=== PATIENT | female | born 1980 | race Two or more races ===

== ENCOUNTER 2020-09-24 15:03 | Outpatient (REF) | payer OTHER, SELFPAY | END 2020-09-24 15:04 | disposition home or self-care (01) | LOC: HO.LAB 15:03 | PROVIDERS: Visit Provider Internal Medicine | DX: Z20.828 Contact with and (suspected) exposure to other viral communicable diseases (principal) | CPT/HCPCS: 36415; C9803; U0003 ==

== ENCOUNTER 2020-11-03 12:35 | Outpatient (REF) | payer OTHER, SELFPAY | END 2020-11-03 12:36 | disposition home or self-care (01) | LOC: HO.LAB 12:35 | PROVIDERS: Visit Provider Internal Medicine | DX: Z20.822 Contact with and (suspected) exposure to COVID-19 (principal) | CPT/HCPCS: 36415; C9803; U0003; U0005 ==

== ENCOUNTER 2020-11-13 08:31 | Outpatient (REF) | payer OTHER, SELFPAY | END 2020-11-13 08:32 | disposition home or self-care (01) | LOC: HO.LAB 08:31 | PROVIDERS: Visit Provider Internal Medicine | DX: Z20.822 Contact with and (suspected) exposure to COVID-19 (principal) | CPT/HCPCS: 36415; C9803; U0003; U0005 ==

== ENCOUNTER 2020-11-25 13:34 | Outpatient (REF) | payer OTHER, SELFPAY ==
--- NOTE | ~2020-11-25 | XR_ITS ---
EXAMINATION: XR LUMBAR SPINE AND SACRUM/COCCYX CLINICAL INFORMATION: Low back pain. COMPARISON: None. TECHNIQUE: 3 views lumbar spine. 3 views coccyx/sacrum. FINDINGS: Lumbar Spine: There is normal lumbar lordosis. The vertebral heights, alignment and disc heights are normal. No visible acute fracture, dislocation or lytic process seen. Sacrum/Coccyx: There are bilateral Essure devices in the pelvis. The SI joints are symmetrical. Visualized sacrum and coccyx are intact without any fracture or lytic process. The soft tissues are normal. XR/XR lumbar spine 2-3V IMPRESSION: Unremarkable lumbar spine exam. Unremarkable sacrum/coccyx.
--- NOTE | ~2020-11-25 | XR_ITS ---
EXAMINATION: XR LUMBAR SPINE AND SACRUM/COCCYX CLINICAL INFORMATION: Low back pain. COMPARISON: None. TECHNIQUE: 3 views lumbar spine. 3 views coccyx/sacrum. FINDINGS: Lumbar Spine: There is normal lumbar lordosis. The vertebral heights, alignment and disc heights are normal. No visible acute fracture, dislocation or lytic process seen. Sacrum/Coccyx: There are bilateral Essure devices in the pelvis. The SI joints are symmetrical. Visualized sacrum and coccyx are intact without any fracture or lytic process. The soft tissues are normal. XR/XR sacrum coccyx min 2V IMPRESSION: Unremarkable lumbar spine exam. Unremarkable sacrum/coccyx.
[2020-11-25 16:19] LABS: MANUAL DIFF FLAG NO
[2020-11-25 16:21] LABS: Basophils Absolute Auto 0.1 X10*3/uL (0.0-0.2); Basophils Percent Auto 0.3 % (0-2); Eosinophils Absolute Auto 0.1 X10*3/uL (0.0-0.4); Eosinophils Percent Auto 0.3 % (0-4); Hemoglobin 14.7 g/dl (12.0-16.0); Imm Gran Abs Auto 0.13 X10*3/uL (0.00-0.03); Imm Gran Pct Auto 0.7 % (0.0-0.4); Lymphocytes Absolute Auto 4.7 X10*3/uL (1.2-4.9); Lymphocytes Percent Auto 26.3 % (20-40); Mean Corpuscular HGB Conc 32.7 g/dl (31.0-35.0); Mean Corpuscular Hemoglobin 30.5 pg (27.0-33.0); Mean Corpuscular Volume 93.4 fL (80-98); Mean Platelet Volume 12.1 fL (9.4-12.3); Monocytes Absolute Auto 1.2 X10*3/uL (0.1-1.2); Monocytes Percent Auto 6.9 % (2-11); Neutrophils Absolute Auto 11.7 X10*3/uL (2.0-8.3); Neutrophils Percent Auto 65.5 % (45-73); Platelet Count 294 X10*3/uL (160-400); Red Blood Count 4.82 X10*6/uL (4.20-5.50); Red Cell Distribution Width 13.3 % (11.0-16.0); White Blood Count 17.8 X10*3/uL (4.8-10.8)
[2020-11-25 16:50] LABS: Alanine Aminotransferase 57 U/L (0-31); Albumin Level 3.9 g/dL (3.5-5.0); Alkaline Phosphatase 89 U/L (39-117); Anion Gap 10 (12-20); Aspartate Amino Transferase 30 U/L (5-31); Bilirubin Total 0.3 mg/dL (0.0-1.0); Blood Urea Nitrogen 9 mg/dL (9-16); Calcium 8.4 mg/dL (8.4-10.2); Carbon Dioxide 28 mmol/L (22-29); Chloride 104 mmol/L (96-108); Estimated Glomerular Filt Rate > 60; Glucose Random 64 mg/dL (60-115); Potassium 4.4 mmol/L (3.3-5.1); Sodium 138 mmol/L (135-145); Total Protein 6.5 g/dL (6.5-8.0)
[2020-11-25 17:12] LABS: TSH reflex Free T4 0.43 uIU/mL (0.32-4.0)
== END 2020-11-25 13:35 | disposition home or self-care (01) ==
LOC: HO.HMGCX 13:34
PROVIDERS: PCP Internal Medicine; Visit Provider Internal Medicine
DX: M54.5 Low back pain (principal); M53.3 Sacrococcygeal disorders, not elsewhere classified; E66.9 Obesity, unspecified; E03.8 Other specified hypothyroidism; F33.2 Major depressive disorder, recurrent severe without psychotic features
CPT/HCPCS: 36415; 72100; 72220; 80053; 84443; 85025

== ENCOUNTER 2020-12-07 09:03 | Outpatient (REF) | payer OTHER, SELFPAY ==
[2020-12-07 11:38] LABS: HIV AB/AG Nonreactive (Nonreactive); HIV Num 1 0.04 S/CO (0.00-0.99)
[2020-12-07 11:43] LABS: HBc Num1 0.04 S/CO (0.00-0.79); Hepatitis B Core Antibody Nonreactive (Nonreactive); ~HepC Num1 0.08 S/CO (0.00-0.79); ~Hepatitis C Antibody Nonreactive (Nonreactive)
[2020-12-07 11:45] LABS: Syphilis Screen Reactive (Nonreactive)
[2020-12-07 14:08] LABS: CT PCR NOT DETECTED (Not Detect.); NG PCR NOT DETECTED (Not Detect.)
[2020-12-08 09:07] LABS: BV Int Neg Control Negative (Negative); BV Int Pos Control Positive (Positive)
[2020-12-11 12:06] LABS: RPR Quantitative Non-Reactive (Nonreactive); T.Pallidum Particle Agg Test Reactive (Nonreactive)
[2020-12-12 00:56] LABS: HPV 16 RNA NOT DETECTED (NOT DETECTED); HPV mRNA E6/E7 rflx Detected (Not Detected)
== END 2020-12-07 09:04 | disposition home or self-care (01) ==
LOC: HO.LAB 09:03
PROVIDERS: PCP Internal Medicine; Visit Provider Advanced Practice Midwife
DX: Z01.419 Encounter for gynecological examination (general) (routine) without abnormal findings (principal); E66.9 Obesity, unspecified; F17.210 Nicotine dependence, cigarettes, uncomplicated; L68.0 Hirsutism; N89.8 Other specified noninflammatory disorders of vagina; Z20.2 Contact with and (suspected) exposure to infections with a predominantly sexual mode of transmission; Z68.42 Body mass index [BMI] 45.0-49.9, adult
CPT/HCPCS: 36415; 86592; 86704; 86780; 86803; 87389; 87480; 87491; 87510; 87591; 87624; 87625; 87660; 88141; 88142

== ENCOUNTER 2021-02-10 09:40 | Emergency (ER) | payer OTHER, SELFPAY ==
--- NOTE | ~2021-02-10 | US_ITS ---
EXAMINATION: US PELVIS CLINICAL INFORMATION: History of polycystic ovarian syndrome. Left pelvic pain. COMPARISON: Previous pelvic ultrasounds as recent September 2019 TECHNIQUE: Ultrasound of the pelvis is performed using both transabdominal and transvaginal transducers along with Doppler. Transvaginal imaging is performed due to inadequate visualization transabdominally. FINDINGS: Uterus: The uterus is anteverted and measures 11 x 5.5 x 5.7 cm. The double wall endometrial thickness is 0.8 mm. The uterus is smooth in contour and has normal myometrial echogenicity. There is a 7 x 7 x 9 mm hypoechoic lesion in the left upper uterine body suggestive of a small fibroid. There are nabothian cysts in the cervix. Adnexa: Both ovaries are visualized and are normal-appearing. There is no pelvic ascites or fluid collection. Right ovary measures 2.5 x 2.3 x 2.1 cm. Left ovary measures 3.8 x 1.8 x 2.7 cm. US/US pelvic complete IMPRESSION: Normal-appearing ovaries. No ovarian cyst seen. Small uterine fibroid.
[2021-02-10 10:02] VITALS: BP 160/113; PULSE 118; RESP 17; TEMP 36.6; O2SAT 98; BMI 46.0
[2021-02-10 10:12] VITALS: BP 134/95; PULSE 116; RESP 17; TEMP 36.7; O2SAT 98
--- NOTE | 2021-02-10 10:14 | ED.ABDPAIN ---
HPI - Abdominal Pain General Chief Complaint: Abdominal Pain Stated Complaint: ovary pain Time Seen by Provider: 02/10/21 10:14 Source: patient Mode of arrival: ambulatory Limitations: no limitations History of Present Illness HPI narrative: Patient with PCOS and now with left pelvic pain. No dysuria, no vaginal discharge, patient states her period is late MD elicited complaint: abdominal pain Onset (ago): day(s) Pain Consistency: intermittent Location: LLQ and pelvis Quality: cramping Exacerbating factors: nothing Relieving factors: nothing Associated symptoms: denies other symptoms Related Data Home Medications Medication Instructions Recorded Confirmed lurasidone 40 mg tablet 40 mg PO DAILY 11/06/20 11/25/20 trazodone 50 mg tablet 50 mg PO BEDTIME PRN 11/06/20 11/25/20 Previous Rx's Medication Instructions Recorded albuterol sulfate 90 mcg/actuation 2 puff INHALATION Q4H PRN 30 Days 10/26/20 aerosol inhaler #8.5 g cholecalciferol (vitamin D3) 25 25 mcg PO DAILY 90 Days #90 cap 01/13/21 mcg (1,000 unit) capsule levothyroxine 50 mcg tablet 50 mcg PO DAILY 90 Days #90 tab 01/13/21 loratadine 10 mg tablet 10 mg PO DAILY #90 tab 01/13/21 naproxen [Naprosyn] 500 mg PO BID #20 tab 02/10/21 Allergies Allergy/AdvReac Type Severity Reaction Status Date / Time aripiprazole [Abilify] Allergy Unknown hives Verified 02/10/21 10:02 latex [LATEX] Allergy Unknown RASH Verified 02/10/21 10:02 sertraline [From Zoloft] Allergy Unknown raised Verified 02/10/21 10:02 LFTs/angioedema zolpidem [Ambien] Allergy Unknown hives Verified 02/10/21 10:02 From AMBIEN Allergy Unknown Rash/angioe Uncoded 06/04/20 16:44 dante Latex Allergy Unknown itching/sor Uncoded 02/05/20 00:00 eness latex Allergy Unknown itchiness/s Uncoded 03/22/19 00:00 oreness Review of Systems Constitutional: Reports no additional constitutional complaints Eyes: Reports no additional eye complaints Denies dizziness Cardiovascular: Reports no additional cardiovascular complaints Respiratory: Reports as per HPI Gastrointestinal: Reports no additional gastrointestinal complaints Genitourinary: Reports no additional female genitourinary complaints Musculoskeletal: Reports no additional musculoskeletal complaints Skin/Breast: Denies rash Reports system reviewed and no additional complaints, except as documented, Denies dizziness and Denies Sensory deficit (Neuro) Psychiatric: Denies anxiety Physical Exam Vital Signs: Vital Signs: Last Vital Signs Temp 98.0 F 02/10/21 10:12 Pulse 90 02/10/21 12:37 Resp 18 02/10/21 12:37 BP 146/62 H 02/10/21 12:37 Pulse Ox 99 02/10/21 12:37 Body Mass Index 46.0 Const: Other: female in pain Nutritional Appearance: obese Orientation/consciousness: oriented to person and patient oriented x3 Limitations: no limitations HENMT: Head: Yes normal to inspection Ears: external ears normal General nose exam: Normal external nose present Mouth: Normal oral and palatal mucosa present and oropharynx normal Throat: Yes posterior oropharynx normal Eyes: General: appearance normal, both eyes and all related structures Neck: Other: supple Neck: Yes normal visual inspection Chest: Chest palpation & inspection: normal inspection of the chest Resp: Auscultation: clear to auscultation bilaterally Cardio: Jugular venous distension: no JVD Rate: regular rate Rhythm: regular rhythm Heart sounds: S1 normal heart sound present and S2 normal heart sound present GI: Inspection: Yes normal to inspection Palpation (GI): Soft to palpation, nontender and No hepatosplenomegaly present Auscultation: normal bowel sounds : General: Yes no CVA tenderness Back/Spine/Pelvis: Back: no CVA tenderness Skin: General skin exam: no rashes or lesions noted Neuro: General: oriented to person and patient oriented x3 Cranial nerves: Yes CN's II-XII intact bilaterally Motor exam (neuro): 5/5 motor strength present throughout Sensory Exam: No Sensory deficit (Neuro) Extrem: General: Yes normal to inspection Psych: Appearance: grossly normal Course Course Course Narrative: ultrasound was negative, WBC mildly elevated, UA with slight blood, nontender abdomen will dc on nsaids MDM - Abdominal Pain Lab Data Result diagrams: 02/10/21 11:03 02/10/21 11:03 Labs: Lab Results 02/10/21 02/10/21 02/10/21 Range/Units 10:47 10:47 11:03 WBC 13.9 H (4.8-10.8) X10*3/uL RBC 4.90 (4.20-5.50) X10*6/uL Hgb 15.0 (12.0-16.0) g/dl Hct 45.3 (37-47) % MCV 92.4 (80-98) fL MCH 30.6 (27.0-33.0) pg MCHC 33.1 (31.0-35.0) g/dl RDW 13.4 (11.0-16.0) % Plt Count 263 (160-400) X10*3/uL MPV 11.2 (9.4-12.3) fL Immature Gran % (Auto) 1.0 H (0.0-0.4) % Neut % (Auto) 69.1 (45-73) % Lymph % (Auto) 21.0 (20-40) % [place] % (Auto) 7.9 (2-11) % Eos % (Auto) 0.6 (0-4) % Baso % (Auto) 0.4 (0-2) % Lymph # (Auto) 2.9 (1.2-4.9) X10*3/uL [place] # (Auto) 1.1 (0.1-1.2) X10*3/uL Eos # (Auto) 0.1 (0.0-0.4) X10*3/uL Baso # (Auto) 0.1 (0.0-0.2) X10*3/uL Abs Immat Gran (auto) 0.14 H (0.00-0.03) X10*3/uL Absolute Neuts (auto) 9.6 H (2.0-8.3) X10*3/uL Absolute Nucleated RBC 0.000 (0.0-0.012) X10*3/uL Nucleated RBC % (auto) 0.0 (0.0-0.2) /100WBC Sodium (135-145) mmol/L Potassium (3.3-5.1) mmol/L Chloride (96-108) mmol/L Carbon Dioxide (22-29) mmol/L Anion Gap (12-20) BUN (9-16) mg/dL Creatinine (0.5-1.4) mg/dL Estim Creat Clear Calc Estimated GFR Random Glucose (60-115) mg/dL Calcium (8.4-10.2) mg/dL Urine Color YELLOW Urine Appearance CLEAR Urine pH 6.0 (5.0-8.0) Ur Specific [place] <= 1.005 (1.005-1.025) Urine Protein NEG (NEG-TRACE) MG/DL Urine Glucose (UA) NEG (NEG) MG/DL Urine Ketones NEG (NEG) MG/DL Urine Blood 2+ H (NEG) Urine Nitrite NEG (NEG) Ur Leukocyte Esterase NEG (NEG) Urine RBC 10-14 H (0) /HPF Urine WBC 0 (0-4) /HPF Ur Squamous Epith Cells TRACE /LPF Urine Bacteria NONE /LPF Urine Test NEGATIVE (NEGATIVE) 02/10/21 Range/Units 11:03 WBC (4.8-10.8) X10*3/uL RBC (4.20-5.50) X10*6/uL Hgb (12.0-16.0) g/dl Hct (37-47) % MCV (80-98) fL MCH (27.0-33.0) pg MCHC (31.0-35.0) g/dl RDW (11.0-16.0) % Plt Count (160-400) X10*3/uL MPV (9.4-12.3) fL Immature Gran % (Auto) (0.0-0.4) % Neut % (Auto) (45-73) % Lymph % (Auto) (20-40) % [place] % (Auto) (2-11) % Eos % (Auto) (0-4) % Baso % (Auto) (0-2) % Lymph # (Auto) (1.2-4.9) X10*3/uL [place] # (Auto) (0.1-1.2) X10*3/uL Eos # (Auto) (0.0-0.4) X10*3/uL Baso # (Auto) (0.0-0.2) X10*3/uL Abs Immat Gran (auto) (0.00-0.03) X10*3/uL Absolute Neuts (auto) (2.0-8.3) X10*3/uL Absolute Nucleated RBC (0.0-0.012) X10*3/uL Nucleated RBC % (auto) (0.0-0.2) /100WBC Sodium 138 (135-145) mmol/L Potassium 4.4 (3.3-5.1) mmol/L Chloride 108 (96-108) mmol/L Carbon Dioxide 24 (22-29) mmol/L Anion Gap 10 L (12-20) BUN 9 (9-16) mg/dL Creatinine 0.70 (0.5-1.4) mg/dL Estim Creat Clear Calc 135.2 Estimated GFR > 60 Random Glucose 89 D (60-115) mg/dL Calcium 8.4 (8.4-10.2) mg/dL Urine Color Urine Appearance Urine pH (5.0-8.0) Ur Specific [place] (1.005-1.025) Urine Protein (NEG-TRACE) MG/DL Urine Glucose (UA) (NEG) MG/DL Urine Ketones (NEG) MG/DL Urine Blood (NEG) Urine Nitrite (NEG) Ur Leukocyte Esterase (NEG) Urine RBC (0) /HPF Urine WBC (0-4) /HPF Ur Squamous Epith Cells /LPF Urine Bacteria /LPF Urine Test (NEGATIVE) Imaging Data pelvic US: Radiologist's impression: IMPRESSION: Normal-appearing ovaries. No ovarian cyst seen. Small uterine fibroid. Discharge Plan Discharge Clinical Impression: Abdominal pain Qualifiers: Abdominal location: left lower quadrant Qualified Code(s): R10.32 - Left lower quadrant pain Patient Disposition: Home, Self-Care Instructions: Abdominal Pain (ED) Prescriptions: New naproxen [Naprosyn] 500 mg tablet 500 mg PO BID Qty: 20 RF: 0 No Action albuterol sulfate [Ventolin HFA] 90 mcg/actuation HFA aerosol inhaler 2 puff inhalation Q4H PRN (Reason: bronchospasm) 30 Days Qty: 8.5 RF: 0 Latuda 40 mg tablet 40 mg PO DAILY RF: 0 trazodone 50 mg tablet 50 mg PO BEDTIME PRNRF: 0 loratadine 10 mg tablet 10 mg PO DAILY Qty: 90 RF: 0 levothyroxine [Synthroid] 50 mcg tablet 50 mcg PO DAILY 90 Days Qty: 90 RF: 0 cholecalciferol (vitamin D3) 25 mcg (1,000 unit) capsule 25 mcg PO DAILY 90 Days Qty: 90 RF: 0 Referrals: Sally Ramirez MD [Primary Care Provider] - 1 week [facility] Past Medical History Medical History Anemia Asthma Bipolar 1 disorder Diabetes mellitus Elevated WBCs Encounter for Essure implantation History of hypothyroidism History of syphilis Hypothyroid HENRIQUEZ (nonalcoholic steatohepatitis) Neutrophilia PCOS (polycystic ovarian syndrome) Family History Family History Paternal Grandfather Colon cancer Paternal Grandmother Breast cancer Maternal Grandmother Uterine cancer Father Arthritis Asthma Social History Social History Alcohol intake: never Patient Tobacco Use Status: Never used Tobacco Cigarettes Per Day: 5 Use of substances other than those prescribed or required for medical reasons: No Advance Directives: Yes Advance Directives Information Provided: Yes Advance Directives on File: No Sexual orientation: Straight/Heterosexual Gender identity: female
--- NOTE | 2021-02-10 10:55 | PC.NURSE ---
Pt ambulatory to the bathroom and back without difficulty. Urine specimen obtained. Heplock inserted in right upper arm with a 20 gauge insyte. Site secured and flushed with ns.
[2021-02-10 11:02] LABS: Glucose Urine UA NEG (NEG); Leukocyte Esterase Urine NEG (NEG); Nitrite Urine NEG (NEG); Specific Gravity - Urine <= 1.005 (1.005-1.025); Urine Blood 2+ (NEG); Urine Ketones NEG (NEG); Urine Protein NEG (NEG-TRACE)
[2021-02-10 11:04] LABS: Appearance Urine CLEAR; Color Urine YELLOW; UPreg QC Valid YES; Urine Pregnancy NEGATIVE (NEGATIVE)
[2021-02-10 11:08] LABS: MANUAL DIFF FLAG NO
[2021-02-10 11:11] LABS: Squamous Epithelial Cell Urine TRACE /LPF; WBC Urine 0 /HPF (0-4)
[2021-02-10] MEDS: 0.9 % Sodium Chloride 1,000 ML 999 ML IVCONT (11:15)
[2021-02-10 11:16] LABS: Basophils Absolute Auto 0.1 X10*3/uL (0.0-0.2); Basophils Percent Auto 0.4 % (0-2); Eosinophils Absolute Auto 0.1 X10*3/uL (0.0-0.4); Eosinophils Percent Auto 0.6 % (0-4); Hematocrit 45.3 % (37-47); Imm Gran Abs Auto 0.14 X10*3/uL (0.00-0.03); Lymphocytes Absolute Auto 2.9 X10*3/uL (1.2-4.9); Mean Corpuscular HGB Conc 33.1 g/dl (31.0-35.0); Mean Corpuscular Hemoglobin 30.6 pg (27.0-33.0); Mean Corpuscular Volume 92.4 fL (80-98); Mean Platelet Volume 11.2 fL (9.4-12.3); Monocytes Absolute Auto 1.1 X10*3/uL (0.1-1.2); Monocytes Percent Auto 7.9 % (2-11); Neutrophils Absolute Auto 9.6 X10*3/uL (2.0-8.3); Neutrophils Percent Auto 69.1 % (45-73); Platelet Count 263 X10*3/uL (160-400); Red Cell Distribution Width 13.4 % (11.0-16.0); White Blood Count 13.9 X10*3/uL (4.8-10.8)
--- NOTE | 2021-02-10 11:16 | PC.NURSE ---
NS infusion started iv in right upper arm
[2021-02-10 11:30] LABS: Anion Gap 10 (12-20); Blood Urea Nitrogen 9 mg/dL (9-16); Calcium 8.4 mg/dL (8.4-10.2); Carbon Dioxide 24 mmol/L (22-29); Chloride 108 mmol/L (96-108); Creatinine Clr Calc Pharmacy 135.2; Estimated Glomerular Filt Rate > 60; Glucose Random 89 mg/dL (60-115); Potassium 4.4 mmol/L (3.3-5.1); Sodium 138 mmol/L (135-145)
[2021-02-10] MEDS: Ketorolac Tromethamine 30 MG/ML VIAL IVPUSH (11:30)
--- NOTE | 2021-02-10 12:01 | PC.NURSE ---
Patient states pain is better after getting toradol IV. Pt rates pain a 5/10. Pt to ultrasound via stretcher alert, oriented and in no acute distress
[2021-02-10 12:37] VITALS: BP 146/62; PULSE 90; RESP 18; O2SAT 99
--- NOTE | 2021-02-10 12:40 | PC.NURSE ---
Patient is back from ultrasound in no distress. Second liter of ns started per doctors orders.
--- NOTE | 2021-02-10 13:52 | PC.NURSE ---
heplock removed. pressure bandage applied. discharge instructions given with no questions voiced.
== END 2021-02-10 13:46 | disposition home or self-care (01) ==
PROVIDERS: Emergency Provider Emergency Medicine; PCP Internal Medicine
DX: N94.89 Other specified conditions associated with female genital organs and menstrual cycle (principal); R10.32 Left lower quadrant pain; Z79.899 Other long term (current) drug therapy; F17.210 Nicotine dependence, cigarettes, uncomplicated; Z71.6 Tobacco abuse counseling
CPT/HCPCS: 36415; 76856; 80048; 81001; 81003; 81025; 85025; 96365; 96375; 99285; J1885

== ENCOUNTER 2021-03-03 11:31 | Outpatient (REF) | payer OTHER, SELFPAY ==
--- NOTE | ~2021-03-03 | XR_ITS ---
EXAMINATION: XR RIBS, LEFT CLINICAL INFORMATION: Pleurodynia. COMPARISON: None TECHNIQUE: Frontal view of chest. 3 views of the left ribs were obtained. FINDINGS: Lungs are clear. No consolidation, pneumothorax, or pleural effusion. The cardiomediastinal silhouette and pulmonary vasculature are normal. Osseous structures are unremarkable. Ribs are intact. No fractures are identified. XR/XR ribs LT min 3V w CXR1V IMPRESSION: Unremarkable examination.
== END 2021-03-03 11:32 | disposition home or self-care (01) ==
LOC: HO.HMGCX 11:31
PROVIDERS: PCP Internal Medicine; Visit Provider Internal Medicine
DX: R07.81 Pleurodynia (principal)
CPT/HCPCS: 71101

== ENCOUNTER → 2021-04-28 10:17 | Outpatient (REF) | payer OTHER, SELFPAY | LOC: HO.SL 10:17 | PROVIDERS: PCP Internal Medicine; Visit Provider Internal Medicine | DX: R40.0 Somnolence (principal); R06.83 Snoring | CPT/HCPCS: 95806 ==

== ENCOUNTER → 2021-08-02 12:59 | Outpatient (BNVA) | payer OTHER, SELFPAY | PROVIDERS: PCP Internal Medicine; Visit Provider Internal Medicine | DX: E66.01 Morbid (severe) obesity due to excess calories (principal); G47.33 Obstructive sleep apnea (adult) (pediatric); R06.83 Snoring | CPT/HCPCS: 99202 ==

== ENCOUNTER 2021-09-20 11:20 | Outpatient (REF) | payer OTHER, SELFPAY ==
[2021-09-20 12:58] LABS: COVID-19 Test Negative (Negative); IDNOW Serial# 16C4AD1C
== END 2021-09-20 11:21 | disposition home or self-care (01) ==
LOC: HO.LAB 11:20
PROVIDERS: Visit Provider Internal Medicine
DX: Z20.822 Contact with and (suspected) exposure to COVID-19 (principal)
CPT/HCPCS: 36415; 87635; C9803

== ENCOUNTER 2021-09-23 09:20 | Outpatient (REF) | payer OTHER, SELFPAY ==
[2021-09-23 10:25] LABS: COVID-19 Test Negative (Negative)
== END 2021-09-23 09:21 | disposition home or self-care (01) ==
LOC: HO.LAB 09:20
PROVIDERS: Visit Provider Internal Medicine
DX: Z20.822 Contact with and (suspected) exposure to COVID-19 (principal)
CPT/HCPCS: 87635; C9803

== ENCOUNTER 2021-09-28 16:39 | Outpatient (REF) | payer OTHER, SELFPAY ==
[2021-09-28 17:27] LABS: HCG Quantitative < 2 mIU/mL
== END 2021-09-28 16:40 | disposition home or self-care (01) ==
LOC: HO.LAB 16:39
PROVIDERS: Visit Provider Advanced Practice Midwife
DX: N92.6 Irregular menstruation, unspecified (principal)
CPT/HCPCS: 36415; 84702

== ENCOUNTER 2021-10-05 13:53 | Outpatient (REF) | payer OTHER, SELFPAY ==
--- NOTE | ~2021-10-05 | XR_ITS ---
EXAMINATION: XR KNEE, RIGHT CLINICAL INFORMATION: Pain COMPARISON: None TECHNIQUE: Four views of the right knee. FINDINGS: Bones and soft tissues are normal. No fracture or joint effusion. Alignment is anatomic. Joint spaces are well maintained. No abnormal soft tissue calcification. XR/XR knee RT 4V IMPRESSION: Normal right knee.
[2021-10-05 16:54] LABS: Alanine Aminotransferase 37 U/L (0-31); Albumin Level 3.8 g/dL (3.5-5.0); Alkaline Phosphatase 100 U/L (39-117); Anion Gap 13 (12-20); Aspartate Amino Transferase 18 U/L (5-31); Bilirubin Total 0.3 mg/dL (0.0-1.0); Blood Urea Nitrogen 11 mg/dL (9-16); Calcium 8.9 mg/dL (8.4-10.2); Carbon Dioxide 26 mmol/L (22-29); Chloride 105 mmol/L (96-108); Estimated Glomerular Filt Rate > 60; Glucose Random 110 mg/dL (60-115); Sodium 139 mmol/L (135-145); Total Protein 6.8 g/dL (6.5-8.0)
[2021-10-05 17:14] LABS: TSH reflex Free T4 0.94 uIU/mL (0.32-4.0)
== END 2021-10-05 13:54 | disposition home or self-care (01) ==
LOC: HO.HMGCLNP 13:53
PROVIDERS: Visit Provider Internal Medicine
DX: E03.8 Other specified hypothyroidism (principal); E66.01 Morbid (severe) obesity due to excess calories; G47.33 Obstructive sleep apnea (adult) (pediatric); F33.2 Major depressive disorder, recurrent severe without psychotic features; I10 Essential (primary) hypertension; Z72.0 Tobacco use; Z99.89 Dependence on other enabling machines and devices
CPT/HCPCS: 73564; 80053; 84443

== ENCOUNTER 2021-11-09 10:56 | Outpatient (REF) | payer OTHER, SELFPAY ==
[2021-11-09 12:08] LABS: Baso%MD 0.5 %; Eos%MD 0.8 %; Hematocrit 48.3 % (37.0-47.0); Hemoglobin 15.6 g/dl (12.0-16.0); IG%MD 1.4 %; Lymph%MD 21.3 %; Mean Corpuscular HGB Conc 32.3 g/dl (31.0-35.0); Mean Corpuscular Hemoglobin 30.1 pg (27.0-33.0); Mean Corpuscular Volume 93.1 fL (80.0-98.0); Mean Platelet Volume 11.5 fL (9.4-12.3); Mono%MD 6.9 %; Neut%MD 69.1 %; Platelet Count 258 X10*3/uL (160-400); Red Blood Count 5.19 X10*6/uL (4.20-5.50); Red Cell Distribution Width 13.8 % (11.0-16.0); White Blood Count 14.3 X10*3/uL (4.8-10.8)
[2021-11-09 12:18] LABS: Estimated Average Glucose 148 mg/dL; Hemoglobin A1c % 6.8 %
[2021-11-09 13:00] LABS: Free T4 (Free Thyroxine) 0.94 ng/dL (0.71-1.85); Thyroid Stimulating Hormone 0.51 uIU/mL (0.32-4.0)
[2021-11-09 13:05] LABS: Anion Gap 13 (12-20); Blood Urea Nitrogen 10 mg/dL (9-16); Calcium 8.8 mg/dL (8.4-10.2); Carbon Dioxide 24 mmol/L (22-29); Chloride 105 mmol/L (96-108); Cholesterol 154 mg/dL; Estimated Glomerular Filt Rate > 60; Glucose Fasting 96 mg/dL (60-99); HDL Cholesterol 33 mg/dL; LDL Cholesterol Calculated 92 mg/dl; Potassium 5.1 mmol/L (3.3-5.1); Sodium 137 mmol/L (135-145); Triglycerides 149 mg/dL
[2021-11-09 13:12] LABS: Atypical Lymph Absolute Manual 0.6 x10*3/uL; Atypical Lymphs Percent Manual 4 % (0-6); Band Neutrophils Percent 2 % (3-5); Monocytes Absolute Manual 0.9 X10*3/uL (0.1-1.2); Monocytes Percent Manual 6 % (2-11)
[2021-11-09 13:13] LABS: Lymphocytes Absolute Manual 2.1 X10*3/uL (1.2-4.9); Lymphocytes Percent Manual 15 % (20-40); Neutrophils Absolute Manual 10.7 X10*3/uL (2.0-8.3); Neutrophils Percent Manual 73 % (45-73)
[2021-11-09 13:14] LABS: Platelet Estimate NORMAL (NORMAL)
[2021-11-09 13:15] LABS: Platelet Morphology Comment NORMAL; RBC Morphology NORMAL
[2021-11-10 07:57] LABS: Prolactin 2.6 ng/mL
== END 2021-11-09 10:57 | disposition home or self-care (01) ==
LOC: HO.LAB 10:56
PROVIDERS: PCP Internal Medicine; Visit Provider Clinical Nurse Specialist Psychiatric/Mental Health, Child & Adolescent
DX: Z51.81 Encounter for therapeutic drug level monitoring (principal); Z79.899 Other long term (current) drug therapy
CPT/HCPCS: 36415; 80048; 80061; 83036; 84146; 84439; 84443; 85007; 85027

== ENCOUNTER 2021-12-09 08:57 | Outpatient (REF) | payer OTHER, SELFPAY ==
[2021-12-10 01:36] LABS: CT PCR NOT DETECTED (Not Detect.); NG PCR NOT DETECTED (Not Detect.)
[2021-12-11 23:46] LABS: HPV 16 RNA NOT DETECTED (NOT DETECTED); HPV mRNA E6/E7 rflx Detected (Not Detected)
== END 2021-12-09 08:58 | disposition home or self-care (01) ==
LOC: HO.LAB 08:57
PROVIDERS: PCP Internal Medicine; Visit Provider Advanced Practice Midwife
DX: Z01.419 Encounter for gynecological examination (general) (routine) without abnormal findings (principal); Z11.51 Encounter for screening for human papillomavirus (HPV); Z20.2 Contact with and (suspected) exposure to infections with a predominantly sexual mode of transmission
CPT/HCPCS: 87491; 87591; 87624; 87625; 88142

== ENCOUNTER → 2021-12-15 13:10 | Outpatient (BNVA) | payer OTHER, SELFPAY | PROVIDERS: PCP Internal Medicine; Visit Provider Internal Medicine | DX: G47.33 Obstructive sleep apnea (adult) (pediatric) (principal); E66.01 Morbid (severe) obesity due to excess calories; Z71.3 Dietary counseling and surveillance | CPT/HCPCS: 99212 ==

== ENCOUNTER 2021-12-24 14:42 | Outpatient (REF) | payer OTHER, SELFPAY ==
[2021-12-24 16:53] LABS: HCG Quantitative < 2 mIU/mL
== END 2021-12-24 14:43 | disposition home or self-care (01) ==
LOC: HO.HMGCLDS 14:42
PROVIDERS: PCP Internal Medicine; Visit Provider Internal Medicine
DX: N92.6 Irregular menstruation, unspecified (principal)
CPT/HCPCS: 36415; 84702

== ENCOUNTER → 2022-01-21 11:43 | Outpatient (BNVA) | payer OTHER, SELFPAY | PROVIDERS: PCP Internal Medicine; Referring Provider Internal Medicine; Visit Provider Physician Assistant Surgical | DX: E66.01 Morbid (severe) obesity due to excess calories (principal); Z68.43 Body mass index [BMI] 50.0-59.9, adult | CPT/HCPCS: 99202 ==

== ENCOUNTER 2022-01-31 14:31 | Outpatient (REF) | payer OTHER, SELFPAY | END 2022-01-31 14:32 | disposition home or self-care (01) | LOC: HO.LAB 14:31 | PROVIDERS: PCP Internal Medicine; Visit Provider Obstetrics & Gynecology | DX: R87.612 Low grade squamous intraepithelial lesion on cytologic smear of cervix (LGSIL) (principal) | CPT/HCPCS: 57454; 81025; 88305; 88342; 88360 ==

== ENCOUNTER → 2022-02-08 14:00 | Outpatient (BNVA) | payer OTHER, SELFPAY | PROVIDERS: PCP Internal Medicine; Visit Provider Counselor Mental Health | DX: F31.70 Bipolar disorder, currently in remission, most recent episode unspecified (principal); E66.01 Morbid (severe) obesity due to excess calories | CPT/HCPCS: 90791 ==

== ENCOUNTER 2022-02-10 08:53 | Outpatient (REF) | payer OTHER, SELFPAY ==
--- NOTE | ~2022-02-10 | XR_ITS ---
EXAMINATION: XR CHEST CLINICAL INFORMATION: Bariatric service evaluation, E66.01. COMPARISON: Chest radiographs 03/03/2021, 08/06/2016. TECHNIQUE: 2 views of the chest were obtained. FINDINGS: The lungs are clear. The vascularity is normal. The heart is normal in size. The costophrenic sulci are well-defined. The hilar and mediastinal contours are normal. Bony structures are unremarkable. XR/XR chest 2V IMPRESSION: Unremarkable examination.
--- NOTE | 2022-02-10 08:59 | ECG_ITS ---
Test Reason : obesity Blood Pressure : / mmHG Vent. Rate : 097 BPM Atrial Rate : 097 BPM P-R Int : 152 ms QRS Dur : 080 ms QT Int : 350 ms P-R-T Axes : 058 094 035 degrees QTc Int : 444 ms Normal sinus rhythm Rightward axis Borderline ECG When compared with ECG of 09-MAR-2018 07:32, No significant change was found Referred By: Matt Barnard Electronically Signed By:Ventura Pang
[2022-02-10 09:24] LABS: MANUAL DIFF FLAG NO
[2022-02-10 09:42] LABS: Basophils Absolute Auto 0.1 X10*3/uL (0.0-0.2); Basophils Percent Auto 0.4 % (0-2); Eosinophils Absolute Auto 0.2 X10*3/uL (0.0-0.4); Eosinophils Percent Auto 1.1 % (0-4); Hematocrit 45.6 % (37.0-47.0); Imm Gran Abs Auto 0.12 X10*3/uL (0.00-0.03); Imm Gran Pct Auto 0.9 % (0.0-0.4); Lymphocytes Absolute Auto 2.8 X10*3/uL (1.2-4.9); Lymphocytes Percent Auto 21.2 % (20-40); Mean Corpuscular HGB Conc 32.9 g/dl (31.0-35.0); Mean Corpuscular Hemoglobin 30.4 pg (27.0-33.0); Mean Corpuscular Volume 92.5 fL (80.0-98.0); Mean Platelet Volume 11.4 fL (9.4-12.3); Monocytes Absolute Auto 1.1 X10*3/uL (0.1-1.2); Monocytes Percent Auto 8.1 % (2-11); Neutrophils Percent Auto 68.3 % (45-73); Platelet Count 240 X10*3/uL (160-400); Red Blood Count 4.93 X10*6/uL (4.20-5.50); Red Cell Distribution Width 13.9 % (11.0-16.0); White Blood Count 13.1 X10*3/uL (4.8-10.8)
[2022-02-10 10:01] LABS: Estimated Average Glucose 140 mg/dL; Hemoglobin A1c % 6.5 %
[2022-02-10 10:05] LABS: Alanine Aminotransferase 36 U/L (0-31); Albumin Level 3.8 g/dL (3.5-5.0); Alkaline Phosphatase 90 U/L (39-117); Anion Gap 10 (12-20); Aspartate Amino Transferase 16 U/L (5-31); Bilirubin Total 0.4 mg/dL (0.0-1.0); Blood Urea Nitrogen 13 mg/dL (9-16); C Reactive Protein 0.75 mg/dL (< or = 0.50); Calcium 8.8 mg/dL (8.4-10.2); Carbon Dioxide 25 mmol/L (22-29); Chloride 107 mmol/L (96-108); Cholesterol 140 mg/dL; Estimated Glomerular Filt Rate > 60; Glucose Random 108 mg/dL (60-115); HDL Cholesterol 28 mg/dL; Iron 51 mcg/dL (30-160); LDL Cholesterol Calculated 85 mg/dl; Percent Iron Saturation 15 % (15-50); Potassium 4.8 mmol/L (3.3-5.1); Sodium 137 mmol/L (135-145); Total Iron Binding Capacity 330 mcg/dL (228-428); Total Protein 6.5 g/dL (6.5-8.0); Triglycerides 136 mg/dL; Unsaturated Iron Binding 279 ug/dL
[2022-02-10 10:28] LABS: Ferritin 37 ng/mL (10-122); TSH reflex Free T4 0.71 uIU/mL (0.32-4.0); Vitamin D 25-OH Total 21.6 ng/mL (>30)
[2022-02-10 10:39] LABS: Folate 16.8 ng/mL (> or = 4.0); Vitamin B12 374 pg/mL (200-900)
[2022-02-10 11:26] LABS: Insulin 36 uU/mL (2-29)
[2022-02-12 12:07] LABS: Calcium (PTHI) 8.6 mg/dL (8.6-10.2); PTHI 54 pg/mL (16-77)
[2022-02-16 04:17] LABS: Zinc 72 mcg/dL (60-130)
[2022-02-16 14:32] LABS: Vitamin A 35 mcg/dL (38-98)
[2022-02-16 15:51] LABS: Vitamin B1 9 nmol/L (8-30)
== END 2022-02-10 08:54 | disposition home or self-care (01) ==
LOC: HO.LAB 08:53
PROVIDERS: PCP Internal Medicine; Visit Provider Physician Assistant Surgical
DX: Z01.818 Encounter for other preprocedural examination (principal); E66.01 Morbid (severe) obesity due to excess calories
CPT/HCPCS: 36415; 71046; 80053; 80061; 82306; 82607; 82728; 82746; 83036; 83525; 83540; 83970; 84425; 84443; 84590; 84630; 85025; 86140; 93005

== ENCOUNTER 2022-02-15 14:22 | Outpatient (REF) | payer OTHER, SELFPAY ==
[2022-02-16 14:11] LABS: H Pylori Breath Test Negative (Negative)
== END 2022-02-15 14:23 | disposition home or self-care (01) ==
LOC: HO.LNP 14:22
PROVIDERS: Physician Assistant Surgical; PCP Internal Medicine; Visit Provider Obstetrics & Gynecology
DX: E66.01 Morbid (severe) obesity due to excess calories (principal); N87.1 Moderate cervical dysplasia; Z71.3 Dietary counseling and surveillance; Z79.899 Other long term (current) drug therapy
CPT/HCPCS: 83013; 99211; 99212

== ENCOUNTER 2022-02-16 11:31 | Outpatient (REF) | payer OTHER, SELFPAY ==
[2022-02-16 12:06] LABS: COVID-19 Test Negative (Negative)
== END 2022-02-16 11:32 | disposition home or self-care (01) ==
LOC: HO.LAB 11:31
PROVIDERS: PCP Internal Medicine; Visit Provider Internal Medicine
DX: Z20.822 Contact with and (suspected) exposure to COVID-19 (principal)
CPT/HCPCS: 87635; C9803

== ENCOUNTER → 2022-02-17 12:00 | Outpatient (BNVA) | payer OTHER, SELFPAY | PROVIDERS: PCP Internal Medicine; Visit Provider Counselor Mental Health | DX: F31.70 Bipolar disorder, currently in remission, most recent episode unspecified (principal); E66.01 Morbid (severe) obesity due to excess calories | CPT/HCPCS: 90834 ==

== ENCOUNTER 2022-02-25 08:56 | Day surgery (SDC) | payer OTHER, SELFPAY ==
--- NOTE | 2022-02-24 09:08 | HO.ANESPROP2 ---
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 (Acute) Missed menses (Acute) Encounter for annual routine gynecological examination (Acute) Knee pain, right (Acute) DONNA (obstructive sleep apnea) (Acute) Morbid obesity (Acute) Environmental allergies (Acute) Sore throat (Acute) Obstructive sleep apnea on CPAP (Acute) Encounter for general adult medical examination with abnormal findings (Acute) Hypertension, essential (Acute) Rash (Acute) Snoring (Acute) Daytime somnolence (Acute) Heart burn (Acute) Hospital discharge follow-up (Acute) Tobacco abuse (Acute) Elevated blood pressure reading (Acute) Rib pain on left side (Acute) Depression, major, severe recurrence (Acute) Other specified hypothyroidism (Acute) Coccyx pain (Acute) Lower back pain (Acute) Past Medical History Medical History (Updated 02/25/22 @ 12:23 by Jaye Kaur MD) Anemia Asthma Bipolar 1 disorder Elevated WBCs Encounter for Essure implantation H/O abnormal cervical Papanicolaou smear History of electroconvulsive therapy History of hypothyroidism History of syphilis Hypothyroid Morbid obesity Morbid obesity due to excess calories HENRIQUEZ (nonalcoholic steatohepatitis) Neutrophilia DONNA (obstructive sleep apnea) PCOS (polycystic ovarian syndrome) Family History Family History Paternal Grandfather Colon cancer Paternal Grandmother Breast cancer Maternal Grandmother Uterine cancer Father Arthritis Asthma Diabetes Hypertension Stroke Mother Hypertension Mental health disorder Sister Hypertension Diabetes Sister No problems noted. Sister Depression Obesity Brother No problems noted. Sister Lupus Son No problems noted. Daughter No problems noted. Social History Social History Housing: Apartment Alcohol intake: current Alcohol intake frequency: holidays/special occasions only Patient Tobacco Use Status: Current everyday Tobacco user Tobacco use type: Cigarette Cigarettes Per Day: 3 Years Smoked: 15 e-Cigarette/Vaping Use: Never Used Use of substances other than those prescribed or required for medical reasons: Yes Substance Use Frequency: Occasionally Are you DNR?: No Advance Directives: No Advance Directives Information Provided: Yes service: No Current occupational status: unemployed Sexual orientation: Straight/Heterosexual Gender identity: Female Cognitive needs: No Hearing needs: No Vision needs: Yes Meds Allergies Allergy/AdvReac Type Severity Reaction Status Date / Time aripiprazole [Abilify] Allergy Unknown hives Verified 02/01/22 13:06 latex [LATEX] Allergy Unknown RASH Verified 02/01/22 13:06 sertraline [From Zoloft] Allergy Unknown raised Verified 02/01/22 13:06 LFTs/angioedema zolpidem [Ambien] Allergy Unknown hives Verified 02/01/22 13:06 Home Medications Medication Instructions Recorded Confirmed Last Taken Type lurasidone 60 mg tablet (Latuda) 60 mg PO QAM 01/21/22 02/15/22 Unknown History Exam Exam Date and Time: February 24, 2022 0908 Pertinent Lab Results Pertinent Lab Results: Laboratory Tests 02/10/22 02/10/22 09:18 09:18 WBC 13.1 H Hgb 15.0 Hct 45.6 Plt Count 240 Sodium 137 Potassium 4.8 Chloride 107 Carbon Dioxide 25 BUN 13 Creatinine 0.80 Narrative Narrative: EKG 01/2022 Vent. Rate : 097 BPM ? ? Atrial Rate : 097 BPM ?? P-R Int : 152 ms? QRS Dur : 080 ms ? ? QT Int : 350 ms ? ? ? P-R-T Axes : 058 094 035 degrees ?? QTc Int : 444 ms ? Normal sinus rhythm Rightward axis Borderline ECG When compared with ECG of 09-MAR-2018 07:32, No significant change was found Assessment and Plan Assessment Anesthesia Assessment: Chart Reviewed Documented by User: Jaye Kaur MD 02/25/22 12:49 PMFSH Active Problems Active Problems: All Active Problems (Updated 02/15/22 @ 14:37 by Jose Mendoza MD) WATSON II (cervical intraepithelial neoplasia II) (Acute) Bipolar disorder in partial remission (Acute) Diabetes 1.5, managed as type 2 (Acute) LGSIL on Pap smear of cervix (Acute) Missed menses (Acute) Encounter for annual routine gynecological examination (Acute) Knee pain, right (Acute) DONNA (obstructive sleep apnea) - not using CPAP machine Morbid obesity (Acute) Environmental allergies (Acute) Sore throat (Acute) Obstructive sleep apnea on CPAP (Acute) Encounter for general adult medical examination with abnormal findings (Acute) Hypertension, essential (Acute) Rash (Acute) Snoring (Acute) Daytime somnolence (Acute) Heart burn (Acute) Hospital discharge follow-up (Acute) Tobacco abuse (Acute) Elevated blood pressure reading (Acute) Rib pain on left side (Acute) Depression, major, severe recurrence (Acute) Other specified hypothyroidism (Acute) Coccyx pain (Acute) Lower back pain (Acute) Past Medical History Medical History (Updated 02/25/22 @ 12:23 by Jaye Kaur MD) Anemia Asthma Bipolar 1 disorder Elevated WBCs Encounter for Essure implantation H/O abnormal cervical Papanicolaou smear History of electroconvulsive therapy History of hypothyroidism History of syphilis Hypothyroid Morbid obesity Morbid obesity due to excess calories HENRIQUEZ (nonalcoholic steatohepatitis) Neutrophilia DONNA (obstructive sleep apnea) PCOS (polycystic ovarian syndrome) Family History Family History Paternal Grandfather Colon cancer Paternal Grandmother Breast cancer Maternal Grandmother Uterine cancer Father Arthritis Asthma Diabetes Hypertension Stroke Mother Hypertension Mental health disorder Sister Hypertension Diabetes Sister No problems noted. Sister Depression Obesity Brother No problems noted. Sister Lupus Son No problems noted. Daughter No problems noted. Family history of problems with anesthesia: No Surgical History History of Problems with Anesthesia: No Social History Social History Housing: Apartment Alcohol intake: current Alcohol intake frequency: holidays/special occasions only Patient Tobacco Use Status: Current everyday Tobacco user Tobacco use type: Cigarette Cigarettes Per Day: 3 Years Smoked: 15 e-Cigarette/Vaping Use: Never Used Use of substances other than those prescribed or required for medical reasons: Yes Substance Use Frequency: Occasionally Are you DNR?: No Advance Directives: No Advance Directives Information Provided: Yes service: No Current occupational status: unemployed Sexual orientation: Straight/Heterosexual Gender identity: Female Cognitive needs: No Hearing needs: No Vision needs: Yes Meds Allergies Allergy/AdvReac Type Severity Reaction Status Date / Time aripiprazole [Abilify] Allergy Unknown hives Verified 02/01/22 13:06 latex [LATEX] Allergy Unknown RASH Verified 02/01/22 13:06 sertraline [From Zoloft] Allergy Unknown raised Verified 02/01/22 13:06 LFTs/angioedema zolpidem [Ambien] Allergy Unknown hives Verified 02/01/22 13:06 Home Medications Medication Instructions Recorded Confirmed Last Taken Type lurasidone 60 mg tablet (Latuda) 60 mg PO QAM 01/21/22 02/15/22 Unknown History Exam Height,Weight and Vital Signs: Height 5 ft 3 in Weight 130.181 kg Vital Signs Temp Pulse Resp BP Pulse Ox O2 Del Method 02/25/22 11:12 97.6 F 72 18 147/92 H 96 Room Air Pertinent Lab Results Pertinent Lab Results: Laboratory Tests 02/10/22 02/10/22 09:18 09:18 WBC 13.1 H Hgb 15.0 Hct 45.6 Plt Count 240 Sodium 137 Potassium 4.8 Chloride 107 Carbon Dioxide 25 BUN 13 Creatinine 0.80 Lab Results 02/25/22 02/25/22 Range/Units 10:59 11:16 POC Glucose 101 (60-115) mg/dL Urine Test NEGATIVE (NEGATIVE) Airway Mallampati Class: II TM Dist: >3cm Neck ROM: Full Loose/Missing/Broken Teeth: Yes (Cracked top front, some extractions) Heart: RRR Lungs: CTAB Assessment and Plan Assessment Anesthesia Assessment: Anesthesia Plan Discussed Final Anesthetic Review Family History of Problems with Anesthesia: No History of Problems with Anesthesia: No NPO: Yes ASA Class: III Final Preanesthetic Review: No Changes in Pt Med Stat, Meds/Allgs Chart Reviewed, Consent Obtained/Reviewed and Anes Risks/Benef Reviewed Patient Risk: Intermediate Procedure Risk: Low Assessment/Block/Sedation in SS: Assess/Block/Sedation- Anesthetic Plan Anesthetic Plan: GA Disposition: Standard PACU
[2022-02-25 11:12] VITALS: BP 147/92; PULSE 72; RESP 18; TEMP 36.4; O2SAT 96; BMI 50.8
[2022-02-25] MEDS: Lactated Ringers 1,000 ML 100 ML IVCONT (11:25)
[2022-02-25 11:30] LABS: Glucose, Whole Blood 101 mg/dL (60-115)
[2022-02-25 11:35] LABS: UPreg QC Valid YES; Urine Pregnancy NEGATIVE (NEGATIVE)
--- NOTE | 2022-02-25 12:09 | MHC.SHP ---
Pre-Procedural Eval Section A Date of Service: 02/25/22 The patient is an INPATIENT: No Changes since office visit: No Cold of Flu in the past 2 weeks, No New Medical Problems, No Changes in Medication and No Patient answered all questions The History & Physical has been completed within 30 days and I have reviewed it.: Yes Section B Chief Complaint: sammy 2 Allergies: Allergies Allergy/AdvReac Type Severity Reaction Status Date / Time aripiprazole [Abilify] Allergy Unknown hives Verified 02/01/22 13:06 latex [LATEX] Allergy Unknown RASH Verified 02/01/22 13:06 sertraline [From Zoloft] Allergy Unknown raised Verified 02/01/22 13:06 LFTs/angioedema zolpidem [Ambien] Allergy Unknown hives Verified 02/01/22 13:06 Plan Diagnosis/Plan: Unchanged I have reviewed the history and physical and performed a pertinent physical examination on my patient. No changes have occurred unless specified.
--- NOTE | 2022-02-25 13:03 | P.BOP_ITS ---
Brief Operative Note Date of Service: 02/25/22 Pre-op diagnosis: WATSON 2 Post-op diagnosis: same Procedure: Colposcopy, LEEP CONE with, excision of deeper anterior cervical lip, top-hat endocervical excision, post CONE ECC Surgeon: Jose Mendoza MD Anesthesia: MAC, local and other (Paracervical block) Was an Patent Prosecution Attorney used for this Procedure?: No Estimated blood loss (mL): 0 Pathology: other (Cervical cone with 12:00 o'clock suture, 2nd specimen cervical cone 09:00 o'clock suture, deeper anterior cervical lip , top-hat endocervix, Post cone ECC) Condition: stable Disposition: other (Home)
--- NOTE | 2022-02-25 13:04 | W.PM.OPN ---
Operative Note Operative Note Date of Service: 02/25/22 Narrative: Pre op diagnosis: WATSON 2 Operation: Colposcopy, Loop electrical excision procedure cone, top hat endocervical excision, post cone ECC Postop diagnosis: the same Quantitative blood loss: 10 cc Surgeon: Jose Mendoza MD, FACOG [employer] Secretary: None Pathology: Cervical cone, top-hat endo cervical excision, endo cervical curettage Complications: none Anesthesia: MAC and Para cervical block Procedure: The patient was put in a dorsal lithotomy position, scrubbed and draped in the usual sterile fashion. A speculum was inserted inside the patient's vagina. The cervix is assessed using the colposcope with acetic acid , the lesions were seen, and at least 1 cm of the squamocolumnar junction was observed. 20 x 5 mm size loop was selected based upon the diameter of the lesion. Lugol solution was used to outline the lesions and area of the transformation zone order to be removed 10 cc of xylocaine with epinephrine were injected submucosally into the surface of the cervix (ectocervix) at the 3, 6, 9, and 12 o'clock positions. The electrosurgical generator is set at 30 to 40 betancourt on blend 1. The loop is carefully passed simultaneously around and under the transformation zone, in order to ensure excising it making sure the lesion is at least 5 mm far from the specimen margins . The loop was allowed to glide through the cervix from one side to the other, allowing the cutting current to divide the tissue, the cervical cone specimen was given to the circulating RN with a 12:00 o'clock suture and a 09:00 o'clock. This was followed by a deeper anterior cervical lip excision then an endo cervical top-hat excision was performed. An endo cervical curettage is performed following completion of excision, and hemostasis is obtained with a Ball electrode or regular tip cautery. At the end, Monsel's solution was applied to the cone bed. The patient tolerated the procedure well and, all instruments were taken out of the patient vaginal cavity, and the patient was transferred to the PACU in stable condition.
[2022-02-25 13:12] VITALS: BP 120/80; PULSE 80; RESP 22; TEMP 36.6; O2SAT 91
[2022-02-25 13:17] VITALS: BP 108/66; PULSE 84; RESP 24; O2SAT 91
[2022-02-25 13:22] VITALS: BP 108/64; PULSE 75; RESP 19; O2SAT 94
[2022-02-25 13:27] VITALS: BP 97/73; PULSE 68; RESP 17; O2SAT 95
[2022-02-25] MEDS: Acetaminophen 325 MG TABLET 975 MG PO (13:33)
[2022-02-25 13:42] VITALS: BP 137/80; PULSE 74; RESP 18; TEMP 36.6; O2SAT 97
== END 2022-02-25 14:20 | disposition home or self-care (01) ==
PROVIDERS: PCP Internal Medicine; Visit Provider Obstetrics & Gynecology
PROC: 0UBC7ZZ Excision of Cervix, Via Natural or Artificial Opening (ICD-10-PCS; CPT 57522; principal; 2022-02-25 11:30)
DX: D06.0 Carcinoma in situ of endocervix (principal); E28.2 Polycystic ovarian syndrome; F31.9 Bipolar disorder, unspecified; D64.9 Anemia, unspecified; J45.909 Unspecified asthma, uncomplicated; E03.9 Hypothyroidism, unspecified; K75.81 Nonalcoholic steatohepatitis (NASH); E66.01 Morbid (severe) obesity due to excess calories; Z68.43 Body mass index [BMI] 50.0-59.9, adult; D72.0 Genetic anomalies of leukocytes; Z88.8 Allergy status to other drugs, medicaments and biological substances; Z91.040 Latex allergy status; Z86.19 Personal history of other infectious and parasitic diseases
CPT/HCPCS: 57460; 81025; 82947; 88305; 88307; J2250; J2405; J2765; J3010

== ENCOUNTER → 2022-03-01 16:02 | Outpatient (BNVA) | payer OTHER, SELFPAY | PROVIDERS: PCP Internal Medicine; Visit Provider Dietitian, Registered | DX: E66.01 Morbid (severe) obesity due to excess calories (principal); Z68.43 Body mass index [BMI] 50.0-59.9, adult | CPT/HCPCS: 97802 ==

== ENCOUNTER → 2022-03-14 14:47 | Outpatient (BNVA) | payer OTHER, SELFPAY | PROVIDERS: PCP Internal Medicine; Visit Provider Physician Assistant Surgical | DX: E66.01 Morbid (severe) obesity due to excess calories (principal); Z68.43 Body mass index [BMI] 50.0-59.9, adult | CPT/HCPCS: Q3014 ==

== ENCOUNTER → 2022-03-22 12:10 | Outpatient (BNVA) | payer OTHER, SELFPAY | PROVIDERS: PCP Internal Medicine; Visit Provider Obstetrics & Gynecology | DX: D06.9 Carcinoma in situ of cervix, unspecified (principal); Z98.890 Other specified postprocedural states | CPT/HCPCS: 99212 ==

== ENCOUNTER → 2022-03-23 11:44 | Outpatient (BNVA) | payer OTHER, SELFPAY | PROVIDERS: PCP Internal Medicine; Referring Provider Physician Assistant Surgical; Visit Provider Dietitian, Registered | DX: E66.01 Morbid (severe) obesity due to excess calories (principal); Z71.3 Dietary counseling and surveillance | CPT/HCPCS: 97803 ==

== ENCOUNTER 2022-03-24 09:27 | Outpatient (REF) | payer OTHER, SELFPAY ==
--- NOTE | ~2022-03-24 | US_ITS ---
EXAMINATION: US COMPLETE ABDOMEN WITH LIVER ELASTOGRAPHY CLINICAL INFORMATION: Morbid obesity due to excess calories. COMPARISON: None TECHNIQUE: Real-time imaging of the abdominal viscera. Noninvasive ultrasound liver fibrosis assessment is performed using Maricarmen ElastPQ point quantification shear wave elastography (2D-SWE) with a C5-2 MHz transducer. Multiple elastography samples are obtained. FINDINGS: PANCREAS: The visualized pancreatic head and body are normal in appearance. The remainder of the pancreas is obscured from visualization by the overlying bowel gas. ABDOMINAL AORTA: The proximal, middle, and distal aortic segments are normal in caliber. INFERIOR VENA CAVA: Visualized portions are normal. LIVER: Normal. The liver demonstrates normal size, contour and echogenicity. No focal lesion or intrahepatic biliary duct dilatation. The right lobe measures 19.5 cm in length. The left lobe measures 12.0 cm in length. Portal flow is hepatopedal. Shear wave liver elastography median stiffness is 2.11 m/s (reference: normal median stiffness is 1.3 m/s or less). IQR/median stiffness to assess sampling precision is 0.05 (reference: good quality data set is IQR/median stiffness of 0.15 or less). GALLBLADDER: Gallbladder wall thickness is 0.3. The gallbladder is physiologically distended without evidence of stones, sludge, polyps, wall thickening or pericholecystic fluid. COMMON BILE DUCT: Normal in caliber measuring 0.4 cm in diameter. RIGHT KIDNEY: Normal. No hydronephrosis. No renal calculi or focal parenchymal lesions. The kidney measures 12.1 cm in maximum dimension. LEFT KIDNEY: Normal. No hydronephrosis. No renal calculi or focal parenchymal lesions. The kidney measures 11.4 cm in maximum dimension. SPLEEN: Normal. The spleen measures 12.6 cm in maximum dimension. FREE FLUID: None. US/US abdomen comp w elastography IMPRESSION: 1. Hepatic steatosis without focal lesion. Rest of the abdominal ultrasound is unremarkable. 2. Median liver stiffness measures 2.11 m/s which corresponds to cACLD ruled in.
--- NOTE | ~2022-03-24 | FL_ITS ---
EXAMINATION: FLUOROSCOPY UPPER GI WITH AIR CLINICAL INFORMATION: Obesity due to excess calories. COMPARISON: Ultrasound of the abdomen performed same day. Abdomen and pelvis CT September 2019. TECHNIQUE: A double contrast examination was performed. Fluoroscopic evaluation and multiple spot films were obtained. FINDINGS: There is normal esophageal mucosa and motility. No hiatal hernia or reflux is identified. Barium flows easily through a normal-appearing stomach, duodenal bulb, and sweep without evidence of ulcer or inflammation. TIME: 1.1 minutes DOSE: 31.176 mGy DAP: 9.394 Gy-cm2 IMAGES: 26 FL/FL upper GI w air IMPRESSION: Unremarkable examination.
== END 2022-03-24 09:28 | disposition home or self-care (01) ==
LOC: HO.XRAY 09:27
PROVIDERS: PCP Internal Medicine; Visit Provider Physician Assistant Surgical
DX: E66.01 Morbid (severe) obesity due to excess calories (principal)
CPT/HCPCS: 74246; 76705; 76981

== ENCOUNTER → 2022-03-29 14:38 | Outpatient (BNVA) | payer OTHER, SELFPAY | PROVIDERS: PCP Internal Medicine; Referring Provider Physician Assistant Surgical; Visit Provider Counselor Mental Health | DX: F31.70 Bipolar disorder, currently in remission, most recent episode unspecified (principal); E66.01 Morbid (severe) obesity due to excess calories | CPT/HCPCS: 90834 ==

== ENCOUNTER → 2022-04-08 10:00 | Outpatient (BNVA) | payer OTHER, SELFPAY | PROVIDERS: PCP Internal Medicine; Visit Provider Counselor Mental Health | DX: F31.70 Bipolar disorder, currently in remission, most recent episode unspecified (principal); E66.01 Morbid (severe) obesity due to excess calories | CPT/HCPCS: 90832 ==

== ENCOUNTER 2022-04-13 20:23 | Emergency (ER) | payer OTHER, SELFPAY ==
[2022-04-13 21:13] VITALS: BP 152/95; PULSE 88; RESP 18; TEMP 36.8; O2SAT 97; BMI 49.8
[2022-04-13 21:37] LABS: MANUAL DIFF FLAG NO
[2022-04-13 21:39] LABS: Basophils Absolute Auto 0.1 X10*3/uL (0.0-0.2); Basophils Percent Auto 0.3 % (0-2); Eosinophils Absolute Auto 0.1 X10*3/uL (0.0-0.4); Eosinophils Percent Auto 0.5 % (0-4); Hematocrit 43.9 % (37.0-47.0); Hemoglobin 14.6 g/dl (12.0-16.0); Imm Gran Abs Auto 0.12 X10*3/uL (0.00-0.03); Imm Gran Pct Auto 0.7 % (0.0-0.4); Lymphocytes Absolute Auto 3.6 X10*3/uL (1.2-4.9); Lymphocytes Percent Auto 20.5 % (20-40); Mean Corpuscular HGB Conc 33.3 g/dl (31.0-35.0); Mean Corpuscular Hemoglobin 30.4 pg (27.0-33.0); Mean Corpuscular Volume 91.3 fL (80.0-98.0); Monocytes Absolute Auto 1.2 X10*3/uL (0.1-1.2); Monocytes Percent Auto 6.9 % (2-11); Neutrophils Absolute Auto 12.7 x10*3/uL (2.0-8.3); Neutrophils Percent Auto 71.1 % (45-73); Platelet Count 283 X10*3/uL (160-400); Red Blood Count 4.81 X10*6/uL (4.20-5.50); Red Cell Distribution Width 13.9 % (11.0-16.0); White Blood Count 17.8 X10*3/uL (4.8-10.8)
[2022-04-13 21:41] LABS: Appearance Urine CLEAR; Color Urine YELLOW; Glucose Urine UA NEG (NEG); Leukocyte Esterase Urine NEG (NEG); Nitrite Urine NEG (NEG); PH 6.5 (5.0-8.0); Specific Gravity - Urine 1.015 (1.005-1.025); UACC Culture Trigger NO; Urine Blood 3+ (NEG); Urine Ketones NEG (NEG); Urine Protein TRACE MG/DL (NEG-TRACE)
[2022-04-13 22:01] LABS: Anion Gap 9 (12-20); Blood Urea Nitrogen 13 mg/dL (9-16); Calcium 8.5 mg/dL (8.4-10.2); Carbon Dioxide 29 mmol/L (22-29); Chloride 106 mmol/L (96-108); Estimated Glomerular Filt Rate > 60; Glucose Random 99 mg/dL (60-115); Potassium 4.6 mmol/L (3.3-5.1); Sodium 139 mmol/L (135-145)
[2022-04-13 22:04] LABS: RBC Urine 30-49 /HPF (0); WBC Urine 0-2 /HPF (0-4)
[2022-04-13 22:05] LABS: Bacteria Urine TRACE /LPF; Mucus Urine TRACE /LPF; Squamous Epithelial Cell Urine 1+ /LPF
[2022-04-14 01:51] VITALS: BP 120/71; PULSE 78; RESP 18; TEMP 36.7; O2SAT 98
[2022-04-14 02:00] VITALS: BP 126/73; PULSE 69; TEMP 36.5; O2SAT 95
[2022-04-14 02:19] LABS: HCG Quantitative < 2 mIU/mL
--- NOTE | 2022-04-14 02:58 | ED_ITS ---
HPI - General Adult General Chief complaint: General Medical Stated complaint: Pelvic pain Time Seen by Provider: 04/14/22 01:58 Source: patient Mode of arrival: ambulatory Limitations: no limitations History of Present Illness HPI narrative: 41-year-old female who presents emergency department for evaluation of left lower quadrant pain. Patient states that the pain started yesterday at around 14:00. She states the pain came on gradually. She states the pain then got progressively worse. She states that the pain has been constant but waxes and wanes in intensity. The pain was 7/10 at its worst and is currently 5/10 at the time my evaluation. Patient states that she has had similar pain in the past and gets this pain every 1-2 months. She states the pain is secondary to ovarian cysts. The patient has noticed increased urine output. She denied frequency, urgency or dysuria she denied change in her bowel movements, she has had no diarrhea bloody a bowel movements or dark tarry stools. She has had associated nausea and she states she vomited once yesterday. MD complaint: Left lower quadrant abdominal pain Onset (ago): day(s) (1) Radiation: non-radiation Severity: severe Severity scale (1-10): 7 Quality: other (Crampy) Pain Consistency: constant (Waxes and wanes in intensity) Relieving factors: none Exacerbating factors: none Associated symptoms: nausea/vomiting Treatments prior to arrival: none Related Data Home Medications Medication Instructions Recorded Confirmed lurasidone 60 mg tablet (Latuda) 60 mg PO QAM 01/21/22 03/14/22 Previous Rx's Medication Instructions Recorded albuterol sulfate 90 mcg/actuation 2 puff inhalation Q4H PRN 10/26/20 aerosol inhaler (Ventolin HFA) bronchospasm 30 days #8.5 grams Blood pressure monitor #1 ea 03/31/21 hydrocortisone 2.5 % topical cream 1 appl topical BID PRN skin 03/31/21 irritation 30 days #30 grams CPAP machine #1 ea 07/02/21 atenolol 25 mg tablet 25 mg PO DAILY 90 days #90 tabs 01/31/22 alcohol swabs (Alcohol Prep Pads) 1 pad topical .PRN #100 ea 02/04/22 blood sugar diagnostic (FreeStyle #100 ea 02/04/22 Lite Strips) blood-glucose meter (FreeStyle #1 ea 02/04/22 Lite Meter kit) lancets 28 gauge (FreeStyle #100 ea 02/04/22 Lancets) vitamin A palmitate 10,000 unit 10,000 unit PO DAILY #30 caps 02/16/22 capsule cholecalciferol (vitamin D3) 25 25 mcg PO DAILY 90 days #90 caps 02/18/22 mcg (1,000 unit) capsule levothyroxine 50 mcg tablet 50 mcg PO DAILY 90 days #90 tabs 02/28/22 (Synthroid) loratadine 10 mg tablet 10 mg PO DAILY #90 tabs 02/28/22 metformin 750 mg tablet,extended 750 mg PO DAILY 90 days #90 tabs 04/04/22 release 24 hr Allergies Allergy/AdvReac Type Severity Reaction Status Date / Time aripiprazole [Abilify] Allergy Unknown hives Verified 04/13/22 21:12 latex [LATEX] Allergy Unknown RASH Verified 04/13/22 21:12 sertraline [From Zoloft] Allergy Unknown raised Verified 04/13/22 21:12 LFTs/angioedema zolpidem [Ambien] Allergy Unknown hives Verified 04/13/22 21:12 Review of Systems Review of Systems: Yes all other systems are reviewed and are negative PMFSH Past Medical History Medical History Anemia Asthma Bipolar 1 disorder Elevated WBCs Encounter for Essure implantation H/O abnormal cervical Papanicolaou smear History of electroconvulsive therapy History of hypothyroidism History of syphilis Hypothyroid Morbid obesity Morbid obesity due to excess calories HENRIQUEZ (nonalcoholic steatohepatitis) Neutrophilia DONNA (obstructive sleep apnea) PCOS (polycystic ovarian syndrome) Family History Family History Paternal Grandfather Colon cancer Paternal Grandmother Breast cancer Maternal Grandmother Uterine cancer Father Arthritis Asthma Diabetes Hypertension Stroke Mother Hypertension Mental health disorder Sister Hypertension Diabetes Sister No problems noted. Sister Depression Obesity Brother No problems noted. Sister Lupus Son No problems noted. Daughter No problems noted. Social History Social History Housing: Apartment Alcohol intake: current Alcohol intake frequency: holidays/special occasions only Alcohol type: beer Patient Tobacco Use Status: Current everyday Tobacco user Tobacco use type: Cigarette Cigarettes Per Day: 3 Years Smoked: 15 Smoked in Last 30 Days: Yes e-Cigarette/Vaping Use: Never Used Use of substances other than those prescribed or required for medical reasons: No Advance Directives: No Advance Directives Information Provided: Yes service: No Current occupational status: unemployed Sexual orientation: Straight/Heterosexual Gender identity: Female Cognitive needs: No Hearing needs: No Vision needs: Yes Physical Exam ED Vital Signs: Vital Signs - 24 hr 04/13/22 21:13 04/14/22 01:51 04/14/22 02:00 Temperature 98.3 F 98.0 F 97.7 F Pulse Rate 88 78 69 Respiratory Rate 18 18 Blood Pressure 152/95 H 120/71 126/73 Pulse Oximetry 97 98 95 Oxygen Delivery Method Room Air Room Air Room Air BMI result Body Mass Index 49.8 Const Other: Awake, alert, female patient, very pleasant and cooperative, in no distress. Elevated BMI 49.9. HENAZ Head: Yes normal to inspection, Yes normocephalic and Yes atraumatic Ears: external ears normal General nose exam: Normal external nose present Face and sinus: Yes normal facial exam Mouth: Normal oral and palatal mucosa present Throat: Yes posterior oropharynx normal Eyes General: appearance normal, both eyes and all related structures Pupils: Equal, round and reactive pupils present Neck Neck: Yes normal visual inspection, Yes no lymphadenopathy, Yes trachea midline and Yes supple Chest Chest palpation & inspection: normal inspection of the chest and normal palpation of entire chest wall Resp Effort & Inspection: normal respiratory effort and able to speak in complete sentences Auscultation: clear to auscultation bilaterally Cardio Rate: regular rate Rhythm: regular rhythm Heart sounds: S1 normal heart sound present, S2 normal heart sound present and no murmurs GI Inspection: Yes normal to inspection Palpation (GI): Soft to palpation, Tenderness to palpation present (GI) in the LLQ (Moderate) and no guarding Auscultation: normal bowel sounds General: Yes no CVA tenderness Back/Spine/Pelvis Back: no CVA tenderness Skin General skin exam: no rashes or lesions noted Neuro Cranial nerves: Yes CN's II-XII intact bilaterally and Yes Equal, round and reactive pupils present Cognition (Neuro): normal cognition Motor exam (neuro): 5/5 motor strength present throughout Extrem General: Yes normal to inspection Psych Appearance: grossly normal Speech and movement: Normal speech and movement present Affect: normal affect Attitude: cooperative Thought process: Normal thought process present Thought content: Normal thought content present Course Course Course Narrative: 41-year-old female who presents emergency department for evaluation of 1 day of left lower quadrant pain. The pain came on gradually yesterday around 14:00 h ours and a progressively worse. The pain is a constant, cramping sensation which waxes and wanes in intensity and is 7/10 at its worst. Patient gets similar pain every 2 months and she attributes the pain to ovarian cyst. Vital signs revealed an elevated blood pressure of 150/95 otherwise were unremarkable. Examination did reveal left lower quadrant tenderness. [place] [address]. Urinalysis revealed 3+ blood. Microscopic revealed 49 RBCs, 2 WBCs, 1+ bacteria, 1+. At this time I suspect this patient's pain is consistent with an ovarian cyst, she has had this multiple times in the past. The patient was given Toradol 60 mg IM. She was prescribed ibuprofen 600 mg every 6 hours as needed for pain and Tylenol 1000 mg every 6 hours as needed for pain. She was given printed and verbal instructions and discharged home Medical Decision Making Lab Data Result diagrams: 04/13/22 21:31 04/13/22 21:31 Labs: Lab Results 04/13/22 04/13/22 04/13/22 Range/Units 21:31 21:31 21:31 WBC 17.8 H (4.8-10.8) X10*3/uL RBC 4.81 (4.20-5.50) X10*6/uL Hgb 14.6 (12.0-16.0) g/dl Hct 43.9 (37.0-47.0) % MCV 91.3 (80.0-98.0) fL MCH 30.4 (27.0-33.0) pg MCHC 33.3 (31.0-35.0) g/dl RDW 13.9 (11.0-16.0) % Plt Count 283 (160-400) X10*3/uL MPV 11.0 (9.4-12.3) fL Immature Gran % (Auto) 0.7 H (0.0-0.4) % Neut % (Auto) 71.1 (45-73) % Lymph % (Auto) 20.5 (20-40) % Armstrong % (Auto) 6.9 (2-11) % Eos % (Auto) 0.5 (0-4) % Baso % (Auto) 0.3 (0-2) % Lymph # (Auto) 3.6 (1.2-4.9) X10*3/uL Armstrong # (Auto) 1.2 (0.1-1.2) X10*3/uL Eos # (Auto) 0.1 (0.0-0.4) X10*3/uL Baso # (Auto) 0.1 (0.0-0.2) X10*3/uL Abs Immat Gran (auto) 0.12 H (0.00-0.03) X10*3/uL Absolute Neuts (auto) 12.7 H (2.0-8.3) x10*3/uL Absolute Nucleated RBC 0.000 (0.0-0.012) X10*3/uL Nucleated RBC % (auto) 0.0 (0.0-0.2) /100WBC Sodium 139 (135-145) mmol/L Potassium 4.6 (3.3-5.1) mmol/L Chloride 106 (96-108) mmol/L Carbon Dioxide 29 (22-29) mmol/L Anion Gap 9 L (12-20) BUN 13 (9-16) mg/dL Creatinine 0.82 (0.5-1.4) mg/dL Estim Creat Clear Calc 120.0 Estimated GFR > 60 Random Glucose 99 (60-115) mg/dL Calcium 8.5 (8.4-10.2) mg/dL Beta HCG, Quant < 2 mIU/mL Urine Color YELLOW Urine Appearance CLEAR Urine pH 6.5 (5.0-8.0) Ur Specific [place] 1.015 (1.005-1.025) Urine Protein TRACE (NEG-TRACE) MG/DL Urine Glucose (UA) NEG (NEG) MG/DL Urine Ketones NEG (NEG) MG/DL Urine Blood 3+ H (NEG) Urine Nitrite NEG (NEG) Ur Leukocyte Esterase NEG (NEG) Urine RBC 30-49 H (0) /HPF Urine WBC 0-2 (0-4) /HPF Ur Squamous Epith Cells 1+ /LPF Urine Bacteria TRACE /LPF Urine Mucus TRACE /LPF Discharge Plan Discharge Clinical Impression: Abdominal pain Patient Disposition: Home, Self-Care Instructions: Ovarian Cyst (ED) Prescriptions: No Action albuterol sulfate [Ventolin HFA] 90 mcg/actuation HFA aerosol inhaler 2 puff inhalation Q4H PRN (Reason: bronchospasm) 30 Days Qty: 8.5 0RF atenolol 25 mg tablet 25 mg PO DAILY 90 Days Qty: 90 0RF alcohol swabs [Alcohol Prep Pads] Pads, Medicated 1 pad topical .PRN Qty: 100 0RF (DME) blood-glucose meter [FreeStyle Lite Meter] Kit See Rx Instructions .Route Qty: 1 0RF Rx Instructions: Once a day (DME) FreeStyle Lite Strips Strip See Rx Instructions .Route Qty: 100 0RF Rx Instructions: Once a day (DME) lancets [FreeStyle Lancets] 28 gauge misc See Rx Instructions .Route Qty: 100 0RF Rx Instructions: Once a day vitamin A palmitate 10,000 unit capsule 10,000 unit PO DAILY Qty: 30 1RF cholecalciferol (vitamin D3) 25 mcg (1,000 unit) capsule 25 mcg PO DAILY 90 Days Qty: 90 0RF loratadine 10 mg tablet 10 mg PO DAILY Qty: 90 0RF levothyroxine [Synthroid] 50 mcg tablet 50 mcg PO DAILY 90 Days Qty: 90 0RF metformin 750 mg tablet extended release 24 hr 750 mg PO DAILY 90 Days Qty: 90 0RF (DME) CPAP machine See Rx Instructions .Route .MEDSUPPLY Qty: 1 0RF Rx Instructions: Pressure settings 6-16 cm on auto PAP mode hydrocortisone 2.5 % cream 1 appl topical BID PRN (Reason: skin irritation) 30 Days Qty: 30 0RF (DME) Blood pressure monitor See Rx Instructions .Route .MEDSUPPLY Qty: 1 0RF Rx Instructions: As directed Latuda 60 mg tablet 60 mg PO QAM
[2022-04-14] MEDS: Ketorolac Tromethamine 60 MG/2 ML VIAL IM (03:29)
== END 2022-04-14 03:53 | disposition home or self-care (01) ==
PROVIDERS: Physician Assistant; Emergency Provider Emergency Medicine Emergency Medical Services
DX: R10.2 Pelvic and perineal pain (principal); Z79.899 Other long term (current) drug therapy; Z20.822 Contact with and (suspected) exposure to COVID-19; F17.200 Nicotine dependence, unspecified, uncomplicated; Z71.6 Tobacco abuse counseling
CPT/HCPCS: 36415; 80048; 81001; 84702; 85025; 96372; 99284; J1885

== ENCOUNTER 2022-05-30 12:30 | Outpatient (REF) | payer OTHER, SELFPAY ==
[2022-05-30 13:23] LABS: COVID-19 Test Negative (Negative); IDNOW Serial# 55D5AD1C
== END 2022-05-30 12:31 | disposition home or self-care (01) ==
LOC: HO.LAB 12:30
PROVIDERS: Visit Provider Internal Medicine
DX: Z20.822 Contact with and (suspected) exposure to COVID-19 (principal)
CPT/HCPCS: 87635; C9803

== ENCOUNTER 2022-06-08 11:38 | Outpatient (REF) | payer OTHER, SELFPAY ==
[2022-06-08 12:14] LABS: COVID-19 Test Negative (Negative); IDNOW Serial# 9DB6401D
== END 2022-06-08 11:39 | disposition home or self-care (01) ==
LOC: HO.LAB 11:38
PROVIDERS: Visit Provider Internal Medicine
DX: Z20.822 Contact with and (suspected) exposure to COVID-19 (principal)
CPT/HCPCS: 87635; C9803

== ENCOUNTER 2022-07-14 09:36 | Outpatient (REF) | payer OTHER, SELFPAY ==
[2022-07-14 11:07] LABS: Estimated Average Glucose 120 mg/dL; Hemoglobin A1c % 5.8 %
[2022-07-14 11:27] LABS: Alanine Aminotransferase 23 U/L (0-31); Albumin Level 3.8 g/dL (3.5-5.0); Alkaline Phosphatase 99 U/L (39-117); Anion Gap 13 (12-20); Aspartate Amino Transferase 16 U/L (5-31); Bilirubin Total 0.2 mg/dL (0.0-1.0); Blood Urea Nitrogen 10 mg/dL (9-16); Calcium 8.6 mg/dL (8.4-10.2); Carbon Dioxide 26 mmol/L (22-29); Chloride 104 mmol/L (96-108); Estimated Glomerular Filt Rate > 60; Glucose Random 103 mg/dL (60-115); Potassium 4.6 mmol/L (3.3-5.1); Sodium 138 mmol/L (135-145); Total Protein 6.4 g/dL (6.5-8.0)
[2022-07-14 11:48] LABS: Creatinine Urine 46.06 mg/dL; Microalbum/Creatinine Ratio Ur 32.5 ug/mg cr
[2022-07-20 11:36] LABS: Vitamin A 47 mcg/dL (38-98)
== END 2022-07-14 09:37 | disposition home or self-care (01) ==
LOC: HO.LAB 09:36
PROVIDERS: Physician Assistant Surgical; PCP Internal Medicine; Visit Provider Internal Medicine
DX: G47.33 Obstructive sleep apnea (adult) (pediatric) (principal); E66.01 Morbid (severe) obesity due to excess calories; F31.70 Bipolar disorder, currently in remission, most recent episode unspecified; I10 Essential (primary) hypertension; E13.9 Other specified diabetes mellitus without complications; E50.9 Vitamin A deficiency, unspecified; Z79.899 Other long term (current) drug therapy; Z68.42 Body mass index [BMI] 45.0-49.9, adult
CPT/HCPCS: 36415; 80053; 82043; 83036; 84590; 99212

== ENCOUNTER 2022-10-13 09:29 | Outpatient (REF) | payer OTHER, SELFPAY ==
[2022-10-13 10:43] LABS: Basophils Absolute Auto 0.1 X10*3/uL (0.0-0.2); Basophils Percent Auto 0.5 % (0-2); Eosinophils Absolute Auto 0.2 X10*3/uL (0.0-0.4); Hematocrit 49.4 % (37.0-47.0); Hemoglobin 16.2 g/dl (12.0-16.0); Imm Gran Abs Auto 0.12 X10*3/uL (0.00-0.03); Imm Gran Pct Auto 0.8 % (0.0-0.4); Lymphocytes Absolute Auto 3.7 X10*3/uL (1.2-4.9); Lymphocytes Percent Auto 24.9 % (20-40); MANUAL DIFF FLAG SCAN; Mean Corpuscular HGB Conc 32.8 g/dl (31.0-35.0); Mean Corpuscular Hemoglobin 29.8 pg (27.0-33.0); Monocytes Absolute Auto 0.8 X10*3/uL (0.1-1.2); Monocytes Percent Auto 5.6 % (2-11); Neutrophils Percent Auto 67.2 % (45-73); PLT CLUMP 1; Red Blood Count 5.43 X10*6/uL (4.20-5.50); Red Cell Distribution Width 13.7 % (11.0-16.0); SCAN SMEAR FLAG 1
[2022-10-13 11:08] LABS: Platelet Count 213 X10*3/uL (160-400); White Blood Count 14.9 X10*3/uL (4.8-10.8)
[2022-10-13 11:09] LABS: SLIDE REVIEW VERIFIED
[2022-10-13 11:12] LABS: Estimated Average Glucose 117 mg/dL; Hemoglobin A1c % 5.7 %
[2022-10-13 11:25] LABS: Anion Gap 13 (12-20); Blood Urea Nitrogen 11 mg/dL (9-16); Calcium 8.8 mg/dL (8.4-10.2); Carbon Dioxide 27 mmol/L (22-29); Chloride 104 mmol/L (96-108); Cholesterol 168 mg/dL; Estimated Glomerular Filt Rate > 60; Glucose Fasting 94 mg/dL (60-99); HDL Cholesterol 29 mg/dL; LDL Cholesterol Calculated 101 mg/dl; Potassium 4.7 mmol/L (3.3-5.1); Sodium 139 mmol/L (135-145); Triglycerides 191 mg/dL
[2022-10-13 11:49] LABS: Free T4 (Free Thyroxine) 1.05 ng/dL (0.71-1.85); Thyroid Stimulating Hormone 0.66 uIU/mL (0.32-4.0)
[2022-10-15 09:13] LABS: Prolactin 5.6 ng/mL
== END 2022-10-13 09:30 | disposition home or self-care (01) ==
LOC: HO.LAB 09:29
PROVIDERS: PCP Internal Medicine; Visit Provider Clinical Nurse Specialist Psychiatric/Mental Health, Child & Adolescent
DX: F31.9 Bipolar disorder, unspecified (principal); Z79.899 Other long term (current) drug therapy
CPT/HCPCS: 36415; 80048; 80061; 83036; 84146; 84439; 84443; 85025

== ENCOUNTER 2023-01-26 16:22 | Emergency (ER) | payer OTHER, SELFPAY ==
--- NOTE | ~2023-01-26 | CT_ITS ---
EXAMINATION: CT HEAD WITHOUT CONTRAST CLINICAL INFORMATION: Fall COMPARISON: 12/18/12 TECHNIQUE: Contiguous axial imaging was performed from the skull base to vertex without intravenous contrast. This CT examination was performed using dose optimization techniques as appropriate, variously including the following: * Automated exposure control * Adjustment of mA and/or kV according to patient size (this includes techniques or standardized protocols for targeted exams where dose is matched to indication/reason for exam; i.e. extremities or head) Use of iterative reconstruction technique DLP: 951 mGy-cm. FINDINGS: There is no evidence of acute intracranial hemorrhage or territorial infarction. No abnormal mass effect or midline shift is seen. Méndez to white matter differentiation is well preserved. No extra-axial fluid collections are identified. No hydrocephalus. No significant volume loss. There is no abnormal attenuation within the brain parenchyma. The osseous structures and soft tissues are normal. Mild opacification of the left sphenoid sinus. The mastoid air cells and visualized portions of the paranasal sinuses are otherwise well aerated. CT/CT head/brain wo IV con IMPRESSION: No acute intracranial pathology.
[2023-01-26 16:43] VITALS: BP 120/70; PULSE 99; O2SAT 96
[2023-01-26 16:50] VITALS: BP 156/80; PULSE 93; RESP 16; TEMP 36.4; O2SAT 95; BMI 35.4
--- NOTE | 2023-01-26 17:04 | ED_ITS ---
HPI - General Adult General Chief complaint: Fall Stated complaint: ETOH,Drug use, syncopal episode Time Seen by Provider: 01/26/23 16:50 Source: patient Mode of arrival: EMS History of Present Illness HPI narrative: 42-year-old female who arrives via EMS and significant other reported a passing out episode at the house, patient had been drinking last night and states that she drinks every day. Patient states that she fell out of bed last night and hit her head on a chair with questionable loss of consciousness and patient is noted to be on blood thinners. Related Data Home Medications Medication Instructions Recorded Confirmed lurasidone 60 mg tablet (Latuda) 60 mg PO QAM 01/21/22 08/09/22 Previous Rx's Medication Instructions Recorded Blood pressure monitor #1 ea 03/31/21 hydrocortisone 2.5 % topical cream 1 appl topical BID PRN skin 03/31/21 irritation 30 days #30 grams alcohol swabs (Alcohol Prep Pads) 1 pad topical .PRN #100 ea 02/04/22 blood sugar diagnostic (FreeStyle #100 ea 02/04/22 Lite Strips) blood-glucose meter (FreeStyle #1 ea 02/04/22 Lite Meter kit) lancets 28 gauge (FreeStyle #100 ea 02/04/22 Lancets) acetaminophen 500 mg tablet 500 mg PO Q6H PRN fever or pain 04/14/22 (Tylenol Extra Strength) #30 tabs ibuprofen 600 mg tablet 600 mg PO Q6H PRN pain #30 tabs 04/14/22 cholecalciferol (vitamin D3) 25 25 mcg PO DAILY 90 days #90 caps 05/24/22 mcg (1,000 unit) capsule albuterol sulfate 90 mcg/actuation 2 puff inhalation Q4H PRN 06/09/22 aerosol inhaler (Ventolin HFA) bronchospasm 30 days #8.5 grams levothyroxine 50 mcg tablet 50 mcg PO DAILY 90 days #90 tabs 08/24/22 (Synthroid) loratadine 10 mg tablet 10 mg PO DAILY #90 tabs 08/24/22 atenolol 25 mg tablet 25 mg PO DAILY 90 days #90 tabs 10/07/22 metformin 750 mg tablet,extended 750 mg PO DAILY 90 days #90 tabs 10/14/22 release 24 hr Allergies Allergy/AdvReac Type Severity Reaction Status Date / Time aripiprazole [Abilify] Allergy Unknown hives Verified 08/09/22 09:59 latex [LATEX] Allergy Unknown RASH Verified 08/09/22 09:59 sertraline [From Zoloft] Allergy Unknown raised Verified 08/09/22 09:59 LFTs/angioedema zolpidem [Ambien] Allergy Unknown hives Verified 08/09/22 09:59 PMFSH Past Medical History Medical History Anemia Asthma Bipolar 1 disorder Elevated WBCs Encounter for Essure implantation H/O abnormal cervical Papanicolaou smear History of electroconvulsive therapy History of hypothyroidism History of syphilis Hypothyroid Morbid obesity Morbid obesity due to excess calories HENRIQUEZ (nonalcoholic steatohepatitis) Neutrophilia DONNA (obstructive sleep apnea) PCOS (polycystic ovarian syndrome) Family History Family History Paternal Grandfather Colon cancer Paternal Grandmother Breast cancer Maternal Grandmother Uterine cancer Father Arthritis Asthma Diabetes Hypertension Stroke Mother Hypertension Mental health disorder Sister Hypertension Diabetes Sister No problems noted. Sister Depression Obesity Brother No problems noted. Sister Lupus Son No problems noted. Daughter No problems noted. Social History Social History Housing: Apartment Alcohol intake: current Alcohol intake frequency: holidays/special occasions only Alcohol type: beer Patient Tobacco Use Status: Current everyday Tobacco user Tobacco use type: Cigarette Cigarettes Per Day: 3 Years Smoked: 15 e-Cigarette/Vaping Use: Never Used Advance Directives: No Advance Directives Information Provided: No service: No Current occupational status: unemployed Sexual orientation: Straight/Heterosexual Gender identity: Female Cognitive needs: No Hearing needs: No Vision needs: Yes Physical Exam ED Vital Signs: Vital Signs - 24 hr 01/26/23 16:50 01/26/23 17:18 Temperature 97.6 F 98.0 F Pulse Rate 93 83 Respiratory Rate 16 22 H Blood Pressure 156/80 H 134/80 Pulse Oximetry 95 96 Oxygen Delivery Method Room Air Room Air BMI result Body Mass Index 35.4 VITAL SIGNS: Reviewed. GENERAL: Well developed, well nourished, in no acute distress. HEAD: Normocephalic/atraumatic EYES: PERRLA, EOMI EARS: Ext canals without abnormality NOSE: Nares patent bilateral OROPHARYNX: no oral lesions noted, posterior pharynx clear NECK: Supple, no adenopathy LUNGS: Normal breath sounds. No adventitious sounds or accessory muscle use. SpO2<96> CARDIOVASCULAR: Regular rate and rhythm without noted murmurs ABDOMEN: Soft, non-tender, non-distended with bowel sounds. MUSCULOSKELETAL: No tenderness, deformities, or effusions noted on gross inspection. EXTREMITIES: No cyanosis, clubbing or edema. SKIN: Inspection of the skin reveals no rashes NEUROLOGIC: Drowsy but Alert and oriented x 3. Strength and sensation to light touch were grossly intact x 4, no facial asymmetry, no pronator drift, cranial nerves 2-12 are grossly intact. Medical Decision Making Medical Decision Making MDM Narrative: 42-year-old female presents via EMS with questionable syncopal episode and history of being on blood thinners as well as consuming alcohol. There are no focal findings. Ordered lab work, CT scan of the head. 1805: 42-year-old female who is fully awake, walking around without noted gait problems. Demanding that she be allowed to leave and stating that she wishes to sign out against medical advice and that she is good . Patient is alert and o riented in the risks and benefits were discussed with her. Patient is nonfocal, her vital signs are stable and she will sign out against medical advice. Differential Diagnosis Please see the discussion above Lab Data Please see the discussion above 01/26/23 17:41 01/26/23 17:41 Labs: Lab Results 01/26/23 Range/Units 17:17 POC Glucose 108 (60-115) mg/dL Radiology Impression Radiologist Impression: My prelim interpretation is that I do not see an acute bleed, radiology read is pending. Discharge Plan Discharge Clinical Impression: Substance use disorder Patient Disposition: Left Against Medical Advice Instructions: Polysubstance Abuse (ED) Additional Instructions: Please follow-up with your primary care provider tomorrow morning. Resume all home medications as prescribed. Return to the ER for any worsening symptoms. Prescriptions: No Action alcohol swabs [Alcohol Prep Pads] Pads, Medicated 1 pad topical .PRN Qty: 100 0RF (DME) blood-glucose meter [FreeStyle Lite Meter] Kit See Rx Instructions .Route Qty: 1 0RF Rx Instructions: Once a day (DME) FreeStyle Lite Strips Strip See Rx Instructions .Route Qty: 100 0RF Rx Instructions: Once a day (DME) lancets [FreeStyle Lancets] 28 gauge misc See Rx Instructions .Route Qty: 100 0RF Rx Instructions: Once a day cholecalciferol (vitamin D3) 25 mcg (1,000 unit) capsule 25 mcg PO DAILY 90 Days Qty: 90 3RF albuterol sulfate [Ventolin HFA] 90 mcg/actuation HFA aerosol inhaler 2 puff inhalation Q4H PRN (Reason: bronchospasm) 30 Days Qty: 8.5 0RF loratadine 10 mg tablet 10 mg PO DAILY Qty: 90 3RF levothyroxine [Synthroid] 50 mcg tablet 50 mcg PO DAILY 90 Days Qty: 90 3RF atenolol 25 mg tablet 25 mg PO DAILY 90 Days Qty: 90 0RF metformin 750 mg tablet extended release 24 hr 750 mg PO DAILY 90 Days Qty: 90 0RF acetaminophen [Tylenol Extra Strength] 500 mg tablet 500 mg PO Q6H PRN (Reason: fever or pain) Qty: 30 0RF ibuprofen 600 mg tablet 600 mg PO Q6H PRN (Reason: pain) Qty: 30 0RF hydrocortisone 2.5 % cream 1 appl topical BID PRN (Reason: skin irritation) 30 Days Qty: 30 0RF (DME) Blood pressure monitor See Rx Instructions .Route .MEDSUPPLY Qty: 1 0RF Rx Instructions: As directed Latuda 60 mg tablet 60 mg PO QAM Referrals: Sally Ramirez MD [Primary Care Provider] - Stand Alone Forms: Against Medical Advice
[2023-01-26 17:18] VITALS: BP 134/80; PULSE 83; RESP 22; TEMP 36.7; O2SAT 96
[2023-01-26 17:22] LABS: Glucose, Whole Blood 108 mg/dL (60-115)
[2023-01-26 17:59] LABS: MANUAL DIFF FLAG NO
[2023-01-26 18:00] LABS: Basophils Percent Auto 0.3 % (0-2); Eosinophils Absolute Auto 0.1 X10*3/uL (0.0-0.4); Eosinophils Percent Auto 0.9 % (0-4); Hematocrit 37.9 % (37.0-47.0); Hemoglobin 12.5 g/dl (12.0-16.0); Imm Gran Abs Auto 0.05 X10*3/uL (0.00-0.03); Imm Gran Pct Auto 0.4 % (0.0-0.4); Lymphocytes Absolute Auto 2.6 X10*3/uL (1.2-4.9); Lymphocytes Percent Auto 21.8 % (20-40); Mean Corpuscular Hemoglobin 29.4 pg (27.0-33.0); Mean Corpuscular Volume 89.2 fL (80.0-98.0); Mean Platelet Volume 10.8 fL (9.4-12.3); Monocytes Absolute Auto 0.9 X10*3/uL (0.1-1.2); Monocytes Percent Auto 7.6 % (2-11); Neutrophils Absolute Auto 8.3 x10*3/uL (2.0-8.3); Platelet Count 274 X10*3/uL (160-400); Red Blood Count 4.25 X10*6/uL (4.20-5.50); Red Cell Distribution Width 14.1 % (11.0-16.0)
[2023-01-26 18:18] LABS: INTERNATIONAL NORM RATIO 1.1 (0.9-1.1); Prothrombin Time 12.9 SEC (10.0-13.1)
[2023-01-26 18:21] LABS: Alanine Aminotransferase 29 U/L (0-31); Albumin Level 3.5 g/dL (3.5-5.0); Alkaline Phosphatase 82 U/L (39-117); Anion Gap 9 (12-20); Aspartate Amino Transferase 18 U/L (5-31); Bilirubin Total 0.3 mg/dL (0.0-1.0); Blood Urea Nitrogen 10 mg/dL (9-16); Calcium 8.6 mg/dL (8.4-10.2); Carbon Dioxide 25 mmol/L (22-29); Chloride 110 mmol/L (96-108); Estimated Glomerular Filt Rate > 60; Ethanol < 10 mg/dL; Glucose Random 94 mg/dL (60-115); HCG Quantitative < 2 mIU/mL; Potassium 4.1 mmol/L (3.3-5.1); Sodium 140 mmol/L (135-145); Total Protein 5.6 g/dL (6.5-8.0); Troponin-I High Sensitivity < 2.7 ng/L (<3.5-17.0)
== END 2023-01-26 18:13 | disposition left against medical advice (07) ==
PROVIDERS: Emergency Provider Student in an Organized Health Care Education/Training Program; PCP Internal Medicine
DX: F10.10 Alcohol abuse, uncomplicated (principal); R51.9 Headache, unspecified; Y90.9 Presence of alcohol in blood, level not specified; F17.210 Nicotine dependence, cigarettes, uncomplicated; Z71.6 Tobacco abuse counseling; Z79.01 Long term (current) use of anticoagulants; Z79.899 Other long term (current) drug therapy
CPT/HCPCS: 36415; 70450; 80053; 80307; 82947; 84484; 84702; 85025; 85610; 99283; 99284

== ENCOUNTER 2023-04-21 23:52 | Emergency (ER) | payer OTHER, SELFPAY ==
[2023-04-22 00:06] VITALS: BP 130/76; PULSE 92; RESP 18
[2023-04-22 00:10] VITALS: BP 130/76; BP 132/88; PULSE 102; PULSE 92; RESP 18; O2SAT 98; BMI 37.1
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
--- NOTE | 2023-04-22 01:05 | PC.NURSE ---
Pt ambulated out of stretcher and out of room, dressed, yelling i need to leave, im over it, I'm fine, i can move my arm, i just have a swollen face, i called my uber ride already. Pt signed AMA forms, and ambulated with a steady gait. provider aware.
== END 2023-04-22 01:09 | disposition left against medical advice (07) ==
PROVIDERS: Emergency Provider Emergency Medicine
DX: S00.83XA Contusion of other part of head, initial encounter (principal); Y04.8XXA Assault by other bodily force, initial encounter; H11.32 Conjunctival hemorrhage, left eye; R11.0 Nausea; F17.210 Nicotine dependence, cigarettes, uncomplicated; Z79.899 Other long term (current) drug therapy; Z79.84 Long term (current) use of oral hypoglycemic drugs; Y93.9 Activity, unspecified; Y92.9 Unspecified place or not applicable; Y99.9 Unspecified external cause status
CPT/HCPCS: 99282

== ENCOUNTER 2023-06-09 13:58 | Emergency (ER) | payer OTHER, SELFPAY ==
[2023-06-09] VITALS (7 sets, daily range): BP systolic 118–152; BP diastolic 67–78; PULSE 85–117; RESP 14–20; TEMP 36.6; O2SAT 99; BMI 39.0
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
[2023-06-09 16:03] LABS: MANUAL DIFF FLAG NO
[2023-06-09 16:04] LABS: Basophils Absolute Auto 0.1 X10*3/uL (0.0-0.2); Basophils Percent Auto 0.4 % (0-2); Eosinophils Absolute Auto 0.1 X10*3/uL (0.0-0.4); Eosinophils Percent Auto 0.6 % (0-4); Hematocrit 40.7 % (37.0-47.0); Hemoglobin 13.5 g/dl (12.0-16.0); Imm Gran Abs Auto 0.05 X10*3/uL (0.00-0.03); Imm Gran Pct Auto 0.4 % (0.0-0.4); Lymphocytes Absolute Auto 2.3 X10*3/uL (1.2-4.9); Lymphocytes Percent Auto 16.3 % (20-40); Mean Corpuscular HGB Conc 33.2 g/dl (31.0-35.0); Mean Corpuscular Volume 90.4 fL (80.0-98.0); Mean Platelet Volume 11.4 fL (9.4-12.3); Monocytes Absolute Auto 1.1 X10*3/uL (0.1-1.2); Monocytes Percent Auto 7.7 % (2-11); Neutrophils Absolute Auto 10.4 x10*3/uL (2.0-8.3); Neutrophils Percent Auto 74.6 % (45-73); Platelet Count 313 X10*3/uL (160-400)
[2023-06-09 16:23] LABS: Alanine Aminotransferase 25 U/L (0-31); Alkaline Phosphatase 91 U/L (39-117); Anion Gap 12 (12-20); Aspartate Amino Transferase 29 U/L (5-31); Bilirubin Total 0.6 mg/dL (0.0-1.0); Blood Urea Nitrogen 17 mg/dL (9-16); Carbon Dioxide 24 mmol/L (22-29); Chloride 109 mmol/L (96-108); Creatinine Clr Calc Pharmacy 101.5; Estimated Glomerular Filt Rate > 60; Ethanol 11 mg/dL; Glucose Random 110 mg/dL (60-115); Potassium 3.7 mmol/L (3.3-5.1); Sodium 141 mmol/L (135-145); Total Protein 6.7 g/dL (6.5-8.0)
--- NOTE | 2023-06-09 16:54 | ED_ITS ---
HPI - General Adult General Chief complaint: Psychiatric Symptoms Stated complaint: unknown Time Seen by Provider: 06/09/23 15:58 Source: patient, RN notes reviewed and old records reviewed Mode of arrival: EMS Limitations: other (Pressured speech) History of Present Illness HPI narrative: 42-year-old female was past medical history significant for bipolar disorder, diabetes, hypertension presents for evaluation of manic behavior. Patient was reportedly dancing naked in the street. 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 The patient reports initially that she has a boyfriend and that she is single and that she is with 2 kids Her thought process is erratic She reports that she is generally is feeling well and states that she has been taking her medications She states ?I am just very high. ? When I asked her what substances she is high and she reports ?just weed. ? Related Data Home Medications Medication Instructions Recorded Confirmed lurasidone 40 mg tablet (Latuda) 40 mg PO QAM 06/09/23 06/09/23 ziprasidone HCl 20 mg capsule 20 mg PO DAILY 06/09/23 06/09/23 (Geodon) Allergies Allergy/AdvReac Type Severity Reaction Status Date / Time aripiprazole [Abilify] Allergy Unknown hives Verified 08/09/22 09:59 latex [LATEX] Allergy Unknown RASH Verified 08/09/22 09:59 sertraline [From Zoloft] Allergy Unknown raised Verified 08/09/22 09:59 LFTs/angioedema zolpidem [Ambien] Allergy Unknown hives Verified 08/09/22 09:59 Iodinated Contrast Media Allergy Hives Verified 04/22/23 00:26 [IV Contrast Dye] Review of Systems 2 Constitutional: Constitutional: Denies chills, Denies fever(s) and Denies weakness Eyes: Eyes: Denies blurry vision ENT: Denies sore throat Cardiovascular: Cardiovascular: Denies chest pain and Denies dyspnea Respiratory: Respiratory: Denies dyspnea Gastrointestinal: Gastrointestinal: Denies abdominal pain Musculoskeletal: Musculoskeletal: Denies back pain Integumentary/Breasts: Skin/Breast: Denies rash Neurologic: Reports behavioral changes and Denies weakness Psychiatric: Psychiatric: Reports anxiety, Reports behavioral changes, Reports mood swings and Denies suicidal ideation PMFSH Past Medical History Medical History Anemia Asthma Bipolar 1 disorder Elevated WBCs Encounter for Essure implantation H/O abnormal cervical Papanicolaou smear History of electroconvulsive therapy History of hypothyroidism History of syphilis Hypothyroid Morbid obesity Morbid obesity due to excess calories HENRIQUEZ (nonalcoholic steatohepatitis) Neutrophilia DONNA (obstructive sleep apnea) PCOS (polycystic ovarian syndrome) Family History Family History Paternal Grandfather Colon cancer Paternal Grandmother Breast cancer Maternal Grandmother Uterine cancer Father Arthritis Asthma Diabetes Hypertension Stroke Mother Hypertension Mental health disorder Sister Hypertension Diabetes Sister No problems noted. Sister Depression Obesity Brother No problems noted. Sister Lupus Son No problems noted. Daughter No problems noted. Social History Social History Housing: Apartment Alcohol intake: current Alcohol intake frequency: holidays/special occasions only Alcohol type: beer Patient Tobacco Use Status: Current everyday Tobacco user Tobacco use type: Cigarette Cigarettes Per Day: 3 Years Smoked: 15 e-Cigarette/Vaping Use: Never Used Advance Directives: No Advance Directives Information Provided: No service: No Current occupational status: unemployed Sexual orientation: Straight/Heterosexual Gender identity: Female Cognitive needs: No Hearing needs: No Vision needs: Yes Physical Exam ED Vital Signs: Vital Signs - 24 hr 06/09/23 18:50 06/09/23 19:05 06/09/23 19:20 Temperature Pulse Rate Respiratory Rate 20 20 15 Blood Pressure Pulse Oximetry Oxygen Delivery Method 06/09/23 19:35 06/09/23 19:50 Temperature 98 F Pulse Rate 85 Respiratory Rate 16 14 Blood Pressure 118/67 Pulse Oximetry 99 Oxygen Delivery Method Room Air BMI result Body Mass Index 39.0 Const General: healthy appearing, comfortable, no acute distress, alert and awake Nutritional Appearance: well nourished Orientation/consciousness: patient oriented x3 HENMT Head: Yes normocephalic and Yes atraumatic Eyes Eyelids: Yes eyelids normal Conjunctivae: conjunctivae normal Sclerae: sclerae normal Corneas: corneas normal Pupils: Equal, round and reactive pupils present EOM: EOMs intact bilaterally Neck Neck: Yes full ROM Resp Effort & Inspection: normal respiratory effort, able to speak in complete sentences and not labored Skin General skin exam: no rashes or lesions noted and elasticity normal Neuro General: patient oriented x3 Cranial nerves: Yes Equal, round and reactive pupils present and Yes Bilaterally intact EOM present Cognition (Neuro): normal cognition Extrem Other: Moving all extremities well without any obvious deformities Psych Speech and movement: Normal speech and movement present Affect: Labile affect present and Animated affect present Attitude: cooperative Thought process: Racing thoughts present Thought content: Ideas of reference present (thought content) Insight: Limited insight present (Psych) Judgement: Limited judgement present (Psych) Course Reevaluation(s) Reevaluation #1: Patient continued to be manic, not redirectable. She is walking on patient's forearms and flashing then. She was physically and chemically restrained for her safety and the safety of other patients Time: 19:03 Reevaluation #2: Start physician observation The patient has been in the emergency department for 17 hours. Patient presented with paranoia and chon. The patient required chemical and physical restraint. There are no reported incidents on the patient overnight by the overnight nursing staff. On the patient is on a Section 12 and is in in-patient bed search. The patient will be kept in the emergency department Behavioral Health Unit until a disposition can be determined or until her symptoms improve over time. Time: 07:04 Reevaluation #3: Continue physician observation Patient was uncooperative, disruptive and was not redirectable therefore I ordered chemical restraint with Haldol 5 mg IM, Ativan 2 mg IM and Benadryl 50 mg IM. Time: 15:04 Medications Administered Discontinued Medications Generic Name Dose Route Start Last Admin Trade Name Freq PRN Reason Stop Dose Admin Diphenhydramine HCl 50 mg 06/09/23 18:50 06/09/23 18:50 Diphenhydramine Hcl 50 Mg/Ml Vial IM 06/09/23 18:51 50 mg ONCE ONE Administration Haloperidol Lactate 5 mg 06/09/23 18:50 06/09/23 18:50 Haloperidol Lactate 5 Mg/Ml Vial IM 06/09/23 18:51 5 mg STAT STA Administration Lorazepam 2 mg 06/09/23 18:50 06/09/23 18:50 Lorazepam 2 Mg/Ml Vial IM 06/09/23 18:51 2 mg STAT STA Administration Medical Decision Making Medical Decision Making MDM Narrative: 42-year-old female presents for evaluation of ?psych issues. ? She has erratic, manic behavior. She will require medical clearance clearance and care team evaluation, she will likely require inpatient care. Differential Diagnosis Differential Diagnoses: The differential diagnosis associated with the presentation includes Decompensated schizophrenia Bipolar disorder Acute chon Psychosis Substance abuse Lab Data 06/09/23 15:50 06/09/23 15:50 Labs: Lab Results 06/09/23 06/09/23 06/10/23 Range/Units 15:50 17:53 11:17 WBC 14.0 H (4.8-10.8) X10*3/uL RBC 4.50 (4.20-5.50) X10*6/uL Hgb 13.5 (12.0-16.0) g/dl Hct 40.7 (37.0-47.0) % MCV 90.4 (80.0-98.0) fL MCH 30.0 (27.0-33.0) pg MCHC 33.2 (31.0-35.0) g/dl RDW 14.0 (11.0-16.0) % Plt Count 313 (160-400) X10*3/uL MPV 11.4 (9.4-12.3) fL Immature Gran % (Auto) 0.4 (0.0-0.4) % Neut % (Auto) 74.6 H (45-73) % Lymph % (Auto) 16.3 L (20-40) % [place] % (Auto) 7.7 (2-11) % Eos % (Auto) 0.6 (0-4) % Baso % (Auto) 0.4 (0-2) % Lymph # (Auto) 2.3 (1.2-4.9) X10*3/uL [place] # (Auto) 1.1 (0.1-1.2) X10*3/uL Eos # (Auto) 0.1 (0.0-0.4) X10*3/uL Baso # (Auto) 0.1 (0.0-0.2) X10*3/uL Abs Immat Gran (auto) 0.05 H (0.00-0.03) X10*3/uL Absolute Neuts (auto) 10.4 H (2.0-8.3) x10*3/uL Absolute Nucleated RBC 0.000 (0.0-0.012) X10*3/uL Nucleated RBC % (auto) 0.0 (0.0-0.2) /100WBC Sodium 141 (135-145) mmol/L Potassium 3.7 (3.3-5.1) mmol/L Chloride 109 H (96-108) mmol/L Carbon Dioxide 24 (22-29) mmol/L Anion Gap 12 (12-20) BUN 17 H (9-16) mg/dL Creatinine 0.83 (0.5-1.4) mg/dL Estim Creat Clear Calc 101.5 Estimated GFR > 60 Random Glucose 110 (60-115) mg/dL Calcium 9.0 (8.4-10.2) mg/dL Total Bilirubin 0.6 (0.0-1.0) mg/dL AST 29 (5-31) U/L ALT 25 (0-31) U/L Alkaline Phosphatase 91 (39-117) U/L Total Protein 6.7 (6.5-8.0) g/dL Albumin 4.0 (3.5-5.0) g/dL Urine Color Yellow Urine Appearance Clear Urine pH 6.0 (5.0-9.0) Ur Specific [place] 1.025 (1.005-1.025) Urine Protein Negative (Neg-Trace) mg/dL Urine Glucose (UA) Negative (Negative) mg/dL Urine Ketones Negative (Negative) mg/dL Urine Blood Trace H (Negative) Urine Nitrite Negative (Negative) Ur Leukocyte Esterase Negative (Negative) Urine RBC 6-10 H (0-2) /HPF Urine WBC 0-5 (0-5) /HPF Ur Squamous Epith Cells 11-20 (0-2) /HPF Urine Bacteria 2+ (None Seen) Hyaline Casts 0-2 (0-2) /LPF Urine Test NEGATIVE (NEGATIVE) Salicylates < 5.0 L (15-30) mg/dL Urine Opiates Screen Not Detected (Not Detect) Urine Fentanyl Screen Not Detected (Not Detect) Acetaminophen < 17 (<30) mcg/mL Ur Barbiturates Screen Not Detected (Not Detect) Ur Phencyclidine Scrn Not Detected (Not Detect) Ur Amphetamines Screen Not Detected (Not Detect) U Benzodiazepines Scrn Not Detected (Not Detect) Urine Cocaine Screen Not Detected (Not Detect) U Marijuana (THC) Screen POSITIVE H (Not Detect) Ethyl Alcohol 11 mg/dL COVID-19 (JENN) Negative (Negative) COVID-19 Clin Com See Note Discharge Plan Discharge Clinical Impression: Chon Patient Disposition: Still a Patient Prescriptions: No Action ziprasidone HCl [Geodon] 20 mg Capsule 20 mg PO DAILY Rx Instructions: give with food (meal/snack) lurasidone [Latuda] 40 mg Tablet 40 mg PO QAM Rx Instructions: must administer with food (at least 350 calories) Interventions: [place]-Suicide Risk Severity Scale Last Done: 06/10/23 14:26
[2023-06-09 17:02] LABS: Acetaminophen LAB < 17 mcg/mL (<30); Salicylate < 5.0 mg/dL (15-30)
[2023-06-09 18:17] LABS: UPreg QC Valid YES; Urine Pregnancy NEGATIVE (NEGATIVE)
[2023-06-09 18:18] LABS: Appearance Urine Clear; Color Urine Yellow; Glucose Urine UA Negative (Negative); Leukocyte Esterase Urine Negative (Negative); Nitrite Urine Negative (Negative); Specific Gravity - Urine 1.025 (1.005-1.025); UMIC TRIGGER UACC YES; Urine Blood Trace (Negative); Urine Ketones Negative (Negative); Urine Protein Negative (Neg-Trace)
[2023-06-09 18:23] LABS: Bacteria Urine 2+ (None Seen); Hyaline Casts Urine 0-2 /LPF (0-2); WBC Urine 0-5 /HPF (0-5)
[2023-06-09] MEDS: LORazepam 2 MG/ML VIAL IM (18:50)
[2023-06-09] MEDS: Haloperidol Lactate 5 MG/ML VIAL IM (18:50)
[2023-06-09] MEDS: diphenhydrAMINE HCL 50 MG/ML VIAL IM (18:50)
[2023-06-09 19:02] LABS: Amphetamine Screen Urine Not Detected (Not Detect); Barbiturates, Urine Not Detected (Not Detect); Benzodiazepines Screen Urine Not Detected (Not Detect); Cannabinoid Screen Urine POSITIVE (Not Detect); Cocaine Screen Urine Not Detected (Not Detect); Fentanyl, urine Not Detected (Not Detect); Opiate Screen Urine Not Detected (Not Detect); Phencyclidine Screen Urine Not Detected (Not Detect)
--- NOTE | 2023-06-09 20:19 | PC.NURSE ---
Patient was in her completely disrobed, yelling and screaming, out of room loud and disruptive, going into male patient's room half dressed, resistive to redirection, thought content paranoid, argumentative and combative with staff member when approached for redirection, provider notified/ordered Ativan 2 mg IM, Benadryl 50 mg IM, and Haldol 5 mg IM/ administered as ordered @ 1850, patient placed on 1:1 until 1949, patient is on section 12 with disposition inpatient bed search from [facility], VSS, labs completed/resulted, will continue to monitor.
--- NOTE | 2023-06-10 07:14 | PC.NURSE ---
patient just recently arose to use bathroom, did cover self to go to restrooom, appears to be in no distress, continue to monitor for safety.
[2023-06-10 11:44] LABS: COVID-19 Test Negative (Negative); IDNOW Serial# BCCEAD1C
--- NOTE | 2023-06-10 14:25 | PC.NURSE ---
client continues to make disjointed statements, demanding to leave, declines medications to help with agitation
[2023-06-10] MEDS: diphenhydrAMINE HCL 50 MG/ML VIAL IM (15:10)
[2023-06-10] MEDS: LORazepam 2 MG/ML VIAL IM (15:10)
[2023-06-10] MEDS: Haloperidol Lactate 5 MG/ML VIAL IM (15:10)
--- NOTE | 2023-06-10 15:15 | PC.NURSE ---
all im's given 1510, attempting to edit documentation
[2023-06-10 22:23] VITALS: BP 120/93; PULSE 98; RESP 20; TEMP 36.1; O2SAT 98
[2023-06-11] MEDS: Ziprasidone 20 MG CAPSULE PO ×2 (00:07→08:57)
[2023-06-11 04:56] VITALS: BP 154/83; PULSE 100; RESP 16; TEMP 36.5; O2SAT 97
[2023-06-11] MEDS: Acetaminophen 325 MG TABLET 975 MG PO (05:01)
--- NOTE | 2023-06-11 05:06 | PC.NURSE ---
Patient slept through the night, no distress observed/reported, disposition per [facility] is section 12 inpatient bed search, behavior non concerning, thought content coherent and more lucid now, complaint with medication, Geodon 20 mg at 0007 with + effect, follows direction well, VSS, labs completed/resulted, will continue to monitor.
--- NOTE | 2023-06-11 07:17 | PC.NURSE ---
Resumed care of patient this AM, she is currently awake and ambulating around the unit independently. Awaiting bed placement at this time. Safety measures in place, safety checks maintained.
[2023-06-11] MEDS: Lurasidone HCl 40 MG TABLET PO (08:57)
--- NOTE | 2023-06-11 09:03 | PC.NURSE ---
MD made aware of medication orders, daily medications now ordered, pt received morning medications. Pt is escalating this morning in regards to her belongings not being brought here by the police, that she is not able to contact her case maker, and that she was suppose to be in court, and she is being held here against her will for no reason. Pt redirected multiple times. Pt pacing unit, invading other patients space, and needing further redirection
--- NOTE | 2023-06-11 10:01 | PC.NURSE ---
[facility] at bedside with patient talking with patient. Pt continues to escalate
--- NOTE | 2023-06-11 14:09 | PHA.MEDREC ---
Pharmacy Consult ? Medication Reconciliation Pharmacy has completed the medication reconciliation. Reviewed med rec done by nursing
[2023-06-11 14:49] VITALS: BP 126/78; PULSE 83; RESP 18; TEMP 36.2; O2SAT 99
[2023-06-11] MEDS: LORazepam 1 MG TABLET 2 MG PO (15:16)
--- NOTE | 2023-06-11 19:05 | PC.NURSE ---
received patient/report on such from departing rn Pallavi, patient appears to remain at rest in no distress at this time will continue to monitor for safety.
[2023-06-11 20:38] VITALS: BP 136/84; PULSE 97; RESP 20; TEMP 36.6; O2SAT 98
[2023-06-12 03:40] VITALS: BP 132/80; PULSE 84; RESP 17; TEMP 36.6; O2SAT 98
[2023-06-12] MEDS: diphenhydrAMINE HCL 25 MG CAPSULE 50 MG PO (05:16)
--- NOTE | 2023-06-12 05:19 | PC.NURSE ---
patient requesting benadryl to help her sleep and to get rid of the itching Per patient she was stung by a bee a few days ago and sometimes feels itchy because of it. DO aware, order placed and medication administered per MAR
[2023-06-12] MEDS: Ziprasidone 20 MG CAPSULE PO (08:00)
[2023-06-12] MEDS: Lurasidone HCl 40 MG TABLET PO (08:00)
[2023-06-12] MEDS: LORazepam 1 MG TABLET PO (08:04)
--- NOTE | 2023-06-12 10:46 | PC.NURSE ---
Annie was OOB this morning and ate 100% of her breakfast. Annie was adherent with her AM medication and req/rec Lorazepam for anxiety. Annie made several phone calls and she was appropriate during these and was able to follow redirection to please use the phone in her room as other patients were still sleeping. Annie denies SI/HI/AVH. Staff will continue to monitor.
== END 2023-06-12 10:50 | disposition home or self-care (01) ==
PROVIDERS: Emergency Medicine; Emergency Provider Emergency Medicine Emergency Medical Services
DX: F30.2 Manic episode, severe with psychotic symptoms (principal); F17.210 Nicotine dependence, cigarettes, uncomplicated; Z20.822 Contact with and (suspected) exposure to COVID-19; Z20.828 Contact with and (suspected) exposure to other viral communicable diseases; Z71.6 Tobacco abuse counseling; Z79.899 Other long term (current) drug therapy
CPT/HCPCS: 36415; 80053; 80143; 80179; 80307; 81001; 81025; 85025; 87635; 96372; 99285; J1200; J2060

== ENCOUNTER 2023-06-20 00:33 | Emergency (ER) | payer OTHER, SELFPAY ==
[2023-06-20 00:38] VITALS: BP 135/66; PULSE 119; RESP 20; TEMP 36.7; O2SAT 98; BMI 33.7
--- NOTE | 2023-06-20 01:12 | MHC.EDTECH ---
PATIENT BLOOD DRAWN AND SENT TO LAB ,PT NOT ABLE TO GIVE URINE SAMPLE AT THIS TIME .
[2023-06-20 01:20] LABS: Hemoglobin 13.6 g/dl (12.0-16.0); Mean Corpuscular HGB Conc 33.2 g/dl (31.0-35.0); Mean Corpuscular Hemoglobin 29.9 pg (27.0-33.0); Mean Corpuscular Volume 90.1 fL (80.0-98.0); Platelet Count 341 X10*3/uL (160-400); Red Blood Count 4.55 X10*6/uL (4.20-5.50); Red Cell Distribution Width 14.2 % (11.0-16.0); White Blood Count 15.9 X10*3/uL (4.8-10.8)
[2023-06-20 01:27] LABS: Alanine Aminotransferase 23 U/L (0-31); Albumin Level 3.7 g/dL (3.5-5.0); Alkaline Phosphatase 80 U/L (39-117); Anion Gap 12 (12-20); Aspartate Amino Transferase 20 U/L (5-31); Bilirubin Total 0.7 mg/dL (0.0-1.0); Blood Urea Nitrogen 11 mg/dL (9-16); Calcium 9.1 mg/dL (8.4-10.2); Carbon Dioxide 24 mmol/L (22-29); Chloride 110 mmol/L (96-108); Creatinine Clr Calc Pharmacy 102.3; Estimated Glomerular Filt Rate > 60; Glucose Random 96 mg/dL (60-115); Potassium 4.3 mmol/L (3.3-5.1); Sodium 142 mmol/L (135-145); Total Protein 6.6 g/dL (6.5-8.0)
[2023-06-20 02:14] VITALS: BP 128/63; PULSE 93; RESP 18; TEMP 36.7; O2SAT 100
--- NOTE | 2023-06-20 02:15 | MHC.EDTECH ---
Patient came in from the waiting room, patient changed into hospital attire hourly rounds and vitals completed.
--- NOTE | 2023-06-20 02:30 | PC.NURSE ---
Pt to nurse's station reporting that her ride is on the way and that she needs to go. She confirms that she will follow up with her doctor to get a vaginal US this AM. Pt awake and alert, hyperverbal, skin normal for ethnicity and dry, gait even and steady.
== END 2023-06-20 02:34 | disposition left against medical advice (07) ==
PROVIDERS: Emergency Provider Emergency Medicine
DX: R10.2 Pelvic and perineal pain (principal); E11.9 Type 2 diabetes mellitus without complications
CPT/HCPCS: 36415; 80053; 85027; 99283

== ENCOUNTER 2023-06-23 15:50 | Emergency (ER) | payer OTHER, SELFPAY ==
[2023-06-23 16:03] VITALS: BP 133/78; BP 136/70; PULSE 75; PULSE 81; RESP 20; TEMP 36.4; O2SAT 95; O2SAT 99; BMI 31.6
[2023-06-23 16:14] VITALS: BP 136/70; PULSE 72; RESP 20; O2SAT 94
--- NOTE | 2023-06-23 16:32 | ED.GENADULT ---
HPI - General Adult General Chief complaint: General Medical Stated complaint: dehydration 7 mnths Time Seen by Provider: 06/23/23 16:27 Source: patient and EMS Mode of arrival: EMS Limitations: no limitations History of Present Illness HPI narrative: a 42-year-old female with past medical history significant for bipolar disorder, DM, and HTN. Patient was picked up from a bus station with her luggage patient admitted that she is homeless but she will be able to go to her friend's house, patient is here today for dehydration, patient declined using any drugs or drinking any alcohol stated that she only smokes weed, patient mentioned to the EMS that she is 7 months patient was seen i in the emergency room and had negative test 3 days ago. Patient now is sleeping and refused to talk to the examiner. Related Data Home Medications Medication Instructions Recorded Confirmed lurasidone 40 mg tablet (Latuda) 40 mg PO QAM 06/09/23 06/11/23 ziprasidone HCl 20 mg capsule 20 mg PO DAILY 06/09/23 06/09/23 (Geodon) Allergies Allergy/AdvReac Type Severity Reaction Status Date / Time aripiprazole [Abilify] Allergy Unknown hives Verified 06/12/23 03:38 latex [LATEX] Allergy Unknown RASH Verified 06/12/23 03:38 sertraline [From Zoloft] Allergy Unknown raised Verified 06/12/23 03:38 LFTs/angioedema zolpidem [Ambien] Allergy Unknown hives Verified 06/12/23 03:38 Iodinated Contrast Media Allergy Hives Verified 06/12/23 03:38 [IV Contrast Dye] Review of Systems Review of Systems: All other systems are reviewed and are negative Constitutional: Reports as per HPI and Reports no additional constitutional complaints Eyes: Reports as per HPI and Reports no additional eye complaints Reports system reviewed and no additional complaints, except as documented Cardiovascular: Reports as per HPI and Reports no additional cardiovascular complaints Respiratory: Reports as per HPI and Reports no additional respiratory complaints Gastrointestinal: Reports as per HPI and Reports no additional gastrointestinal complaints Genitourinary: Reports no additional female genitourinary complaints Musculoskeletal: Reports no additional musculoskeletal complaints Skin/Breast: Reports system reviewed and no additional complaints, except as docu Psychiatric: Reports no additional psychiatric complaints Endocrine: Reports no additional endocrine complaints Hematologic/Lymphatic: Reports no additional hematologic/lymphatic complaints Allergic/Immunologic: Reports no additional allergic/immunologic complaints Reports system reviewed and no additional complaints, except as documented and Reports Abnormal speech present [facility] Past Medical History Medical History History of electroconvulsive therapy H/O abnormal cervical Papanicolaou smear DONNA (obstructive sleep apnea) Morbid obesity Morbid obesity due to excess calories History of hypothyroidism History of syphilis Encounter for Essure implantation Elevated WBCs HENRIQUEZ (nonalcoholic steatohepatitis) Neutrophilia Anemia Asthma PCOS (polycystic ovarian syndrome) Hypothyroid Bipolar 1 disorder Family History Family History Paternal Grandfather Colon cancer Paternal Grandmother Breast cancer Maternal Grandmother Uterine cancer Father Arthritis Asthma Diabetes Hypertension Stroke Mother Hypertension Mental health disorder Sister Hypertension Diabetes Sister No problems noted. Sister Depression Obesity Brother No problems noted. Sister Lupus Son No problems noted. Daughter No problems noted. Social History Social History Housing: Apartment Alcohol intake: current Alcohol intake frequency: holidays/special occasions only Alcohol type: beer Patient Tobacco Use Status: Current everyday Tobacco user Tobacco use type: Cigarette Cigarettes Per Day: 3 Years Smoked: 15 e-Cigarette/Vaping Use: Never Used Advance Directives: No service: No Current occupational status: unemployed Sexual orientation: Straight/Heterosexual Gender identity: Female Cognitive needs: No Hearing needs: No Vision needs: Yes Physical Exam ED Vital Signs: Vital Signs - 24 hr 06/23/23 16:03 06/23/23 16:14 Pulse Rate 75 72 Respiratory Rate 20 20 Blood Pressure 136/70 136/70 Pulse Oximetry 95 94 Oxygen Delivery Method Room Air Room Air BMI result Body Mass Index 31.6 Vital signs have been reviewed and appear to be correct. Blood pressure elevated. Heart rate normal. Respiratory rate normal. Temperature normal. Oxygen saturation normal. Appearance: disheveled, unkempt, sleeping arouses with sternal rub. No acute distress. Head: Normal external exam. Normocephalic. Atraumatic. No Delacruz signs noted. No raccoon eyes noted Eyes: PERRLA. EOMI. Conjunctiva and sclera normal. Eyelids normal. ENT: TM's Normal. Pharynx normal. Uvula midline. Moist mucous membranes. No trismus noted. No drooling noted. No muffled voice noted. Neck: Normal inspection. Neck supple. FROM. No adenopathy. Thyroid Normal. No meningeal signs. No neck mass noted. CVS: Normal heart rate and rhythm. Heart sound normal. No murmurs noted. Pulses normal throughout. Respiratory: No respiratory distress. Painless inspiration. Breath sounds normal. No wheezes/rales/rhonchi noted. Chest nontender. No accessory muscle usage noted or decreased air movement noted. Abdomen: Soft and nontender. Bowel sounds normal in all 4 quadrants. No distention noted. No organomegaly noted. No visible injury noted. Back: No CVA tenderness. Full range of motion noted. Skin: Skin warm and dry. Normal skin color. Normal skin turgor. No rashes/lesions/lacerations noted. Extremities: No lower extremity edema. Extremities exhibit normal range of motion. Extremities nontender. Neuro: Oriented X 3. Cranial nerve exam: II-XII are grossly intact No motor deficit. No sensory deficit. Reflexes normal. Course Reevaluation(s) Reevaluation #1: 42-year-old female with history of bipolar disorder came in by ambulance from the bus stop with her luggage claiming that she is dehydrated and she is a 7 month (patient was seen in the emergency department with negative test 3 days ago). Came in initially wanted to sleep and not talk to the examiner patient now is awake, alert, walked to the bathroom with all her luggage. Patient wanted to be discharged going to her boyfriend's house patient feels safe to be discharged, declined SI, HI, AVH. Patient now is refusing blood workup. Time: 18:19 Medications Administered Discontinued Medications Generic Name Dose Route Start Last Admin Trade Name Freq PRN Reason Stop Dose Admin Sodium Chloride 1,000 mls @ 999 mls/hr 06/23/23 16:34 06/23/23 17:52 Ns IV 06/23/23 17:34 Not Given .[id number] ONE Medical Decision Making Differential Diagnosis Differential Diagnoses: The differential diagnosis associated with the presentation includes ( Homeless, depression with suicidal ideation, chon, dehydration.) Admission/Observation Consideration of admission/observation: Escalation of care including admission/observation considered Lab Data MDM Lab Attestation statement: I reviewed the patient's lab results. Discharge Plan Discharge Clinical Impression: Homeless, Dehydration Patient Disposition: Home, Self-Care Instructions: Dehydration (ED) Prescriptions: No Action ziprasidone HCl [Geodon] 20 mg Capsule 20 mg PO DAILY Rx Instructions: give with food (meal/snack) lurasidone [Latuda] 40 mg Tablet 40 mg PO QAM Rx Instructions: must administer with food (at least 350 calories)
--- NOTE | 2023-06-23 17:49 | PC.NURSE ---
pt woke up, ran out of the room and into the bathroom with all her belongings. pt paranoid in her thought process, ruminative. deneis SI/HI reports she wants to leave to go be with her boyfriend. pt asked multiple times is she has any SI/HI or AVH pt denied all. pt requesting food. plan to d/c pt
== END 2023-06-23 18:27 | disposition home or self-care (01) ==
PROVIDERS: Emergency Provider Emergency Medicine
DX: E86.0 Dehydration (principal); Z59.00 Homelessness unspecified; E11.9 Type 2 diabetes mellitus without complications; I10 Essential (primary) hypertension; F31.70 Bipolar disorder, currently in remission, most recent episode unspecified; G47.33 Obstructive sleep apnea (adult) (pediatric); F17.210 Nicotine dependence, cigarettes, uncomplicated; E66.9 Obesity, unspecified; Z68.31 Body mass index [BMI] 31.0-31.9, adult
CPT/HCPCS: 99282; 99284

== ENCOUNTER 2023-06-24 16:01 | Emergency (ER) | payer OTHER, SELFPAY ==
[2023-06-24 16:17] VITALS: BP 138/88; BP 140/88; PULSE 102; PULSE 99; RESP 18; TEMP 36.1; O2SAT 98; BMI 35.2
--- NOTE | 2023-06-24 16:34 | PC.NURSE ---
states only med olanzapine at bedtime last taken yesterday.
--- NOTE | 2023-06-24 18:37 | ED.GENADULT ---
HPI - General Adult General Chief complaint: Psychiatric Symptoms Stated complaint: pt state she need somewhere safe, psych, per ems Time Seen by Provider: 06/24/23 16:41 Source: patient, RN notes reviewed and old records reviewed Mode of arrival: EMS Limitations: other (Patient is manic) History of Present Illness HPI narrative: 42-year-old female presents for evaluation of multiple complaints. She is primarily complaining of back pain and states that she fell yesterday. She also reports that people are after her. She states ?I am about to have a seizure. ? She states that she was seen here yesterday for dehydration Speech is pressured and her thought process is not linear. Her chief complaint appears to be lower back pain Denies fevers, chills The patient is ambulating around the department during my evaluation Related Data Home Medications Medication Instructions Recorded Confirmed No Known Home Meds 06/24/23 06/24/23 Allergies Allergy/AdvReac Type Severity Reaction Status Date / Time aripiprazole [Abilify] Allergy Unknown hives Verified 06/12/23 03:38 latex [LATEX] Allergy Unknown RASH Verified 06/12/23 03:38 sertraline [From Zoloft] Allergy Unknown raised Verified 06/12/23 03:38 LFTs/angioedema zolpidem [Ambien] Allergy Unknown hives Verified 06/12/23 03:38 Iodinated Contrast Media Allergy Hives Verified 06/12/23 03:38 [IV Contrast Dye] Review of Systems Constitutional: Constitutional: Denies chills, Denies fever(s) and Denies frequent falls Eyes: Eyes: Denies blurry vision Cardiovascular: Cardiovascular: Denies chest pain and Denies dyspnea Respiratory: Respiratory: Denies dyspnea Gastrointestinal: Gastrointestinal: Denies abdominal pain, Denies nausea and Denies vomiting Musculoskeletal: Musculoskeletal: Reports back pain Integumentary/Breasts: Skin/Breast: Denies rash Neurologic: Denies frequent falls Psychiatric: Psychiatric: Reports panic attacks and Reports paranoia [facility] Past Medical History Medical History History of electroconvulsive therapy H/O abnormal cervical Papanicolaou smear DONNA (obstructive sleep apnea) Morbid obesity Morbid obesity due to excess calories History of hypothyroidism History of syphilis Encounter for Essure implantation Elevated WBCs HENRIQUEZ (nonalcoholic steatohepatitis) Neutrophilia Anemia Asthma PCOS (polycystic ovarian syndrome) Hypothyroid Bipolar 1 disorder Family History Family History Paternal Grandfather Colon cancer Paternal Grandmother Breast cancer Maternal Grandmother Uterine cancer Father Arthritis Asthma Diabetes Hypertension Stroke Mother Hypertension Mental health disorder Sister Hypertension Diabetes Sister No problems noted. Sister Depression Obesity Brother No problems noted. Sister Lupus Son No problems noted. Daughter No problems noted. Social History Social History Housing: Apartment Alcohol intake: current Alcohol intake frequency: holidays/special occasions only Alcohol type: beer Patient Tobacco Use Status: Current everyday Tobacco user Tobacco use type: Cigarette Cigarettes Per Day: 3 Years Smoked: 15 e-Cigarette/Vaping Use: Never Used Advance Directives: No Advance Directives Information Provided: Yes service: No Current occupational status: unemployed Sexual orientation: Straight/Heterosexual Gender identity: Female Cognitive needs: No Hearing needs: No Vision needs: Yes Physical Exam ED Vital Signs: Vital Signs - 24 hr 06/24/23 16:17 Temperature 97 F Pulse Rate 99 Respiratory Rate 18 Blood Pressure 138/88 Pulse Oximetry 98 Oxygen Delivery Method Room Air BMI result Body Mass Index 35.2 Const General: healthy appearing, comfortable and awake Nutritional Appearance: well nourished HENUT Head: Yes normocephalic and Yes atraumatic Eyes Eyelids: Yes eyelids normal Conjunctivae: conjunctivae normal Sclerae: sclerae normal Corneas: corneas normal Pupils: Equal, round and reactive pupils present EOM: EOMs intact bilaterally Neck Neck: Yes full ROM Resp Effort & Inspection: normal respiratory effort, able to speak in complete sentences, no audible wheezes and not labored Auscultation: clear to auscultation bilaterally Cardio Rate: regular rate Rhythm: regular rhythm GI Inspection: No distended Palpation (GI): Soft to palpation, not firm, nontender, no guarding and not rigid Auscultation: normoactive bowel sounds Back/Spine/Pelvis Other: No thoracic or lumbar spinal tenderness. No paraspinal tenderness. Skin General skin exam: elasticity normal Neuro Cranial nerves: Yes Equal, round and reactive pupils present and Yes Bilaterally intact EOM present Extrem Other: Moving all extremities well without any obvious deformities Psych Appearance: disheveled Mental Status: mental status grossly abnormal Speech and movement: Pressured speech present Affect: Labile affect present and Anxious affect present Attitude: Belligerent attititude/behavior present Thought process: Tangential thought process present and Racing thoughts present Thought content: Paranoid delusions present Insight: Poor insight present (Psych) Judgement: Poor judgement present (Psych) Course Reevaluation(s) Reevaluation #1: Patient is currently calm and cooperative. She has thus far been refusing labs. Plan to observe for now and try to draw labs again in the morning. Time: 01:35 Reevaluation #2: Physician observation continued. Agreed to labs this AM, xray not done has been walking around without issue, still pending CARE team consult, VS stable. 748am. Reevaluation #3: Physician observation ended at 1110am Patient seen and cleared by CARE team CHD to be involved. She is manic but not a threat to herself. she does not want to stay. At this time plan is to follow up with outpatient providers. Disposition is for home. Medications Administered Discontinued Medications Generic Name Dose Route Start Last Admin Trade Name Grace PRN Reason Stop Dose Admin Lorazepam 1 mg 06/24/23 17:08 06/24/23 17:19 Lorazepam 1 Mg Tablet PO 06/24/23 17:09 1 mg ONCE ONE Administration Olanzapine 10 mg 06/24/23 19:49 06/24/23 23:00 Olanzapine 10 Mg Tablet PO 06/24/23 19:50 Not Given ONCE ONE Medical Decision Making Medical Decision Making MDM Narrative: 42-year-old female with known psych history presents for evaluation of back pain. She has pressured speech on exam, appears manic. Will check labs, urine, drug screen, urine x-ray lumbar spine in the area where the patient is reporting discomfort. There are no obvious signs of trauma or objective findings. The patient can be medically cleared, she will referred to the care team for chon Differential Diagnosis Differential Diagnoses: The differential diagnosis associated with the presentation includes Chon Fall Contusion Back pain Bipolar disorder Substance abuse Lab Data 06/25/23 07:29 06/25/23 07:29 Labs: Lab Results 06/25/23 06/25/23 Range/Units 06:38 07:29 WBC 8.5 (4.8-10.8) X10*3/uL RBC 4.38 (4.20-5.50) X10*6/uL Hgb 13.0 (12.0-16.0) g/dl Hct 39.7 (37.0-47.0) % MCV 90.6 (80.0-98.0) fL MCH 29.7 (27.0-33.0) pg MCHC 32.7 (31.0-35.0) g/dl RDW 14.6 (11.0-16.0) % Plt Count 239 D (160-400) X10*3/uL MPV 10.9 (9.4-12.3) fL Immature Gran % (Auto) 0.4 (0.0-0.4) % Neut % (Auto) 71.0 (45-73) % Lymph % (Auto) 19.5 L (20-40) % Gilliam % (Auto) 7.5 (2-11) % Eos % (Auto) 1.2 (0-4) % Baso % (Auto) 0.4 (0-2) % Lymph # (Auto) 1.7 (1.2-4.9) X10*3/uL Gilliam # (Auto) 0.6 (0.1-1.2) X10*3/uL Eos # (Auto) 0.1 (0.0-0.4) X10*3/uL Baso # (Auto) 0.0 (0.0-0.2) X10*3/uL Abs Immat Gran (auto) 0.03 (0.00-0.03) X10*3/uL Absolute Neuts (auto) 6.1 (2.0-8.3) x10*3/uL Absolute Nucleated RBC 0.000 (0.0-0.012) X10*3/uL Nucleated RBC % (auto) 0.0 (0.0-0.2) /100WBC Sodium 138 (135-145) mmol/L Potassium 3.9 (3.3-5.1) mmol/L Chloride 109 H (96-108) mmol/L Carbon Dioxide 22 (22-29) mmol/L Anion Gap 11 L (12-20) BUN 8 L (9-16) mg/dL Creatinine 0.67 (0.5-1.4) mg/dL Estim Creat Clear Calc 105.6 Estimated GFR > 60 Random Glucose 123 H (60-115) mg/dL Calcium 8.4 D (8.4-10.2) mg/dL Total Bilirubin 0.6 (0.0-1.0) mg/dL AST 14 (5-31) U/L ALT 13 (0-31) U/L Alkaline Phosphatase 64 (39-117) U/L Total Protein 5.5 L (6.5-8.0) g/dL Albumin 3.2 L (3.5-5.0) g/dL Lipase 15 (8-78) U/L Beta HCG, Quant < 2 mIU/mL Urine Color Yellow Urine Appearance Clear Urine pH 7.5 (5.0-9.0) Ur Specific Reading 1.010 (1.005-1.025) Urine Protein Negative (Neg-Trace) mg/dL Urine Glucose (UA) Negative (Negative) mg/dL Urine Ketones Negative (Negative) mg/dL Urine Blood Negative (Negative) Urine Nitrite Negative (Negative) Ur Leukocyte Esterase Negative (Negative) Urine RBC 0-2 (0-2) /HPF Urine WBC 0-5 (0-5) /HPF Ur Squamous Epith Cells 0-2 (0-2) /HPF Urine Bacteria None Seen (None Seen) Hyaline Casts 0-2 (0-2) /LPF Urine Test NEGATIVE (NEGATIVE) Urine Opiates Screen Not Detected (Not Detect) Urine Fentanyl Screen Not Detected (Not Detect) Ur Barbiturates Screen Not Detected (Not Detect) Ur Phencyclidine Scrn Not Detected (Not Detect) Ur Amphetamines Screen Not Detected (Not Detect) U Benzodiazepines Scrn Not Detected (Not Detect) Urine Cocaine Screen Not Detected (Not Detect) U Marijuana (THC) Screen Not Detected (Not Detect) Ethyl Alcohol < 10 mg/dL Discharge Plan Discharge Clinical Impression: Lower back pain, Chon Patient Disposition: Home, Self-Care Instructions: Acute Low Back Pain (ED) Additional Instructions: no fracture seen on xrays. please return for thoughts of self harm. follow up with your mental health providers. you were seen by our CARE team today. Prescriptions: No Action No Known Home Meds Interventions: [place]-Suicide Risk Severity Scale Last Done: 06/25/23 07:03
== END 2023-06-25 11:40 | disposition home or self-care (01) ==
PROVIDERS: Emergency Provider Emergency Medicine
DX: M54.50 Low back pain, unspecified (principal); F30.9 Manic episode, unspecified; E11.9 Type 2 diabetes mellitus without complications; E66.9 Obesity, unspecified; Z68.35 Body mass index [BMI] 35.0-35.9, adult; F17.210 Nicotine dependence, cigarettes, uncomplicated
CPT/HCPCS: 36415; 72100; 80053; 80307; 81001; 81025; 83690; 84702; 85025; 99284; S9485

== ENCOUNTER 2023-08-05 18:23 | Emergency (ER) | payer OTHER, SELFPAY ==
--- NOTE | ~2023-08-05 | CT_ITS ---
EXAMINATION: CT HEAD WITHOUT CONTRAST (STROKE PROTOCOL) CLINICAL INFORMATION: Stroke protocol. Left-sided weakness COMPARISON: Noncontrast head CT 01/26/2023. TECHNIQUE: Contiguous axial imaging was performed from the skull base to vertex without intravenous contrast. Sagittal and coronal reformatted images were obtained. This CT examination was performed using dose optimization techniques as appropriate, variously including the following: * Automated exposure control * Adjustment of mA and/or kV according to patient size (this includes techniques or standardized protocols for targeted exams where dose is matched to indication/reason for exam; i.e. extremities or head) Use of iterative reconstruction technique DLP: 1673.3 mGy-cm FINDINGS: No acute osseous or soft tissue abnormality. Hyperostosis frontalis interna. Unchanged left sphenoid sinus mucosal retention cyst. The mastoid air cells and visualized portions of the paranasal sinuses are otherwise well aerated. There is no evidence of acute intracranial hemorrhage or territorial infarction. No abnormal mass effect or midline shift is seen. Méndez to white matter differentiation is well preserved. No extra-axial fluid collections are identified. No hydrocephalus. No significant volume loss. There is no abnormal attenuation within the brain parenchyma. CT/CT head for stroke IMPRESSION: No acute intracranial abnormality including hemorrhage, mass effect, hydrocephalus, or acute territorial edematous infarction. Impression was discussed with Tonny Jacome by Desmond Olivera MD on 08/05/2023 6:47 PM and it was ascertained that the content of the report was understood at the time of direct communication.
--- NOTE | 2023-08-05 18:34 | ECG_ITS ---
Test Reason : STROKE? Blood Pressure : / mmHG Vent. Rate : 070 BPM Atrial Rate : 070 BPM P-R Int : 144 ms QRS Dur : 088 ms QT Int : 400 ms P-R-T Axes : 029 146 129 degrees QTc Int : 432 ms Normal sinus rhythm Right axis deviation Possible limb lead reversal Abnormal ECG When compared with ECG of 10-FEB-2022 08:58, Nonspecific T wave abnormality, worse in Inferior leads advise repeat study Referred By: Tonny Jacome Electronically Signed By:HERMES RECIO MD
[2023-08-05 18:36] VITALS: BP 170/130; PULSE 96; O2SAT 96; BMI 34.0
--- NOTE | 2023-08-05 18:38 | PC.NURSE ---
Patient arrived via ems with complaints of left sided weakness, head pain, facial droop. Patient alert and responsive but slow to respond. Patient with allergy to contrast, dry CT ordered as patient was unable to say what reaction to contrast dye is. @0 g IV placed in right AC. Labs obtained. Patient more alert when brought to CT.
--- NOTE | 2023-08-05 18:38 | ED.NEUROSD ---
HPI - Neuro Symptoms/Deficit General Chief Complaint: Stroke Stated Complaint: STROKE ALERT, L-SIDE DROOP, SLURRED SPEECH Time Seen by Provider: 08/05/23 18:30 Source: patient, EMS, RN notes reviewed and old records reviewed Mode of arrival: EMS Limitations: no limitations History of Present Illness HPI Narrative: 42-year-old female with past medical history significant for diabetes, GERD, complex migraines, depression, bipolar disorder presents for evaluation of headache. Patient was called and EMS as a stroke alert She was reported to have right-sided facial droop and left-sided weakness The patient states that she has a headache and feels ?off. ? She has a history of seizures but is unsure if she had a seizure today I evaluated the patient immediately on arrival while on the ambulance stretcher. She will follow most commands but states that she cannot of her cheeks out ?because my mouth is too dry. ? She is able to move all of her extremities equally but appears to have global weakness No focal deficits on exam. She was sent for CT scan immediately Related Data Home Medications Medication Instructions Recorded Confirmed No Known Home Meds 08/06/23 08/06/23 Allergies Allergy/AdvReac Type Severity Reaction Status Date / Time aripiprazole [Abilify] Allergy Unknown hives Verified 06/12/23 03:38 latex [LATEX] Allergy Unknown RASH Verified 06/12/23 03:38 sertraline [From Zoloft] Allergy Unknown raised Verified 06/12/23 03:38 LFTs/angioedema zolpidem [Ambien] Allergy Unknown hives Verified 06/12/23 03:38 Iodinated Contrast Media Allergy Hives Verified 06/12/23 03:38 [IV Contrast Dye] Review of Systems Constitutional: Constitutional: Denies chills, Denies frequent falls, Reports headache(s) and Reports weakness Eyes: Eyes: Denies blurry vision and Denies loss of vision ENT: Denies vertigo, Reports dizziness, Reports headache(s) and Denies disequilibrium Cardiovascular: Cardiovascular: Denies dyspnea Respiratory: Respiratory: Denies cough and Denies dyspnea Gastrointestinal: Gastrointestinal: Denies abdominal pain, Denies nausea and Denies vomiting Musculoskeletal: Musculoskeletal: Reports back pain Integumentary/Breasts: Skin/Breast: Denies rash Neurologic: Denies confusion, Denies vertigo, Reports dizziness, Denies frequent falls, Reports headache(s), Denies focal weakness, Denies loss of vision, Denies disequilibrium and Reports weakness Psychiatric: Psychiatric: Denies confusion PMFSH Past Medical History Medical History History of electroconvulsive therapy H/O abnormal cervical Papanicolaou smear DONNA (obstructive sleep apnea) Morbid obesity Morbid obesity due to excess calories History of hypothyroidism History of syphilis Encounter for Essure implantation Elevated WBCs HENRIQUEZ (nonalcoholic steatohepatitis) Neutrophilia Anemia Asthma PCOS (polycystic ovarian syndrome) Hypothyroid Bipolar 1 disorder Family History Family History Paternal Grandfather Colon cancer Paternal Grandmother Breast cancer Maternal Grandmother Uterine cancer Father Arthritis Asthma Diabetes Hypertension Stroke Mother Hypertension Mental health disorder Sister Hypertension Diabetes Sister No problems noted. Sister Depression Obesity Brother No problems noted. Sister Lupus Son No problems noted. Daughter No problems noted. Social History Social History Housing: Apartment Alcohol intake: former Patient Tobacco Use Status: Current everyday Tobacco user Tobacco use type: Cigarette Cigarettes Per Day: 3 Years Smoked: 15 Smoked in Last 30 Days: Yes e-Cigarette/Vaping Use: Never Used Use of substances other than those prescribed or required for medical reasons: No Advance Directives: No Advance Directives Information Provided: No Healthcare Proxy: No Guardian: No service: No Current occupational status: unemployed Sexual orientation: Straight/Heterosexual Gender identity: Female Cognitive needs: No Hearing needs: No Vision needs: Yes Physical Exam Vital Signs: Vital Signs: Last Vital Signs Temp 98.7 F 08/05/23 22:57 Pulse 83 08/05/23 23:29 Resp 11 L 08/05/23 23:29 BP 118/72 08/05/23 23:29 Pulse Ox 97 08/05/23 23:29 O2 Del Method Room Air 08/05/23 23:29 BMI result Body Mass Index 34.0 Const: Other: Patient is awake and answers questions but periodically dozes off and has to be reawakened General: healthy appearing, no acute distress and lethargic; No confusion Nutritional Appearance: well nourished Orientation/consciousness: oriented to person, oriented to place, oriented to time, No confusion and lethargic HEENT: Head: Yes normocephalic and Yes atraumatic Throat: Yes posterior oropharynx normal Eyes: Eyelids: Yes eyelids normal Conjunctivae: conjunctivae normal Sclerae: sclerae normal Corneas: corneas normal Pupils: Equal, round and reactive pupils present EOM: EOMs intact bilaterally Neck: Neck: Yes full ROM Resp: Effort & Inspection: normal respiratory effort, able to speak in complete sentences, no audible wheezes and not labored Auscultation: clear to auscultation bilaterally Cardio: Rate: regular rate Rhythm: regular rhythm GI: Inspection: No distended Palpation (GI): Soft to palpation, not firm, nontender, no guarding and not rigid Auscultation: normoactive bowel sounds Skin: General skin exam: no rashes or lesions noted and elasticity normal Neuro: General: oriented to person, oriented to place, oriented to time and No confusion Cranial nerves: Yes CN's II-XII intact bilaterally, Yes Equal, round and reactive pupils present and Yes Bilaterally intact EOM present Course Reevaluation(s) Reevaluation #1: 42-year-old female presents as a stroke alert via EMS. On exam she has no appreciable facial droop. Exam is somewhat limited as the patient is not cooperative with mostly exam. She has no evidence of focal weakness on exam she has 4-5 strength to bilateral upper and lower extremities. There is no gaze palsy. There is no slurred speech/disorder exam. And low suspicion for acute CVA. She has an allergy to IV contrast. Will start with a CT scan of the head only. Time: 18:38 Reevaluation #2: Patient re-evaluated, she has an NIH stroke score of 0. She is speaking clearly. She reports that she was actually at the [employer] mall getting on the bus to come to the emergency department anyways due to headache that she has had all day today. He states that a bystander called 911 because she did not seem herself. The patient states that she has a history of complex migraines. She does not believe that she had a seizure today. Discussed with radiology, the patient's CT scan the brain without contrast was negative Time: 19:02 Reevaluation #3: Patient remains awake, and oriented, her headache has resolved after treatment. She is moving all extremities, speaking clearly. The patient is requesting evaluation by the care team for depression. She is not suicidal but reports that she is ?hopeless due to homelessness. ? A care team consult was placed. The patient is medically cleared for care to evaluation at this time Time: 23:39 Additional Reevaluation(s): 7 AM 08/06/23 pt has been medically cleared she is waiting for crisis dispo,stable clinically 3:55 PM seen by crisis again she is cleared for discharge home Medications Administered Discontinued Medications Generic Name Dose Route Start Last Admin Trade Name [facility] PRN Reason Stop Dose Admin Diphenhydramine HCl 25 mg 08/05/23 19:16 08/05/23 19:28 Diphenhydramine Hcl 50 Mg/Ml Vial IVPUSH 08/05/23 19:17 25 mg ONCE ONE Administration Sodium Chloride 1,000 mls @ 999 mls/hr 08/05/23 19:30 08/05/23 20:22 Ns IV 08/05/23 20:30 Infused .Q1H1M EVANGELISTA Infusion Ketorolac Tromethamine 30 mg 08/05/23 19:16 08/05/23 19:27 Ketorolac Tromethamine 30 Mg/Ml Vial IVPUSH 08/05/23 19:17 30 mg ONCE ONE Administration Metoclopramide HCl 10 mg 08/05/23 19:16 08/05/23 19:28 Metoclopramide Hcl 10 Mg/2 Ml Vial IVPUSH 08/05/23 19:17 10 mg ONCE ONE Administration Medical Decision Making Medical Decision Making MDM Narrative: Patient was called in as a stroke alert on arrival. Had a very low suspicion for CVA during my initial evaluation. I considered angiography with Benadryl and steroids to prevent allergic reaction but given that I have a very low suspicion for CVA felt this was unnecessary. The patient has no evidence to suggest large vessel occlusion. She had an NIH stroke score of 0 throughout her stay. I discussed this with her, her headache has resolved and she is back to her baseline per her report. I discussed discharge the patient and the patient reports that she is homeless and would like to speak to the care team due to depression but she is not actively suicidal. Differential Diagnosis Differential Diagnoses: The differential diagnosis associated with the presentation includes Acute headache Complex migraine Seizure disorder CVA TIA Admission/Observation Consideration of admission/observation: Escalation of care including admission/observation considered Consider admission due to concern for CVA however the patient had an NIH stroke score of 0 throughout her stay. Is awake, and oriented and other pathologies more likely Lab Data MDM Lab Attestation statement: I reviewed the patient's lab results. No leukocytosis or significant anemia. No electrolyte abnormalities. Drug screen positive for marijuana only 08/05/23 18:35 08/05/23 18:35 Labs: Lab Results 08/05/23 08/05/23 08/05/23 Range/Units 18:26 18:28 18:35 WBC 9.1 (4.8-10.8) X10*3/uL RBC 4.13 L (4.20-5.50) X10*6/uL Hgb 12.9 (12.0-16.0) g/dl Hct 38.5 (37.0-47.0) % MCV 93.2 (80.0-98.0) fL MCH 31.2 (27.0-33.0) pg MCHC 33.5 (31.0-35.0) g/dl RDW 13.3 (11.0-16.0) % Plt Count 273 (160-400) X10*3/uL MPV 11.1 (9.4-12.3) fL Immature Gran % (Auto) 0.2 (0.0-0.4) % Neut % (Auto) 62.8 (45-73) % Lymph % (Auto) 27.7 (20-40) % [place] % (Auto) 8.1 (2-11) % Eos % (Auto) 0.8 (0-4) % Baso % (Auto) 0.4 (0-2) % Lymph # (Auto) 2.5 (1.2-4.9) X10*3/uL [place] # (Auto) 0.7 (0.1-1.2) X10*3/uL Eos # (Auto) 0.1 (0.0-0.4) X10*3/uL Baso # (Auto) 0.0 (0.0-0.2) X10*3/uL Abs Immat Gran (auto) 0.02 (0.00-0.03) X10*3/uL Absolute Neuts (auto) 5.7 (2.0-8.3) x10*3/uL Absolute Nucleated RBC 0.000 (0.0-0.012) X10*3/uL Nucleated RBC % (auto) 0.0 (0.0-0.2) /100WBC Hold Purple Top SEE NOTE PT 13.2 (11.1-13.3) SEC Whole Blood PT 13.8 H (11.1-13.5) sec INR 1.1 (0.9-1.1) Whole Blood INR 1.1 (0.9-1.1) APTT 29.3 (26.0-36.4) SEC Sodium 140 (135-145) mmol/L Potassium 3.8 (3.3-5.1) mmol/L Chloride 107 (96-108) mmol/L Carbon Dioxide 29 (22-29) mmol/L Anion Gap 8 L (12-20) BUN 10 (9-16) mg/dL Creatinine 0.74 (0.5-1.4) mg/dL Estim Creat Clear Calc 109.7 Estimated GFR > 60 POC Glucose 103 (60-115) mg/dL Random Glucose 98 (60-115) mg/dL Lactic Acid 0.6 (0.5-2.0) mmol/L Calcium 8.7 (8.4-10.2) mg/dL Total Bilirubin 0.4 (0.0-1.0) mg/dL AST 17 (5-31) U/L ALT 17 (0-31) U/L Alkaline Phosphatase 78 (39-117) U/L Troponin I High Sens < 2.7 (<3.5-17.0) ng/L Total Protein 6.0 L (6.5-8.0) g/dL Albumin 3.6 (3.5-5.0) g/dL Lipase 25 (8-78) U/L Beta HCG, Quant < 2 mIU/mL Hold Yellow Top See Note Urine Color Urine Appearance Urine pH (5.0-9.0) Ur Specific [place] (1.005-1.025) Urine Protein (Neg-Trace) mg/dL Urine Glucose (UA) (Negative) mg/dL Urine Ketones (Negative) mg/dL Urine Blood (Negative) Urine Nitrite (Negative) Ur Leukocyte Esterase (Negative) Urine RBC (0-2) /HPF Urine WBC (0-5) /HPF Ur Squamous Epith Cells (0-2) /HPF Urine Bacteria (None Seen) Hyaline Casts (0-2) /LPF Urine Opiates Screen (Not Detect) Urine Fentanyl Screen (Not Detect) Ur Barbiturates Screen (Not Detect) Ur Phencyclidine Scrn (Not Detect) Ur Amphetamines Screen (Not Detect) U Benzodiazepines Scrn (Not Detect) Urine Cocaine Screen (Not Detect) U Marijuana (THC) Screen (Not Detect) Ethyl Alcohol < 10 mg/dL Blood Type Antibody Screen 08/05/23 08/05/23 Range/Units 19:48 20:22 WBC (4.8-10.8) X10*3/uL RBC (4.20-5.50) X10*6/uL Hgb (12.0-16.0) g/dl Hct (37.0-47.0) % MCV (80.0-98.0) fL MCH (27.0-33.0) pg MCHC (31.0-35.0) g/dl RDW (11.0-16.0) % Plt Count (160-400) X10*3/uL MPV (9.4-12.3) fL Immature Gran % (Auto) (0.0-0.4) % Neut % (Auto) (45-73) % Lymph % (Auto) (20-40) % [place] % (Auto) (2-11) % Eos % (Auto) (0-4) % Baso % (Auto) (0-2) % Lymph # (Auto) (1.2-4.9) X10*3/uL [place] # (Auto) (0.1-1.2) X10*3/uL Eos # (Auto) (0.0-0.4) X10*3/uL Baso # (Auto) (0.0-0.2) X10*3/uL Abs Immat Gran (auto) (0.00-0.03) X10*3/uL Absolute Neuts (auto) (2.0-8.3) x10*3/uL Absolute Nucleated RBC (0.0-0.012) X10*3/uL Nucleated RBC % (auto) (0.0-0.2) /100WBC Hold Purple Top PT (11.1-13.3) SEC Whole Blood PT (11.1-13.5) sec INR (0.9-1.1) Whole Blood INR (0.9-1.1) APTT (26.0-36.4) SEC Sodium (135-145) mmol/L Potassium (3.3-5.1) mmol/L Chloride (96-108) mmol/L Carbon Dioxide (22-29) mmol/L Anion Gap (12-20) BUN (9-16) mg/dL Creatinine (0.5-1.4) mg/dL Estim Creat Clear Calc Estimated GFR POC Glucose (60-115) mg/dL Random Glucose (60-115) mg/dL Lactic Acid (0.5-2.0) mmol/L Calcium (8.4-10.2) mg/dL Total Bilirubin (0.0-1.0) mg/dL AST (5-31) U/L ALT (0-31) U/L Alkaline Phosphatase (39-117) U/L Troponin I High Sens (<3.5-17.0) ng/L Total Protein (6.5-8.0) g/dL Albumin (3.5-5.0) g/dL Lipase (8-78) U/L Beta HCG, Quant mIU/mL Hold Yellow Top Urine Color Yellow Urine Appearance Clear Urine pH 6.5 (5.0-9.0) Ur Specific [place] 1.020 (1.005-1.025) Urine Protein Negative (Neg-Trace) mg/dL Urine Glucose (UA) Negative (Negative) mg/dL Urine Ketones Trace (Negative) mg/dL Urine Blood Negative (Negative) Urine Nitrite Negative (Negative) Ur Leukocyte Esterase Moderate (2+) H (Negative) Urine RBC 0-2 (0-2) /HPF Urine WBC 6-10 (0-5) /HPF Ur Squamous Epith Cells 3-5 (0-2) /HPF Urine Bacteria 1+ (None Seen) Hyaline Casts 0-2 (0-2) /LPF Urine Opiates Screen Not Detected (Not Detect) Urine Fentanyl Screen Not Detected (Not Detect) Ur Barbiturates Screen Not Detected (Not Detect) Ur Phencyclidine Scrn Not Detected (Not Detect) Ur Amphetamines Screen Not Detected (Not Detect) U Benzodiazepines Scrn Not Detected (Not Detect) Urine Cocaine Screen Not Detected (Not Detect) U Marijuana (THC) Screen POSITIVE H (Not Detect) Ethyl Alcohol mg/dL Blood Type O Positive Antibody Screen NEGATIVE Independent Interpretation I performed an independent interpretation of an: CT Scan (No acute intracranial hemorrhage, mass effect or midline shift) Radiology Impression Discussion of test interpretation with radiology: I have reviewed the radiologist's reading. (No acute intracranial abnormality including hemorrhage, mass effect hydrocephalus, or acute territorial edematous infarction) Discharge Plan Discharge Clinical Impression: Acute headache, Depression Patient Disposition: Still a Patient Instructions: Depression (ED), Acute Headache (ED) Additional Instructions: Your workup in the emergency department today was reassuring. Your symptoms were likely related to a complex migraine Follow the instructions of the care team Prescriptions: No Action No Known Home Meds
[2023-08-05 18:41] LABS: Glucose, Whole Blood 103 mg/dL (60-115)
[2023-08-05 18:41] LABS: Prothrombin Time Whole Bld POC 13.8 sec (11.1-13.5); ~PT, ~INR - Anti Coag Clinic 1.1 (0.9-1.1)
[2023-08-05 18:45] LABS: MANUAL DIFF FLAG NO
[2023-08-05 18:47] LABS: Basophils Percent Auto 0.4 % (0-2); Eosinophils Absolute Auto 0.1 X10*3/uL (0.0-0.4); Eosinophils Percent Auto 0.8 % (0-4); Hematocrit 38.5 % (37.0-47.0); Hemoglobin 12.9 g/dl (12.0-16.0); Imm Gran Abs Auto 0.02 X10*3/uL (0.00-0.03); Imm Gran Pct Auto 0.2 % (0.0-0.4); Lymphocytes Absolute Auto 2.5 X10*3/uL (1.2-4.9); Lymphocytes Percent Auto 27.7 % (20-40); Mean Corpuscular HGB Conc 33.5 g/dl (31.0-35.0); Mean Corpuscular Hemoglobin 31.2 pg (27.0-33.0); Mean Corpuscular Volume 93.2 fL (80.0-98.0); Mean Platelet Volume 11.1 fL (9.4-12.3); Monocytes Absolute Auto 0.7 X10*3/uL (0.1-1.2); Monocytes Percent Auto 8.1 % (2-11); Neutrophils Absolute Auto 5.7 x10*3/uL (2.0-8.3); Neutrophils Percent Auto 62.8 % (45-73); Platelet Count 273 X10*3/uL (160-400); Red Blood Count 4.13 X10*6/uL (4.20-5.50); Red Cell Distribution Width 13.3 % (11.0-16.0); White Blood Count 9.1 X10*3/uL (4.8-10.8)
[2023-08-05 18:48] VITALS: BP 118/72; PULSE 78; RESP 20; TEMP 36.7
[2023-08-05 18:51] VITALS: O2SAT 93
--- NOTE | 2023-08-05 18:51 | PC.NURSE ---
Seizure pads placed
[2023-08-05 18:53] LABS: INTERNATIONAL NORM RATIO 1.1 (0.9-1.1); Prothrombin Time 13.2 SEC (11.1-13.3)
[2023-08-05 18:56] LABS: Lactic Acid 0.6 mmol/L (0.5-2.0); Partial Thromboplastin Time 29.3 SEC (26.0-36.4)
[2023-08-05 19:07] LABS: Troponin-I High Sensitivity < 2.7 ng/L (<3.5-17.0)
[2023-08-05 19:13] VITALS: BP 111/57; PULSE 69; RESP 18; O2SAT 95
[2023-08-05 19:14] LABS: Alanine Aminotransferase 17 U/L (0-31); Albumin Level 3.6 g/dL (3.5-5.0); Alkaline Phosphatase 78 U/L (39-117); Anion Gap 8 (12-20); Aspartate Amino Transferase 17 U/L (5-31); Bilirubin Total 0.4 mg/dL (0.0-1.0); Blood Urea Nitrogen 10 mg/dL (9-16); Calcium 8.7 mg/dL (8.4-10.2); Carbon Dioxide 29 mmol/L (22-29); Chloride 107 mmol/L (96-108); Creatinine Clr Calc Pharmacy 109.7; Estimated Glomerular Filt Rate > 60; Ethanol < 10 mg/dL; Glucose Random 98 mg/dL (60-115); HCG Quantitative < 2 mIU/mL; Lipase 25 U/L (8-78); Potassium 3.8 mmol/L (3.3-5.1); Sodium 140 mmol/L (135-145)
[2023-08-05] MEDS: 0.9 % Sodium Chloride 1,000 ML 999 ML IV (19:27)
[2023-08-05] MEDS: Ketorolac Tromethamine 30 MG/ML VIAL IVPUSH (19:27)
[2023-08-05] MEDS: Metoclopramide HCl 10 MG/2 ML VIAL IVPUSH (19:28)
[2023-08-05] MEDS: diphenhydrAMINE HCL 50 MG/ML VIAL 25 MG IVPUSH (19:28)
[2023-08-05 19:56] LABS: Appearance Urine Clear; Color Urine Yellow; Glucose Urine UA Negative (Negative); Leukocyte Esterase Urine Moderate (2+) (Negative); Nitrite Urine Negative (Negative); PH 6.5 (5.0-9.0); UMIC TRIGGER UACC YES; Urine Blood Negative (Negative); Urine Ketones Trace mg/dL (Negative); Urine Protein Negative (Neg-Trace)
[2023-08-05 20:02] LABS: Amphetamine Screen Urine Not Detected (Not Detect); Barbiturates, Urine Not Detected (Not Detect); Benzodiazepines Screen Urine Not Detected (Not Detect); Cannabinoid Screen Urine POSITIVE (Not Detect); Cocaine Screen Urine Not Detected (Not Detect); Fentanyl, urine Not Detected (Not Detect); Opiate Screen Urine Not Detected (Not Detect); Phencyclidine Screen Urine Not Detected (Not Detect)
[2023-08-05 20:03] LABS: Bacteria Urine 1+ (None Seen); Hyaline Casts Urine 0-2 /LPF (0-2); RBC Urine 0-2 /HPF (0-2); UACC Culture Trigger YES
[2023-08-05 22:57] VITALS: BP 118/80; PULSE 77; RESP 15; TEMP 37.1; O2SAT 97
--- NOTE | 2023-08-05 23:07 | PC.NURSE ---
pt denies SI, however when talking she expressed feeling depressed and would like to speak to someone from crisis. Provider is aware
[2023-08-05 23:29] VITALS: BP 118/72; PULSE 83; RESP 11; O2SAT 97
--- NOTE | 2023-08-06 01:28 | PC.NURSE ---
security at bedside, medically cleared .Processed changed into appropriate attire. Pt still denying SI
--- NOTE | 2023-08-06 02:30 | PC.NURSE ---
Patient just got transferred from main ED, independent ambulation, no distress observed/reported, safety check initiated, care consult ordered for depression per patient request, pending evaluation, med rec completed/currently not on any home medication, behavior non concerning, thought ontent clear and thought process coherent, VSS, lab completed/resulted, will continue to monitor,
--- NOTE | 2023-08-06 06:56 | PC.NURSE ---
patient appears to remain asleep at present respirations are even and unlabored patient appears in no distress
--- NOTE | 2023-08-06 11:10 | PC.NURSE ---
patient begins to complain about our facilities saying the shower doesnt have enough privacy and accusing the staff of losing belongings.
--- NOTE | 2023-08-06 11:12 | PC.NURSE ---
patient using vulgar language with staff
== END 2023-08-06 16:23 | disposition home or self-care (01) ==
PROVIDERS: Physician Assistant; Emergency Provider Student in an Organized Health Care Education/Training Program
DX: R51.9 Headache, unspecified (principal); F32.A Depression, unspecified; R53.1 Weakness; R29.700 NIHSS score 0; F12.90 Cannabis use, unspecified, uncomplicated; E11.9 Type 2 diabetes mellitus without complications; I10 Essential (primary) hypertension; D64.9 Anemia, unspecified; K75.81 Nonalcoholic steatohepatitis (NASH); F17.210 Nicotine dependence, cigarettes, uncomplicated; G47.33 Obstructive sleep apnea (adult) (pediatric); Z99.89 Dependence on other enabling machines and devices
CPT/HCPCS: 36415; 70450; 80053; 80307; 81001; 82947; 83605; 83690; 84484; 84702; 85025; 85610; 85730; 86850; 86900; 86901; 87086; 93005; 96361; 96374; 96375; 99285; J1200; J1885; J2765; S9485

== ENCOUNTER 2023-08-25 22:41 | Outpatient (BNV) | payer OTHER, SELFPAY | END 2023-09-06 13:27 | PROVIDERS: Admitting Provider Psychiatry & Neurology Psychiatry; Visit Provider Internal Medicine Cardiovascular Disease | DX: I45.81 Long QT syndrome (principal) | CPT/HCPCS: 93010 ==

== ENCOUNTER 2023-08-25 22:41 | Inpatient (IN) | payer OTHER, SELFPAY ==
--- NOTE | 2023-08-26 01:04 | PC.ADMIT ---
Annie is a 34yr old female admitted from [facility] ED for SI. She was found outside yelling with disorganized speech. Medical record states she recently ingested cocaine and smoked marijuana prior to admit. She was agitated, hostile and refusing care at [facility] which resulted in an intramuscular medication restraint currently of unknown medication. [facility] [place] to arrive after the Nurse to Nurse report for over 6 hours. RN at [facility] called when she left and stated that she was sleeping and when they woke her up she gave them the finger as she left. She arrive to [facility] via EMS and an [facility] [place] gaurd. She was both confused and disorganized and would not sign a CV. She was returned to the ED. The covering inspector conveyor line MD was made aware. The same security gaurd called 20 minutes later stating that the patient agreed to sign the CV. RN went down to get her and she did sign the CV. EMS stated that the patient was stating that she was going to hang herself. Upon admission to the unit she was belligerent and verbally abusive. She was refusing all care. BETSY wallace texted the MD for a 1 to 1 sitter d/t agitation and reports of SI for patients safety. Patient soon after went to bed and is currently sleeping. She is safe and sleeping with a 1:1 and care will be continued with oncoming staff and the behavior health team in the morning.
[2023-08-26 07:46] LABS: Alanine Aminotransferase 14 U/L (0-31); Albumin Level 3.5 g/dL (3.5-5.0); Alkaline Phosphatase 77 U/L (39-117); Anion Gap 12 (12-20); Aspartate Amino Transferase 17 U/L (5-31); Bilirubin Total 0.5 mg/dL (0.0-1.0); Blood Urea Nitrogen 15 mg/dL (9-16); Calcium 9.1 mg/dL (8.4-10.2); Carbon Dioxide 26 mmol/L (22-29); Chloride 109 mmol/L (96-108); Cholesterol 105 mg/dL (<200); Estimated Glomerular Filt Rate > 60; Glucose Fasting 88 mg/dL (60-99); HDL Cholesterol 40 mg/dL (>40); LDL Cholesterol Calculated 48 mg/dL (<100); Potassium 4.5 mmol/L (3.3-5.1); Sodium 142 mmol/L (135-145); Total Protein 6.2 g/dL (6.5-8.0); Triglycerides 88 mg/dL (<150)
[2023-08-26] MEDS: risperiDONE 2 MG TABLET PO (08:02)
[2023-08-26 08:55] VITALS: BP 125/57; PULSE 96; RESP 16; TEMP 37.1; O2SAT 97
--- NOTE | 2023-08-26 09:08 | P.HPPS_ITS ---
HPI Date of Service: 08/26/23 Chief Complaint: bipolar disorder Sources of Information: patient interviewed, chart reviewed and crisis/core team assessment reviewed Additional Sources of Information: Patient is a very poor historian and her current mental status makes it close to impossible to do a proper interview. HPI Subjective Notes: Conditional Voluntary Healthcare Proxy: No Guardianship: No Medical Problems Affecting Mental Status: No Narrative: Annie is a 6-year-old female with history of schizoaffective disorder. She has had numerous hospitalizations and emergency room evaluations. She presented to the emergency room on 08/24/2023 for suicidal ideations and disorganized behavior, yelling outside of the emergency room. She was last evaluated by the emergency room in May with outpatient follow-up referral which she never follow through with. She does not appear to be on any medications but states that she is on Klonopin. We have not been able to verify this but will pursue. She was found by security at side of the emergency room being very disorganized and refused workup and care she. She was not able to give much historical information in the emergency room. She talked about missing her daughter, her daughter being a ?silent killer?. She was seen to be delusional and that appears to be the case now. No verifiable history of substance abuse from her but in the past she has used marijuana, alcohol and cocaine. Past Psychiatric History: Several inpatient hospitalization. Little follow through with outpatient care Medical Evaluation Reviewed: Yes (Emergency evaluation reviewed with no findings) [facility] Medical History History of electroconvulsive therapy H/O abnormal cervical Papanicolaou smear DONNA (obstructive sleep apnea) Morbid obesity Morbid obesity due to excess calories History of hypothyroidism History of syphilis Encounter for Essure implantation Elevated WBCs HENRIQUEZ (nonalcoholic steatohepatitis) Neutrophilia Anemia Asthma PCOS (polycystic ovarian syndrome) Hypothyroid Bipolar 1 disorder Family History: Unobtainable Social History: Unobtainable Substance History: History of marijuana, cocaine and alcohol use. Current or recent use cannot be verify Trauma History: Unobtainable Diagnostics Labs 08/26/23 07:13 Labs: Laboratory Results - last 48 hr 08/26/23 07:13 Hold Purple Top SEE NOTE Sodium 142 Potassium 4.5 Chloride 109 H Carbon Dioxide 26 Anion Gap 12 BUN 15 Creatinine 0.67 Estim Creat Clear Calc TNP Estimated GFR > 60 Fasting Glucose 88 Calcium 9.1 Total Bilirubin 0.5 AST 17 ALT 14 Alkaline Phosphatase 77 Total Protein 6.2 L Albumin 3.5 Triglycerides 88 Cholesterol 105 LDL Cholesterol, Calc 48 HDL Cholesterol 40 L Meds/Allergies Meds Home Medications Medication Instructions Recorded Confirmed Type No Known Home Meds 08/06/23 08/06/23 History Allergies Allergies Allergy/AdvReac Type Severity Reaction Status Date / Time aripiprazole [Abilify] Allergy Unknown hives Verified 06/12/23 03:38 latex [LATEX] Allergy Unknown RASH Verified 06/12/23 03:38 sertraline [From Zoloft] Allergy Unknown raised Verified 06/12/23 03:38 LFTs/angioedema zolpidem [Ambien] Allergy Unknown hives Verified 06/12/23 03:38 Iodinated Contrast Media Allergy Hives Verified 06/12/23 03:38 [IV Contrast Dye] Mental Status Exam Mental Status Exam Narrative: I attempted to see the patient the day after her admission. She is alert, very disorganized, responding to internal stimuli and is unable to respond appropriately to questions or give any reliable information at this time. She denies any active suicidal ideations. Cognitively she is very disorganized. Somewhat paranoid and probably delusional Assessment & Plan Assessment & Plan (1) Schizoaffective disorder, bipolar type: Status: Acute Code(s): F25.0 - Schizoaffective disorder, bipolar type Plan In conclusion Annie meets criteria for hospital level of care. She was admitted on a one-to-one level of observation which we will continue for now in light of her disorganization, psychosis, intrusive behaviors. This morning at 2 mg dose of Risperdal was given with little effect and I will add Thorazine 50 mg q.4 hours p.r.n., initiate Trileptal 150 mg q.h.s. and Zyprexa 10 mg at night. I attempted to review side effects but she is unable to comprehend at this time. Patient educated on: diagnosis and medication risk/benefits Reason for continued inpatient stay Substantial Risk for: harm to self, inability to function and med/psych decompensation Statement Statement: I have reviewed the history and physical and performed a pertinent examination on my patient. No changes have occurred unless specified. If the History and Physical was not performed prior to admission, the Hospitalist's service will be consulted for completing the admission physical. Time Spent With Patient Time: Total time managing care of this patient today ____ minutes.
[2023-08-26] MEDS: chlorproMAZINE HCl 25 MG TABLET 50 MG PO (09:12)
--- NOTE | 2023-08-26 15:03 | HO.PM.IMCN ---
History of Present Illness Data of Consult Service Date: 08/26/23 Requesting physician: Tae Winkler Primary Care Provider: Unknown Physician HPI Reason for consult: medical H&P 42-year-old female with history of mild intermittent asthma, hypothyroidism, PCOS, controlled type 2 diabetes, HENRIQUEZ admitted to Psychiatry with consult placed hospitalist service for medical H and P. The patient is hyperverbal and very disorganized. Unable to provide review of systems or participate in physical exam. There is not appear to be any acute medical issues at this time. Hematology studies while in the ED unremarkable. Renal function and electrolyte levels normal except for hemolyzed potassium. TSH normal at 0.54. Review of Systems Review of Systems: Yes Unobtainable due to mental status [facility] Medical History History of electroconvulsive therapy H/O abnormal cervical Papanicolaou smear DONNA (obstructive sleep apnea) Morbid obesity Morbid obesity due to excess calories History of hypothyroidism History of syphilis Encounter for Essure implantation Elevated WBCs HENRIQUEZ (nonalcoholic steatohepatitis) Neutrophilia Anemia Asthma PCOS (polycystic ovarian syndrome) Hypothyroid Bipolar 1 disorder Family History Paternal Grandfather Colon cancer Paternal Grandmother Breast cancer Maternal Grandmother Uterine cancer Father Arthritis Asthma Diabetes Hypertension Stroke Mother Hypertension Mental health disorder Sister Hypertension Diabetes Sister No problems noted. Sister Depression Obesity Brother No problems noted. Sister Lupus Son No problems noted. Daughter No problems noted. Social History Housing: Apartment Alcohol intake: former Patient Tobacco Use Status: Current everyday Tobacco user Tobacco use type: Cigarette Cigarettes Per Day: 3 Years Smoked: 15 e-Cigarette/Vaping Use: Never Used Currently Displaying Signs/Symptoms of Drug Intoxication Withdrawal: No Advance Directives: No Advance Directives Information Provided: No Do you have thoughts of harming others: None Do you have a plan to hurt others: No Plan service: No Current occupational status: unemployed Sexual orientation: Straight/Heterosexual Gender identity: Female Cognitive needs: No Hearing needs: No Vision needs: Yes Meds Allergies Allergy/AdvReac Type Severity Reaction Status Date / Time aripiprazole [Abilify] Allergy Unknown hives Verified 06/12/23 03:38 latex [LATEX] Allergy Unknown RASH Verified 06/12/23 03:38 sertraline [From Zoloft] Allergy Unknown raised Verified 06/12/23 03:38 LFTs/angioedema zolpidem [Ambien] Allergy Unknown hives Verified 06/12/23 03:38 Iodinated Contrast Media Allergy Hives Verified 06/12/23 03:38 [IV Contrast Dye] Active Medications: Current Medications Acetaminophen (Acetaminophen 325 Mg Tablet) 650 mg PO Q6H PRN PRN Reason: Headache/Pain Mild Scale (1-3) Al Hydroxide/Mg Hydroxide (Magnesium Hydrox/Alum Hydrox 30 Ml Oral.Susp) 30 ml PO Q6H PRN PRN Reason: Heartburn/Nausea Albuterol Sulfate (Albuterol Sulfate 90 Mcg 8 Gm Inhaler) 1 puff INHALE RQ4H PRN PRN Reason: Shortness of Breath Chlorpromazine HCl (Chlorpromazine Hcl 25 Mg Tablet) 50 mg PO Q4H PRN PRN Reason: agitation Last Admin: 08/26/23 09:12 Dose: 50 mg Hydroxyzine HCl (Hydroxyzine Hcl 25 Mg Tablet) 25 mg PO Q6H PRN PRN Reason: Anxiety Levothyroxine Sodium (Levothyroxine Sodium 50 Mcg Tablet) 50 mcg PO DAILY@0600 [facility] Loratadine (Loratadine 10 Mg Tablet) 10 mg PO DAILY [facility] Magnesium Hydroxide (Milk Of Magnesia 30 Ml Oral.Susp) 30 ml PO DAILY PRN PRN Reason: Constipation Metformin HCl (Metformin Hcl Er 750 Mg Tab.Er.24h) 750 mg PO BEDTIME [facility] Oxcarbazepine (Oxcarbazepine 150 Mg Tablet) 150 mg PO BEDTIME [facility] Prazosin HCl (Prazosin Hcl 1 Mg Capsule) 1 mg PO BEDTIME [facility]; Protocol Trazodone HCl (Trazodone Hcl 50 Mg Tablet) 50 mg PO BEDTIME MRX1 PRN PRN Reason: Insomnia Vitamin D (Cholecalciferol (Vitamin D3) 25 Mcg Tablet) 25 mcg PO DAILY [facility] Home Medications Medication Instructions Recorded Confirmed Last Taken Type albuterol sulfate 90 mcg/actuation 1 puff inhalation Q4-6H PRN 08/26/23 08/26/23 Unknown History aerosol inhaler Shortness Of Breath cholecalciferol (vitamin D3) 25 25 mcg PO DAILY 08/26/23 08/26/23 Unknown History mcg (1,000 unit) capsule clonazepam 1 mg tablet 1 mg PO BEDTIME 08/26/23 08/26/23 Unknown History levothyroxine 50 mcg capsule 50 mcg PO DAILY 08/26/23 08/26/23 Unknown History loratadine 10 mg tablet 10 mg PO DAILY 08/26/23 08/26/23 Unknown History lorazepam 1 mg tablet (Ativan) 1 mg PO DAILY PRN Anxiety 08/26/23 08/26/23 Unknown History lurasidone 60 mg tablet (Latuda) 60 mg PO DAILY 08/26/23 08/26/23 Unknown History metformin 750 mg tablet,extended 750 mg PO DAILY 08/26/23 08/26/23 Unknown History release 24 hr olanzapine 5 mg tablet 5 mg PO Q4-6H 08/26/23 08/26/23 Unknown History paliperidone palmitate 234 mg/1.5 234 mg IM Q4W 08/26/23 08/26/23 Unknown History mL intramuscular syringe (Invega Sustenna) prazosin 1 mg capsule 1 mg PO BEDTIME 08/26/23 08/26/23 Unknown History Physical Exam Vital Signs and Narrative: Vital Signs: Last Vital Signs Temp 98.7 F 08/26/23 08:55 Pulse 96 08/26/23 08:55 Resp 16 08/26/23 08:55 BP 125/57 L 08/26/23 08:55 Pulse Ox 97 08/26/23 08:55 O2 Del Method Room Air 08/26/23 08:55 Constitutional - Awake and Alert, No apparent distress Psych- disorganized, hyperverbal Unable to complete remainder of physical exam 10/20 mental status Results Labs 08/26/23 07:13 Labs: Laboratory Results - last 24 hr 08/26/23 07:13 Hold Purple Top SEE NOTE Anion Gap 12 Estim Creat Clear Calc TNP Estimated GFR > 60 Fasting Glucose 88 Calcium 9.1 Total Bilirubin 0.5 AST 17 ALT 14 Alkaline Phosphatase 77 Total Protein 6.2 L Albumin 3.5 Triglycerides 88 Cholesterol 105 LDL Cholesterol, Calc 48 HDL Cholesterol 40 L Assessment and Plan (1) Routine medical exam: Status: Acute Plan 42-year-old female with history of mild intermittent asthma, hypothyroidism, PCOS, controlled type 2 diabetes, HENRIQUEZ admitted to Psychiatry with consult placed hospitalist service for medical H and P. #Mood disorder -plan per psychiatry #Mild intermittent asthma -no acute exacerbation -albuterol p.r.n. # controlled type 2 diabetes -A1c last measured around 5.6%, last year was 6.8% consistent with type 2 diabetes -continue metformin -POC glucose, diabetic diet if patient tolerates # PCOS -continue metformin #HENRIQUEZ -hepatic function WNL Thank you for allowing me to participate in this consult. Signing off at this time. Please do not hesitate to call for further questions or for any acute medical issues.
[2023-08-26] MEDS: Acetaminophen 325 MG TABLET 650 MG PO (16:41)
[2023-08-26 18:00] VITALS: BP 108/63; PULSE 78; TEMP 36.5; O2SAT 99
[2023-08-26] MEDS: OXcarbazepine 150 MG TABLET PO (20:05)
[2023-08-26] MEDS: Prazosin HCL 1 MG CAPSULE PO (20:05)
[2023-08-26] MEDS: metFORMIN HCl ER 750 MG TAB.ER.24H PO (20:05)
[2023-08-27] MEDS: Levothyroxine Sodium 50 MCG TABLET PO (06:00)
[2023-08-27] MEDS: Loratadine 10 MG TABLET PO (08:10)
[2023-08-27] MEDS: Cholecalciferol (Vitamin D3) 25 MCG TABLET PO (08:10)
[2023-08-27] MEDS: chlorproMAZINE HCl 25 MG TABLET 50 MG PO ×3 (08:10→17:00)
[2023-08-27 09:14] VITALS: BP 109/57; PULSE 92; TEMP 36.5; O2SAT 99
--- NOTE | 2023-08-27 11:03 | HO.PSYCHPN ---
Subjective Subjective Date of Service: 08/27/23 Reason For Visit: bipolar disorder Subjective Notes: Conditional Voluntary Interim History: Patient was seen and discussed in rounds today. Records and plans were reviewed. She is doing much better after day of taking some neuroleptics. She is less loud, intrusive and behaviorally more manageable. Eating and sleeping adequately. No complaints or side effects. No SI. No changes were made today Review of Systems Review of Systems Yes all other systems are reviewed and are negative Mental Status Exam Mental Status Exam Narrative: In today's visit she is alert, pleasant and interactive. Speech is much much less pressured. No overt signs of psychosis. Some paranoia present. No SI. No dangerous or aggressive behaviors. Cognitively is more organized but did not test formally. Judgment is more intact Diagnostics Vital Signs (24Hr): Vital Signs - 24 hr 08/26/23 18:00 08/27/23 09:14 Temperature 97.7 F 97.7 F Pulse Rate 78 92 Blood Pressure 108/63 109/57 L Pulse Oximetry 99 99 Oxygen Delivery Method Room Air Room Air Labs 08/26/23 07:13 Labs: Laboratory Results - last 48 hr 08/26/23 07:13 Hold Purple Top SEE NOTE Sodium 142 Potassium 4.5 Chloride 109 H Carbon Dioxide 26 Anion Gap 12 BUN 15 Creatinine 0.67 Estim Creat Clear Calc TNP Estimated GFR > 60 Fasting Glucose 88 Calcium 9.1 Total Bilirubin 0.5 AST 17 ALT 14 Alkaline Phosphatase 77 Total Protein 6.2 L Albumin 3.5 Triglycerides 88 Cholesterol 105 LDL Cholesterol, Calc 48 HDL Cholesterol 40 L Medications Medications Current Medications Acetaminophen (Acetaminophen 325 Mg Tablet) 650 mg PO Q6H PRN PRN Reason: Headache/Pain Mild Scale (1-3) Last Admin: 08/26/23 16:41 Dose: 650 mg Al Hydroxide/Mg Hydroxide (Magnesium Hydrox/Alum Hydrox 30 Ml Oral.Susp) 30 ml PO Q6H PRN PRN Reason: Heartburn/Nausea Albuterol Sulfate (Albuterol Sulfate 90 Mcg 8 Gm Inhaler) 1 puff INHALE RQ4H PRN PRN Reason: Shortness of Breath Chlorpromazine HCl (Chlorpromazine Hcl 25 Mg Tablet) 50 mg PO Q4H PRN PRN Reason: agitation Last Admin: 08/27/23 08:10 Dose: 50 mg Hydroxyzine HCl (Hydroxyzine Hcl 25 Mg Tablet) 25 mg PO Q6H PRN PRN Reason: Anxiety Levothyroxine Sodium (Levothyroxine Sodium 50 Mcg Tablet) 50 mcg PO DAILY@0600 [facility] Last Admin: 08/27/23 06:00 Dose: 50 mcg Loratadine (Loratadine 10 Mg Tablet) 10 mg PO DAILY [facility] Last Admin: 08/27/23 08:10 Dose: 10 mg Magnesium Hydroxide (Milk Of Magnesia 30 Ml Oral.Susp) 30 ml PO DAILY PRN PRN Reason: Constipation Metformin HCl (Metformin Hcl Er 750 Mg Tab.Er.24h) 750 mg PO BEDTIME [facility] Last Admin: 08/26/23 20:05 Dose: 750 mg Oxcarbazepine (Oxcarbazepine 150 Mg Tablet) 150 mg PO BEDTIME [facility] Last Admin: 08/26/23 20:05 Dose: 150 mg Prazosin HCl (Prazosin Hcl 1 Mg Capsule) 1 mg PO BEDTIME [facility]; Protocol Last Admin: 08/26/23 20:05 Dose: 1 mg Trazodone HCl (Trazodone Hcl 50 Mg Tablet) 50 mg PO BEDTIME MRX1 PRN PRN Reason: Insomnia Vitamin D (Cholecalciferol (Vitamin D3) 25 Mcg Tablet) 25 mcg PO DAILY [facility] Last Admin: 08/27/23 08:10 Dose: 25 mcg Allergies Allergies Allergy/AdvReac Type Severity Reaction Status Date / Time aripiprazole [Abilify] Allergy Unknown hives Verified 06/12/23 03:38 latex [LATEX] Allergy Unknown RASH Verified 06/12/23 03:38 sertraline [From Zoloft] Allergy Unknown raised Verified 06/12/23 03:38 LFTs/angioedema zolpidem [Ambien] Allergy Unknown hives Verified 06/12/23 03:38 Iodinated Contrast Media Allergy Hives Verified 06/12/23 03:38 [IV Contrast Dye] Assessment & Plan Assessment & Plan (1) Routine medical exam: Status: Acute Code(s): Z00.00 - Encounter for general adult medical examination without abnormal findings Plan 42-year-old female with history of mild intermittent asthma, hypothyroidism, PCOS, controlled type 2 diabetes, HENRIQUEZ admitted to Psychiatry with consult placed hospitalist service for medical H and P. #Mood disorder -plan per psychiatry #Mild intermittent asthma -no acute exacerbation -albuterol p.r.n. # controlled type 2 diabetes -A1c last measured around 5.6%, last year was 6.8% consistent with type 2 diabetes -continue metformin -POC glucose, diabetic diet if patient tolerates # PCOS -continue metformin #HENRIQUEZ -hepatic function WNL Thank you for allowing me to participate in this consult. Signing off at this time. Please do not hesitate to call for further questions or for any acute medical issues. 08/27:Continue current regimen and plans Reason for continued inpatient stay Substantial Risk for: med/psych decompensation Time Spent With Patient Time: Total time managing care of this patient today ____ minutes.
[2023-08-27 13:29] LABS: Glucose, Whole Blood 83 mg/dL (60-115)
[2023-08-27] MEDS: Albuterol Sulfate 90 MCG 8 GM INHALER 1 PUFF INHALE (15:05)
[2023-08-27] MEDS: Nicotine Polacrilex 2 MG GUM BUCCAL (15:19)
[2023-08-27] MEDS: Magnesium Hydrox/Alum Hydrox 30 ML ORAL.SUSP PO (16:18)
[2023-08-27 20:10] VITALS: BP 118/53; PULSE 104; TEMP 36.2
[2023-08-27] MEDS: OXcarbazepine 150 MG TABLET PO (20:17)
[2023-08-27] MEDS: metFORMIN HCl ER 750 MG TAB.ER.24H PO (20:17)
[2023-08-27] MEDS: Prazosin HCL 1 MG CAPSULE PO (20:17)
[2023-08-27] MEDS: traZODone HCL 50 MG TABLET PO (20:18)
[2023-08-27] MEDS: Acetaminophen 325 MG TABLET 650 MG PO (20:18)
[2023-08-28] MEDS: Levothyroxine Sodium 50 MCG TABLET PO (05:52)
[2023-08-28 06:00] VITALS: PULSE 84; TEMP 36.6; O2SAT 99
[2023-08-28 08:25] LABS: Glucose, Whole Blood 100 mg/dL (60-115)
[2023-08-28] MEDS: Cholecalciferol (Vitamin D3) 25 MCG TABLET PO (08:57)
[2023-08-28] MEDS: Loratadine 10 MG TABLET PO (08:57)
--- NOTE | 2023-08-28 09:14 | HO.PSYCHPN ---
Subjective Subjective Date of Service: 08/28/23 Reason For Visit: bipolar disorder Interim History: Met with Patient; discussed with team; reviewed chart disorganized speech and difficult with which to engage; patient talking about different things that are irrelevant, hard to follow. Mental Status Exam Mental Status Exam Narrative: Pt is alert and oriented; behavior is hypomanic, but cooperative, friendly and calm; patient is not in distress; dressed in casual attire with unkempt hair; mood is described as good and affect constricted; eye contact appropriate; Speech is pressured rate, hyperverbal; some psychomotor agitation present; thought process can be goal directed but mostly become disorganized; Thought content is on various unrelated things; denies any SI/HI. Perhaps internally preoccupied Patients insight and judgment impaired Diagnostics Vital Signs (24Hr): Vital Signs - 24 hr 08/27/23 20:10 Temperature 97.2 F Pulse Rate 104 H Blood Pressure 118/53 L Labs 08/26/23 07:13 Labs: Laboratory Results - last 48 hr 08/27/23 08/28/23 13:25 08:21 POC Glucose 83 100 Medications Medications Current Medications Acetaminophen (Acetaminophen 325 Mg Tablet) 650 mg PO Q6H PRN PRN Reason: Headache/Pain Mild Scale (1-3) Last Admin: 08/27/23 20:18 Dose: 650 mg Al Hydroxide/Mg Hydroxide (Magnesium Hydrox/Alum Hydrox 30 Ml Oral.Susp) 30 ml PO Q6H PRN PRN Reason: Heartburn/Nausea Last Admin: 08/27/23 16:18 Dose: 30 ml Albuterol Sulfate (Albuterol Sulfate 90 Mcg 8 Gm Inhaler) 1 puff INHALE RQ4H PRN PRN Reason: Shortness of Breath Last Admin: 08/27/23 15:05 Dose: 1 puff Chlorpromazine HCl (Chlorpromazine Hcl 25 Mg Tablet) 50 mg PO Q4H PRN PRN Reason: agitation Last Admin: 08/27/23 17:00 Dose: 50 mg Hydroxyzine HCl (Hydroxyzine Hcl 25 Mg Tablet) 25 mg PO Q6H PRN PRN Reason: Anxiety Levothyroxine Sodium (Levothyroxine Sodium 50 Mcg Tablet) 50 mcg PO DAILY@0600 [facility] Last Admin: 08/28/23 05:52 Dose: 50 mcg Loratadine (Loratadine 10 Mg Tablet) 10 mg PO DAILY [facility] Last Admin: 08/28/23 08:57 Dose: 10 mg Magnesium Hydroxide (Milk Of Magnesia 30 Ml Oral.Susp) 30 ml PO DAILY PRN PRN Reason: Constipation Metformin HCl (Metformin Hcl Er 750 Mg Tab.Er.24h) 750 mg PO BEDTIME [facility] Last Admin: 08/27/23 20:17 Dose: 750 mg Nicotine Polacrilex (Nicotine Polacrilex 2 Mg Gum) 2 mg BUCCAL Q2H PRN PRN Reason: Nicotine Cravings Last Admin: 08/27/23 15:19 Dose: 2 mg Oxcarbazepine (Oxcarbazepine 150 Mg Tablet) 150 mg PO BEDTIME [facility] Last Admin: 08/27/23 20:17 Dose: 150 mg Prazosin HCl (Prazosin Hcl 1 Mg Capsule) 1 mg PO BEDTIME [facility]; Protocol Last Admin: 08/27/23 20:17 Dose: 1 mg Trazodone HCl (Trazodone Hcl 50 Mg Tablet) 50 mg PO BEDTIME MRX1 PRN PRN Reason: Insomnia Last Admin: 08/27/23 20:18 Dose: 50 mg Vitamin D (Cholecalciferol (Vitamin D3) 25 Mcg Tablet) 25 mcg PO DAILY [facility] Last Admin: 08/28/23 08:57 Dose: 25 mcg Allergies Allergies Allergy/AdvReac Type Severity Reaction Status Date / Time aripiprazole [Abilify] Allergy Unknown hives Verified 06/12/23 03:38 latex [LATEX] Allergy Unknown RASH Verified 06/12/23 03:38 sertraline [From Zoloft] Allergy Unknown raised Verified 06/12/23 03:38 LFTs/angioedema zolpidem [Ambien] Allergy Unknown hives Verified 06/12/23 03:38 Iodinated Contrast Media Allergy Hives Verified 06/12/23 03:38 [IV Contrast Dye] Assessment & Plan Assessment & Plan (1) Schizoaffective disorder, bipolar type: Status: Acute Code(s): F25.0 - Schizoaffective disorder, bipolar type (2) Diabetes 1.5, managed as type 2: Status: Acute Code(s): E13.9 - Other specified diabetes mellitus without complications Plan Annie is a 6-year-old female with history of schizoaffective disorder, intermittent asthma, hypothyroidism, PCOS, control diabetes type 2. She has had numerous hospitalizations and emergency room evaluations. She presented to the emergency room on 08/24/2023 for suicidal ideations and disorganized behavior, yelling outside of the emergency room. She was last evaluated by the emergency room in May with outpatient follow-up referral which she never follow through with. She does not appear to be on any medications but states that she is on Klonopin. We have not been able to verify this but will pursue. She was found by security at side of the emergency room being very disorganized and refused workup and care she. She was not able to give much historical information in the emergency room. She talked about missing her daughter, her daughter being a ?silent killer?. She was seen to be delusional and that appears to be the case now. No verifiable history of substance abuse from her but in the past she has used marijuana, alcohol and cocaine. Hospital course: 08/27 She is doing much better after day of taking Zyprexa 10 mg q.h.s.. She is less loud, intrusive and behaviorally more manageable. Eating and sleeping adequately. No complaints or side effects. No SI. No changes were made today 08/28 patient was not continued on Zyprexa q.h.s.; today disorganized speech and difficult with which to engage; patient is currently not allowed in the kitchen as she is intrusive and provoking peers patient talking about different things that are irrelevant, hard to follow. Review of past history, prescriptions, patient was on Risperdal 2 mg b.i.d. and then on Invega Sustenna 234 mg; also history of being on Zyprexa as a p.r.n., clonazepam and Latuda. Will change medication regimen to fit history of prescriptions Plan: CV Q 15 minute checks Start Risperdal 2mg BID; patient was on in the past For tonight, will Continue Zyprexa 10 mg q.h.s.; hopefully will be able to go back to monotherapy of Risperdal and then possibly Invega Add Zyprexa 5 mg t.i.d. p.r.n. for agitation; patient was on this in the past as a p.r.n.; will DC Thorazine DC Thorazine p.r.n. Continue oxcarbazepine 150 mg bedtime, started on admission Continue levothyroxine Continue metformin Medical comorbidities:. #Mild intermittent asthma -no acute exacerbation -albuterol p.r.n. # controlled type 2 diabetes -A1c last measured around 5.6%, last year was 6.8% consistent with type 2 diabetes -continue metformin -POC glucose, diabetic diet if patient tolerates #HENRIQUEZ -hepatic function WNL Patient educated on: diagnosis Informed Consent: does not understand Reason for continued inpatient stay Substantial Risk for: inability to function Time Spent With Patient Time: Total time managing care of this patient today ____ minutes.
[2023-08-28] MEDS: clonazePAM 1 MG TABLET PO (11:20)
[2023-08-28] MEDS: risperiDONE 2 MG TABLET PO ×2 (11:20→21:31)
--- NOTE | 2023-08-28 14:47 | PC.NURSE ---
Pt refused flu vaccine
[2023-08-28 18:00] VITALS: PULSE 82; RESP 18; TEMP 36.6; O2SAT 98
[2023-08-28] MEDS: Prazosin HCL 1 MG CAPSULE PO (21:30)
[2023-08-28] MEDS: OLANZapine 10 MG TABLET PO (21:30)
[2023-08-28] MEDS: OXcarbazepine 150 MG TABLET PO (21:30)
[2023-08-28] MEDS: metFORMIN HCl ER 750 MG TAB.ER.24H PO (21:30)
[2023-08-28] MEDS: traZODone HCL 50 MG TABLET PO (21:31)
[2023-08-28] MEDS: hydrOXYzine HCL 25 MG TABLET PO (21:31)
[2023-08-29] MEDS: Levothyroxine Sodium 50 MCG TABLET PO (06:00)
[2023-08-29 09:03] LABS: Glucose, Whole Blood 98 mg/dL (60-115)
[2023-08-29] MEDS: risperiDONE 2 MG TABLET PO ×2 (09:47→19:47)
[2023-08-29] MEDS: Cholecalciferol (Vitamin D3) 25 MCG TABLET PO (09:47)
[2023-08-29] MEDS: Loratadine 10 MG TABLET PO (09:47)
[2023-08-29] MEDS: OLANZapine 5 MG TABLET PO (09:50)
[2023-08-29 09:54] VITALS: RESP 18
--- NOTE | 2023-08-29 10:05 | HO.PSYCHPN ---
Subjective Subjective Date of Service: 08/29/23 Reason For Visit: bipolar disorder Interim History: met with patient; discussed with team Review 2018 admission during which time patient was depressed but was stabilized on Zyprexa 10 mg b.i.d. and lithium 900 mg City Auditor discussed this with patient who said that lithium caused SI ADH; she mentioned Latuda being helpful for depression but was okay with increasing Zyprexa. Patient somewhat irritable, upset that radio script writer work her up and did not want to talk further; However she was a little more linear and organized in this conversation than previously Mental Status Exam Mental Status Exam Narrative: Pt is alert and oriented; behavior is irritable, but no longer hypomanic; guarded at times; patient is not in distress; dressed in casual attire with unkempt hair; mood is described as irritable and affect constricted; eye contact appropriate; Speech is no longer pressured and normal rate, volume and prosody; no psychomotor agitation present; thought process more goal directed, less tangential or disorganized; Thought content is on irritated with her roommate and radio script writer; denies any SI/HI. Perhaps internally preoccupied Patients insight and judgment impaired Diagnostics Vital Signs (24Hr): Vital Signs - 24 hr 08/28/23 18:00 08/29/23 09:54 Temperature 98 F Pulse Rate 82 Respiratory Rate 18 18 Pulse Oximetry 98 Oxygen Delivery Method Room Air Labs 08/26/23 07:13 Labs: Laboratory Results - last 48 hr 08/27/23 08/28/23 08/29/23 13:25 08:21 08:59 POC Glucose 83 100 98 Medications Medications Current Medications Acetaminophen (Acetaminophen 325 Mg Tablet) 650 mg PO Q6H PRN PRN Reason: Headache/Pain Mild Scale (1-3) Last Admin: 08/27/23 20:18 Dose: 650 mg Al Hydroxide/Mg Hydroxide (Magnesium Hydrox/Alum Hydrox 30 Ml Oral.Susp) 30 ml PO Q6H PRN PRN Reason: Heartburn/Nausea Last Admin: 08/27/23 16:18 Dose: 30 ml Albuterol Sulfate (Albuterol Sulfate 90 Mcg 8 Gm Inhaler) 1 puff INHALE RQ4H PRN PRN Reason: Shortness of Breath Last Admin: 08/27/23 15:05 Dose: 1 puff Hydroxyzine HCl (Hydroxyzine Hcl 25 Mg Tablet) 25 mg PO Q6H PRN PRN Reason: Anxiety Last Admin: 08/28/23 21:31 Dose: 25 mg Levothyroxine Sodium (Levothyroxine Sodium 50 Mcg Tablet) 50 mcg PO DAILY@0600 EVANGELISTA Last Admin: 08/29/23 06:00 Dose: 50 mcg Loratadine (Loratadine 10 Mg Tablet) 10 mg PO DAILY EVANGELISTA Last Admin: 08/29/23 09:47 Dose: 10 mg Magnesium Hydroxide (Milk Of Magnesia 30 Ml Oral.Susp) 30 ml PO DAILY PRN PRN Reason: Constipation Metformin HCl (Metformin Hcl Er 750 Mg Tab.Er.24h) 750 mg PO BEDTIME EVANGELISTA Last Admin: 08/28/23 21:30 Dose: 750 mg Nicotine Polacrilex (Nicotine Polacrilex 2 Mg Gum) 2 mg BUCCAL Q2H PRN PRN Reason: Nicotine Cravings Last Admin: 08/27/23 15:19 Dose: 2 mg Olanzapine (Olanzapine 10 Mg Tablet) 10 mg PO BEDTIME EVANGELISTA Last Admin: 08/28/23 21:30 Dose: 10 mg Olanzapine (Olanzapine 5 Mg Tablet) 5 mg PO TID PRN PRN Reason: agitation Last Admin: 08/29/23 09:50 Dose: 5 mg Oxcarbazepine (Oxcarbazepine 150 Mg Tablet) 150 mg PO BEDTIME EVANGELISTA Last Admin: 08/28/23 21:30 Dose: 150 mg Prazosin HCl (Prazosin Hcl 1 Mg Capsule) 1 mg PO BEDTIME EVANGELISTA; Protocol Last Admin: 08/28/23 21:30 Dose: 1 mg Risperidone (Risperidone 2 Mg Tablet) 2 mg PO BID EVANGELISTA Last Admin: 08/29/23 09:47 Dose: 2 mg Trazodone HCl (Trazodone Hcl 50 Mg Tablet) 50 mg PO BEDTIME MRX1 PRN PRN Reason: Insomnia Last Admin: 08/28/23 21:31 Dose: 50 mg Vitamin D (Cholecalciferol (Vitamin D3) 25 Mcg Tablet) 25 mcg PO DAILY EVANGELISTA Last Admin: 08/29/23 09:47 Dose: 25 mcg Allergies Allergies Allergy/AdvReac Type Severity Reaction Status Date / Time aripiprazole [Abilify] Allergy Unknown hives Verified 06/12/23 03:38 latex [LATEX] Allergy Unknown RASH Verified 06/12/23 03:38 sertraline [From Zoloft] Allergy Unknown raised Verified 06/12/23 03:38 LFTs/angioedema zolpidem [Ambien] Allergy Unknown hives Verified 06/12/23 03:38 Iodinated Contrast Media Allergy Hives Verified 06/12/23 03:38 [IV Contrast Dye] Assessment & Plan Assessment & Plan (1) Schizoaffective disorder, bipolar type: Status: Acute Code(s): F25.0 - Schizoaffective disorder, bipolar type (2) Diabetes 1.5, managed as type 2: Status: Acute Code(s): E13.9 - Other specified diabetes mellitus without complications Plan Annie is a 6-year-old female with history of schizoaffective disorder, intermittent asthma, hypothyroidism, PCOS, control diabetes type 2. She has had numerous hospitalizations and emergency room evaluations. She presented to the emergency room on 08/24/2023 for suicidal ideations and disorganized behavior, yelling outside of the emergency room. She was last evaluated by the emergency room in May with outpatient follow-up referral which she never follow through with. She does not appear to be on any medications but states that she is on Klonopin. We have not been able to verify this but will pursue. She was found by security at side of the emergency room being very disorganized and refused workup and care she. She was not able to give much historical information in the emergency room. She talked about missing her daughter, her daughter being a ?silent killer?. She was seen to be delusional and that appears to be the case now. No verifiable history of substance abuse from her but in the past she has used marijuana, alcohol and cocaine. Hospital course: 08/27 She is doing much better after day of taking Zyprexa 10 mg q.h.s.. She is less loud, intrusive and behaviorally more manageable. Eating and sleeping adequately. No complaints or side effects. No SI. No changes were made today 08/28 patient was not continued on Zyprexa q.h.s.; today disorganized speech and difficult with which to engage; patient is currently not allowed in the kitchen as she is intrusive and provoking peers patient talking about different things that are irrelevant, hard to follow. Review of past history, prescriptions, patient was on Risperdal 2 mg b.i.d. and then on Invega Sustenna 234 mg; also history of being on Zyprexa as a p.r.n., clonazepam and Latuda. Will change medication regimen to fit history of prescriptions 08/29 Review 2018 admission during which time patient was depressed but was stabilized on Zyprexa 10 mg b.i.d. and lithium 900 mg City Auditor discussed this with patient who said that lithium caused SI ADH; she mentioned Latuda being helpful for depression but was okay with increasing Zyprexa. Patient somewhat irritable, upset that radio script writer work her up and did not want to talk further. However she was a little more linear and organized in this conversation than previously Plan: CV Q 15 minute checks Continue Risperdal 2mg BID; patient was on in the past and possibly patient would get on long-acting injectable Increase to Zyprexa 10 mg b.i.d. Continue Zyprexa 5 mg t.i.d. p.r.n. for agitation; patient was on this in the past as a p.r.n.; will DC Thorazine DC Thorazine p.r.n. Continue oxcarbazepine 150 mg bedtime, started on admission Continue levothyroxine Continue metformin Medical comorbidities:. #Mild intermittent asthma -no acute exacerbation -albuterol p.r.n. # controlled type 2 diabetes -A1c last measured around 5.6%, last year was 6.8% consistent with type 2 diabetes -continue metformin -POC glucose, diabetic diet if patient tolerates #HENRIQUEZ -hepatic function WNL Patient educated on: diagnosis and medication risk/benefits Informed Consent: understands, does not understand and further education needed Reason for continued inpatient stay Substantial Risk for: inability to function Time Spent With Patient Time: Total time managing care of this patient today ____ minutes.
[2023-08-29 18:00] VITALS: BP 121/75; PULSE 95; RESP 18; TEMP 36.8; O2SAT 99
[2023-08-29] MEDS: traZODone HCL 50 MG TABLET PO (19:46)
[2023-08-29] MEDS: metFORMIN HCl ER 750 MG TAB.ER.24H PO (19:46)
[2023-08-29] MEDS: Prazosin HCL 1 MG CAPSULE PO (19:46)
[2023-08-29] MEDS: OLANZapine 10 MG TABLET PO (19:46)
[2023-08-29] MEDS: OXcarbazepine 150 MG TABLET PO (19:47)
[2023-08-30] MEDS: Levothyroxine Sodium 50 MCG TABLET PO (06:10)
[2023-08-30 08:00] VITALS: BP 97/56; PULSE 80; RESP 16; TEMP 36.8; O2SAT 97
[2023-08-30 08:11] LABS: Glucose, Whole Blood 76 mg/dL (60-115)
[2023-08-30] MEDS: Cholecalciferol (Vitamin D3) 25 MCG TABLET PO (08:30)
[2023-08-30] MEDS: OLANZapine 10 MG TABLET PO ×2 (08:30→20:20)
[2023-08-30] MEDS: Loratadine 10 MG TABLET PO (08:30)
[2023-08-30] MEDS: risperiDONE 2 MG TABLET PO ×2 (08:30→20:18)
--- NOTE | 2023-08-30 10:11 | P.PNPSI_ITS ---
Subjective Subjective Date of Service: 08/30/23 Reason For Visit: bipolar disorder Interim History: Met with patient; discussed with team Patient still irritable but but more willing to discuss; says she would like to go soon but agrees she needs more help with medication. Also she says she is homeless. Mental Status Exam Mental Status Exam Narrative: Pt is alert and oriented; behavior is irritable, but no longer hypomanic; guarded at times; patient is not in distress; dressed in casual attire with unkempt hair; mood is described as irritable and affect constricted; eye contact appropriate; Speech is no longer pressured and normal rate, volume and prosody; no psychomotor agitation present; thought process more goal directed, less tangential or disorganized; Thought content is on irritated with her roommate and manual writer; denies any SI/HI. Perhaps internally preoccupied Patients insight and judgment impaired Diagnostics Vital Signs (24Hr): Vital Signs - 24 hr 08/29/23 18:00 08/30/23 08:00 Temperature 98.3 F 98.2 F Pulse Rate 95 80 Respiratory Rate 18 16 Blood Pressure 121/75 97/56 L Pulse Oximetry 99 97 Oxygen Delivery Method Room Air Room Air Labs 08/26/23 07:13 Labs: Laboratory Results - last 48 hr 08/29/23 08/30/23 08:59 08:01 POC Glucose 98 76 Medications Medications Current Medications Acetaminophen (Acetaminophen 325 Mg Tablet) 650 mg PO Q6H PRN PRN Reason: Headache/Pain Mild Scale (1-3) Last Admin: 08/27/23 20:18 Dose: 650 mg Al Hydroxide/Mg Hydroxide (Magnesium Hydrox/Alum Hydrox 30 Ml Oral.Susp) 30 ml PO Q6H PRN PRN Reason: Heartburn/Nausea Last Admin: 08/27/23 16:18 Dose: 30 ml Albuterol Sulfate (Albuterol Sulfate 90 Mcg 8 Gm Inhaler) 1 puff INHALE RQ4H PRN PRN Reason: Shortness of Breath Last Admin: 08/27/23 15:05 Dose: 1 puff Hydroxyzine HCl (Hydroxyzine Hcl 25 Mg Tablet) 25 mg PO Q6H PRN PRN Reason: Anxiety Last Admin: 08/28/23 21:31 Dose: 25 mg Levothyroxine Sodium (Levothyroxine Sodium 50 Mcg Tablet) 50 mcg PO DAILY@0600 EVANGELISTA Last Admin: 08/30/23 06:10 Dose: 50 mcg Loratadine (Loratadine 10 Mg Tablet) 10 mg PO DAILY EVANGELISTA Last Admin: 08/30/23 08:30 Dose: 10 mg Magnesium Hydroxide (Milk Of Magnesia 30 Ml Oral.Susp) 30 ml PO DAILY PRN PRN Reason: Constipation Metformin HCl (Metformin Hcl Er 750 Mg Tab.Er.24h) 750 mg PO BEDTIME EVANGELISTA Last Admin: 08/29/23 19:46 Dose: 750 mg Nicotine Polacrilex (Nicotine Polacrilex 2 Mg Gum) 2 mg BUCCAL Q2H PRN PRN Reason: Nicotine Cravings Last Admin: 08/27/23 15:19 Dose: 2 mg Olanzapine (Olanzapine 5 Mg Tablet) 5 mg PO TID PRN PRN Reason: agitation Last Admin: 08/29/23 09:50 Dose: 5 mg Olanzapine (Olanzapine 10 Mg Tablet) 10 mg PO BID ON LICENSE OF [facility] Last Admin: 08/30/23 08:30 Dose: 10 mg Oxcarbazepine (Oxcarbazepine 150 Mg Tablet) 150 mg PO BEDTIME EVANGELISTA Last Admin: 08/29/23 19:47 Dose: 150 mg Prazosin HCl (Prazosin Hcl 1 Mg Capsule) 1 mg PO BEDTIME ON LICENSE OF [facility]; Protocol Last Admin: 08/29/23 19:46 Dose: 1 mg Risperidone (Risperidone 2 Mg Tablet) 2 mg PO BID ON LICENSE OF [facility] Last Admin: 08/30/23 08:30 Dose: 2 mg Trazodone HCl (Trazodone Hcl 50 Mg Tablet) 50 mg PO BEDTIME MRX1 PRN PRN Reason: Insomnia Last Admin: 08/29/23 19:46 Dose: 50 mg Vitamin D (Cholecalciferol (Vitamin D3) 25 Mcg Tablet) 25 mcg PO DAILY ON LICENSE OF [facility] Last Admin: 08/30/23 08:30 Dose: 25 mcg Allergies Allergies Allergy/AdvReac Type Severity Reaction Status Date / Time aripiprazole [Abilify] Allergy Unknown hives Verified 06/12/23 03:38 latex [LATEX] Allergy Unknown RASH Verified 06/12/23 03:38 sertraline [From Zoloft] Allergy Unknown raised Verified 06/12/23 03:38 LFTs/angioedema zolpidem [Ambien] Allergy Unknown hives Verified 06/12/23 03:38 Iodinated Contrast Media Allergy Hives Verified 09/25/23 03:38 [IV Contrast Dye] Assessment & Plan Assessment & Plan (1) Schizoaffective disorder, bipolar type: Status: Acute Code(s): F25.0 - Schizoaffective disorder, bipolar type (2) Diabetes 1.5, managed as type 2: Status: Acute Code(s): E13.9 - Other specified diabetes mellitus without complications Plan Annie is a 6-year-old female with history of schizoaffective disorder, intermittent asthma, hypothyroidism, PCOS, control diabetes type 2. She has had numerous hospitalizations and emergency room evaluations. She presented to the emergency room on 08/24/2023 for suicidal ideations and disorganized behavior, yelling outside of the emergency room. She was last evaluated by the emergency room in May with outpatient follow-up referral which she never follow through with. She does not appear to be on any medications but states that she is on Klonopin. We have not been able to verify this but will pursue. She was found by security at side of the emergency room being very disorganized and refused workup and care she. She was not able to give much historical information in the emergency room. She talked about missing her daughter, her daughter being a ?silent killer?. She was seen to be delusional and that appears to be the case now. No verifiable history of substance abuse from her but in the past she has used marijuana, alcohol and cocaine. Hospital course: 08/27 She is doing much better after day of taking Zyprexa 10 mg q.h.s.. She is less loud, intrusive and behaviorally more manageable. Eating and sleeping adequately. No complaints or side effects. No SI. No changes were made today 08/28 patient was not continued on Zyprexa q.h.s.; today disorganized speech and difficult with which to engage; patient is currently not allowed in the kitchen as she is intrusive and provoking peers patient talking about different things that are irrelevant, hard to follow. Review of past history, prescriptions, patient was on Risperdal 2 mg b.i.d. and then on Invega Sustenna 234 mg; also history of being on Zyprexa as a p.r.n., clonazepam and Latuda. Will change medication regimen to fit history of prescriptions 08/29 Review 2018 admission during which time patient was depressed but was stabilized on Zyprexa 10 mg b.i.d. and lithium 900 mg Apron Trimmer discussed this with patient who said that lithium caused SI ADH; she mentioned Latuda being helpful for depression but was okay with increasing Zyprexa. Patient somewhat irritable, upset that manual writer work her up and did not want to talk further. However she was a little more linear and organized in this conversation than previously Plan: CV Q 15 minute checks Continue Risperdal 2mg BID; patient was on in the past and possibly patient would get on long-acting injectable Increase to Zyprexa 10 mg b.i.d. Continue Zyprexa 5 mg t.i.d. p.r.n. for agitation; patient was on this in the past as a p.r.n.; will DC Thorazine DC Thorazine p.r.n. Continue oxcarbazepine 150 mg bedtime, started on admission Continue levothyroxine Continue metformin Medical comorbidities:. #Mild intermittent asthma -no acute exacerbation -albuterol p.r.n. # controlled type 2 diabetes -A1c last measured around 5.6%, last year was 6.8% consistent with type 2 diabetes -continue metformin -POC glucose, diabetic diet if patient tolerates #HENRIQUEZ -hepatic function WNL Patient educated on: diagnosis Informed Consent: understands and further education needed Reason for continued inpatient stay Substantial Risk for: rapid decompensation Time Spent With Patient Time: Total time managing care of this patient today ____ minutes.
[2023-08-30 20:05] VITALS: BP 125/56; PULSE 96; TEMP 36.6
[2023-08-30] MEDS: metFORMIN HCl ER 750 MG TAB.ER.24H PO (20:18)
[2023-08-30] MEDS: traZODone HCL 50 MG TABLET PO (20:19)
[2023-08-30] MEDS: OXcarbazepine 150 MG TABLET PO (20:19)
[2023-08-30] MEDS: Prazosin HCL 1 MG CAPSULE PO (20:20)
[2023-08-30] MEDS: Magnesium Hydrox/Alum Hydrox 30 ML ORAL.SUSP PO (21:16)
[2023-08-31] MEDS: Levothyroxine Sodium 50 MCG TABLET PO (06:00)
[2023-08-31] MEDS: Cholecalciferol (Vitamin D3) 25 MCG TABLET PO (08:15)
[2023-08-31] MEDS: Loratadine 10 MG TABLET PO (08:15)
[2023-08-31] MEDS: OLANZapine 10 MG TABLET PO ×2 (08:15→21:10)
[2023-08-31] MEDS: risperiDONE 2 MG TABLET PO ×2 (08:15→21:10)
[2023-08-31 08:38] LABS: Glucose, Whole Blood 105 mg/dL (60-115)
[2023-08-31 08:50] VITALS: BP 119/59; PULSE 85; RESP 18; TEMP 36.8; O2SAT 99
[2023-08-31] MEDS: Acetaminophen 325 MG TABLET 650 MG PO (16:02)
--- NOTE | 2023-08-31 17:03 | HO.PSYCHPN ---
Subjective Subjective Date of Service: 08/31/23 Reason For Visit: bipolar disorder Interim History: Met with patient; discussed with team Patient much more calm today and cooperative. Also much more logical and discussion. Investment Specialist asked about this and she says it is because of the medications and that she remembers how she was behaving prior to this which she said was due to her bipolar disorder; she can tell she is feeling better because she is no longer feeling irritated with others. Patient said the medications are helpful and she wants to continue with them. She also said she needs to get in touch with her aoc director combat plans officer and wants social work to contact this person. She said she will procure the numbers. Patient discussed about homelessness and if there were any options; social work agreed to discuss this tomorrow. Patient also talked about history of trauma more and how she lost custody of her daughter and how much she wants to get that back. Mental Status Exam Mental Status Exam Narrative: Pt is alert and oriented; behavior is calm and more friendly, cooperative; patient is not in distress; dressed in casual attire with unkempt hair, hirsutism; adequate hygiene; mood is described better and affect congruent, more calm; eye contact appropriate; Speech is normal rate, volume and prosody; no psychomotor agitation present; thought process much more goal directed, logical; Thought content is on on treatment and post discharge options; denies any SI/HI. Perhaps internally preoccupied but denies AVH Patients insight and judgment impaired but much improved Diagnostics Vital Signs (24Hr): Vital Signs - 24 hr 08/30/23 20:05 08/31/23 08:50 Temperature 97.9 F 98.2 F Pulse Rate 96 85 Respiratory Rate 18 Blood Pressure 125/56 L 119/59 L Pulse Oximetry 99 Oxygen Delivery Method Room Air Labs 08/26/23 07:13 Labs: Laboratory Results - last 48 hr 08/30/23 08/31/23 08:01 08:34 POC Glucose 76 105 Medications Medications Current Medications Acetaminophen (Acetaminophen 325 Mg Tablet) 650 mg PO Q6H PRN PRN Reason: Headache/Pain Mild Scale (1-3) Last Admin: 08/31/23 16:02 Dose: 650 mg Al Hydroxide/Mg Hydroxide (Magnesium Hydrox/Alum Hydrox 30 Ml Oral.Susp) 30 ml PO Q6H PRN PRN Reason: Heartburn/Nausea Last Admin: 08/30/23 21:16 Dose: 30 ml Albuterol Sulfate (Albuterol Sulfate 90 Mcg 8 Gm Inhaler) 1 puff INHALE RQ4H PRN PRN Reason: Shortness of Breath Last Admin: 08/27/23 15:05 Dose: 1 puff Hydroxyzine HCl (Hydroxyzine Hcl 25 Mg Tablet) 25 mg PO Q6H PRN PRN Reason: Anxiety Last Admin: 08/28/23 21:31 Dose: 25 mg Levothyroxine Sodium (Levothyroxine Sodium 50 Mcg Tablet) 50 mcg PO DAILY@0600 [facility] Last Admin: 08/31/23 06:00 Dose: 50 mcg Loratadine (Loratadine 10 Mg Tablet) 10 mg PO DAILY [facility] Last Admin: 08/31/23 08:15 Dose: 10 mg Magnesium Hydroxide (Milk Of Magnesia 30 Ml Oral.Susp) 30 ml PO DAILY PRN PRN Reason: Constipation Metformin HCl (Metformin Hcl Er 750 Mg Tab.Er.24h) 750 mg PO BEDTIME [facility] Last Admin: 08/30/23 20:18 Dose: 750 mg Nicotine Polacrilex (Nicotine Polacrilex 2 Mg Gum) 2 mg BUCCAL Q2H PRN PRN Reason: Nicotine Cravings Last Admin: 08/27/23 15:19 Dose: 2 mg Olanzapine (Olanzapine 5 Mg Tablet) 5 mg PO TID PRN PRN Reason: agitation Last Admin: 08/29/23 09:50 Dose: 5 mg Olanzapine (Olanzapine 10 Mg Tablet) 10 mg PO BID [facility] Last Admin: 08/31/23 08:15 Dose: 10 mg Oxcarbazepine (Oxcarbazepine 150 Mg Tablet) 150 mg PO BEDTIME [facility] Last Admin: 08/30/23 20:19 Dose: 150 mg Prazosin HCl (Prazosin Hcl 1 Mg Capsule) 1 mg PO BEDTIME [facility]; Protocol Last Admin: 08/30/23 20:20 Dose: 1 mg Risperidone (Risperidone 2 Mg Tablet) 2 mg PO BID [facility] Last Admin: 08/31/23 08:15 Dose: 2 mg Trazodone HCl (Trazodone Hcl 50 Mg Tablet) 50 mg PO BEDTIME MRX1 PRN PRN Reason: Insomnia Last Admin: 08/30/23 20:19 Dose: 50 mg Vitamin D (Cholecalciferol (Vitamin D3) 25 Mcg Tablet) 25 mcg PO DAILY [facility] Last Admin: 08/31/23 08:15 Dose: 25 mcg Allergies Allergies Allergy/AdvReac Type Severity Reaction Status Date / Time aripiprazole [Abilify] Allergy Unknown hives Verified 06/12/23 03:38 latex [LATEX] Allergy Unknown RASH Verified 06/12/23 03:38 sertraline [From Zoloft] Allergy Unknown raised Verified 06/12/23 03:38 LFTs/angioedema zolpidem [Ambien] Allergy Unknown hives Verified 06/12/23 03:38 Iodinated Contrast Media Allergy Hives Verified 06/12/23 03:38 [IV Contrast Dye] Assessment & Plan Assessment & Plan (1) Schizoaffective disorder, bipolar type: Status: Acute Code(s): F25.0 - Schizoaffective disorder, bipolar type (2) Diabetes 1.5, managed as type 2: Status: Acute Code(s): E13.9 - Other specified diabetes mellitus without complications Plan Annie is a 6-year-old female with history of schizoaffective disorder, intermittent asthma, hypothyroidism, PCOS, control diabetes type 2. She has had numerous hospitalizations and emergency room evaluations. She presented to the emergency room on 08/24/2023 for suicidal ideations and disorganized behavior, yelling outside of the emergency room. She was last evaluated by the emergency room in May with outpatient follow-up referral which she never follow through with. She does not appear to be on any medications but states that she is on Klonopin. We have not been able to verify this but will pursue. She was found by security at side of the emergency room being very disorganized and refused workup and care she. She was not able to give much historical information in the emergency room. She talked about missing her daughter, her daughter being a ?silent killer?. She was seen to be delusional and that appears to be the case now. No verifiable history of substance abuse from her but in the past she has used marijuana, alcohol and cocaine. Hospital course: 08/27 She is doing much better after day of taking Zyprexa 10 mg q.h.s.. She is less loud, intrusive and behaviorally more manageable. Eating and sleeping adequately. No complaints or side effects. No SI. No changes were made today 08/28 patient was not continued on Zyprexa q.h.s.; today disorganized speech and difficult with which to engage; patient is currently not allowed in the kitchen as she is intrusive and provoking peers patient talking about different things that are irrelevant, hard to follow. Review of past history, prescriptions, patient was on Risperdal 2 mg b.i.d. and then on Invega Sustenna 234 mg; also history of being on Zyprexa as a p.r.n., clonazepam and Latuda. Will change medication regimen to fit history of prescriptions 08/28 patient was not continued on Zyprexa q.h.s.; today disorganized speech and difficult with which to engage; patient is currently not allowed in the kitchen as she is intrusive and provoking peers patient talking about different things that are irrelevant, hard to follow. Review of past history, prescriptions, patient was on Risperdal 2 mg b.i.d. and then on Invega Sustenna 234 mg; also history of being on Zyprexa as a p.r.n., clonazepam and Latuda. Will change medication regimen to fit history of prescriptions 08/29 Review 2018 admission during which time patient was depressed but was stabilized on Zyprexa 10 mg b.i.d. and lithium 900 mg Investment Specialist discussed this with patient who said that lithium caused SI ADH; she mentioned Latuda being helpful for depression but was okay with increasing Zyprexa. Patient somewhat irritable, upset that manual writer work her up and did not want to talk further. However she was a little more linear and organized in this conversation than previously 08/30 Patient much more calm today and cooperative. Also much more logical and discussion. Investment Specialist asked about this and she says it is because of the medications and that she remembers how she was behaving prior to this which she said was due to her bipolar disorder; she can tell she is feeling better because she is no longer feeling irritated with others. Patient said the medications are helpful and she wants to continue with them. She also said she needs to get in touch with her aoc director combat plans officer and wants social work to contact this person. She said she will procure the numbers. Patient discussed about homelessness and if there were any options; social work agreed to discuss this tomorrow 08/31 much improved, much more logical with organized speech behavior. Continue current regimen; dispo planning Plan: CV Q 15 minute checks Continue Risperdal 2mg BID; patient was on in the past and possibly patient would get on long-acting injectable Increase to Zyprexa 10 mg b.i.d. Continue Zyprexa 5 mg t.i.d. p.r.n. for agitation; patient was on this in the past as a p.r.n.; will DC Thorazine DC Thorazine p.r.n. Continue oxcarbazepine 150 mg bedtime, started on admission Continue levothyroxine Continue metformin Medical comorbidities:. #Mild intermittent asthma -no acute exacerbation -albuterol p.r.n. # controlled type 2 diabetes -A1c last measured around 5.6%, last year was 6.8% consistent with type 2 diabetes -continue metformin -POC glucose, diabetic diet if patient tolerates #HENRIQUEZ -hepatic function WNL Patient educated on: diagnosis and medication risk/benefits Informed Consent: understands Reason for continued inpatient stay Substantial Risk for: rapid decompensation Time Spent With Patient Time: Total time managing care of this patient today ____ minutes.
[2023-08-31 18:00] VITALS: BP 103/51; PULSE 87; TEMP 36.1
[2023-08-31] MEDS: OXcarbazepine 150 MG TABLET PO (21:10)
[2023-08-31] MEDS: metFORMIN HCl ER 750 MG TAB.ER.24H PO (21:10)
[2023-08-31] MEDS: Prazosin HCL 1 MG CAPSULE PO (21:11)
[2023-09-01] MEDS: Levothyroxine Sodium 50 MCG TABLET PO (06:20)
[2023-09-01 09:20] VITALS: BP 112/72; PULSE 67; RESP 18; TEMP 36.2; O2SAT 98
[2023-09-01] MEDS: Cholecalciferol (Vitamin D3) 25 MCG TABLET PO (09:22)
[2023-09-01] MEDS: Loratadine 10 MG TABLET PO (09:22)
[2023-09-01] MEDS: risperiDONE 2 MG TABLET PO (09:22)
[2023-09-01] MEDS: OLANZapine 10 MG TABLET PO ×2 (09:22→23:02)
[2023-09-01] MEDS: Nicotine Polacrilex 2 MG GUM BUCCAL ×2 (12:12→15:34)
[2023-09-01] MEDS: OLANZapine 5 MG TABLET PO (12:13)
--- NOTE | 2023-09-01 12:53 | P.PNPSI_ITS ---
Subjective Subjective Date of Service: 09/01/23 Reason For Visit: bipolar disorder Interim History: Met with patient; discussed with team Patient a little guarded and defensive when talking about helping her with post discharge plans and with medications however she was able to agree to have social work contact outpatient support person and agree on medication changes. She does not want to be on Invega Sustenna and its that wants to be on Latuda which she said helped her depression. talked about past upsetting events; talked about missing her daughter wants to get custody of her daughter back. She shared how she feels a life-time of being disrespected. Mental Status Exam Mental Status Exam Narrative: Pt is alert and oriented; behavior is calm and more friendly, but though trying to be cooperative, is still still guarded and defensive; patient is not in distress; dressed in casual attire with unkempt hair, hirsutism; adequate hygiene; mood is described better and affect congruent, more calm; eye contact appropriate; Speech is normal rate, volume and prosody; no psychomotor agitation present; thought process much more goal directed, logical; Thought content is on on treatment and post discharge options; denies any SI/HI. Perhaps internally preoccupied but denies AVH Patients insight and judgment impaired but much improved Diagnostics Vital Signs (24Hr): Vital Signs - 24 hr 08/31/23 18:00 09/01/23 09:20 Temperature 97.0 F 97.1 F Pulse Rate 87 67 Respiratory Rate 18 Blood Pressure 103/51 L 112/72 Pulse Oximetry 98 Oxygen Delivery Method Room Air Labs 08/26/23 07:13 Labs: Laboratory Results - last 48 hr 08/31/23 08:34 POC Glucose 105 Medications Medications Current Medications Acetaminophen (Acetaminophen 325 Mg Tablet) 650 mg PO Q6H PRN PRN Reason: Headache/Pain Mild Scale (1-3) Last Admin: 08/31/23 16:02 Dose: 650 mg Al Hydroxide/Mg Hydroxide (Magnesium Hydrox/Alum Hydrox 30 Ml Oral.Susp) 30 ml PO Q6H PRN PRN Reason: Heartburn/Nausea Last Admin: 08/30/23 21:16 Dose: 30 ml Albuterol Sulfate (Albuterol Sulfate 90 Mcg 8 Gm Inhaler) 1 puff INHALE RQ4H PRN PRN Reason: Shortness of Breath Last Admin: 08/27/23 15:05 Dose: 1 puff Hydroxyzine HCl (Hydroxyzine Hcl 25 Mg Tablet) 25 mg PO Q6H PRN PRN Reason: Anxiety Last Admin: 08/28/23 21:31 Dose: 25 mg Levothyroxine Sodium (Levothyroxine Sodium 50 Mcg Tablet) 50 mcg PO DAILY@0600 [facility] Last Admin: 09/01/23 06:20 Dose: 50 mcg Loratadine (Loratadine 10 Mg Tablet) 10 mg PO DAILY [facility] Last Admin: 09/01/23 09:22 Dose: 10 mg Magnesium Hydroxide (Milk Of Magnesia 30 Ml Oral.Susp) 30 ml PO DAILY PRN PRN Reason: Constipation Metformin HCl (Metformin Hcl Er 750 Mg Tab.Er.24h) 750 mg PO BEDTIME [facility] Last Admin: 08/31/23 21:10 Dose: 750 mg Nicotine Polacrilex (Nicotine Polacrilex 2 Mg Gum) 2 mg BUCCAL Q2H PRN PRN Reason: Nicotine Cravings Last Admin: 09/01/23 12:12 Dose: 2 mg Olanzapine (Olanzapine 5 Mg Tablet) 5 mg PO TID PRN PRN Reason: agitation Last Admin: 09/01/23 12:13 Dose: 5 mg Olanzapine (Olanzapine 10 Mg Tablet) 10 mg PO BID [facility] Last Admin: 09/01/23 09:22 Dose: 10 mg Oxcarbazepine (Oxcarbazepine 150 Mg Tablet) 150 mg PO BEDTIME [facility] Last Admin: 08/31/23 21:10 Dose: 150 mg Prazosin HCl (Prazosin Hcl 1 Mg Capsule) 1 mg PO BEDTIME [facility]; Protocol Last Admin: 08/31/23 21:11 Dose: 1 mg Risperidone (Risperidone 2 Mg Tablet) 2 mg PO BID [facility] Last Admin: 09/01/23 09:22 Dose: 2 mg Trazodone HCl (Trazodone Hcl 50 Mg Tablet) 50 mg PO BEDTIME MRX1 PRN PRN Reason: Insomnia Last Admin: 08/30/23 20:19 Dose: 50 mg Vitamin D (Cholecalciferol (Vitamin D3) 25 Mcg Tablet) 25 mcg PO DAILY [facility] Last Admin: 09/01/23 09:22 Dose: 25 mcg Allergies Allergies Allergy/AdvReac Type Severity Reaction Status Date / Time aripiprazole [Abilify] Allergy Unknown hives Verified 06/12/23 03:38 latex [LATEX] Allergy Unknown RASH Verified 06/12/23 03:38 sertraline [From Zoloft] Allergy Unknown raised Verified 06/12/23 03:38 LFTs/angioedema zolpidem [Ambien] Allergy Unknown hives Verified 06/12/23 03:38 Iodinated Contrast Media Allergy Hives Verified 06/12/23 03:38 [IV Contrast Dye] Assessment & Plan Assessment & Plan (1) Schizoaffective disorder, bipolar type: Status: Acute Code(s): F25.0 - Schizoaffective disorder, bipolar type (2) Diabetes 1.5, managed as type 2: Status: Acute Code(s): E13.9 - Other specified diabetes mellitus without complications Plan Annie is a 6-year-old female with history of schizoaffective disorder, intermittent asthma, hypothyroidism, PCOS, control diabetes type 2. She has had numerous hospitalizations and emergency room evaluations. She presented to the emergency room on 08/24/2023 for suicidal ideations and disorganized behavior, yelling outside of the emergency room. She was last evaluated by the emergency room in May with outpatient follow-up referral which she never follow through with. She does not appear to be on any medications but states that she is on Klonopin. We have not been able to verify this but will pursue. She was found by security at side of the emergency room being very disorganized and refused workup and care she. She was not able to give much historical information in the emergency room. She talked about missing her daughter, her daughter being a ?silent killer?. She was seen to be delusional and that appears to be the case now. No verifiable history of substance abuse from her but in the past she has used marijuana, alcohol and cocaine. Hospital course: 08/27 She is doing much better after day of taking Zyprexa 10 mg q.h.s.. She is less loud, intrusive and behaviorally more manageable. Eating and sleeping adequately. No complaints or side effects. No SI. No changes were made today 08/28 patient was not continued on Zyprexa q.h.s.; today disorganized speech and difficult with which to engage; patient is currently not allowed in the kitchen as she is intrusive and provoking peers patient talking about different things that are irrelevant, hard to follow. Review of past history, prescriptions, patient was on Risperdal 2 mg b.i.d. and then on Invega Sustenna 234 mg; also history of being on Zyprexa as a p.r.n., clonazepam and Latuda. Will change medication regimen to fit history of prescriptions 08/28 patient was not continued on Zyprexa q.h.s.; today disorganized speech and difficult with which to engage; patient is currently not allowed in the kitchen as she is intrusive and provoking peers patient talking about different things that are irrelevant, hard to follow. Review of past history, prescriptions, patient was on Risperdal 2 mg b.i.d. and then on Invega Sustenna 234 mg; also history of being on Zyprexa as a p.r.n., clonazepam and Latuda. Will change medication regimen to fit history of prescriptions 08/29 Review 2018 admission during which time patient was depressed but was stabilized on Zyprexa 10 mg b.i.d. and lithium 900 mg Licensed Home Inspector discussed this with patient who said that lithium caused SI ADH; she mentioned Latuda being helpful for depression but was okay with increasing Zyprexa. Patient somewhat irritable, upset that life insurance underwriter work her up and did not want to talk further. However she was a little more linear and organized in this conversation than previously 08/30 Patient much more calm today and cooperative. Also much more logical and discussion. Licensed Home Inspector asked about this and she says it is because of the medications and that she remembers how she was behaving prior to this which she said was due to her bipolar disorder; she can tell she is feeling better because she is no longer feeling irritated with others. Patient said the medications are helpful and she wants to continue with them. She also said she needs to get in touch with her bomb squad officer and wants social work to contact this person. She said she will procure the numbers. Patient discussed about homelessness and if there were any options; social work agreed to discuss this tomorrow 08/31 much improved, much more logical with organized speech behavior. Continue current regimen; dispo planning 09/01 patient still defensive but overall doing better. Not sure order baseline is however. She does not want to be on Invega Sustenna long-acting injectable could she did not like getting the shot. Instead she wants to be on Latuda saying that it helped with her depression; life insurance underwriter agreed to make change from Risperdal to Latuda. It has been difficult getting collateral and so it is not really clear what medication regimens have worked. Plan: CV Q 15 minute checks Taper off Risperdal; she refuses long-acting injectable and wants Latuda instead which she has been on in the past Start Latuda 20 mg today and 40 mg starting tomorrow daily Increase to Zyprexa 10 mg b.i.d. Continue Zyprexa 5 mg t.i.d. p.r.n. for agitation; patient was on this in the past as a p.r.n.; will DC Thorazine DC Thorazine p.r.n. Continue oxcarbazepine 150 mg bedtime, started on admission Continue levothyroxine Continue metformin Medical comorbidities:. #Mild intermittent asthma -no acute exacerbation -albuterol p.r.n. # controlled type 2 diabetes -A1c last measured around 5.6%, last year was 6.8% consistent with type 2 diabetes -continue metformin -POC glucose, diabetic diet if patient tolerates #HENRIQUEZ -hepatic function WNL Patient educated on: diagnosis, medication risk/benefits and substance abuse Informed Consent: understands and further education needed Reason for continued inpatient stay Substantial Risk for: rapid decompensation Time Spent With Patient Time: Total time managing care of this patient today ____ minutes.
[2023-09-01] MEDS: Lurasidone HCl 20 MG TABLET PO (15:09)
[2023-09-01 16:20] VITALS: BP 111/57; PULSE 107; RESP 16; TEMP 36.8; O2SAT 94
[2023-09-01] MEDS: metFORMIN HCl ER 750 MG TAB.ER.24H PO (23:01)
[2023-09-01] MEDS: Prazosin HCL 1 MG CAPSULE PO (23:03)
[2023-09-01] MEDS: traZODone HCL 50 MG TABLET PO (23:03)
[2023-09-01] MEDS: OXcarbazepine 150 MG TABLET PO (23:04)
[2023-09-01] MEDS: risperiDONE 1 MG TABLET PO (23:04)
[2023-09-02] MEDS: Levothyroxine Sodium 50 MCG TABLET PO (05:34)
[2023-09-02] MEDS: Nicotine Polacrilex 2 MG GUM BUCCAL ×2 (06:55→16:01)
--- NOTE | 2023-09-02 06:55 | PC.NURSE ---
PT requests not to be woken up for Levothyroxine or breakfast. 'I am a single Mom do not wake me up.
[2023-09-02 08:00] VITALS: BP 134/78; PULSE 104; TEMP 37.1; O2SAT 98
[2023-09-02] MEDS: Cholecalciferol (Vitamin D3) 25 MCG TABLET PO (08:32)
[2023-09-02] MEDS: OLANZapine 10 MG TABLET PO (08:32)
[2023-09-02] MEDS: Lurasidone HCl 40 MG TABLET PO (08:32)
[2023-09-02] MEDS: hydrOXYzine HCL 25 MG TABLET PO (08:32)
[2023-09-02] MEDS: Loratadine 10 MG TABLET PO (08:32)
--- NOTE | 2023-09-02 08:53 | P.PNPSI_ITS ---
Subjective Subjective Date of Service: 09/02/23 Reason For Visit: bipolar disorder Interim History: met with patient; discussed with team Patient increasingly manic and irritable today, loud in the milieu, accusatory and very defensive when trying to talk to her about anything. She is minimally able to hold down a linear conversation, starting on a topic but adding in extraneous things or jumping to something else and expressing a lot of anger about unclear concerns of hers. She is upset that she supposedly had a positive cocaine UDS from the ED saying she never does drugs and most a been a laced cigarette; in random order, she is constantly referring to her daughter, DCF, her son, housing and passed wrongs. Discussed medications and she said Depakote hurt her liver Mental Status Exam Mental Status Exam Narrative: Pt is alert and oriented; behavior is irritable, loud, somewhat intrusive to peers and staff, defensive and somewhat guarded; patient is not in distress; dressed in casual attire, well groomed; hirsutism; mood is described angry and affect congruent; eye contact appropriate; Speech is loud and pressured; normal prosody; psychomotor agitation present; thought process briefly goal directed but becomes tangential, jumping around to different topics; Thought content is various unrelated topics that she is upset about, some current some remote; denies any SI/HI. Perhaps internally preoccupied but denies AVH Patients insight and judgment impaired Diagnostics Vital Signs (24Hr): Vital Signs - 24 hr 09/01/23 09:20 09/01/23 16:20 Temperature 97.1 F 98.2 F Pulse Rate 67 107 H Respiratory Rate 18 16 Blood Pressure 112/72 111/57 L Pulse Oximetry 98 94 Oxygen Delivery Method Room Air Room Air Labs 08/26/23 07:13 Medications Medications Current Medications Acetaminophen (Acetaminophen 325 Mg Tablet) 650 mg PO Q6H PRN PRN Reason: Headache/Pain Mild Scale (1-3) Last Admin: 08/31/23 16:02 Dose: 650 mg Al Hydroxide/Mg Hydroxide (Magnesium Hydrox/Alum Hydrox 30 Ml Oral.Susp) 30 ml PO Q6H PRN PRN Reason: Heartburn/Nausea Last Admin: 08/30/23 21:16 Dose: 30 ml Albuterol Sulfate (Albuterol Sulfate 90 Mcg 8 Gm Inhaler) 1 puff INHALE RQ4H PRN PRN Reason: Shortness of Breath Last Admin: 08/27/23 15:05 Dose: 1 puff Clonidine HCl (Clonidine Hcl 0.1 Mg Tablet) 0.1 mg PO Q4H PRN; Protocol PRN Reason: anxiety Hydroxyzine HCl (Hydroxyzine Hcl 25 Mg Tablet) 25 mg PO Q6H PRN PRN Reason: Anxiety Last Admin: 09/02/23 08:32 Dose: 25 mg Levothyroxine Sodium (Levothyroxine Sodium 50 Mcg Tablet) 50 mcg PO DAILY@0600 [facility] Last Admin: 09/02/23 05:34 Dose: 50 mcg Loratadine (Loratadine 10 Mg Tablet) 10 mg PO DAILY [facility] Last Admin: 09/02/23 08:32 Dose: 10 mg Lurasidone HCl (Lurasidone Hcl 40 Mg Tablet) 40 mg PO DAILY [facility] Last Admin: 09/02/23 08:32 Dose: 40 mg Magnesium Hydroxide (Milk Of Magnesia 30 Ml Oral.Susp) 30 ml PO DAILY PRN PRN Reason: Constipation Metformin HCl (Metformin Hcl Er 750 Mg Tab.Er.24h) 750 mg PO BEDTIME [facility]A Last Admin: 09/01/23 23:01 Dose: 750 mg Nicotine Polacrilex (Nicotine Polacrilex 2 Mg Gum) 2 mg BUCCAL Q2H PRN PRN Reason: Nicotine Cravings Last Admin: 09/02/23 06:55 Dose: 2 mg Olanzapine (Olanzapine 5 Mg Tablet) 5 mg PO TID PRN PRN Reason: agitation Last Admin: 09/01/23 12:13 Dose: 5 mg Olanzapine (Olanzapine 10 Mg Tablet) 10 mg PO BID [facility] Last Admin: 09/02/23 08:32 Dose: 10 mg Oxcarbazepine (Oxcarbazepine 150 Mg Tablet) 150 mg PO BEDTIME [facility] Last Admin: 09/01/23 23:04 Dose: 150 mg Prazosin HCl (Prazosin Hcl 1 Mg Capsule) 1 mg PO BEDTIME [facility]; Protocol Last Admin: 09/01/23 23:03 Dose: 1 mg Trazodone HCl (Trazodone Hcl 50 Mg Tablet) 50 mg PO BEDTIME MRX1 PRN PRN Reason: Insomnia Last Admin: 09/01/23 23:03 Dose: 50 mg Vitamin D (Cholecalciferol (Vitamin D3) 25 Mcg Tablet) 25 mcg PO DAILY [facility] Last Admin: 09/02/23 08:32 Dose: 25 mcg Allergies Allergies Allergy/AdvReac Type Severity Reaction Status Date / Time aripiprazole [Abilify] Allergy Unknown hives Verified 06/12/23 03:38 latex [LATEX] Allergy Unknown RASH Verified 06/12/23 03:38 sertraline [From Zoloft] Allergy Unknown raised Verified 06/12/23 03:38 LFTs/angioedema zolpidem [Ambien] Allergy Unknown hives Verified 06/12/23 03:38 Iodinated Contrast Media Allergy Hives Verified 06/12/23 03:38 [IV Contrast Dye] Assessment & Plan Assessment & Plan (1) Schizoaffective disorder, bipolar type: Status: Acute Code(s): F25.0 - Schizoaffective disorder, bipolar type (2) Diabetes 1.5, managed as type 2: Status: Acute Code(s): E13.9 - Other specified diabetes mellitus without complications Plan Annie is a 6-year-old female with history of schizoaffective disorder, intermittent asthma, hypothyroidism, PCOS, control diabetes type 2. She has had numerous hospitalizations and emergency room evaluations. She presented to the emergency room on 08/24/2023 for suicidal ideations and disorganized behavior, yelling outside of the emergency room. She was last evaluated by the emergency room in May with outpatient follow-up referral which she never follow through with. She does not appear to be on any medications but states that she is on Klonopin. We have not been able to verify this but will pursue. She was found by security at side of the emergency room being very disorganized and refused workup and care she. She was not able to give much historical information in the emergency room. She talked about missing her daughter, her daughter being a ?silent killer?. She was seen to be delusional and that appears to be the case now. No verifiable history of substance abuse from her but in the past she has used marijuana, alcohol and cocaine. Hospital course: 08/27 She is doing much better after day of taking Zyprexa 10 mg q.h.s.. She is less loud, intrusive and behaviorally more manageable. Eating and sleeping adequately. No complaints or side effects. No SI. No changes were made today 08/28 patient was not continued on Zyprexa q.h.s.; today disorganized speech and difficult with which to engage; patient is currently not allowed in the kitchen as she is intrusive and provoking peers patient talking about different things that are irrelevant, hard to follow. Review of past history, prescriptions, patient was on Risperdal 2 mg b.i.d. and then on Invega Sustenna 234 mg; also history of being on Zyprexa as a p.r.n., clonazepam and Latuda. Will change medication regimen to fit history of prescriptions 08/28 patient was not continued on Zyprexa q.h.s.; today disorganized speech and difficult with which to engage; patient is currently not allowed in the kitchen as she is intrusive and provoking peers patient talking about different things that are irrelevant, hard to follow. Review of past history, prescriptions, patient was on Risperdal 2 mg b.i.d. and then on Invega Sustenna 234 mg; also history of being on Zyprexa as a p.r.n., clonazepam and Latuda. Will change medication regimen to fit history of prescriptions 08/29 Review 2018 admission during which time patient was depressed but was stabilized on Zyprexa 10 mg b.i.d. and lithium 900 mg [employer] Inspector discussed this with patient who said that lithium caused SI ADH; she mentioned Latuda being helpful for depression but was okay with increasing Zyprexa. Patient somewhat irritable, upset that proposal manager writer work her up and did not want to talk further. However she was a little more linear and organized in this conversation than previously 08/30 Patient much more calm today and cooperative. Also much more logical and discussion. [employer] Inspector asked about this and she says it is because of the medications and that she remembers how she was behaving prior to this which she said was due to her bipolar disorder; she can tell she is feeling better because she is no longer feeling irritated with others. Patient said the medications are helpful and she wants to continue with them. She also said she needs to get in touch with her chief financial officer and wants social work to contact this person. She said she will procure the numbers. Patient discussed about homelessness and if there were any options; social work agreed to discuss this tomorrow 08/31 much improved, much more logical with organized speech behavior. Continue current regimen; dispo planning 09/01 patient still defensive but overall doing better. Not sure order baseline is however. She does not want to be on Invega Sustenna long-acting injectable could she did not like getting the shot. Instead she wants to be on Latuda saying that it helped with her depression; proposal manager writer agreed to make change from Risperdal to Latuda. It has been difficult getting collateral and so it is not really clear what medication regimens have worked. 09/02 Patient increasingly manic and irritable today, loud in the milieu, accusatory and very defensive when trying to talk to her about anything. She is minimally able to hold down a linear conversation, starting on a topic but adding in extraneous things or jumping to something else and expressing a lot of anger about unclear concerns of hers. She is upset that she supposedly had a positive cocaine UDS from the ED saying she never does drugs and most a been a laced cigarette; in random order, she is constantly referring to her daughter, DCF, her son, housing and passed wrongs. Definitely triggered about what her outpatient executive secretary social welfare will think -it seems that possible patient decompensated after tapering down the Risperdal, though there may have been some signs of this prior to; at this point will restart Risperdal, DC Latuda and increase Zyprexa at bedtime. So far she has refused lithium and Depakote due to reported side effects (respectively diabetes insipidus and liver toxicity) Plan: CV Q 15 minute checks Restart Risperdal 2 mg b.i.d.; decompensation seems to have coincided with tapering off this medication and starting Latuda instead DC Latuda Continue Zyprexa 10 mg daily Increase Zyprexa to 20 mg q.h.s. Continue Zyprexa 5 mg t.i.d. p.r.n. for agitation; patient was on this in the past as a p.r.n.; will DC Thorazine DC Thorazine p.r.n. Continue oxcarbazepine 150 mg bedtime, started on admission Continue levothyroxine Continue metformin Medical comorbidities:. #Mild intermittent asthma -no acute exacerbation -albuterol p.r.n. # controlled type 2 diabetes -A1c last measured around 5.6%, last year was 6.8% consistent with type 2 diabetes -continue metformin -POC glucose, diabetic diet if patient tolerates #HENRIQUEZ -hepatic function WNL Patient educated on: diagnosis, medication risk/benefits and substance abuse Informed Consent: understands, does not understand and further education needed Reason for continued inpatient stay Substantial Risk for: inability to function Time Spent With Patient Time: Total time managing care of this patient today ____ minutes.
[2023-09-02] MEDS: Acetaminophen 325 MG TABLET 650 MG PO (10:08)
[2023-09-02] MEDS: risperiDONE 2 MG TABLET PO ×2 (10:09→20:09)
[2023-09-02 16:40] VITALS: BP 152/72; PULSE 97; RESP 20; TEMP 36.7; O2SAT 99
[2023-09-02] MEDS: cloNIDine HCL 0.1 MG TABLET PO (19:01)
[2023-09-02] MEDS: OLANZapine 5 MG TABLET PO (19:01)
--- NOTE | 2023-09-02 19:10 | PC.NURSE ---
Patient agitated, tearful. Accepted clonidine, and PRN Olanzapine.
[2023-09-02] MEDS: OXcarbazepine 150 MG TABLET PO (20:09)
[2023-09-02] MEDS: Prazosin HCL 1 MG CAPSULE PO (20:09)
[2023-09-02] MEDS: OLANZapine 10 MG TABLET 20 MG PO (20:09)
[2023-09-02] MEDS: metFORMIN HCl ER 750 MG TAB.ER.24H PO (20:09)
[2023-09-03 08:45] VITALS: BP 130/75; PULSE 88; RESP 18; TEMP 36.3; O2SAT 98
[2023-09-03] MEDS: risperiDONE 2 MG TABLET PO ×2 (08:48→20:42)
[2023-09-03] MEDS: Loratadine 10 MG TABLET PO (08:48)
[2023-09-03] MEDS: Cholecalciferol (Vitamin D3) 25 MCG TABLET PO (08:49)
[2023-09-03] MEDS: OLANZapine 10 MG TABLET PO (08:49)
[2023-09-03] MEDS: Levothyroxine Sodium 50 MCG TABLET PO (08:49)
[2023-09-03 09:06] LABS: Glucose, Whole Blood 100 mg/dL (60-115)
[2023-09-03 09:13] LABS: Estimated Glomerular Filt Rate > 60
--- NOTE | 2023-09-03 10:21 | HO.PSYCHPN ---
Subjective Subjective Date of Service: 09/03/23 Reason For Visit: bipolar disorder Interim History: met with patient; discussed with team Briefly interactive patient who is More calm, not manic or agitated today; resting most of the day. Mental Status Exam Mental Status Exam Narrative: Pt is alert and oriented; behavior is more calm; patient is not in distress; dressed in casual attire with unkempt hair; mood is described as more calm and affect constricted; eye contact appropriate; Speech is regular volume, rate and prosody; no psychomotor agitation present; thought process less tangential; Thought content is on treatment; denies any SI/HI. Perhaps internally preoccupied Patients insight and judgment impaired Diagnostics Vital Signs (24Hr): Vital Signs - 24 hr 09/02/23 16:40 09/03/23 08:45 Temperature 98.1 F 97.3 F Pulse Rate 97 88 Respiratory Rate 20 18 Blood Pressure 152/72 H 130/75 Pulse Oximetry 99 98 Oxygen Delivery Method Room Air Room Air Labs 09/03/23 08:55 Labs: Laboratory Results - last 48 hr 09/03/23 09/03/23 08:55 09:00 Creatinine 0.68 Estim Creat Clear Calc TNP Estimated GFR > 60 POC Glucose 100 Medications Medications Current Medications Acetaminophen (Acetaminophen 325 Mg Tablet) 650 mg PO Q6H PRN PRN Reason: Headache/Pain Mild Scale (1-3) Last Admin: 09/02/23 10:08 Dose: 650 mg Al Hydroxide/Mg Hydroxide (Magnesium Hydrox/Alum Hydrox 30 Ml Oral.Susp) 30 ml PO Q6H PRN PRN Reason: Heartburn/Nausea Last Admin: 08/30/23 21:16 Dose: 30 ml Albuterol Sulfate (Albuterol Sulfate 90 Mcg 8 Gm Inhaler) 1 puff INHALE RQ4H PRN PRN Reason: Shortness of Breath Last Admin: 08/27/23 15:05 Dose: 1 puff Clonidine HCl (Clonidine Hcl 0.1 Mg Tablet) 0.1 mg PO Q4H PRN; Protocol PRN Reason: anxiety Last Admin: 09/02/23 19:01 Dose: 0.1 mg Hydroxyzine HCl (Hydroxyzine Hcl 25 Mg Tablet) 25 mg PO Q6H PRN PRN Reason: Anxiety Last Admin: 09/02/23 08:32 Dose: 25 mg Levothyroxine Sodium (Levothyroxine Sodium 50 Mcg Tablet) 50 mcg PO DAILY [facility] Last Admin: 09/03/23 08:49 Dose: 50 mcg Loratadine (Loratadine 10 Mg Tablet) 10 mg PO DAILY [facility] Last Admin: 09/03/23 08:48 Dose: 10 mg Magnesium Hydroxide (Milk Of Magnesia 30 Ml Oral.Susp) 30 ml PO DAILY PRN PRN Reason: Constipation Metformin HCl (Metformin Hcl Er 750 Mg Tab.Er.24h) 750 mg PO BEDTIME [facility] Last Admin: 09/02/23 20:09 Dose: 750 mg Nicotine Polacrilex (Nicotine Polacrilex 2 Mg Gum) 2 mg BUCCAL Q2H PRN PRN Reason: Nicotine Cravings Last Admin: 09/02/23 16:01 Dose: 2 mg Olanzapine (Olanzapine 5 Mg Tablet) 5 mg PO TID PRN PRN Reason: agitation Last Admin: 09/02/23 19:01 Dose: 5 mg Olanzapine (Olanzapine 10 Mg Tablet) 10 mg PO DAILY [facility] Last Admin: 09/03/23 08:49 Dose: 10 mg Olanzapine (Olanzapine 10 Mg Tablet) 20 mg PO BEDTIME [facility] Last Admin: 09/02/23 20:09 Dose: 20 mg Oxcarbazepine (Oxcarbazepine 150 Mg Tablet) 150 mg PO BEDTIME [facility] Last Admin: 09/02/23 20:09 Dose: 150 mg Prazosin HCl (Prazosin Hcl 1 Mg Capsule) 1 mg PO BEDTIME [facility]; Protocol Last Admin: 09/02/23 20:09 Dose: 1 mg Risperidone (Risperidone 2 Mg Tablet) 2 mg PO BID [facility] Last Admin: 09/03/23 08:48 Dose: 2 mg Trazodone HCl (Trazodone Hcl 50 Mg Tablet) 50 mg PO BEDTIME MRX1 PRN PRN Reason: Insomnia Last Admin: 09/01/23 23:03 Dose: 50 mg Vitamin D (Cholecalciferol (Vitamin D3) 25 Mcg Tablet) 25 mcg PO DAILY [facility] Last Admin: 09/03/23 08:49 Dose: 25 mcg Allergies Allergies Allergy/AdvReac Type Severity Reaction Status Date / Time aripiprazole [Abilify] Allergy Unknown hives Verified 06/12/23 03:38 latex [LATEX] Allergy Unknown RASH Verified 06/12/23 03:38 sertraline [From Zoloft] Allergy Unknown raised Verified 06/12/23 03:38 LFTs/angioedema zolpidem [Ambien] Allergy Unknown hives Verified 06/12/23 03:38 Iodinated Contrast Media Allergy Hives Verified 06/12/23 03:38 [IV Contrast Dye] Assessment & Plan Assessment & Plan (1) Schizoaffective disorder, bipolar type: Status: Acute Code(s): F25.0 - Schizoaffective disorder, bipolar type (2) Diabetes 1.5, managed as type 2: Status: Acute Code(s): E13.9 - Other specified diabetes mellitus without complications Plan Annie is a 6-year-old female with history of schizoaffective disorder, intermittent asthma, hypothyroidism, PCOS, control diabetes type 2. She has had numerous hospitalizations and emergency room evaluations. She presented to the emergency room on 08/24/2023 for suicidal ideations and disorganized behavior, yelling outside of the emergency room. She was last evaluated by the emergency room in May with outpatient follow-up referral which she never follow through with. She does not appear to be on any medications but states that she is on Klonopin. We have not been able to verify this but will pursue. She was found by security at side of the emergency room being very disorganized and refused workup and care she. She was not able to give much historical information in the emergency room. She talked about missing her daughter, her daughter being a ?silent killer?. She was seen to be delusional and that appears to be the case now. No verifiable history of substance abuse from her but in the past she has used marijuana, alcohol and cocaine. Hospital course: 08/27 She is doing much better after day of taking Zyprexa 10 mg q.h.s.. She is less loud, intrusive and behaviorally more manageable. Eating and sleeping adequately. No complaints or side effects. No SI. No changes were made today 08/28 patient was not continued on Zyprexa q.h.s.; today disorganized speech and difficult with which to engage; patient is currently not allowed in the kitchen as she is intrusive and provoking peers patient talking about different things that are irrelevant, hard to follow. Review of past history, prescriptions, patient was on Risperdal 2 mg b.i.d. and then on Invega Sustenna 234 mg; also history of being on Zyprexa as a p.r.n., clonazepam and Latuda. Will change medication regimen to fit history of prescriptions 08/28 patient was not continued on Zyprexa q.h.s.; today disorganized speech and difficult with which to engage; patient is currently not allowed in the kitchen as she is intrusive and provoking peers patient talking about different things that are irrelevant, hard to follow. Review of past history, prescriptions, patient was on Risperdal 2 mg b.i.d. and then on Invega Sustenna 234 mg; also history of being on Zyprexa as a p.r.n., clonazepam and Latuda. Will change medication regimen to fit history of prescriptions 08/29 Review 2018 admission during which time patient was depressed but was stabilized on Zyprexa 10 mg b.i.d. and lithium 900 mg Pediatric Assistant discussed this with patient who said that lithium caused SI ADH; she mentioned Latuda being helpful for depression but was okay with increasing Zyprexa. Patient somewhat irritable, upset that senior grant writer work her up and did not want to talk further. However she was a little more linear and organized in this conversation than previously 08/30 Patient much more calm today and cooperative. Also much more logical and discussion. Pediatric Assistant asked about this and she says it is because of the medications and that she remembers how she was behaving prior to this which she said was due to her bipolar disorder; she can tell she is feeling better because she is no longer feeling irritated with others. Patient said the medications are helpful and she wants to continue with them. She also said she needs to get in touch with her defence force senior officer and wants social work to contact this person. She said she will procure the numbers. Patient discussed about homelessness and if there were any options; social work agreed to discuss this tomorrow 08/31 much improved, much more logical with organized speech behavior. Continue current regimen; dispo planning 09/01 patient still defensive but overall doing better. Not sure order baseline is however. She does not want to be on Invega Sustenna long-acting injectable could she did not like getting the shot. Instead she wants to be on Latuda saying that it helped with her depression; senior grant writer agreed to make change from Risperdal to Latuda. It has been difficult getting collateral and so it is not really clear what medication regimens have worked. 09/02 Patient increasingly manic and irritable today, loud in the milieu, accusatory and very defensive when trying to talk to her about anything. She is minimally able to hold down a linear conversation, starting on a topic but adding in extraneous things or jumping to something else and expressing a lot of anger about unclear concerns of hers. She is upset that she supposedly had a positive cocaine UDS from the ED saying she never does drugs and most a been a laced cigarette; in random order, she is constantly referring to her daughter, DCF, her son, housing and passed wrongs. Definitely triggered about what her outpatient social work instructor will think -it seems that possible patient decompensated after tapering down the Risperdal, though there may have been some signs of this prior to; at this point will restart Risperdal, DC Latuda and increase Zyprexa at bedtime. So far she has refused lithium and Depakote due to reported side effects (respectively diabetes insipidus and liver toxicity) 09/03 more calm today; not agitated, yelling or intrusive but rather resting much of the day. Maya/hypomania subsided, coinciding with restarting Risperdal and increasing Zyprexa Plan: CV Q 15 minute checks Continue Risperdal 2 mg b.i.d.; decompensation seems to have coincided with tapering off this medication and starting Latuda instead DC Latuda Continue Zyprexa 10 mg daily Continue Zyprexa to 20 mg q.h.s. Continue Zyprexa 5 mg t.i.d. p.r.n. for agitation; patient was on this in the past as a p.r.n.; will DC Thorazine DC Thorazine p.r.n. Continue oxcarbazepine 150 mg bedtime, started on admission Continue levothyroxine Continue metformin Medical comorbidities:. #Mild intermittent asthma -no acute exacerbation -albuterol p.r.n. # controlled type 2 diabetes -A1c last measured around 5.6%, last year was 6.8% consistent with type 2 diabetes -continue metformin -POC glucose, diabetic diet if patient tolerates #HENRIQUEZ -hepatic function WNL Reason for continued inpatient stay Substantial Risk for: inability to function Time Spent With Patient Time: Total time managing care of this patient today ____ minutes.
[2023-09-03 18:00] VITALS: BP 119/69; PULSE 109; RESP 16; TEMP 37.1; O2SAT 98
[2023-09-03] MEDS: metFORMIN HCl ER 750 MG TAB.ER.24H PO (20:38)
[2023-09-03] MEDS: OXcarbazepine 150 MG TABLET PO (20:38)
[2023-09-03] MEDS: Prazosin HCL 1 MG CAPSULE PO (20:42)
[2023-09-03] MEDS: cloNIDine HCL 0.1 MG TABLET PO (20:42)
[2023-09-03] MEDS: OLANZapine 10 MG TABLET 20 MG PO (20:42)
[2023-09-04 08:00] VITALS: BP 121/73; PULSE 62; TEMP 36.6; O2SAT 98
[2023-09-04] MEDS: OLANZapine 10 MG TABLET PO (08:31)
[2023-09-04] MEDS: risperiDONE 2 MG TABLET PO ×2 (08:31→21:16)
[2023-09-04] MEDS: Cholecalciferol (Vitamin D3) 25 MCG TABLET PO (08:31)
[2023-09-04] MEDS: Levothyroxine Sodium 50 MCG TABLET PO (08:32)
[2023-09-04] MEDS: Loratadine 10 MG TABLET PO (08:32)
[2023-09-04 08:36] LABS: Glucose, Whole Blood 73 mg/dL (60-115)
--- NOTE | 2023-09-04 17:08 | HO.PSYCHPN ---
Subjective Subjective Date of Service: 09/04/23 Reason For Visit: bipolar disorder Interim History: Met with patient; discussed with team Patient much more calm today. She says that she is feeling better and just relaxing in a room, listening to music. Wants her father to visit. No other complaints. Mental Status Exam Mental Status Exam Narrative: Pt is alert and oriented; behavior is more calm; patient is not in distress; dressed in casual attire with unkempt hair; mood is described as better and affect congruent; eye contact appropriate; Speech is regular volume, rate and prosody; no psychomotor agitation present; thought process goal oriented l; Thought content is on treatment;, aftercare issues; denies any SI/HI. No AVH Patients insight and judgment impaired but improving Diagnostics Vital Signs (24Hr): Vital Signs - 24 hr 09/03/23 18:00 09/04/23 08:00 Temperature 98.7 F 97.8 F Pulse Rate 109 H 62 Respiratory Rate 16 Blood Pressure 119/69 121/73 Pulse Oximetry 98 98 Oxygen Delivery Method Room Air Room Air Labs 09/03/23 08:55 Labs: Laboratory Results - last 48 hr 09/03/23 09/03/23 09/04/23 08:55 09:00 08:31 Creatinine 0.68 Estim Creat Clear Calc TNP Estimated GFR > 60 POC Glucose 100 73 Medications Medications Current Medications Acetaminophen (Acetaminophen 325 Mg Tablet) 650 mg PO Q6H PRN PRN Reason: Headache/Pain Mild Scale (1-3) Last Admin: 09/02/23 10:08 Dose: 650 mg Al Hydroxide/Mg Hydroxide (Magnesium Hydrox/Alum Hydrox 30 Ml Oral.Susp) 30 ml PO Q6H PRN PRN Reason: Heartburn/Nausea Last Admin: 08/30/23 21:16 Dose: 30 ml Albuterol Sulfate (Albuterol Sulfate 90 Mcg 8 Gm Inhaler) 1 puff INHALE RQ4H PRN PRN Reason: Shortness of Breath Last Admin: 08/27/23 15:05 Dose: 1 puff Clonidine HCl (Clonidine Hcl 0.1 Mg Tablet) 0.1 mg PO Q4H PRN; Protocol PRN Reason: anxiety Last Admin: 09/03/23 20:42 Dose: 0.1 mg Hydroxyzine HCl (Hydroxyzine Hcl 25 Mg Tablet) 25 mg PO Q6H PRN PRN Reason: Anxiety Last Admin: 09/02/23 08:32 Dose: 25 mg Levothyroxine Sodium (Levothyroxine Sodium 50 Mcg Tablet) 50 mcg PO DAILY EVANGELISTA Last Admin: 09/04/23 08:32 Dose: 50 mcg Loratadine (Loratadine 10 Mg Tablet) 10 mg PO DAILY EVANGELISTA Last Admin: 09/04/23 08:32 Dose: 10 mg Magnesium Hydroxide (Milk Of Magnesia 30 Ml Oral.Susp) 30 ml PO DAILY PRN PRN Reason: Constipation Metformin HCl (Metformin Hcl Er 750 Mg Tab.Er.24h) 750 mg PO BEDTIME EVANGELISTA Last Admin: 09/03/23 20:38 Dose: 750 mg Nicotine Polacrilex (Nicotine Polacrilex 2 Mg Gum) 2 mg BUCCAL Q2H PRN PRN Reason: Nicotine Cravings Last Admin: 09/02/23 16:01 Dose: 2 mg Olanzapine (Olanzapine 5 Mg Tablet) 5 mg PO TID PRN PRN Reason: agitation Last Admin: 09/02/23 19:01 Dose: 5 mg Olanzapine (Olanzapine 10 Mg Tablet) 10 mg PO DAILY EVANGELISTA Last Admin: 09/04/23 08:31 Dose: 10 mg Olanzapine (Olanzapine 10 Mg Tablet) 20 mg PO BEDTIME EVANGELISTA Last Admin: 09/03/23 20:42 Dose: 20 mg Oxcarbazepine (Oxcarbazepine 150 Mg Tablet) 150 mg PO BEDTIME EVANGELISTA Last Admin: 09/03/23 20:38 Dose: 150 mg Prazosin HCl (Prazosin Hcl 1 Mg Capsule) 1 mg PO BEDTIME EVANGELISTA; Protocol Last Admin: 09/03/23 20:42 Dose: 1 mg Risperidone (Risperidone 2 Mg Tablet) 2 mg PO BID EVANGELISTA Last Admin: 09/04/23 08:31 Dose: 2 mg Trazodone HCl (Trazodone Hcl 50 Mg Tablet) 50 mg PO BEDTIME MRX1 PRN PRN Reason: Insomnia Last Admin: 09/01/23 23:03 Dose: 50 mg Vitamin D (Cholecalciferol (Vitamin D3) 25 Mcg Tablet) 25 mcg PO DAILY EVANGELISTA Last Admin: 09/04/23 08:31 Dose: 25 mcg Allergies Allergies Allergy/AdvReac Type Severity Reaction Status Date / Time aripiprazole [Abilify] Allergy Unknown hives Verified 06/12/23 03:38 latex [LATEX] Allergy Unknown RASH Verified 06/12/23 03:38 sertraline [From Zoloft] Allergy Unknown raised Verified 06/12/23 03:38 LFTs/angioedema zolpidem [Ambien] Allergy Unknown hives Verified 06/12/23 03:38 Iodinated Contrast Media Allergy Hives Verified 06/12/23 03:38 [IV Contrast Dye] Assessment & Plan Assessment & Plan (1) Schizoaffective disorder, bipolar type: Status: Acute Code(s): F25.0 - Schizoaffective disorder, bipolar type (2) Diabetes 1.5, managed as type 2: Status: Acute Code(s): E13.9 - Other specified diabetes mellitus without complications Plan Annie is a 6-year-old female with history of schizoaffective disorder, intermittent asthma, hypothyroidism, PCOS, control diabetes type 2. She has had numerous hospitalizations and emergency room evaluations. She presented to the emergency room on 08/24/2023 for suicidal ideations and disorganized behavior, yelling outside of the emergency room. She was last evaluated by the emergency room in May with outpatient follow-up referral which she never follow through with. She does not appear to be on any medications but states that she is on Klonopin. We have not been able to verify this but will pursue. She was found by security at side of the emergency room being very disorganized and refused workup and care she. She was not able to give much historical information in the emergency room. She talked about missing her daughter, her daughter being a ?silent killer?. She was seen to be delusional and that appears to be the case now. No verifiable history of substance abuse from her but in the past she has used marijuana, alcohol and cocaine. Hospital course: 08/27 She is doing much better after day of taking Zyprexa 10 mg q.h.s.. She is less loud, intrusive and behaviorally more manageable. Eating and sleeping adequately. No complaints or side effects. No SI. No changes were made today 08/28 patient was not continued on Zyprexa q.h.s.; today disorganized speech and difficult with which to engage; patient is currently not allowed in the kitchen as she is intrusive and provoking peers patient talking about different things that are irrelevant, hard to follow. Review of past history, prescriptions, patient was on Risperdal 2 mg b.i.d. and then on Invega Sustenna 234 mg; also history of being on Zyprexa as a p.r.n., clonazepam and Latuda. Will change medication regimen to fit history of prescriptions 08/28 patient was not continued on Zyprexa q.h.s.; today disorganized speech and difficult with which to engage; patient is currently not allowed in the kitchen as she is intrusive and provoking peers patient talking about different things that are irrelevant, hard to follow. Review of past history, prescriptions, patient was on Risperdal 2 mg b.i.d. and then on Invega Sustenna 234 mg; also history of being on Zyprexa as a p.r.n., clonazepam and Latuda. Will change medication regimen to fit history of prescriptions 08/29 Review 2018 admission during which time patient was depressed but was stabilized on Zyprexa 10 mg b.i.d. and lithium 900 mg Operational Trainer discussed this with patient who said that lithium caused SI ADH; she mentioned Latuda being helpful for depression but was okay with increasing Zyprexa. Patient somewhat irritable, upset that junior copywriter work her up and did not want to talk further. However she was a little more linear and organized in this conversation than previously 08/30 Patient much more calm today and cooperative. Also much more logical and discussion. Operational Trainer asked about this and she says it is because of the medications and that she remembers how she was behaving prior to this which she said was due to her bipolar disorder; she can tell she is feeling better because she is no longer feeling irritated with others. Patient said the medications are helpful and she wants to continue with them. She also said she needs to get in touch with her digital marketing officer and wants social work to contact this person. She said she will procure the numbers. Patient discussed about homelessness and if there were any options; social work agreed to discuss this tomorrow 08/31 much improved, much more logical with organized speech behavior. Continue current regimen; dispo planning 09/01 patient still defensive but overall doing better. Not sure order baseline is however. She does not want to be on Invega Sustenna long-acting injectable could she did not like getting the shot. Instead she wants to be on Latuda saying that it helped with her depression; junior copywriter agreed to make change from Risperdal to Latuda. It has been difficult getting collateral and so it is not really clear what medication regimens have worked. 09/02 Patient increasingly manic and irritable today, loud in the milieu, accusatory and very defensive when trying to talk to her about anything. She is minimally able to hold down a linear conversation, starting on a topic but adding in extraneous things or jumping to something else and expressing a lot of anger about unclear concerns of hers. She is upset that she supposedly had a positive cocaine UDS from the ED saying she never does drugs and most a been a laced cigarette; in random order, she is constantly referring to her daughter, DCF, her son, housing and passed wrongs. Definitely triggered about what her outpatient director of social services will think -it seems that possible patient decompensated after tapering down the Risperdal, though there may have been some signs of this prior to; at this point will restart Risperdal, DC Latuda and increase Zyprexa at bedtime. So far she has refused lithium and Depakote due to reported side effects (respectively diabetes insipidus and liver toxicity) 09/03 more calm today; not agitated, yelling or intrusive but rather resting much of the day. Maya/hypomania subsided, coinciding with restarting Risperdal and increasing Zyprexa 09/04 continue current treatment plan; patient remains much more calm. Operational Trainer discussed with director of social services, new information regarding social history, patient has apartment but a restraining order was placed since she was threatening to neighbors; lower is working to have this resolved Plan: CV Q 15 minute checks Continue Risperdal 2 mg b.i.d.; decompensation seems to have coincided with tapering off this medication and starting Latuda instead DC Latuda Continue Zyprexa 10 mg daily Continue Zyprexa to 20 mg q.h.s. Continue Zyprexa 5 mg t.i.d. p.r.n. for agitation; patient was on this in the past as a p.r.n.; will DC Thorazine DC Thorazine p.r.n. Continue oxcarbazepine 150 mg bedtime, started on admission Continue levothyroxine Continue metformin Medical comorbidities:. #Mild intermittent asthma -no acute exacerbation -albuterol p.r.n. # controlled type 2 diabetes -A1c last measured around 5.6%, last year was 6.8% consistent with type 2 diabetes -continue metformin -POC glucose, diabetic diet if patient tolerates #HENRIQUEZ -hepatic function WNL Patient educated on: diagnosis and medication risk/benefits Informed Consent: understands and further education needed Reason for continued inpatient stay Substantial Risk for: rapid decompensation Time Spent With Patient Time: Total time managing care of this patient today ____ minutes.
[2023-09-04] MEDS: Milk of Magnesia 30 ML ORAL.SUSP PO (18:30)
[2023-09-04] MEDS: Prazosin HCL 1 MG CAPSULE PO (21:15)
[2023-09-04] MEDS: OLANZapine 10 MG TABLET 20 MG PO (21:15)
[2023-09-04] MEDS: metFORMIN HCl ER 750 MG TAB.ER.24H PO (21:16)
[2023-09-04] MEDS: OXcarbazepine 150 MG TABLET PO (21:17)
[2023-09-05 08:00] VITALS: BP 124/70; PULSE 76; RESP 16; TEMP 36.4; O2SAT 96
[2023-09-05 08:57] LABS: Glucose, Whole Blood 78 mg/dL (60-115)
[2023-09-05] MEDS: Levothyroxine Sodium 50 MCG TABLET PO (08:59)
[2023-09-05] MEDS: Cholecalciferol (Vitamin D3) 25 MCG TABLET PO (08:59)
[2023-09-05] MEDS: OLANZapine 10 MG TABLET PO (08:59)
[2023-09-05] MEDS: Loratadine 10 MG TABLET PO (08:59)
[2023-09-05] MEDS: risperiDONE 2 MG TABLET PO ×2 (08:59→19:30)
--- NOTE | 2023-09-05 09:54 | HO.PSYCHPN ---
Subjective Subjective Date of Service: 09/05/23 Reason For Visit: bipolar disorder Interim History: met with patient; discussed with team Doing better, more calm, staying away from acuity in the milieu. Discussed medication and patient agrees to get on long-acting injectable Invega Sustenna. She said that she hopes this will result in some p.o. medications going away and she wants to be on as few medications as possible. Otherwise she said she is hoping for discharge soon. She is thankful that she was able to get in touch with her outpatient bilingual case manager. Mental Status Exam Mental Status Exam Narrative: Pt is alert and oriented; behavior is calm, cooperative.; patient is not in distress; dressed in casual attire, adequately groomed; mood is described as good and affect congruent; eye contact appropriate; Speech is regular volume, rate and prosody; no psychomotor agitation present; thought process goal oriented; Thought content is on treatment, discharge, aftercare issues; denies any SI/HI. No AVH Patients insight and judgment fair Diagnostics Vital Signs (24Hr): Vital Signs - 24 hr 09/05/23 08:00 Temperature 97.6 F Pulse Rate 76 Respiratory Rate 16 Blood Pressure 124/70 Pulse Oximetry 96 Oxygen Delivery Method Room Air Labs 09/03/23 08:55 Labs: Laboratory Results - last 48 hr 09/04/23 09/05/23 08:31 08:53 POC Glucose 73 78 Medications Medications Current Medications Acetaminophen (Acetaminophen 325 Mg Tablet) 650 mg PO Q6H PRN PRN Reason: Headache/Pain Mild Scale (1-3) Last Admin: 09/02/23 10:08 Dose: 650 mg Al Hydroxide/Mg Hydroxide (Magnesium Hydrox/Alum Hydrox 30 Ml Oral.Susp) 30 ml PO Q6H PRN PRN Reason: Heartburn/Nausea Last Admin: 08/30/23 21:16 Dose: 30 ml Albuterol Sulfate (Albuterol Sulfate 90 Mcg 8 Gm Inhaler) 1 puff INHALE RQ4H PRN PRN Reason: Shortness of Breath Last Admin: 08/27/23 15:05 Dose: 1 puff Clonidine HCl (Clonidine Hcl 0.1 Mg Tablet) 0.1 mg PO Q4H PRN; Protocol PRN Reason: anxiety Last Admin: 09/03/23 20:42 Dose: 0.1 mg Hydroxyzine HCl (Hydroxyzine Hcl 25 Mg Tablet) 25 mg PO Q6H PRN PRN Reason: Anxiety Last Admin: 09/02/23 08:32 Dose: 25 mg Levothyroxine Sodium (Levothyroxine Sodium 50 Mcg Tablet) 50 mcg PO DAILY EVANGELISTA Last Admin: 09/05/23 08:59 Dose: 50 mcg Loratadine (Loratadine 10 Mg Tablet) 10 mg PO DAILY EVANGELISTA Last Admin: 09/05/23 08:59 Dose: 10 mg Magnesium Hydroxide (Milk Of Magnesia 30 Ml Oral.Susp) 30 ml PO DAILY PRN PRN Reason: Constipation Last Admin: 09/04/23 18:30 Dose: 30 ml Metformin HCl (Metformin Hcl Er 750 Mg Tab.Er.24h) 750 mg PO BEDTIME EVANGELISTA Last Admin: 09/04/23 21:16 Dose: 750 mg Nicotine Polacrilex (Nicotine Polacrilex 2 Mg Gum) 2 mg BUCCAL Q2H PRN PRN Reason: Nicotine Cravings Last Admin: 09/02/23 16:01 Dose: 2 mg Olanzapine (Olanzapine 5 Mg Tablet) 5 mg PO TID PRN PRN Reason: agitation Last Admin: 09/02/23 19:01 Dose: 5 mg Olanzapine (Olanzapine 10 Mg Tablet) 10 mg PO DAILY EVANGELISTA Last Admin: 09/05/23 08:59 Dose: 10 mg Olanzapine (Olanzapine 10 Mg Tablet) 20 mg PO BEDTIME EVANGELISTA Last Admin: 09/04/23 21:15 Dose: 20 mg Oxcarbazepine (Oxcarbazepine 150 Mg Tablet) 150 mg PO BEDTIME EVANGELISTA Last Admin: 09/04/23 21:17 Dose: 150 mg Prazosin HCl (Prazosin Hcl 1 Mg Capsule) 1 mg PO BEDTIME EVANGELISTA; Protocol Last Admin: 09/04/23 21:15 Dose: 1 mg Risperidone (Risperidone 2 Mg Tablet) 2 mg PO BID EVANGELISTA Last Admin: 09/05/23 08:59 Dose: 2 mg Trazodone HCl (Trazodone Hcl 50 Mg Tablet) 50 mg PO BEDTIME MRX1 PRN PRN Reason: Insomnia Last Admin: 09/01/23 23:03 Dose: 50 mg Vitamin D (Cholecalciferol (Vitamin D3) 25 Mcg Tablet) 25 mcg PO DAILY EVANGELISTA Last Admin: 09/05/23 08:59 Dose: 25 mcg Allergies Allergies Allergy/AdvReac Type Severity Reaction Status Date / Time aripiprazole [Abilify] Allergy Unknown hives Verified 09/25/23 03:38 latex [LATEX] Allergy Unknown RASH Verified 06/12/23 03:38 sertraline [From Zoloft] Allergy Unknown raised Verified 06/12/23 03:38 LFTs/angioedema zolpidem [Ambien] Allergy Unknown hives Verified 06/12/23 03:38 Iodinated Contrast Media Allergy Hives Verified 06/12/23 03:38 [IV Contrast Dye] Assessment & Plan Assessment & Plan (1) Schizoaffective disorder, bipolar type: Status: Acute Code(s): F25.0 - Schizoaffective disorder, bipolar type (2) Diabetes 1.5, managed as type 2: Status: Acute Code(s): E13.9 - Other specified diabetes mellitus without complications Plan nAnie is a 6-year-old female with history of schizoaffective disorder, intermittent asthma, hypothyroidism, PCOS, control diabetes type 2. She has had numerous hospitalizations and emergency room evaluations. She presented to the emergency room on 08/24/2023 for suicidal ideations and disorganized behavior, yelling outside of the emergency room. She was last evaluated by the emergency room in May with outpatient follow-up referral which she never follow through with. She does not appear to be on any medications but states that she is on Klonopin. We have not been able to verify this but will pursue. She was found by security at side of the emergency room being very disorganized and refused workup and care she. She was not able to give much historical information in the emergency room. She talked about missing her daughter, her daughter being a ?silent killer?. She was seen to be delusional and that appears to be the case now. No verifiable history of substance abuse from her but in the past she has used marijuana, alcohol and cocaine. Hospital course: 08/27 She is doing much better after day of taking Zyprexa 10 mg q.h.s.. She is less loud, intrusive and behaviorally more manageable. Eating and sleeping adequately. No complaints or side effects. No SI. No changes were made today 08/28 patient was not continued on Zyprexa q.h.s.; today disorganized speech and difficult with which to engage; patient is currently not allowed in the kitchen as she is intrusive and provoking peers patient talking about different things that are irrelevant, hard to follow. Review of past history, prescriptions, patient was on Risperdal 2 mg b.i.d. and then on Invega Sustenna 234 mg; also history of being on Zyprexa as a p.r.n., clonazepam and Latuda. Will change medication regimen to fit history of prescriptions 08/28 patient was not continued on Zyprexa q.h.s.; today disorganized speech and difficult with which to engage; patient is currently not allowed in the kitchen as she is intrusive and provoking peers patient talking about different things that are irrelevant, hard to follow. Review of past history, prescriptions, patient was on Risperdal 2 mg b.i.d. and then on Invega Sustenna 234 mg; also history of being on Zyprexa as a p.r.n., clonazepam and Latuda. Will change medication regimen to fit history of prescriptions 08/29 Review 2018 admission during which time patient was depressed but was stabilized on Zyprexa 10 mg b.i.d. and lithium 900 mg Reliability Technicians discussed this with patient who said that lithium caused SI ADH; she mentioned Latuda being helpful for depression but was okay with increasing Zyprexa. Patient somewhat irritable, upset that music writer work her up and did not want to talk further. However she was a little more linear and organized in this conversation than previously 08/30 Patient much more calm today and cooperative. Also much more logical and discussion. Reliability Technicians asked about this and she says it is because of the medications and that she remembers how she was behaving prior to this which she said was due to her bipolar disorder; she can tell she is feeling better because she is no longer feeling irritated with others. Patient said the medications are helpful and she wants to continue with them. She also said she needs to get in touch with her bank operations officer and wants social work to contact this person. She said she will procure the numbers. Patient discussed about homelessness and if there were any options; social work agreed to discuss this tomorrow 08/31 much improved, much more logical with organized speech behavior. Continue current regimen; dispo planning 09/01 patient still defensive but overall doing better. Not sure order baseline is however. She does not want to be on Invega Sustenna long-acting injectable could she did not like getting the shot. Instead she wants to be on Latuda saying that it helped with her depression; music writer agreed to make change from Risperdal to Latuda. It has been difficult getting collateral and so it is not really clear what medication regimens have worked. 09/02 Patient increasingly manic and irritable today, loud in the milieu, accusatory and very defensive when trying to talk to her about anything. She is minimally able to hold down a linear conversation, starting on a topic but adding in extraneous things or jumping to something else and expressing a lot of anger about unclear concerns of hers. She is upset that she supposedly had a positive cocaine UDS from the ED saying she never does drugs and most a been a laced cigarette; in random order, she is constantly referring to her daughter, DCF, her son, housing and passed wrongs. Definitely triggered about what her outpatient secondary social studies teacher will think -it seems that possible patient decompensated after tapering down the Risperdal, though there may have been some signs of this prior to; at this point will restart Risperdal, DC Latuda and increase Zyprexa at bedtime. So far she has refused lithium and Depakote due to reported side effects (respectively diabetes insipidus and liver toxicity) 09/03 more calm today; not agitated, yelling or intrusive but rather resting much of the day. Maya/hypomania subsided, coinciding with restarting Risperdal and increasing Zyprexa 09/04 continue current treatment plan; patient remains much more calm. Reliability Technicians discussed with secondary social studies teacher, new information regarding social history, patient has apartment but a restraining order was placed since she was threatening to neighbors; lower is working to have this resolved 09/05 patient remains in good behavioral and impulse control. Agrees to get on Invega Sustenna; will discontinue Risperdal once patient gets 2nd installment of WOLFE; will move all Zyprexa to bedtime to help increase adherence; will discontinue Trileptal at bedtime which was started on admission and unlikely to be that much of a contributing factor to her stability. Plan: CV Q 15 minute checks Will start long-acting Invega Sustenna to help with adherence Continue Risperdal 2 mg b.i.d.; decompensation seems to have coincided with tapering off this medication and starting Latuda instead DC Latuda Continue Zyprexa 10 mg daily Continue Zyprexa to 20 mg q.h.s. Continue Zyprexa 5 mg t.i.d. p.r.n. for agitation; patient was on this in the past as a p.r.n.; will DC Thorazine DC Thorazine p.r.n. DC oxcarbazepine Continue levothyroxine Continue metformin Medical comorbidities:. #Mild intermittent asthma -no acute exacerbation -albuterol p.r.n. # controlled type 2 diabetes -A1c last measured around 5.6%, last year was 6.8% consistent with type 2 diabetes -continue metformin -POC glucose, diabetic diet if patient tolerates #HENRIQUEZ -hepatic function WNL Patient educated on: diagnosis and medication risk/benefits Informed Consent: understands Reason for continued inpatient stay Substantial Risk for: stable for discharge Time Spent With Patient Time: Total time managing care of this patient today ____ minutes.
[2023-09-05 18:00] VITALS: BP 121/58; PULSE 109; RESP 16; TEMP 36.4; O2SAT 99
[2023-09-05] MEDS: Acetaminophen 325 MG TABLET 650 MG PO (19:30)
[2023-09-05] MEDS: OLANZapine 10 MG TABLET 20 MG PO (19:30)
[2023-09-05] MEDS: metFORMIN HCl ER 750 MG TAB.ER.24H PO (19:30)
[2023-09-05] MEDS: Prazosin HCL 1 MG CAPSULE PO (19:30)
[2023-09-05] MEDS: OXcarbazepine 150 MG TABLET PO (19:30)
--- NOTE | 2023-09-06 | ECG_ITS ---
Test Reason : qtc Blood Pressure : / mmHG Vent. Rate : 088 BPM Atrial Rate : 088 BPM P-R Int : 144 ms QRS Dur : 082 ms QT Int : 354 ms P-R-T Axes : 054 083 043 degrees QTc Int : 428 ms Normal sinus rhythm Normal ECG When compared with ECG of 05-AUG-2023 18:51, Nonspecific T wave abnormality no longer evident in Inferior leads Referred By: Brian Silva Electronically Signed By:SOLANGE LEY MD
[2023-09-06 08:00] VITALS: BP 127/67; PULSE 87; RESP 16; TEMP 36.9; O2SAT 98
[2023-09-06] MEDS: Levothyroxine Sodium 50 MCG TABLET PO (08:39)
[2023-09-06] MEDS: OLANZapine 10 MG TABLET PO (08:39)
[2023-09-06] MEDS: Loratadine 10 MG TABLET PO (08:39)
[2023-09-06] MEDS: risperiDONE 2 MG TABLET PO ×2 (08:39→20:06)
[2023-09-06] MEDS: Cholecalciferol (Vitamin D3) 25 MCG TABLET PO (08:39)
[2023-09-06 08:41] LABS: Glucose, Whole Blood 81 mg/dL (60-115)
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
[2023-09-06 18:00] VITALS: BP 130/63; PULSE 88; RESP 16; TEMP 36.8; O2SAT 98
[2023-09-06] MEDS: Acetaminophen 325 MG TABLET 650 MG PO (20:01)
[2023-09-06] MEDS: Prazosin HCL 1 MG CAPSULE PO (20:02)
[2023-09-06] MEDS: metFORMIN HCl ER 750 MG TAB.ER.24H PO (20:03)
[2023-09-06] MEDS: OLANZapine 10 MG TABLET 20 MG PO (20:07)
[2023-09-06] MEDS: Paliperidone Palmitate 234 MG/1.5 ML SYRINGE IM (20:07)
[2023-09-07 08:22] LABS: Glucose, Whole Blood 66 mg/dL (60-115)
[2023-09-07 08:25] VITALS: BP 157/89; PULSE 85; RESP 18; TEMP 37.2; O2SAT 96
[2023-09-07] MEDS: Loratadine 10 MG TABLET PO (09:22)
[2023-09-07] MEDS: Levothyroxine Sodium 50 MCG TABLET PO (09:22)
[2023-09-07] MEDS: Cholecalciferol (Vitamin D3) 25 MCG TABLET PO (09:22)
[2023-09-07] MEDS: Nicotine Polacrilex 2 MG GUM BUCCAL (09:23)
--- NOTE | 2023-09-07 09:59 | HO.PSYCHPN ---
Subjective Subjective Date of Service: 09/07/23 Reason For Visit: bipolar disorder Interim History: Met with patient; discussed with team; met with patient and elementary school social worker discussed disposition Patient remains calm, good mood, future oriented and in good behavioral and impulse control. She said she would very much like discharge. Patient reports that it is quite triggering to be on the unit with such high acuity; of note patient has had to deal with intrusive, provocative peers and has handled situations calmly and appropriately. Patient says very likely she will be able to stay at her sister's or friend's house; if not she will stay at a care home. In early September, her lower is trying to have the restraining order amended so that she can return to her apartment which patient understands. Patient says she is tolerating medications well and will get the 2nd installment of Invega Sustenna. Since she is meeting with her [facility] worker tomorrow on Monday, patient agrees to discharge on Monday. Mental Status Exam Mental Status Exam Narrative: Pt is alert and oriented; behavior is calm, cooperative.; patient is not in distress; dressed in casual attire, adequately groomed; mood is described as good and affect congruent; eye contact appropriate; Speech is regular volume, rate and prosody; no psychomotor agitation present; thought process goal oriented; Thought content is on treatment, discharge, aftercare issues; denies any SI/HI. No AVH Patients insight and judgment fair Diagnostics Vital Signs (24Hr): Vital Signs - 24 hr 09/06/23 18:00 09/07/23 08:25 Temperature 98.3 F 98.9 F Pulse Rate 88 85 Respiratory Rate 16 18 Blood Pressure 130/63 157/89 H Pulse Oximetry 98 96 Oxygen Delivery Method Room Air Room Air Labs 09/03/23 08:55 Labs: Laboratory Results - last 48 hr 09/06/23 09/07/23 08:36 08:18 POC Glucose 81 66 Medications Medications Current Medications Acetaminophen (Acetaminophen 325 Mg Tablet) 650 mg PO Q6H PRN PRN Reason: Headache/Pain Mild Scale (1-3) Last Admin: 09/06/23 20:01 Dose: 650 mg Al Hydroxide/Mg Hydroxide (Magnesium Hydrox/Alum Hydrox 30 Ml Oral.Susp) 30 ml PO Q6H PRN PRN Reason: Heartburn/Nausea Last Admin: 08/30/23 21:16 Dose: 30 ml Albuterol Sulfate (Albuterol Sulfate 90 Mcg 8 Gm Inhaler) 1 puff INHALE RQ4H PRN PRN Reason: Shortness of Breath Last Admin: 08/27/23 15:05 Dose: 1 puff Clonidine HCl (Clonidine Hcl 0.1 Mg Tablet) 0.1 mg PO Q4H PRN; Protocol PRN Reason: anxiety Last Admin: 09/03/23 20:42 Dose: 0.1 mg Hydroxyzine HCl (Hydroxyzine Hcl 25 Mg Tablet) 25 mg PO Q6H PRN PRN Reason: Anxiety Last Admin: 09/02/23 08:32 Dose: 25 mg Levothyroxine Sodium (Levothyroxine Sodium 50 Mcg Tablet) 50 mcg PO DAILY EVANGELISTA Last Admin: 09/07/23 09:22 Dose: 50 mcg Loratadine (Loratadine 10 Mg Tablet) 10 mg PO DAILY EVANGELISTA Last Admin: 09/07/23 09:22 Dose: 10 mg Magnesium Hydroxide (Milk Of Magnesia 30 Ml Oral.Susp) 30 ml PO DAILY PRN PRN Reason: Constipation Last Admin: 09/04/23 18:30 Dose: 30 ml Metformin HCl (Metformin Hcl Er 750 Mg Tab.Er.24h) 750 mg PO BEDTIME EVANGELISTA Last Admin: 09/06/23 20:03 Dose: 750 mg Nicotine Polacrilex (Nicotine Polacrilex 2 Mg Gum) 2 mg BUCCAL Q2H PRN PRN Reason: Nicotine Cravings Last Admin: 09/07/23 09:23 Dose: 2 mg Olanzapine (Olanzapine 5 Mg Tablet) 5 mg PO TID PRN PRN Reason: agitation Last Admin: 09/02/23 19:01 Dose: 5 mg Olanzapine (Olanzapine 10 Mg Tablet) 30 mg PO BEDTIME EVANGELISTA Prazosin HCl (Prazosin Hcl 1 Mg Capsule) 1 mg PO BEDTIME EVANGELISTA; Protocol Last Admin: 09/06/23 20:02 Dose: 1 mg Risperidone (Risperidone 2 Mg Tablet) 4 mg PO BEDTIME EVANGELISTA Stop: 09/10/23 23:00 Trazodone HCl (Trazodone Hcl 50 Mg Tablet) 50 mg PO BEDTIME MRX1 PRN PRN Reason: Insomnia Last Admin: 09/01/23 23:03 Dose: 50 mg Vitamin D (Cholecalciferol (Vitamin D3) 25 Mcg Tablet) 25 mcg PO DAILY EVANGELISTA Last Admin: 09/07/23 09:22 Dose: 25 mcg Allergies Allergies Allergy/AdvReac Type Severity Reaction Status Date / Time aripiprazole [Abilify] Allergy Unknown hives Verified 06/12/23 03:38 latex [LATEX] Allergy Unknown RASH Verified 06/12/23 03:38 sertraline [From Zoloft] Allergy Unknown raised Verified 06/12/23 03:38 LFTs/angioedema zolpidem [Ambien] Allergy Unknown hives Verified 06/12/23 03:38 Iodinated Contrast Media Allergy Hives Verified 06/12/23 03:38 [IV Contrast Dye] Assessment & Plan Assessment & Plan (1) Schizoaffective disorder, bipolar type: Status: Acute Code(s): F25.0 - Schizoaffective disorder, bipolar type (2) Diabetes 1.5, managed as type 2: Status: Acute Code(s): E13.9 - Other specified diabetes mellitus without complications Plan Annie is a 6-year-old female with history of schizoaffective disorder, intermittent asthma, hypothyroidism, PCOS, control diabetes type 2. She has had numerous hospitalizations and emergency room evaluations. She presented to the emergency room on 08/24/2023 for suicidal ideations and disorganized behavior, yelling outside of the emergency room. She was last evaluated by the emergency room in May with outpatient follow-up referral which she never follow through with. She does not appear to be on any medications but states that she is on Klonopin. We have not been able to verify this but will pursue. She was found by security at side of the emergency room being very disorganized and refused workup and care she. She was not able to give much historical information in the emergency room. She talked about missing her daughter, her daughter being a ?silent killer?. She was seen to be delusional and that appears to be the case now. No verifiable history of substance abuse from her but in the past she has used marijuana, alcohol and cocaine. Hospital course: 08/27 She is doing much better after day of taking Zyprexa 10 mg q.h.s.. She is less loud, intrusive and behaviorally more manageable. Eating and sleeping adequately. No complaints or side effects. No SI. No changes were made today 08/28 patient was not continued on Zyprexa q.h.s.; today disorganized speech and difficult with which to engage; patient is currently not allowed in the kitchen as she is intrusive and provoking peers patient talking about different things that are irrelevant, hard to follow. Review of past history, prescriptions, patient was on Risperdal 2 mg b.i.d. and then on Invega Sustenna 234 mg; also history of being on Zyprexa as a p.r.n., clonazepam and Latuda. Will change medication regimen to fit history of prescriptions 08/28 patient was not continued on Zyprexa q.h.s.; today disorganized speech and difficult with which to engage; patient is currently not allowed in the kitchen as she is intrusive and provoking peers patient talking about different things that are irrelevant, hard to follow. Review of past history, prescriptions, patient was on Risperdal 2 mg b.i.d. and then on Invega Sustenna 234 mg; also history of being on Zyprexa as a p.r.n., clonazepam and Latuda. Will change medication regimen to fit history of prescriptions 08/29 Review 2018 admission during which time patient was depressed but was stabilized on Zyprexa 10 mg b.i.d. and lithium 900 mg [employer]crete [employer] discussed this with patient who said that lithium caused SI ADH; she mentioned Latuda being helpful for depression but was okay with increasing Zyprexa. Patient somewhat irritable, upset that manual writer work her up and did not want to talk further. However she was a little more linear and organized in this conversation than previously 08/30 Patient much more calm today and cooperative. Also much more logical and discussion. [employer]orer asked about this and she says it is because of the medications and that she remembers how she was behaving prior to this which she said was due to her bipolar disorder; she can tell she is feeling better because she is no longer feeling irritated with others. Patient said the medications are helpful and she wants to continue with them. She also said she needs to get in touch with her commissioned defence force officer and wants social work to contact this person. She said she will procure the numbers. Patient discussed about homelessness and if there were any options; social work agreed to discuss this tomorrow 08/31 much improved, much more logical with organized speech behavior. Continue current regimen; dispo planning 09/01 patient still defensive but overall doing better. Not sure order baseline is however. She does not want to be on Invega Sustenna long-acting injectable could she did not like getting the shot. Instead she wants to be on Latuda saying that it helped with her depression; manual writer agreed to make change from Risperdal to Latuda. It has been difficult getting collateral and so it is not really clear what medication regimens have worked. 09/02 Patient increasingly manic and irritable today, loud in the milieu, accusatory and very defensive when trying to talk to her about anything. She is minimally able to hold down a linear conversation, starting on a topic but adding in extraneous things or jumping to something else and expressing a lot of anger about unclear concerns of hers. She is upset that she supposedly had a positive cocaine UDS from the ED saying she never does drugs and most a been a laced cigarette; in random order, she is constantly referring to her daughter, DCF, her son, housing and passed wrongs. Definitely triggered about what her outpatient elementary school social worker will think -it seems that possible patient decompensated after tapering down the Risperdal, though there may have been some signs of this prior to; at this point will restart Risperdal, DC Latuda and increase Zyprexa at bedtime. So far she has refused lithium and Depakote due to reported side effects (respectively diabetes insipidus and liver toxicity) 09/03 more calm today; not agitated, yelling or intrusive but rather resting much of the day. Maya/hypomania subsided, coinciding with restarting Risperdal and increasing Zyprexa 09/04 continue current treatment plan; patient remains much more calm. [employer] discussed with elementary school social worker, new information regarding social history, patient has apartment but a restraining order was placed since she was threatening to neighbors; lower is working to have this resolved 09/05 patient remains in good behavioral and impulse control. Agrees to get on Invega Sustenna; will discontinue Risperdal once patient gets 2nd installment of WOLFE; will move all Zyprexa to bedtime to help increase adherence; will discontinue Trileptal at bedtime which was started on admission and unlikely to be that much of a contributing factor to her stability. 09/07 Patient remains calm, good mood, future oriented and in good behavioral and impulse control. She said she would very much like discharge. Patient reports that it is quite triggering to be on the unit with such high acuity; of note patient has had to deal with intrusive, provocative peers and has handled situations calmly and appropriately. Patient says very likely she will be able to stay at her sister's or friend's house; if not she will stay at a care home. In early September, her lower is trying to have the restraining order amended so that she can return to her apartment which patient understands. Patient says she is tolerating medications well and will get the 2nd installment of Invega Sustenna. Since she is meeting with her [facility] worker tomorrow on Monday, patient agrees to discharge on Monday. -manual writer agrees with this plan since patient is certainly doing much better, however maintaining her outpatient support network is intra goal in her continuing her stability. Plan: CV Q 15 minute checks Received Invega Sustenna 234 mg Ordered Invega Sustenna 156 mg for this Monday Continue Risperdal 2 mg b.i.d.; will discontinue after 2nd Invega Sustenna installment Continue Zyprexa 30 mg q.h.s. Continue Zyprexa 5 mg t.i.d. p.r.n. for agitation; patient was on this in the past as a p.r.n.; will DC Thorazine DC Thorazine p.r.n. DC oxcarbazepine Continue levothyroxine Continue metformin Plan: CV Q 15 minute checks Continue Risperdal 2 mg b.i.d.; decompensation seems to have coincided with tapering off this medication and starting Latuda instead DC Latuda Continue Zyprexa 10 mg daily Continue Zyprexa to 20 mg q.h.s. Continue Zyprexa 5 mg t.i.d. p.r.n. for agitation; patient was on this in the past as a p.r.n.; will DC Thorazine DC Thorazine p.r.n. Continue oxcarbazepine 150 mg bedtime, started on admission Continue levothyroxine Continue metformin Medical comorbidities:. #Mild intermittent asthma -no acute exacerbation -albuterol p.r.n. # controlled type 2 diabetes -A1c last measured around 5.6%, last year was 6.8% consistent with type 2 diabetes -continue metformin -POC glucose, diabetic diet if patient tolerates #HENRIQUEZ -hepatic function WNL Patient educated on: diagnosis and medication risk/benefits Informed Consent: understands Reason for continued inpatient stay Substantial Risk for: stable for discharge Time Spent With Patient Time: Total time managing care of this patient today ____ minutes.
[2023-09-07] MEDS: Acetaminophen 325 MG TABLET 650 MG PO (17:02)
[2023-09-07 18:00] VITALS: BP 128/77; PULSE 75; TEMP 36.3; O2SAT 97
[2023-09-07] MEDS: metFORMIN HCl ER 750 MG TAB.ER.24H PO (20:29)
[2023-09-07] MEDS: risperiDONE 2 MG TABLET 4 MG PO (20:30)
[2023-09-07] MEDS: OLANZapine 10 MG TABLET 30 MG PO (20:30)
[2023-09-07] MEDS: Prazosin HCL 1 MG CAPSULE PO (20:30)
[2023-09-08] MEDS: Acetaminophen 325 MG TABLET 650 MG PO (01:56)
[2023-09-08 08:55] VITALS: BP 132/78; PULSE 99; RESP 18; TEMP 36.2; O2SAT 97
[2023-09-08] MEDS: Cholecalciferol (Vitamin D3) 25 MCG TABLET PO (10:19)
[2023-09-08] MEDS: Levothyroxine Sodium 50 MCG TABLET PO (10:19)
[2023-09-08] MEDS: Loratadine 10 MG TABLET PO (10:19)
--- NOTE | 2023-09-08 12:12 | HO.PSYCHPN ---
Subjective Subjective Date of Service: 09/08/23 Reason For Visit: bipolar disorder Interim History: With with patient; discussed with team looking forward to discharging; discussing plans for aftercare and will be staying at friends house for a few days. Pt feels good about med regimen; thankful for hospital letter and care received. Little bit hypomanic, but says its since she's excited about dc Mental Status Exam Mental Status Exam Narrative: Pt is alert and oriented; behavior is little hyperactive, friendly, cooperative.; patient is not in distress; dressed in casual attire, adequately groomed; mood is described as good and affect congruent; eye contact appropriate; Speech is regular volume, rate and prosody; no psychomotor agitation present; thought process goal oriented; Thought content is on treatment, discharge, aftercare issues; denies any SI/HI. No AVH Patients insight and judgment fair Diagnostics Vital Signs (24Hr): Vital Signs - 24 hr 09/07/23 18:00 09/08/23 08:55 Temperature 97.3 F 97.2 F Pulse Rate 75 99 Respiratory Rate 18 Blood Pressure 128/77 132/78 Pulse Oximetry 97 97 Oxygen Delivery Method Room Air Room Air Labs 09/09/23 07:11 Labs: Laboratory Results - last 48 hr 09/07/23 08:18 POC Glucose 66 Medications Medications Current Medications Acetaminophen (Acetaminophen 325 Mg Tablet) 650 mg PO Q6H PRN PRN Reason: Headache/Pain Mild Scale (1-3) Last Admin: 09/08/23 01:56 Dose: 650 mg Al Hydroxide/Mg Hydroxide (Magnesium Hydrox/Alum Hydrox 30 Ml Oral.Susp) 30 ml PO Q6H PRN PRN Reason: Heartburn/Nausea Last Admin: 08/30/23 21:16 Dose: 30 ml Albuterol Sulfate (Albuterol Sulfate 90 Mcg 8 Gm Inhaler) 1 puff INHALE RQ4H PRN PRN Reason: Shortness of Breath Last Admin: 08/27/23 15:05 Dose: 1 puff Clonidine HCl (Clonidine Hcl 0.1 Mg Tablet) 0.1 mg PO Q4H PRN; Protocol PRN Reason: anxiety Last Admin: 09/03/23 20:42 Dose: 0.1 mg Hydroxyzine HCl (Hydroxyzine Hcl 25 Mg Tablet) 25 mg PO Q6H PRN PRN Reason: Anxiety Last Admin: 09/02/23 08:32 Dose: 25 mg Levothyroxine Sodium (Levothyroxine Sodium 50 Mcg Tablet) 50 mcg PO DAILY EVANGELISTA Last Admin: 09/08/23 10:19 Dose: 50 mcg Loratadine (Loratadine 10 Mg Tablet) 10 mg PO DAILY EVANGELISTA Last Admin: 09/08/23 10:19 Dose: 10 mg Magnesium Hydroxide (Milk Of Magnesia 30 Ml Oral.Susp) 30 ml PO DAILY PRN PRN Reason: Constipation Last Admin: 09/04/23 18:30 Dose: 30 ml Metformin HCl (Metformin Hcl Er 750 Mg Tab.Er.24h) 750 mg PO BEDTIME EVANGELISTA Last Admin: 09/07/23 20:29 Dose: 750 mg Nicotine Polacrilex (Nicotine Polacrilex 2 Mg Gum) 2 mg BUCCAL Q2H PRN PRN Reason: Nicotine Cravings Last Admin: 09/07/23 09:23 Dose: 2 mg Olanzapine (Olanzapine 5 Mg Tablet) 5 mg PO TID PRN PRN Reason: agitation Last Admin: 09/02/23 19:01 Dose: 5 mg Olanzapine (Olanzapine 10 Mg Tablet) 30 mg PO BEDTIME EVANGELISTA Last Admin: 09/07/23 20:30 Dose: 30 mg Paliperidone Palmitate (Paliperidone Palmitate 156 Mg/Ml Syringe) 156 mg IM ONCE ONE Stop: 09/09/23 09:01 Paliperidone Palmitate (Paliperidone Palmitate 234 Mg/1.5 Ml Syringe) 234 mg IM Q30D EVANGELISTA Prazosin HCl (Prazosin Hcl 1 Mg Capsule) 1 mg PO BEDTIME EVANGELISTA; Protocol Last Admin: 09/07/23 20:30 Dose: 1 mg Risperidone (Risperidone 2 Mg Tablet) 4 mg PO BEDTIME EVANGELISTA Stop: 09/10/23 23:00 Last Admin: 09/07/23 20:30 Dose: 4 mg Trazodone HCl (Trazodone Hcl 50 Mg Tablet) 50 mg PO BEDTIME MRX1 PRN PRN Reason: Insomnia Last Admin: 09/01/23 23:03 Dose: 50 mg Vitamin D (Cholecalciferol (Vitamin D3) 25 Mcg Tablet) 25 mcg PO DAILY EVANGELISTA Last Admin: 09/08/23 10:19 Dose: 25 mcg Allergies Allergies Allergy/AdvReac Type Severity Reaction Status Date / Time aripiprazole [Abilify] Allergy Unknown hives Verified 06/12/23 03:38 latex [LATEX] Allergy Unknown RASH Verified 06/12/23 03:38 sertraline [From Zoloft] Allergy Unknown raised Verified 06/12/23 03:38 LFTs/angioedema zolpidem [Ambien] Allergy Unknown hives Verified 06/12/23 03:38 Iodinated Contrast Media Allergy Hives Verified 06/12/23 03:38 [IV Contrast Dye] Assessment & Plan Assessment & Plan (1) Schizoaffective disorder, bipolar type: Status: Acute Code(s): F25.0 - Schizoaffective disorder, bipolar type (2) Diabetes 1.5, managed as type 2: Status: Acute Code(s): E13.9 - Other specified diabetes mellitus without complications Plan Annie is a 6-year-old female with history of schizoaffective disorder, intermittent asthma, hypothyroidism, PCOS, control diabetes type 2. She has had numerous hospitalizations and emergency room evaluations. She presented to the emergency room on 08/24/2023 for suicidal ideations and disorganized behavior, yelling outside of the emergency room. She was last evaluated by the emergency room in May with outpatient follow-up referral which she never follow through with. She does not appear to be on any medications but states that she is on Klonopin. We have not been able to verify this but will pursue. She was found by security at side of the emergency room being very disorganized and refused workup and care she. She was not able to give much historical information in the emergency room. She talked about missing her daughter, her daughter being a ?silent killer?. She was seen to be delusional and that appears to be the case now. No verifiable history of substance abuse from her but in the past she has used marijuana, alcohol and cocaine. Hospital course: 08/27 She is doing much better after day of taking Zyprexa 10 mg q.h.s.. She is less loud, intrusive and behaviorally more manageable. Eating and sleeping adequately. No complaints or side effects. No SI. No changes were made today 08/28 patient was not continued on Zyprexa q.h.s.; today disorganized speech and difficult with which to engage; patient is currently not allowed in the kitchen as she is intrusive and provoking peers patient talking about different things that are irrelevant, hard to follow. Review of past history, prescriptions, patient was on Risperdal 2 mg b.i.d. and then on Invega Sustenna 234 mg; also history of being on Zyprexa as a p.r.n., clonazepam and Latuda. Will change medication regimen to fit history of prescriptions 08/28 patient was not continued on Zyprexa q.h.s.; today disorganized speech and difficult with which to engage; patient is currently not allowed in the kitchen as she is intrusive and provoking peers patient talking about different things that are irrelevant, hard to follow. Review of past history, prescriptions, patient was on Risperdal 2 mg b.i.d. and then on Invega Sustenna 234 mg; also history of being on Zyprexa as a p.r.n., clonazepam and Latuda. Will change medication regimen to fit history of prescriptions 08/29 Review 2018 admission during which time patient was depressed but was stabilized on Zyprexa 10 mg b.i.d. and lithium 900 mg Youth Program Director discussed this with patient who said that lithium caused SI ADH; she mentioned Latuda being helpful for depression but was okay with increasing Zyprexa. Patient somewhat irritable, upset that senior copywriter work her up and did not want to talk further. However she was a little more linear and organized in this conversation than previously 08/30 Patient much more calm today and cooperative. Also much more logical and discussion. Youth Program Director asked about this and she says it is because of the medications and that she remembers how she was behaving prior to this which she said was due to her bipolar disorder; she can tell she is feeling better because she is no longer feeling irritated with others. Patient said the medications are helpful and she wants to continue with them. She also said she needs to get in touch with her collection officer and wants social work to contact this person. She said she will procure the numbers. Patient discussed about homelessness and if there were any options; social work agreed to discuss this tomorrow 08/31 much improved, much more logical with organized speech behavior. Continue current regimen; dispo planning 09/01 patient still defensive but overall doing better. Not sure order baseline is however. She does not want to be on Invega Sustenna long-acting injectable could she did not like getting the shot. Instead she wants to be on Latuda saying that it helped with her depression; senior copywriter agreed to make change from Risperdal to Latuda. It has been difficult getting collateral and so it is not really clear what medication regimens have worked. 09/02 Patient increasingly manic and irritable today, loud in the milieu, accusatory and very defensive when trying to talk to her about anything. She is minimally able to hold down a linear conversation, starting on a topic but adding in extraneous things or jumping to something else and expressing a lot of anger about unclear concerns of hers. She is upset that she supposedly had a positive cocaine UDS from the ED saying she never does drugs and most a been a laced cigarette; in random order, she is constantly referring to her daughter, DCF, her son, housing and passed wrongs. Definitely triggered about what her outpatient social services director will think -it seems that possible patient decompensated after tapering down the Risperdal, though there may have been some signs of this prior to; at this point will restart Risperdal, DC Latuda and increase Zyprexa at bedtime. So far she has refused lithium and Depakote due to reported side effects (respectively diabetes insipidus and liver toxicity) 09/03 more calm today; not agitated, yelling or intrusive but rather resting much of the day. Maya/hypomania subsided, coinciding with restarting Risperdal and increasing Zyprexa 09/04 continue current treatment plan; patient remains much more calm. Youth Program Director discussed with social services director, new information regarding social history, patient has apartment but a restraining order was placed since she was threatening to neighbors; lower is working to have this resolved 09/05 patient remains in good behavioral and impulse control. Agrees to get on Invega Sustenna; will discontinue Risperdal once patient gets 2nd installment of WOLFE; will move all Zyprexa to bedtime to help increase adherence; will discontinue Trileptal at bedtime which was started on admission and unlikely to be that much of a contributing factor to her stability. 09/07 Patient remains calm, good mood, future oriented and in good behavioral and impulse control. She said she would very much like discharge. Patient reports that it is quite triggering to be on the unit with such high acuity; of note patient has had to deal with intrusive, provocative peers and has handled situations calmly and appropriately. Patient says very likely she will be able to stay at her sister's or friend's house; if not she will stay at a senior living. In early September, her lower is trying to have the restraining order amended so that she can return to her apartment which patient understands. Patient says she is tolerating medications well and will get the 2nd installment of Invega Sustenna. Since she is meeting with her [facility] worker tomorrow on Monday, patient agrees to discharge on Monday. -senior copywriter agrees with this plan since patient is certainly doing much better, however maintaining her outpatient support network is intra goal in her continuing her stability. 09/08 stable, at baseline; good mood; pt ready for discharge. Not in imminent risk for harm to self or others; has good outpt support already set up Plan: CV Q 15 minute checks Received Invega Sustenna 234 mg Ordered Invega Sustenna 156 mg for this Monday will dc Risperdal Continue Zyprexa 30 mg q.h.s. Continue Zyprexa 5 mg t.i.d. p.r.n. for agitation; patient was on this in the past as a p.r.n.; will DC Thorazine DC Thorazine p.r.n. DC oxcarbazepine Continue levothyroxine Continue metformin Medical comorbidities:. #Mild intermittent asthma -no acute exacerbation -albuterol p.r.n. # controlled type 2 diabetes -A1c last measured around 5.6%, last year was 6.8% consistent with type 2 diabetes -continue metformin -POC glucose, diabetic diet if patient tolerates #HENRIQUEZ -hepatic function WNL Patient educated on: diagnosis and medication risk/benefits Informed Consent: understands Reason for continued inpatient stay Substantial Risk for: stable for discharge Time Spent With Patient Time: Total time managing care of this patient today ____ minutes.
[2023-09-08 17:40] VITALS: BP 119/88; PULSE 98; RESP 18; TEMP 37.1; O2SAT 97
--- NOTE | 2023-09-08 19:08 | PM.PSYDC ---
DS: Providers Provider Date of Service: 09/09/23 Date of admission: 08/25/23 22:41 Date of discharge: 09/09/23 Primary care physician: Unknown Physician Attending physician on admission: Heath Donovan Consults: 08/25/23 23:37 Consult to Hospitalist Routine Comment: Consulting Provider: Hospitalist Reason For Exam: Direct admission Attending physician on discharge: Brian Silva DS: Diagnosis Discharge Diagnosis (1) Schizoaffective disorder, bipolar type: Status: Acute (2) Diabetes 1.5, managed as type 2: Status: Acute DS: Medications Discharge Medications Home Medications: Home Medications Medication Instructions Recorded Confirmed cholecalciferol (vitamin D3) 25 25 mcg PO DAILY 08/26/23 08/26/23 mcg (1,000 unit) capsule clonazepam 1 mg tablet 1 mg PO BEDTIME 08/26/23 08/26/23 levothyroxine 50 mcg capsule 50 mcg PO DAILY 08/26/23 08/26/23 lorazepam 1 mg tablet (Ativan) 1 mg PO DAILY PRN Anxiety 08/26/23 08/26/23 lurasidone 60 mg tablet (Latuda) 60 mg PO DAILY 08/26/23 08/26/23 metformin 750 mg tablet,extended 750 mg PO DAILY 08/26/23 08/26/23 release 24 hr olanzapine 5 mg tablet 5 mg PO Q4-6H 08/26/23 08/26/23 paliperidone palmitate 234 mg/1.5 234 mg IM Q4W 08/26/23 08/26/23 mL intramuscular syringe (Invega Sustenna) prazosin 1 mg capsule 1 mg PO BEDTIME 08/26/23 08/26/23 Previous Rx's Medication Instructions Recorded albuterol sulfate 90 mcg/actuation 1 puff inhalation Q4-6H PRN 09/08/23 aerosol inhaler Shortness Of Breath 30 days #6.7 grams loratadine 10 mg tablet 10 mg PO DAILY 30 days #30 tabs 09/08/23 Mental Status Exam Mental Status Exam Narrative: Pt is alert and oriented; behavior is cooperative.dressed in casual attire, adequately groomed; mood is described as good and affect congruent; eye contact appropriate; Speech is regular volume, rate and prosody; no psychomotor agitation present; thought process goal oriented; denies any SI/HI. No AVH Patients insight and judgment fair Data Data Completed and Pending Completed studies during hospitalization [Text1]: 09/03/23 09/03/23 09/04/23 08:55 09:00 08:31 Creatinine 0.68 Estim Creat Clear Calc TNP Estimated GFR > 60 POC Glucose 100 73 09/05/23 09/06/23 09/07/23 08:53 08:36 08:18 Creatinine Estim Creat Clear Calc Estimated GFR POC Glucose 78 81 66 DS: Summary Hospital Course Hospital Course: Annie is a 6-year-old female with history of schizoaffective disorder, intermittent asthma, hypothyroidism, PCOS, control diabetes type 2. She has had numerous hospitalizations and emergency room evaluations. She presented to the emergency room on 08/24/2023 for suicidal ideations and disorganized behavior, yelling outside of the emergency room. She was last evaluated by the emergency room in May with outpatient follow-up referral which she never follow through with. She does not appear to be on any medications but states that she is on Klonopin. We have not been able to verify this but will pursue. She was found by security at side of the emergency room being very disorganized and refused workup and care she. She was not able to give much historical information in the emergency room. She talked about missing her daughter, her daughter being a ?silent killer?. She was seen to be delusional and that appears to be the case now. No verifiable history of substance abuse from her but in the past she has used marijuana, alcohol and cocaine. Hospital course: 08/27 She is doing much better after day of taking Zyprexa 10 mg q.h.s.. She is less loud, intrusive and behaviorally more manageable. Eating and sleeping adequately. No complaints or side effects. No SI. No changes were made today 08/28 patient was not continued on Zyprexa q.h.s.; today disorganized speech and difficult with which to engage; patient is currently not allowed in the kitchen as she is intrusive and provoking peers patient talking about different things that are irrelevant, hard to follow. Review of past history, prescriptions, patient was on Risperdal 2 mg b.i.d. and then on Invega Sustenna 234 mg; also history of being on Zyprexa as a p.r.n., clonazepam and Latuda. Will change medication regimen to fit history of prescriptions 08/28 patient was not continued on Zyprexa q.h.s.; today disorganized speech and difficult with which to engage; patient is currently not allowed in the kitchen as she is intrusive and provoking peers patient talking about different things that are irrelevant, hard to follow. Review of past history, prescriptions, patient was on Risperdal 2 mg b.i.d. and then on Invega Sustenna 234 mg; also history of being on Zyprexa as a p.r.n., clonazepam and Latuda. Will change medication regimen to fit history of prescriptions 08/29 Review 2018 admission during which time patient was depressed but was stabilized on Zyprexa 10 mg b.i.d. and lithium 900 mg. Mortuary Operations Manager discussed this with patient who said that lithium caused SI ADH; she mentioned Latuda being helpful for depression but was okay with increasing Zyprexa. Patient somewhat irritable, upset that mortgage underwriter work her up and did not want to talk further. However she was a little more linear and organized in this conversation than previously 08/30 Patient much more calm today and cooperative. Also much more logical and discussion. Mortuary Operations Manager asked about this and she says it is because of the medications and that she remembers how she was behaving prior to this which she said was due to her bipolar disorder; she can tell she is feeling better because she is no longer feeling irritated with others. Patient said the medications are helpful and she wants to continue with them. She also said she needs to get in touch with her pharmaceutical officer and wants social work to contact this person. She said she will procure the numbers. Patient discussed about homelessness and if there were any options; social work agreed to discuss this tomorrow 08/31 much improved, much more logical with organized speech behavior. Continue current regimen; dispo planning 09/01 patient still defensive but overall doing better. Not sure order baseline is however. She does not want to be on Invega Sustenna long-acting injectable could she did not like getting the shot. Instead she wants to be on Latuda saying that it helped with her depression; mortgage underwriter agreed to make change from Risperdal to Latuda. It has been difficult getting collateral and so it is not really clear what medication regimens have worked. 09/02 Patient increasingly manic and irritable today, loud in the milieu, accusatory and very defensive when trying to talk to her about anything. She is minimally able to hold down a linear conversation, starting on a topic but adding in extraneous things or jumping to something else and expressing a lot of anger about unclear concerns of hers. She is upset that she supposedly had a positive cocaine UDS from the ED saying she never does drugs and most a been a laced cigarette; in random order, she is constantly referring to her daughter, DCF, her son, housing and passed wrongs. Definitely triggered about what her outpatient social science research assistant will think -it seems that possible patient decompensated after tapering down the Risperdal, though there may have been some signs of this prior to; at this point will restart Risperdal, DC Latuda and increase Zyprexa at bedtime. So far she has refused lithium and Depakote due to reported side effects (respectively diabetes insipidus and liver toxicity) 09/03 more calm today; not agitated, yelling or intrusive but rather resting much of the day. Maya/hypomania subsided, coinciding with restarting Risperdal and increasing Zyprexa 09/04 continue current treatment plan; patient remains much more calm. Mortuary Operations Manager discussed with social science research assistant, new information regarding social history, patient has apartment but a restraining order was placed since she was threatening to neighbors; lower is working to have this resolved 09/05 patient remains in good behavioral and impulse control. Agrees to get on Invega Sustenna; will discontinue Risperdal once patient gets 2nd installment of WOLFE; will move all Zyprexa to bedtime to help increase adherence; will discontinue Trileptal at bedtime which was started on admission and unlikely to be that much of a contributing factor to her stability. 09/07 Patient remains calm, good mood, future oriented and in good behavioral and impulse control. She said she would very much like discharge. Patient reports that it is quite triggering to be on the unit with such high acuity; of note patient has had to deal with intrusive, provocative peers and has handled situations calmly and appropriately. Patient says very likely she will be able to stay at her sister's or friend's house; if not she will stay at a residential. In early September, her lower is trying to have the restraining order amended so that she can return to her apartment which patient understands. Patient says she is tolerating medications well and will get the 2nd installment of Invega Sustenna. Since she is meeting with her [facility] worker tomorrow on Monday, patient agrees to discharge on Monday. -mortgage underwriter agrees with this plan since patient is certainly doing much better, however maintaining her outpatient support network is intra goal in her continuing her stability. 09/08 stable, at baseline; good mood; pt ready for discharge. Not in imminent risk for harm to self or others; has good outpt support already set up. Ready to return to community for treatment. Time Spent with Patient Time attestation: Total time managing care of this patient today ____ minutes. Discharge Plan Discharge Anticipated Discharge Date/Time: 09/09/23 11:00 Patient Disposition: Longterm Discharge Diagnosis: schizoaffective disorder, bipolar type in partial remission Referrals: Therapy Intake:Janet Lucas([facility] [employer] [facility] [employer]) [Other] - 09/13/23 10:00 am (Appointment is in person at the office in [place]) Psych Prescriber: Cody Gleason ([facility]) [Other] - 09/21/23 9:00 am (Appointment is in person at the office ) Sally Ramirez MD [Physician] - 6 Weeks Discharge Medications: New nicotine (polacrilex) 2 mg Gum 2 mg buccal Q2H PRN (Reason: Nicotine Cravings) 30 Days Qty: 100 1RF clonidine HCl 0.1 mg Tablet 0.1 mg PO Q4H PRN (Reason: anxiety) 30 Days Qty: 60 1RF Protocol: Hold for SBP< HOLD for SBP < : 90 olanzapine 15 mg tablet 30 mg PO BEDTIME 30 Days Qty: 60 1RF olanzapine 5 mg Tablet 5 mg PO BID PRN (Reason: agitation) 30 Days Qty: 30 1RF Continued albuterol sulfate 90 mcg/actuation Hfa Aerosol Inhaler 1 puff INHALATION Q4-6H PRN (Reason: Shortness Of Breath) 30 Days Qty: 6.7 1RF Rx Instructions: Q4H loratadine 10 mg Tablet 10 mg PO DAILY 30 Days Qty: 30 1RF prazosin 1 mg Capsule 1 mg PO BEDTIME 30 Days Qty: 30 1RF cholecalciferol (vitamin D3) 25 mcg (1,000 unit) Capsule 25 mcg PO DAILY 30 Days Qty: 30 1RF metformin 750 mg Tablet Extended Release 24 Hr 750 mg PO DAILY 30 Days Qty: 30 1RF Invega Sustenna 234 mg/1.5 mL Syringe 234 mg IM Q4W 28 Days Qty: 1.5 1RF Rx Instructions: due on 10/05/23 levothyroxine 50 mcg Capsule 50 mcg PO DAILY 30 Days Qty: 30 1RF Discontinued clonazepam 1 mg Tablet 1 mg PO BEDTIME Patient Comments: per pharmacy, last picked up 11/15/22 olanzapine 5 mg Tablet 5 mg PO Q4-6H Rx Instructions: Q4H lurasidone [Latuda] 60 mg Tablet 60 mg PO DAILY Rx Instructions: must administer with food (at least 350 calories) lorazepam [Ativan] 1 mg Tablet 1 mg PO DAILY PRN (Reason: Anxiety) Discharge Orders: Discharge Order (Routine); Ordered 09/09/23 Ordered By: Brian Silva Diet: Regular diet Activity on Discharge: As tolerated Stand Alone Forms: Patient Portal Discharge page Care Plan Goals: Maintain mood and safe behaviors Take medications as prescribed Continue to pursue sobriety Practice coping skills Continue with outpatient providers and reach out to them as needed Health Concerns: Mood stability and behaviors Plan of Treatment: Follow up with your PCP, psychiatric provider and other outpatient providers regarding above concerns Take medications as prescribed Assessment: Risk assessment at time of discharge:? Patient was interviewed prior to discharge and found to be fully oriented and without any SI or HI. Patient has improved insight and judgment and wants to continue treatment. Patient is not in imminent risk of harm to self or others and has a safety plan that includes presenting to the closest ER or calling 911 if feeling unsafe.? Patient has been observed closely by nursing and unit staff throughout admission; patient has not engaged in any behaviors that suggest dangerousness to self or others and has demonstrated appropriate behaviors and impulse control Discharge Date/Time: 09/09/23 10:20
[2023-09-08] MEDS: metFORMIN HCl ER 750 MG TAB.ER.24H PO (22:46)
[2023-09-08] MEDS: risperiDONE 2 MG TABLET 4 MG PO (22:46)
[2023-09-08] MEDS: Prazosin HCL 1 MG CAPSULE PO (22:47)
[2023-09-08] MEDS: OLANZapine 10 MG TABLET 30 MG PO (22:47)
[2023-09-09] MEDS: Magnesium Hydrox/Alum Hydrox 30 ML ORAL.SUSP PO (01:24)
[2023-09-09] MEDS: Acetaminophen 325 MG TABLET 650 MG PO (02:26)
[2023-09-09 07:52] LABS: Estimated Glomerular Filt Rate > 60
[2023-09-09] MEDS: Cholecalciferol (Vitamin D3) 25 MCG TABLET PO (08:12)
[2023-09-09] MEDS: Levothyroxine Sodium 50 MCG TABLET PO (08:12)
[2023-09-09] MEDS: Loratadine 10 MG TABLET PO (08:12)
[2023-09-09 08:22] VITALS: BP 121/83; PULSE 99; RESP 16; TEMP 36.4; O2SAT 95
[2023-09-09] MEDS: Paliperidone Palmitate 156 MG/ML SYRINGE IM (09:39)
--- NOTE | 2023-09-09 10:33 | HO.PSYCHPN ---
Subjective Subjective Date of Service: 09/09/23 Reason For Visit: bipolar disorder Interim History: PATIENT WAS PLEASANT COME FUTURE ORIENTED SEEMS SAFE FOR DISCHARGE Mental Status Exam Mental Status Exam Narrative: Pt is alert and oriented; behavior is cooperative.dressed in casual attire, adequately groomed; mood is described as good and affect congruent; eye contact appropriate; Speech is regular volume, rate and prosody; no psychomotor agitation present; thought process goal oriented; denies any SI/HI. No AVH Patients insight and judgment fair Diagnostics Vital Signs (24Hr): Vital Signs - 24 hr 09/08/23 17:40 09/09/23 08:22 Temperature 98.7 F 97.6 F Pulse Rate 98 99 Respiratory Rate 18 16 Blood Pressure 119/88 121/83 Pulse Oximetry 97 95 Oxygen Delivery Method Room Air Room Air Labs 09/09/23 07:11 Labs: Laboratory Results - last 48 hr 09/09/23 07:11 Creatinine 0.66 Estim Creat Clear Calc TNP Estimated GFR > 60 Medications Medications Current Medications Acetaminophen (Acetaminophen 325 Mg Tablet) 650 mg PO Q6H PRN PRN Reason: Headache/Pain Mild Scale (1-3) Last Admin: 09/09/23 02:26 Dose: 650 mg Al Hydroxide/Mg Hydroxide (Magnesium Hydrox/Alum Hydrox 30 Ml Oral.Susp) 30 ml PO Q6H PRN PRN Reason: Heartburn/Nausea Last Admin: 09/09/23 01:24 Dose: 30 ml Albuterol Sulfate (Albuterol Sulfate 90 Mcg 8 Gm Inhaler) 1 puff INHALE RQ4H PRN PRN Reason: Shortness of Breath Last Admin: 08/27/23 15:05 Dose: 1 puff Clonidine HCl (Clonidine Hcl 0.1 Mg Tablet) 0.1 mg PO Q4H PRN; Protocol PRN Reason: anxiety Last Admin: 09/03/23 20:42 Dose: 0.1 mg Hydroxyzine HCl (Hydroxyzine Hcl 25 Mg Tablet) 25 mg PO Q6H PRN PRN Reason: Anxiety Last Admin: 09/02/23 08:32 Dose: 25 mg Levothyroxine Sodium (Levothyroxine Sodium 50 Mcg Tablet) 50 mcg PO DAILY EVANGELISTA Last Admin: 09/09/23 08:12 Dose: 50 mcg Loratadine (Loratadine 10 Mg Tablet) 10 mg PO DAILY EVANGELISTA Last Admin: 09/09/23 08:12 Dose: 10 mg Magnesium Hydroxide (Milk Of Magnesia 30 Ml Oral.Susp) 30 ml PO DAILY PRN PRN Reason: Constipation Last Admin: 09/04/23 18:30 Dose: 30 ml Metformin HCl (Metformin Hcl Er 750 Mg Tab.Er.24h) 750 mg PO BEDTIME EVANGELISTA Last Admin: 09/08/23 22:46 Dose: 750 mg Nicotine Polacrilex (Nicotine Polacrilex 2 Mg Gum) 2 mg BUCCAL Q2H PRN PRN Reason: Nicotine Cravings Last Admin: 09/07/23 09:23 Dose: 2 mg Olanzapine (Olanzapine 5 Mg Tablet) 5 mg PO TID PRN PRN Reason: agitation Last Admin: 09/02/23 19:01 Dose: 5 mg Olanzapine (Olanzapine 10 Mg Tablet) 30 mg PO BEDTIME EVANGELISTA Last Admin: 09/08/23 22:47 Dose: 30 mg Paliperidone Palmitate (Paliperidone Palmitate 234 Mg/1.5 Ml Syringe) 234 mg IM Q30D EVANGELISTA Prazosin HCl (Prazosin Hcl 1 Mg Capsule) 1 mg PO BEDTIME EVANGELISTA; Protocol Last Admin: 09/08/23 22:47 Dose: 1 mg Risperidone (Risperidone 2 Mg Tablet) 4 mg PO BEDTIME EVANGELISTA Stop: 09/10/23 23:00 Last Admin: 09/08/23 22:46 Dose: 4 mg Vitamin D (Cholecalciferol (Vitamin D3) 25 Mcg Tablet) 25 mcg PO DAILY EVANGELISTA Last Admin: 09/09/23 08:12 Dose: 25 mcg Allergies Allergies Allergy/AdvReac Type Severity Reaction Status Date / Time aripiprazole [Abilify] Allergy Unknown hives Verified 06/12/23 03:38 latex [LATEX] Allergy Unknown RASH Verified 06/12/23 03:38 sertraline [From Zoloft] Allergy Unknown raised Verified 06/12/23 03:38 LFTs/angioedema zolpidem [Ambien] Allergy Unknown hives Verified 06/12/23 03:38 Iodinated Contrast Media Allergy Hives Verified 06/12/23 03:38 [IV Contrast Dye] Assessment & Plan Assessment & Plan (1) Schizoaffective disorder, bipolar type: Status: Acute Code(s): F25.0 - Schizoaffective disorder, bipolar type (2) Diabetes 1.5, managed as type 2: Status: Acute Code(s): E13.9 - Other specified diabetes mellitus without complications Plan Annie is a 6-year-old female with history of schizoaffective disorder, intermittent asthma, hypothyroidism, PCOS, control diabetes type 2. She has had numerous hospitalizations and emergency room evaluations. She presented to the emergency room on 08/24/2023 for suicidal ideations and disorganized behavior, yelling outside of the emergency room. She was last evaluated by the emergency room in May with outpatient follow-up referral which she never follow through with. She does not appear to be on any medications but states that she is on Klonopin. We have not been able to verify this but will pursue. She was found by security at side of the emergency room being very disorganized and refused workup and care she. She was not able to give much historical information in the emergency room. She talked about missing her daughter, her daughter being a ?silent killer?. She was seen to be delusional and that appears to be the case now. No verifiable history of substance abuse from her but in the past she has used marijuana, alcohol and cocaine. Hospital course: 08/27 She is doing much better after day of taking Zyprexa 10 mg q.h.s.. She is less loud, intrusive and behaviorally more manageable. Eating and sleeping adequately. No complaints or side effects. No SI. No changes were made today 08/28 patient was not continued on Zyprexa q.h.s.; today disorganized speech and difficult with which to engage; patient is currently not allowed in the kitchen as she is intrusive and provoking peers patient talking about different things that are irrelevant, hard to follow. Review of past history, prescriptions, patient was on Risperdal 2 mg b.i.d. and then on Invega Sustenna 234 mg; also history of being on Zyprexa as a p.r.n., clonazepam and Latuda. Will change medication regimen to fit history of prescriptions 08/28 patient was not continued on Zyprexa q.h.s.; today disorganized speech and difficult with which to engage; patient is currently not allowed in the kitchen as she is intrusive and provoking peers patient talking about different things that are irrelevant, hard to follow. Review of past history, prescriptions, patient was on Risperdal 2 mg b.i.d. and then on Invega Sustenna 234 mg; also history of being on Zyprexa as a p.r.n., clonazepam and Latuda. Will change medication regimen to fit history of prescriptions 08/29 Review 2018 admission during which time patient was depressed but was stabilized on Zyprexa 10 mg b.i.d. and lithium 900 mg Client Application Support Specialist discussed this with patient who said that lithium caused SI ADH; she mentioned Latuda being helpful for depression but was okay with increasing Zyprexa. Patient somewhat irritable, upset that consumer loan underwriter work her up and did not want to talk further. However she was a little more linear and organized in this conversation than previously 08/30 Patient much more calm today and cooperative. Also much more logical and discussion. Client Application Support Specialist asked about this and she says it is because of the medications and that she remembers how she was behaving prior to this which she said was due to her bipolar disorder; she can tell she is feeling better because she is no longer feeling irritated with others. Patient said the medications are helpful and she wants to continue with them. She also said she needs to get in touch with her duty officer and wants social work to contact this person. She said she will procure the numbers. Patient discussed about homelessness and if there were any options; social work agreed to discuss this tomorrow 08/31 much improved, much more logical with organized speech behavior. Continue current regimen; dispo planning 09/01 patient still defensive but overall doing better. Not sure order baseline is however. She does not want to be on Invega Sustenna long-acting injectable could she did not like getting the shot. Instead she wants to be on Latuda saying that it helped with her depression; consumer loan underwriter agreed to make change from Risperdal to Latuda. It has been difficult getting collateral and so it is not really clear what medication regimens have worked. 09/02 Patient increasingly manic and irritable today, loud in the milieu, accusatory and very defensive when trying to talk to her about anything. She is minimally able to hold down a linear conversation, starting on a topic but adding in extraneous things or jumping to something else and expressing a lot of anger about unclear concerns of hers. She is upset that she supposedly had a positive cocaine UDS from the ED saying she never does drugs and most a been a laced cigarette; in random order, she is constantly referring to her daughter, DCF, her son, housing and passed wrongs. Definitely triggered about what her outpatient healthcare social worker will think -it seems that possible patient decompensated after tapering down the Risperdal, though there may have been some signs of this prior to; at this point will restart Risperdal, DC Latuda and increase Zyprexa at bedtime. So far she has refused lithium and Depakote due to reported side effects (respectively diabetes insipidus and liver toxicity) 09/03 more calm today; not agitated, yelling or intrusive but rather resting much of the day. Maya/hypomania subsided, coinciding with restarting Risperdal and increasing Zyprexa 09/04 continue current treatment plan; patient remains much more calm. Client Application Support Specialist discussed with healthcare social worker, new information regarding social history, patient has apartment but a restraining order was placed since she was threatening to neighbors; lower is working to have this resolved 09/05 patient remains in good behavioral and impulse control. Agrees to get on Invega Sustenna; will discontinue Risperdal once patient gets 2nd installment of WOLFE; will move all Zyprexa to bedtime to help increase adherence; will discontinue Trileptal at bedtime which was started on admission and unlikely to be that much of a contributing factor to her stability. 09/07 Patient remains calm, good mood, future oriented and in good behavioral and impulse control. She said she would very much like discharge. Patient reports that it is quite triggering to be on the unit with such high acuity; of note patient has had to deal with intrusive, provocative peers and has handled situations calmly and appropriately. Patient says very likely she will be able to stay at her sister's or friend's house; if not she will stay at a assisted. In early September, her lower is trying to have the restraining order amended so that she can return to her apartment which patient understands. Patient says she is tolerating medications well and will get the 2nd installment of Invega Sustenna. Since she is meeting with her [facility] worker tomorrow on Monday, patient agrees to discharge on Monday. -consumer loan underwriter agrees with this plan since patient is certainly doing much better, however maintaining her outpatient support network is intra goal in her continuing her stability. 09/08 stable, at baseline; good mood; pt ready for discharge. Not in imminent risk for harm to self or others; has good outpt support already set up 09/09/23 SEEMS SAFE FOR D/C Plan: CV Q 15 minute checks Received Invega Sustenna 234 mg Ordered Invega Sustenna 156 mg for this Monday will dc Risperdal Continue Zyprexa 30 mg q.h.s. Continue Zyprexa 5 mg t.i.d. p.r.n. for agitation; patient was on this in the past as a p.r.n.; will DC Thorazine DC Thorazine p.r.n. DC oxcarbazepine Continue levothyroxine Continue metformin Medical comorbidities:. #Mild intermittent asthma -no acute exacerbation -albuterol p.r.n. # controlled type 2 diabetes -A1c last measured around 5.6%, last year was 6.8% consistent with type 2 diabetes -continue metformin -POC glucose, diabetic diet if patient tolerates #HENRIQUEZ -hepatic function WNL Reason for continued inpatient stay Substantial Risk for: stable for discharge Time Spent With Patient Time: Total time managing care of this patient today ____ minutes.
== END 2023-09-09 10:20 | disposition home or self-care (01) | DRG 885 ==
PROVIDERS: Psychiatry & Neurology Psychiatry; Admitting Provider Psychiatry & Neurology Psychiatry; Visit Provider Psychiatry & Neurology Psychiatry
DX: F25.0 Schizoaffective disorder, bipolar type (principal); E03.9 Hypothyroidism, unspecified; G47.33 Obstructive sleep apnea (adult) (pediatric); J45.20 Mild intermittent asthma, uncomplicated; K75.81 Nonalcoholic steatohepatitis (NASH); E13.9 Other specified diabetes mellitus without complications; E28.2 Polycystic ovarian syndrome; F17.210 Nicotine dependence, cigarettes, uncomplicated; Z71.6 Tobacco abuse counseling; Z91.040 Latex allergy status; Z91.041 Radiographic dye allergy status; Z79.84 Long term (current) use of oral hypoglycemic drugs; Z79.890 Hormone replacement therapy; Z79.899 Other long term (current) drug therapy
CPT/HCPCS: 36415; 80053; 80061; 82565; 82947; 93005; J2426

== ENCOUNTER → 2023-08-25 22:41 | Outpatient (BNV) | payer OTHER, SELFPAY | PROVIDERS: Admitting Provider Psychiatry & Neurology Psychiatry; Visit Provider Physician Assistant | DX: Z02.2 Encounter for examination for admission to residential institution (principal) | CPT/HCPCS: 99429 ==

== ENCOUNTER → 2023-08-25 22:41 | Outpatient (BNV) | payer OTHER, SELFPAY | PROVIDERS: Admitting Provider Psychiatry & Neurology Psychiatry; Visit Provider Psychiatry & Neurology Psychiatry | DX: F25.0 Schizoaffective disorder, bipolar type (principal); E13.9 Other specified diabetes mellitus without complications | CPT/HCPCS: 90792; 99231; 99232; 99238 ==

== ENCOUNTER → 2023-08-25 22:41 | Outpatient (BNV) | payer OTHER, SELFPAY | PROVIDERS: Admitting Provider Psychiatry & Neurology Psychiatry; Visit Provider Psychiatry & Neurology Psychiatry | DX: F25.0 Schizoaffective disorder, bipolar type (principal); E13.9 Other specified diabetes mellitus without complications | CPT/HCPCS: 99499 ==

== ENCOUNTER 2025-03-27 11:18 | Outpatient (REF) | payer OTHER, SELFPAY ==
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
== END 2025-03-27 11:19 | disposition home or self-care (01) ==
LOC: HO.LNP 11:18
PROVIDERS: Visit Provider Obstetrics & Gynecology
DX: D06.9 Carcinoma in situ of cervix, unspecified (principal)
CPT/HCPCS: 57454; 81025; 87626; 88175; 88305; 99396

== ENCOUNTER 2025-03-27 11:18 | Outpatient (AMB) | payer OTHER, SELFPAY ==
--- NOTE | 2025-03-27 11:43 | MHC.OFFVIS ---
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/donotrisx3 Yoga Instructor Required: No Information Interpreted: non-clinical & clinical Supervisory Air Intercept Controller: Supervisory Air Intercept Controller Present (Susi Husain RANDOLPH) Accompanied by: Self / Same As Patient Allergies aripiprazole (Abilify) Allergy (Unknown, Verified 03/27/25 11:49) hives latex (LATEX) Allergy (Unknown, Verified 03/27/25 11:49) RASH sertraline (From Zoloft) Allergy (Unknown, Verified 03/27/25 11:49) raised LFTs/angioedema zolpidem (Ambien) Allergy (Unknown, Verified 03/27/25 11:49) hives Iodinated Contrast Media (IV Contrast Dye) Allergy (Verified 03/27/25 11:49) Hives Post menopausal: Yes HPI Comments Details: Presenting for annual exam. No complaints. Last Pap/HPV was WATSON 1 positive HPV colpo biopsy ECC WATSON 1, LEEP cone WATSON 3 with positive margins, the patient did not show up for her next appointment Last screening Mammogram was 2 months ago at [facility] according to patient was negative, no records available REPLACED BY [facility] Medical History WATSON III (cervical intraepithelial neoplasia grade III) with severe dysplasia History of electroconvulsive therapy H/O abnormal cervical Papanicolaou smear DONNA (obstructive sleep apnea) Morbid obesity Morbid obesity due to excess calories History of hypothyroidism History of syphilis Encounter for Essure implantation Elevated WBCs HENRIQUEZ (nonalcoholic steatohepatitis) Neutrophilia Anemia Asthma PCOS (polycystic ovarian syndrome) Hypothyroid Bipolar 1 disorder Family History Paternal Grandfather Colon cancer Paternal Grandmother Breast cancer Maternal Grandmother Uterine cancer Father Arthritis Asthma Diabetes Hypertension Stroke Mother Hypertension Mental health disorder Sister Hypertension Diabetes Sister No problems noted. Sister Depression Obesity Brother No problems noted. Sister Lupus Son No problems noted. Daughter No problems noted. Social History Housing: Homeless Alcohol intake: former Patient Tobacco Use Status: Current everyday Tobacco user Tobacco use type: Cigarette Cigarette Packs Per Day: 1 Cigarettes Per Day: 15 Years Smoked: 22 e-Cigarette/Vaping Use: Currently Using Second Hand Smoke Exposure: No Substance Use Type: Marijuana and Caffiene service: No Current occupational status: unemployed Sexual orientation: Straight/Heterosexual Gender identity: Female Cognitive needs: No Hearing needs: No Vision needs: Yes Female Reproductive History Menstrual Age of Menarche: 11 Date of last pap smear: 12/09/21 (CIN1, +HPV ) History of abnormal pap smear: Yes (12/06 ASCUS hpv) Review of Systems Const All systems reviewed & are unremarkable except as noted in HPI and below Card Reports as per HPI Resp Reports as per HPI GI Reports as per HPI and Reports no additional complaints Reports as per HPI Physical Exam Vital Signs: Last Vital Signs BP 128/84 03/27/25 11:49 BMI result Body Mass Index 46.2 Const General: cooperative, healthy appearing and comfortable Chest Chest palpation & inspection: normal inspection of the chest and normal palpation of entire chest wall Breast/axilla inspection: normal inspection of the breasts and normal inspection of the axillae Breast/axilla palpation: normal palpation of the breasts, normal palpation of the axillae and no axillary lymphadenopathy Resp Effort & Inspection: normal respiratory effort Auscultation: clear to auscultation bilaterally Percussion: percussion normal Cardio Palpation: normal PMI Rate: regular rate Rhythm: regular rhythm Heart sounds: no murmurs and no rubs Peripheral pulses: Peripheral pulses 2+ throughout GI Inspection: Yes normal to inspection Palpation (GI): Soft to palpation, nontender, no guarding, not rigid and No hepatosplenomegaly present Percussion: Yes normal to percussion Auscultation: normal bowel sounds Rectal Exam - Female: deferred General: Yes bladder normal to palpation External Female Exam: No lesion Speculum Exam - Vagina: normal appearance of the vagina, normal palpation, normal vaginal discharge and not erythematous Speculum Exam - Cervix: normal appearance of the cervix and normal palpation Bimanual exam- vagina & uterus: normal bimanual exam, normal palpation, uterine size normal, bladder normal to palpation, consistency normal and normal palpation Bimanual Exam- Adnexa, other: normal adnexae, no masses and no tenderness Office Procedures Colposcopy Colposcopy: Pre-Procedure Counseling: Before beginning the procedure, I conducted comprehensive counseling with the patient. We thoroughly discussed the procedure itself, including its details, alternatives, and all associated risks. This included but not limited to the following complications such as bleeding, infection, and injury to the vagina, bladder, and vessels, as well as the potential need for transfusion with all its associated risks. Subsequently, the patient sign the consent. Pap smear result: History of WATSON 3 with positive margin in 2022 Urine test in office = Negative Procedure: During the procedure, the following steps were performed: A speculum was inserted, and acetic acid was applied. Colposcopy was conducted, allowing visualization of the transformation zone. Acetowhite lesions were identified at the 5+ 6+ 7+ 12 o'clock position. Cervical biopsies were obtained from the 5+ 6+ 7+ 12 o'clock position, followed by an endocervical curettage (ECC). Vaginoscopy of the upper vagina revealed no evidence of aceto-white lesions. Hemostasis was achieved using Monsel solution, and the patient tolerated the procedure well. Post-Procedure Instructions: The patient was advised to promptly contact the office or the after hours answering service or go to the emergency room if experiencing a temperature exceeding 100.4?F, abdominal pain, nausea/vomiting, or bleeding. Additionally, the patient was instructed to abstain from vaginal intercourse and bathtub use. The patient confirmed understanding of these instructions. Discharge Instructions: The patient was instructed to schedule a follow-up appointment in 2 weeks for further evaluation and management. Please note that this note was generated using a voice recognition program, and errors may have occurred during cofferdam construction supervisor. [id number] of cervix including upper vagina with biopsy and ECC Procedure code (CPT) selection complete Assessment & Plan Assessment & Plan (1) Well woman exam: Comment: WATSON 3 in 12/07 status post LEEP cone with positive margins Code(s): Z01.419 - Encounter for gynecological examination (general) (routine) without abnormal findings Category: Medical Plan: Cotesting done, colposcopy with cervical biopsy/ ECC recommended since the patien had WATSON 3 with positive margins an increase in the risk of recurrent and did not show up for her appointment last 2 years, colpo done, see procedure Instructions given to patient to schedule next screening Mammogram next year at [facility]. Counseled the patient about the recommended dietary allowance of 1000 mg of Calcium & 600 IU of vitamin D. The patient was instructed to perform monthly self-breast exams and to schedule an annual exam in a year; All questions answered and the patient verbalized understanding. 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
[2025-03-27 11:49] VITALS: BP 128/84; BMI 46.2
--- OUTSIDE RECORDS SUMMARY | 2025-03-27 12:00 | XMS_ITS | Encounter Summary ---
Author Organization [facility] Address [address] [place] [address] Care Team Providers Care Movie Theater Manager Name Role Phone Jaxon Marinelli PRODUCTION WELDER Primary Care Provider [phone] Encounter Details Date Type Department Care Team (Late st Contact Info) Description 02/21/2025 Lab Requisition [facility] - Main Lab [address] [place] [address] Jaxon Marinelli NP [address] [place] [address] Body mass index (BMI) 50.0-59.9, adult (CMS/HCC V24, CMS/HCC V28); Prediabetes Social History Tobacco Use Types Packs/Day Years Used Date Smoking Tobacco: Every Day Cigarettes Smokeless Tobacco: Never Alcohol Use Standard Drinks/Week Comments No 0 (1 standard drink = 0.6 oz pur e alcohol) Comments No Sex and Gender Information Value Date Recorded Sex Assigned at Female 09/08/2024 10:55 AM EST Legal Sex Female 5:43 PM EST Gender Identity Female 09/08/2024 10:55 AM EST Sexual Orientation Straight 09/08/2024 10 :55 AM EST documented as of this encounter Functional Status * Are you deaf or do you have serious difficulty hearing? Answer Date of Assessment Author No 09/08/2024 10:33 AM Yeni Lerma RN * Are you blind or do you have serious difficulty seeing, even when wearing glasses? Answer Date of Assessment Author No 09/08/2024 10:33 AM Yeni Lerma RN * Do you have serious difficulty walking or climbing stairs? Answer Date of Assessment Author No 09/08/2024 10:33 AM Yeni Lerma RN * Do you have serious difficulty dressing or bathing? Answer Date of Assessment Author No 09/08/2024 10:33 AM Yeni Lerma RN * Because of a physical, mental, or emotional condition, do you have serious difficulty doing errandsalone such as visiting the doctor? Answer Date of Assessment Author No 09/08/2024 10:33 AM Yeni Lerma RN documented as of this encounter Mental Status * Because of a physical, mental, or emotional condition, do you have serious difficulty concentrating, remembering, or making decisions? (5 years old or older) Answer Entry Date Author No 09/08/2024 10:33 AM Yeni Lerma RN documented in this encounter Plan of Treatment Upcoming Encounters Date Type Department Care Team (Late st Contact Info) Description 04/21/2025 2:00 PM EDT Office Visit Orthopedic Surgery - [place] [id number] [address] Jose Acosta DPM [address] [address] documented as of this encounter Procedures Procedure Name Priority Date/Time Associated Diagnosis Comments THYROID STIMULATING HORMONE WITH REFLEX TO FREE T4 AND FREE T3 Routine 02/21/2025 11:30 AM EDT Body mass index (BMI) 50.0-59.9, adult (CMS/HCC V24, CMS/HCC V28) Prediabetes SST - GOLD Routine 02/21/2025 11:30 AM EDT Body mass index (BMI) 50.0-59.9, adult (CMS/HCC V24, CMS/HCC V28) Prediabetes VITAMIN D 25 HYDROXY Routine 02/21/2025 11:30 AM EDT Body mass index (BMI) 50.0-59.9, adult (CMS/HCC V24, CMS/HCC V28) Prediabetes COMPLETE BLOOD COUNT Routine 02/21/2025 11:30 AM EDT Body mass index (BMI) 50.0-59.9, adult (CMS/HCC V24, CMS/HCC V28) Prediabetes HEMOGLOBIN A1C Routine 02/21/2025 11:30 AM EDT Body mass index (BMI) 50.0-59.9, adult (CMS/HCC V24, CMS/HCC V28) Prediabetes COMPREHENSIVE METABOLIC PANEL Routine 02/21/2025 11:30 AM EDT Body mass index (BMI) 50.0-59.9, adult (CMS/HCC V24, CMS/HCC V28) Prediabetes documented in this encounter Results * SST tube (02/21/2025 11:30 AM EDT) Pathologist [facility] Extra Tube Hold for add-ons. 02/24/2025 8:01 PM EDT [facility] Comment:Auto resulted. Blood Venous blood specimen / Unknown 02/21/2025 11:30 AM EDT 02/21/2025 5:06 PM EDT Jaxon Marinelli LAB BLOOD ORDERABLES Final Result Performing Organization Address City/[facility] Co de Phone Number [facility] [address] [place] [address], * (ABNORMAL) Vitamin D 25 hydroxy (02/21/2025 11:30 AM EDT) Pathologist [facility] Vit D, 25-Hydroxy 17.3(L) 30.0 - 80.0 ng/mL LAB CHEMISTRY METHOD 02/21/2025 6:43 PM EDT [facility] Blood Venous blood specimen / Unknown 02/21/2025 11:30 AM EDT 02/21/2025 5:06 PM EDT Jaxon Marinelli PRODUCTION WELDER LAB BLOOD ORDERABLES Final Result [facility] [address] [place] [address], [place] [phone] * (ABNORMAL) Comprehensive metabolic panel (02/21/2025 11:30 AM EDT) Sodium 141 133 - 145 mmol/L LAB CHEMISTRY METHOD 02/21/2025 6:00 PM [facility] Potassium 4.5 3.5 - 5.5 mmol/L LAB CHEMISTRY METHOD 02/21/2025 6:00 PM [facility] Chloride 109 96 - 110 mmol/L LAB CHEMISTRY METHOD 02/21/2025 6:00 PM [facility] CO2 28 21 - 32 mmol/L LAB CHEMISTRY METHOD 02/21/2025 6:00 PM [facility] Anion Gap 4 3 - 11 LAB CHEMISTRY METHOD 02/21/2025 6:00 PM [facility] Glucose 113(H) 70 - 100 mg/dL LAB CHEMISTRY METHOD 02/21/2025 6:00 PM [facility] BUN 11 5 - 25 mg/dL LAB CHEMISTRY METHOD 02/21/2025 6:00 PM [facility] Creatinine 0.73 0.50 - 1.10 mg/dL LAB CHEMISTRY METHOD 02/21/2025 6:00 PM [facility] eGFR 105 >=60 mL/min/1. 73m2 LAB CHEMISTRY METHOD 02/21/2025 6:00 PM [facility] Comment:Calculation based on the Chronic Kidney Disease Epidemiology Collaboration (CKD-EPI) equation refit without adjustment for race. BUN/Creatinine Ratio 15.1 LAB CHEMISTRY METHOD 02/21/2025 6:00 PM [facility] Calcium 8.4(L) 8.5 - 10.5 mg/dL LAB CHEMISTRY METHOD 02/21/2025 6:00 PM [facility] AST (SGOT) 26 10 - 42 unit/L LAB CHEMISTRY METHOD 02/21/2025 6:00 PM EDT [facility] ALT (SGPT) 68(H) 10 - 60 unit/L LAB CHEMISTRY METHOD 02/21/2025 6:00 PM EDT [facility] Alkaline Phosphatase 142(H) 42 - 121 unit/L LAB CHEMISTRY METHOD 02/21/2025 6:00 PM EDT [facility] Total Protein 6.6 6.0 - 8.0 g/dL LAB CHEMISTRY METHOD 02/21/2025 6:00 PM EDT [facility] Albumin 3.2 3.2 - 5.0 g/dL LAB CHEMISTRY METHOD 02/21/2025 6:00 PM [facility] Total Bilirubin 0.4 0.0 - 1.4 mg/dL LAB CHEMISTRY METHOD 02/21/2025 6:00 PM T [facility] Blood Venous blood specimen / Unknown 02/21/2025 11:30 AM EDT 02/21/2025 5:06 PM EDT Jaxon Marinelli NP LAB BLOOD ORDERABLES Final Result [facility] [address] [place] [address], * (ABNORMAL) Complete blood count (02/21/2025 11:30 AM EDT) WBC 14.9(H) 4.8 - 10.8 K/[facility] LAB HEMETOLOGY METHOD 02/21/2025 5:34 PM EDT [facility] RBC 5.10(H) 3.80 - 4.80 M/mcL LAB HEMETOLOGY METHOD 02/21/2025 5:34 PM EDT [facility] Hemoglobin 15.0 11.5 - 16.0 g/dL LAB HEMETOLOGY METHOD 02/21/2025 5:34 PM EDT [facility] Hematocrit 47.0 35.0 - 47.0 % LAB HEMETOLOGY METHOD 02/21/2025 5:34 PM EDT [facility] MCV 92.5 79.0 - 98.0 FL LAB HEMETOLOGY METHOD 02/21/2025 5:34 PM EDT [facility] MCH 29.5 27.0 - 32.0 pcg LAB HEMETOLOGY METHOD 02/21/2025 5:34 PM EDT [facility] MCHC 31.9(L) 32.0 - 37.0 g/dL LAB HEMETOLOGY METHOD 02/21/2025 5:34 PM EDT [facility] RDW 13.1 11.0 - 15.0 % LAB HEMETOLOGY METHOD 02/21/2025 5:34 PM EDT [facility] Platelets 285 130 - 400 K/mcL LAB HEMETOLOGY METHOD 02/21/2025 5:34 PM EDT [facility] MPV 12.1(H) 7.0 - 11.0 FL LAB HEMETOLOGY METHOD 02/21/2025 5:34 PM EDT [facility] NRBC 0.0 <1.0 % LAB HEMETOLOGY METHOD 02/21/2025 5:34 PM EDT [facility] NRBC Absolute 0.00 <0.10 K/mcL LAB HEMETOLOGY METHOD 02/21/2025 5:34 PM EDT [facility] Blood Venous blood specimen / Unknown 02/21/2025 11:30 AM EDT 02/21/2025 5:06 PM EDT us Jaxon Marinelli NP LAB BLOOD ORDERABLES Final Result [facility] [address] [place] [address], * (ABNORMAL) Hemoglobin A1c (02/21/2025 11:30 AM EDT) Hemoglobin A1C 6.9(H) <6.5 % LAB CHEMISTRY METHOD 02/21/2025 9:31 PM EDT [facility] Mean Bld Glu Estim. 151 mg/dL LAB CHEMISTRY METHOD 02/21/2025 9:31 PM EDT [facility] Blood Venous blood specimen / Unknown 02/21/2025 11:30 AM EDT 02/21/2025 5:06 PM EDT us Jaxon Marinelli LAB BLOOD ORDERABLES Final Result Performing Organization Address [facility]/ZIP Co de Phone Number [facility] [address] [place] [address], [place] [phone] * Thyroid stimulating hormone with reflex to free t4 and free t3 (02/21/2025 11:30 AM EDT) Pathologist [facility] TSH 2.15 0.40 - 4.00 mcIU/mL LAB CHEMISTRY METHOD 02/21/2025 7:44 PM EDT [facility] Blood Venous blood specimen / Unknown 02/21/2025 11:30 AM EDT 02/21/2025 5:06 PM EDT us Jaxon Marinelli PRODUCTION WELDER LAB BLOOD ORDERABLES Final Result [facility] [address] [place] [address], [place] [phone] documented in this encounter Visit Diagnoses Diagnosis Body mass index (BMI) 50.0-59.9, adult (CMS/HCC V24, CMS/[facility] V28) Prediabetes Other abnormal glucose documented in this encounter Care Teams Movie Theater Manager Relationship Specialty Start Date End Date Jaxon Marinelli NP [address] [place] [address] PCP - General Family Medicine 11/12/24 documented as of this encounter
== END 2025-03-27 13:24 | disposition home or self-care (01) ==
LOC: HO.HWS 11:19
PROVIDERS: Visit Provider Obstetrics & Gynecology
DX: Z01.419 Encounter for gynecological examination (general) (routine) without abnormal findings (principal); N87.0 Mild cervical dysplasia; Z32.02 Encounter for pregnancy test, result negative
CPT/HCPCS: 57454; 99396; 99459

== ENCOUNTER 2025-04-10 11:07 | Outpatient (REF) | payer OTHER, SELFPAY ==
--- OUTSIDE RECORDS SUMMARY | 2025-04-10 12:01 | XMS_ITS | Encounter Summary ---
Author Organization [facility] Address [address] [place] [address] Care Team Providers Care Bank President Name Role Phone Jaxon Marinelli [employer] Primary Care Provider [phone] Encounter Details Date Type Department Care Team (Late st Contact Info) Description 02/21/2025 Lab Requisition [facility] - Main Lab [address] [place] [address] Jaxon Marinelli NP [address] [place] [address] Body mass index (BMI) 50.0-59.9, adult (CMS/HCC [...] PM EDT Office Visit Orthopedic Surgery - [place] [id number] [address] Jose Acosta DPM [address] [address] documented as of this encounter Procedures Procedure [...] (02/21/2025 11:30 AM EDT) Pathologist [facility] Extra Tube Hold for add-ons. 02/24/2025 8:01 PM EDT [facility] Comment:Auto resulted. Blood Venous blood specimen / Unknown 02/21/2025 11:30 AM EDT 02/21/2025 5:06 PM EDT Jaxon Marinelli LAB BLOOD ORDERABLES Final Result Performing Organization Address City/[facility] Co de Phone Number [facility] [address] [place] [address], * (ABNORMAL) Vitamin D 25 hydroxy (02/21/2025 11:30 AM EDT) Pathologist [facility] Vit D, 25-Hydroxy 17.3(L) 30.0 - 80.0 ng/mL LAB CHEMISTRY METHOD 02/21/2025 6:43 PM EDT [facility] Blood Venous blood specimen / Unknown 02/21/2025 11:30 AM EDT 02/21/2025 5:06 PM EDT Jaxon Marinelli [employer] LAB BLOOD ORDERABLES Final Result [facility] [address] [place] [address], [place] [phone] * (ABNORMAL) Comprehensive metabolic panel (02/21/2025 11:30 AM EDT) Sodium 141 133 - 145 mmol/L LAB CHEMISTRY METHOD 02/21/2025 6:[address] [facility] Potassium 4.5 3.5 - 5.5 mmol/L LAB CHEMISTRY METHOD 02/21/2025 6:[address] [facility] Chloride 109 96 - 110 mmol/L LAB CHEMISTRY METHOD 02/21/2025 6:[address] [facility] CO2 28 21 - 32 mmol/L LAB CHEMISTRY METHOD 02/21/2025 6:[address] [facility] Anion Gap 4 3 - 11 LAB CHEMISTRY METHOD 02/21/2025 6:[address] [facility] Glucose 113(H) 70 - 100 mg/dL LAB CHEMISTRY METHOD 02/21/2025 6:[address] [facility] BUN 11 5 - 25 mg/dL LAB CHEMISTRY METHOD 02/21/2025 6:[address] [facility] Creatinine 0.73 0.50 - 1.10 mg/dL LAB CHEMISTRY METHOD 02/21/2025 6:[address] [facility] eGFR 105 >=60 mL/min/1. 73m2 LAB CHEMISTRY METHOD 02/21/2025 6:[address] [facility] Comment:Calculation based on the Chronic Kidney Disease Epidemiology Collaboration (CKD-EPI) equation refit without adjustment for race. BUN/Creatinine Ratio 15.1 LAB CHEMISTRY METHOD 02/21/2025 6:[address] [facility] Calcium 8.4(L) 8.5 - 10.5 mg/dL LAB CHEMISTRY METHOD 02/21/2025 6:[address] [facility] AST (SGOT) 26 10 - 42 unit/L LAB CHEMISTRY METHOD 02/21/2025 6:00 PM EDT [facility] ALT (SGPT) 68(H) 10 - 60 unit/L LAB CHEMISTRY METHOD 02/21/2025 6:00 PM EDT [facility] Alkaline Phosphatase 142(H) 42 - 121 unit/L LAB CHEMISTRY METHOD 02/21/2025 6:00 PM EDT [facility] Total Protein 6.6 6.0 - 8.0 g/dL LAB CHEMISTRY METHOD 02/21/2025 6:00 PM EDT [facility] Albumin 3.2 3.2 - 5.0 g/dL LAB CHEMISTRY METHOD 02/21/2025 6:[address] [facility] Total Bilirubin 0.4 0.0 - 1.4 mg/dL LAB CHEMISTRY METHOD 02/21/2025 6:00 PM T [facility] Blood Venous blood specimen / Unknown 02/21/2025 11:30 AM EDT 02/21/2025 5:06 PM EDT Jaxon Marinelli NP LAB BLOOD ORDERABLES Final Result [facility] [address] [place] [address], * (ABNORMAL) Complete blood count (02/21/2025 11:30 AM EDT) WBC 14.9(H) 4.8 - 10.8 K/[facility] LAB HEMETOLOGY METHOD 02/21/2025 5:34 PM EDT [facility] RBC 5.10(H) 3.80 - 4.80 M/mcL LAB HEMETOLOGY METHOD 02/21/2025 5:34 PM EDT [facility] Hemoglobin 15.0 11.5 - 16.0 g/dL LAB HEMETOLOGY METHOD 02/21/2025 5:34 PM EDT [facility] Hematocrit 47.0 35.0 - 47.0 % LAB HEMETOLOGY METHOD 02/21/2025 5:34 PM EDT [facility] MCV 92.5 79.0 - 98.0 FL LAB HEMETOLOGY METHOD 02/21/2025 5:34 PM EDT [facility] MCH 29.5 27.0 - 32.0 pcg LAB HEMETOLOGY METHOD 02/21/2025 5:34 PM EDT [facility] MCHC 31.9(L) 32.0 - 37.0 g/dL LAB HEMETOLOGY METHOD 02/21/2025 5:34 PM EDT [facility] RDW 13.1 11.0 - 15.0 % LAB HEMETOLOGY METHOD 02/21/2025 5:34 PM EDT [facility] Platelets 285 130 - 400 K/mcL LAB HEMETOLOGY METHOD 02/21/2025 5:34 PM EDT [facility] MPV 12.1(H) 7.0 - 11.0 FL LAB HEMETOLOGY METHOD 02/21/2025 5:34 PM EDT [facility] NRBC 0.0 <1.0 % LAB HEMETOLOGY METHOD 02/21/2025 5:34 PM EDT [facility] NRBC Absolute 0.00 <0.10 K/mcL LAB HEMETOLOGY METHOD 02/21/2025 5:34 PM EDT [facility] Blood Venous blood specimen / Unknown 02/21/2025 11:30 AM EDT 02/21/2025 5:06 PM EDT us Jaxon Marinelli NP LAB BLOOD ORDERABLES Final Result [facility] [address] [place] [address], * (ABNORMAL) Hemoglobin A1c (02/21/2025 11:30 AM EDT) Hemoglobin A1C 6.9(H) <6.5 % LAB CHEMISTRY METHOD 02/21/2025 9:31 PM EDT [facility] Mean Bld Glu Estim. 151 mg/dL LAB CHEMISTRY METHOD 02/21/2025 9:31 PM EDT [facility] Blood Venous blood specimen / Unknown 02/21/2025 11:30 AM EDT 02/21/2025 5:06 PM EDT us Jaxon Marinelli LAB BLOOD ORDERABLES Final Result Performing Organization Address [facility]/ZIP Co de Phone Number [facility] [address] [place] [address], [place] [phone] * Thyroid stimulating hormone with reflex to free t4 and free t3 (02/21/2025 11:30 AM EDT) Pathologist [facility] TSH 2.15 0.40 - 4.00 mcIU/mL LAB CHEMISTRY METHOD 02/21/2025 7:44 PM EDT [facility] Blood Venous blood specimen / Unknown 02/21/2025 11:30 AM EDT 02/21/2025 5:06 PM EDT us Jaxon Marinelli [employer] LAB BLOOD ORDERABLES Final Result [facility] [address] [place] [address], [place] [phone] documented in this encounter Visit Diagnoses Diagnosis Body mass index (BMI) 50.0-59.9, adult (CMS/HCC V24, CMS/[facility] V28) Prediabetes Other abnormal glucose documented in this encounter Care Teams Bank President Relationship Specialty Start Date End Date Jaxon Marinelli NP [address] [place] [address] PCP - General Family Medicine 11/12/24 documented as of this encounter
--- OUTSIDE RECORDS SUMMARY | 2025-04-10 12:01 | XMS_ITS | Patient Health Record ---
Author Organization [facility] Address [address], [place] [id number] Care Team Providers Care Transplant Coordinator Name Role Phone Jaxon Marinelli Primary Care Provider [facility], Nursing Unavailable [phone] Mary Jernigan Unavailable [phone] Chet Dewitt Unavailable [phone] Matt Gomez Unavailable [phone] [facility], W Unavailable [phone] Allergies Allergen (clinical drug ingredient) Drug/Non Drug Allergy documented on EMR Reaction Allergy Type Onset Date Status sertraline Zoloft anaphylaxis Drug Allergy Acti ve zolpidem Ambien anaphylaxis Drug Allergy Activ e Results Component Value Reference Range Notes QUANTIFERON(R)-TB GOLD PLUS, 1 TUBE Reviewed date:01/31/2025 10:47:45 AM Interpretation:Negative Performing Lab:NL2, [facility] [id number] Estuardo Graves Notes/Report: FASTING: UNKNOWN QUANTIFERON(R)-TB GOLD PLUS, 1 TUBE NEGATIVE NEGATIVE Negative test result. M. tuberculosis complex infection unlikely. NIL 0.06 MITOGEN-NIL 7.99 TB1-NIL <0.00 TB2-NIL <0.00 The Nil tube value reflects the background interferon gamma immune response of the patient's blood sample. This value has been subtracted from the patient's displayed TB and Mitogen results. Lower than expected results with the Mitogen tube prevent false-negative Quantiferon readings by detecting a patient with a potential immune suppressive condition and/or suboptimal pre-analytical specimen handling. The TB1 Antigen tube is coated with the M. tuberculosis-specific antigens designed to elicit responses from TB antigen primed CD4+ helper T-lymphocytes. The TB2 Antigen tube is coated with the M. tuberculosis-specific antigens designed to elicit responses from TB antigen primed CD4+ helper and CD8+ cytotoxic T-lymphocytes. For additional information, please refer to [email or web address].[email or web address]/faq/BRL588 (This link is being provided for informational/ educational purposes only.) COMPREHENSIVE METABOLIC PANE L Reviewed date:09/03/2024 01:13:41 PM Interpretation:Abnormal Performing Lab: Notes/Report: Sodium 139 133-145 mmol/L Potassium 4.3 3.5-5.5 mmol/L Chloride 107 96-110 mmol/L CO2 27 21-32 mmol/L Anion Gap 5 3-11 Glucose 146 70-100 mg/dL BUN 8 5-25 mg/dL Creatinine 0.87 0.50-1.10 mg/dL eGFR 86 >=60 mL/min/1.73m2 Calculati on based on the?Chronic Kidney Disease Epidemiology Collaboration (CKD-EPI) equation refit?without adjustment for race. BUN/Creatinine Ratio 9.2 Calcium 8.7 8.5-10.5 mg/dL AST (SGOT) 12 10-42 unit/L ALT (SGPT) 31 10-60 unit/L Alkaline Phosphatase 126 42-121 unit/L Total Protein 6.3 6.0-8.0 g/dL Albumin 3.2 3.2-5.0 g/dL Total Bilirubin 0.2 0.0-1.4 mg/dL COMPLETE BLOOD COUNT Reviewed date:09/03/2024 01:14:15 PM Interpretation:wbc - 12.5 Performing Lab: Notes/Report: WBC 12.5 4.8-10.8 K/mcL RBC 4.80 3.80-4.80 M/mcL Hemoglobin 14.2 11.5-16.0 g/dL Hematocrit 45.0 35.0-47.0 % MCV 93.9 79.0-98.0 FL MCH 29.6 27.0-32.0 pcg MCHC 31.6 32.0-37.0 g/dL RDW 13.6 11.0-15.0 % Platelets 298 130-400 K/mcL MPV 11.5 7.0-11.0 FL NRBC 0.0 <1.0 % NRBC Absolute 0.00 <0.10 K/mcL LIPID PANEL WITH REFLEX TO D IRECT LDL Reviewed date:09/03/2024 01:13:31 PM Interpretation:HDL - 36 Performing Lab: Notes/Report: Cholesterol 132 0-200 mg/dL Triglycerides 130 0-150 mg/dL HDL 36 >=40 mg/dL LDL Calculated 70 0-100 mg/dL VLDL Cholesterol Nirmal 26 Non HDL Chol. (LDL+VLDL) 96 <145 mg/dL Chol/HDL Ratio 3.7 0.0-4.4 THYROID STIMULATING HORMONE WITH REFLEX TO FREE T4 AND FREE T3 Reviewed date:09/03/2024 01:13:49 PM Interpretation:Normal Performing Lab: Notes/Report: TSH 0.99 0.40-4.00 mcIU/mL TREPONEMA PALLIDUM ANTIBODY WITH REFLEX TO RPR AND PARTICLE AGGLUTINATION Reviewed date:09/03/2024 01:12:53 PM Interpretation:Positive Performing Lab: Notes/Report: T. Pallidum Antibodies Positive Negative HIV 1, 2 ANTIBODY, P24 ANTIG EN WITH REFLEX TO DIFFERENTIATION Reviewed date:09/03/2024 01:12:43 PM Interpretation:Negative Performing Lab: Notes/Report: This assay is a 4th generation assay allowing for earlier detection of HIV infection by detecting the presence of the HIV-1 p24 antigen as well as the traditional antibodies to HIV type 1 (including group O) and type 2. Use of a 4th generation assay is the current CDC recommendation for HIV screening. HIV Combo AB/AG Negative Negative HEPATITIS C ANTIBODY Reviewed date:09/03/2024 01:12:36 PM Interpretation:Negative Performing Lab: Notes/Report: Hepatitis C Antibody Negative Negative CHLAMYDIA TRACHOMATIS AND NE ISSERIA GONORRHOEAE MOLECULAR STUDY Reviewed date:09/03/2024 01:12:09 PM Interpretation:Negative Performing Lab: Notes/Report: Neisseria gonorrhoeae PCR Negative Negative Chlamydia trachomatis PCR Negative Negative HEPATITIS B SURFACE ANTIGEN WITH REFLEX TO CONFIRMATION Reviewed date:09/03/2024 01:13:17 PM Interpretation:Negative Performing Lab: Notes/Report: Over the counter supplements containing high doses of biotin may interfere with this assay. If interference is suspected, patients shoud be retested after refraining from biotin supplements for 72 hours. Hepatitis B Surface Ag Negative Negative HEPATITIS B SURFACE ANTIBODY QUANTITATIVE Reviewed date:09/03/2024 01:13:58 PM Interpretation:Negative Performing Lab: Notes/Report: >=10 mIU/mL is considered to be consistent with immunity. Hepatitis B Surface Ab Negative Negative Hepatitis B Surface Ab Quantitative <3.1 HEPATITIS B CORE ANTIBODY, T OTAL Reviewed date:09/03/2024 01:12:18 PM Interpretation:Negative Performing Lab: Notes/Report: Hep B Core Total Ab Negative Negative RAPID PLASMA REAGIN WITH REF LANDON TO TITER Reviewed date:10/07/2024 10:00:05 AM Interpretation:nonreactive Performing Lab: Notes/Report: RPR Nonreactive Nonreactive TREPONEMA PALLIDUM ANTIBODY Reviewed date:10/07/2024 09:59:47 AM Interpretation:Positive Performing Lab: Notes/Report: Treponema pallidum Antibody (TP-PA) Reactive Nonreactive Test performed at [facility], [facility] [place] [address] [place] [address] Yudelka Healy MD, PhD - Rn Gastroenterology HEMOGLOBIN A1C Reviewed date:10/07/2024 09:34:47 AM Interpretation:6.3 Performing Lab: Notes/Report: Hemoglobin A1C 6.3 <6.5 % Mean Bld Glu Estim. 134 RAPID PLASMA REAGIN TITER Reviewed date:10/07/2024 09:34:39 AM Interpretation:Negative Performing Lab: Notes/Report: Rapid Plasma Reagin Titer Nonreactive Nonreactive COMPREHENSIVE METABOLIC PANE L Reviewed date:02/22/2025 03:28:58 PM Interpretation:Abnormal Performing Lab: Notes/Report: Sodium 141 133-145 mmol/L Potassium 4.5 3.5-5.5 mmol/L Chloride 109 96-110 mmol/L CO2 28 21-32 mmol/L Anion Gap 4 3-11 Glucose 113 70-100 mg/dL BUN 11 5-25 mg/dL Creatinine 0.73 0.50-1.10 mg/dL eGFR 105 >=60 mL/min/1.73m2 Calculati on based on the Chronic Kidney Disease Epidemiology Collaboration (CKD-EPI) equation refit without adjustment for race. BUN/Creatinine Ratio 15.1 Calcium 8.4 8.5-10.5 mg/dL AST (SGOT) 26 10-42 unit/L ALT (SGPT) 68 10-60 unit/L Alkaline Phosphatase 142 42-121 unit/L Total Protein 6.6 6.0-8.0 g/dL Albumin 3.2 3.2-5.0 g/dL Total Bilirubin 0.4 0.0-1.4 mg/dL COMPLETE BLOOD COUNT Reviewed date:02/22/2025 03:29:09 PM Interpretation:Abnormal Performing Lab: Notes/Report: WBC 14.9 4.8-10.8 K/mcL RBC 5.10 3.80-4.80 M/mcL Hemoglobin 15.0 11.5-16.0 g/dL Hematocrit 47.0 35.0-47.0 % MCV 92.5 79.0-98.0 FL MCH 29.5 27.0-32.0 pcg MCHC 31.9 32.0-37.0 g/dL RDW 13.1 11.0-15.0 % Platelets 285 130-400 K/mcL MPV 12.1 7.0-11.0 FL NRBC 0.0 <1.0 % NRBC Absolute 0.00 <0.10 K/mcL THYROID STIMULATING HORMONE WITH REFLEX TO FREE T4 AND FREE T3 Reviewed date:02/22/2025 02:19:21 AM Interpretation:Normal Performing Lab: Notes/Report: TSH 2.15 0.40-4.00 mcIU/mL HEMOGLOBIN A1C Reviewed date:02/22/2025 02:19:14 AM Interpretation:6.9 Performing Lab: Notes/Report: Hemoglobin A1C 6.9 <6.5 % Mean Bld Glu Estim. 151 VITAMIN D 25 HYDROXY Reviewed date:02/22/2025 02:19:31 AM Interpretation:17.3 Performing Lab: Notes/Report: Vit D, 25-Hydroxy 17.3 30.0-80.0 ng/mL Reason For Referral Reason [facility] dental DX with prediabetes Diagnosis 1 Prediabetes (R73.03) Referral Organization [facility] Referring Provider First Name Jaxon Referring Provider Last Name Yves Referring Provider Speciality Nurse Prac titioner Referred Provider Vinny Barksdale DO NOT USE, [facility] General Notes Zaid Cline 10:48:27 AM >Annie does not have dental insurance under [facility] or [employer]. I will call to verify, Zaid Cline 11/11/2024 11:09:27 AM >I spoke with Annie, she has [facility]. She scheduled a dental appt. Referral Priority Routine Referral Appointment Date 12/03/2024 Reason Roby YAÑEZ [address] [facility] Annual Exam Diagnosis 1 Encounter for screen ing for malignant neoplasm of cervix (Z12.4) Referral Organization [facility] Referring Provider First Name Jaxon Referring Provider Last Name Yves Referring Provider Speciality Nurse Josh rolle Referred Provider Gu[place]ako Ca Referred Provider Specialty OPHTHALMIC TECHNICIAN - Gyneco logy General Notes Rena Solomon 10/02/2024 11:15:44 AM > Called and left vm with office, pt is a currently patient with practiceEnrique Paris 10/03/2024 01:19:12 PM > Called and scheduled patient 11/28/24 @2:15 pm, notified patient, Rena Solomon 03/18/2025 03:15:45 PM > no answer with office left vm requesting status of appt or notes if pt was seen Referral Priority Routine Referral Appointment Date 11/28/2024 Reason [facility], [address] [place] [address] P: [phone] F: [phone] treat for ingrown toe nail Diagnosis 1 Ingrowing nail (L60. 0) Referral Organization [facility] Referring Provider First Name Jaxon Referring Provider Last Name Yves Referring Provider Speciality Nurse Josh rolle Referred Provider Vinny - DO NOT U SEJose Referred Provider Specialty Podiatry - S urgical Chiropody General Notes Breann Nunez 10:52:13 AM > Faxed to Juanito FLORES Katelyn 01/30/2025 02:59:17 PM > pt seen note scanned Referral Priority Routine Reason Please evaluate whit e tissue noted in edentulous areas and right lateral border of tongue Also raised lesion left buccal mucosa Referral Organization [facility] Referring Provider First Name Mary Referring Provider Last Name Delon Referring Provider Speciality Dental Gen eral Practice Referred Provider Eliasve - DO NOT U SE, [facility] Referred Provider Specialty Oral Surgery Referral Priority Routine Medications Medication SIG (Take, Route, Frequency, Duration) Notes Start Date End Date Status metFORMIN 500 mg 1 tab(s) orally once a day at bedtime for 90 days pls deliver to [facility] Active amLODIPine 5 mg 1 tab(s) orally once a day for 90 days pls deliver all meds to [facility] 10/02/2024 Active OLANZapine 15 mg 2 tab(s) orally once a day at bedtime Active prazosin 1 mg 1 cap(s) orally two times a day Active Albuterol (Eqv-ProAir HFA) 90 mcg/inh 2 INH inhaled every 6 hours Active Zepbound 5 mg/0.5 mL as directed subcutaneously once a week for 28 days pls deliver all meds to [facility] 10/02/2024 Active Immunizations Vaccine Route Administration Date Status Comme nts Tdap Unknown 05/29/2023 Administered Pfizer-Biontech Covid-19 Vaccine Administration - First Dose (Single Dose 30MCG/0.3ML 1ST) Unknown 02/04/2021 Administered Pfizer-Biontech Covid-19 Vaccine Administration-Second Dose (Single Dose 30MCG/0.3ML 2ND) Unknown 02/25/2021 Administered COMIRNATY Pfizer COVID-19 Vaccine 12y+ Unknown 07/13/2024 Administered Heplisav-B IM Intramuscular 10/02/2024 Administered [facility]: [id number] Social History Tobacco Use: Social History Observation [...] tobacco use and advised to quit: 10/02/2024 Problems Problem Type SNOMED Code ICD Code Onset Dates Problem Status W/U Status Risk Notes Problem Polycystic ovary syndrome (disorder) (858040220) Polycystic ovarian syndrome (E28.2) Active confirmed Problem Morbid obesity (disorder) (870512125) Morbid (severe) obesity due to excess calories (E66.01) Active confirmed Problem Nicotine dependence (07811450) Nicotine dependence, cigarettes, with other nicotine-induced disorders (F17.218) Active confirmed Problem Essential hypertension (55531494) Essential (primary) hypertension (I10) Active confirmed Problem Body mass index 40+ - morbidly obese (558974997) Body mass index (BMI) 50-59.9 , adult (Z68.43) Active confirmed Problem History of infectious disease (015534646) Personal history of other infectious and parasitic diseases (Z86.19) Active confirmed Problem Prediabetes (349467146) Prediabetes (R73.03) Active confirmed Problem Sheltered homelessness (555057073651970 ) Sheltered homelessness (Z59.01) Active confirmed Vital Signs Temperature 97.1 degrees Fahrenheit 04/08/2025 Blood pressure diastolic 96 03/25/2025 Oximetry 97 03/25/2025 Height 63 in 04/08/2025 Blood pressure systolic 132 03/25/2025 Weight 287.0 lbs 04/08/2025 BMI 50.83 kg/m2 04/08/2025 Procedures Procedure Date Ordered Date Performed Result Body Sit e Pulmonary Function Test 10/02/2024 11/21/2024 normal Encounters Encounter Location Date Provider Diagnosis [facility] [address] [place] [id number] 10/17/2024 [facility] [address] [place] [address] [place] [id number] 10/24/2024 [facility] [address] [place] [id number] 10/31/2024 [facility] [address] [place] [address] [place] [id number] 08/30/2024 Nursing [facility] Sheltered homelessness Z59.01 ; Encounter for screening for cardiovascular disorders Z13.6 ; Encounter for screening for respiratory tuberculosis Z11.1 ; Encounter for screening for infectious and parasitic diseases, unspecified Z11.9 ; Encounter for screening for other suspected endocrine disorder Z13.29 ; Encounter for screening for COVID-19 Z11.52 and Encounter for screening for depression Z13.[address] [id number] 09/02/2024 Nursing [facility] Encounter for screening, unspecified Z13.[address] [id number] 10/02/2024 Eddieliza Casionan Encounter for screening for COVID-19 Z11.52 ; Encounter for general adult medical examination with abnormal findings Z00.01 ; Body mass index (BMI) 50-59.9 , adult Z68.43 ; Essential (primary) hypertension I10 ; Polycystic ovarian syndrome E28.2 ; Nicotine dependence, cigarettes, with other nicotine-induced disorders F17.218 ; Sheltered homelessness Z59.01 ; Personal history of other infectious and parasitic diseases Z86.19 ; Ingrowing nail L60.0 ; Morbid (severe) obesity due to excess calories E66.01 ; Encounter for immunization Z23 ; Encounter for screening mammogram for malignant neoplasm of breast Z12.31 and Other forms of dyspnea R06.09 [facility] [address] [place] [address] [place] [id number] 10/10/2024 Eddieliza Casionan [facility] [address] [place] [address] [place] [id number] 10/17/2024 Eddieliza Casionan Prediabetes R73.03 ; Body mass index (BMI) 50-59.9 , adult Z68.43 ; Nicotine dependence, cigarettes, with other nicotine-induced disorders F17.218 and Person consulting for explanation of examination or test findings Z71.[address] [phone] 12/03/2024 Mary Jernigan [facility] [address] [address] 12/31/2024 Mary Delon [address] [id number] 02/17/2025 Eddieliza Casionan Encounter for screening for COVID-19 Z11.52 ; Prediabetes R73.03 ; Polycystic ovarian syndrome E28.2 ; Body mass index (BMI) 50-59.9 , adult Z68.43 ; Essential (primary) hypertension I10 and Nicotine dependence, cigarettes, with other nicotine-induced disorders F17.[address] [id number] 02/17/[address], [place] [id number] 02/21/2025 Nursing [facility] Encounter for screening, unspecified Z13.9 [facility] [address] [address] 02/27/2025 Matt Gomez [address] [id number] 03/18/2025 Nursing [facility] Morbid (severe) obesity due to excess calories E66.[address] [id number] 03/25/2025 Eddieliza Casionan Morbid (severe) obesity due to excess calories E66.[address] [id number] 04/01/2025 Nursing [facility] Morbid (severe) obesity due to excess calories E66.[address] [id number] 04/08/2025 Nursing [facility] Morbid (severe) obesity due to excess calories E66.[address] [id number] 08/30/2024 [facility] [address] [place] [id number] 10/22/2024 Eddieliza Casionan [address] [id number] 11/05/2024 Eddieliza Casionan [address] [id number] 02/17/2025 Eddieliza Casionan [address] [id number] 04/08/2025 Eddieliza Casionan Morbid (severe) obesity due to excess calories E66.01 Assessments Encounter Date Diagnosis (ICD Code) Assessment Notes Treatment Notes Treatment Clinical Notes Section Notes 08/30/2024 Encounter for screening for cardiovascular disorders (ICD-10 - Z13.6) 08/30/2024 Sheltered homelessness (ICD-10 - Z59.01) Medical, social and psych hx reviewed and documented. [facility] records obtained and immunization hx updated. Med reconcilliation completed with pt and pharmacy. Pt does not report any urgent issues at time of call, pt scheduled for next available intake with provider.Instructed pt to come to clinic prior to scheduled appt to have new intake labs drawn. Encouraged pt to contact clinic with any issues that may arise prior to scheduled appt. 09/02/2024 Encounter for screening, unspecified (ICD-10 - Z13.9) Lab work drawn as ordered, per protocol using aseptic technique. Client will be notified of all lab values within two weeks, Client agrees with plan, allowed to clarify questions about plan. 10/02/2024 Encounter for general adult medical examination with abnormal findings (ICD-10 - Z00.01) Annual PE performed.General recommendation for good health made: brush/floss your teeth 2x per day. Eat a healthy diet and obtain 30 minutes of aerobic exercise 5/7 days per week. Maintain high in take of water and avoid soda and energy drinks. Get 8 hours of sleep every night. 10/02/2024 Encounter for screening for COVID-19 (ICD-10 - Z11.52) Covid screening is negative. Discussed in detail with patient how to practice social distancing by avoiding public spaces and crowds now, wearing a mask in public to keep nose and mouth covered, and washing hands frequently especially before eating and after using the bathroom. Return to clinic if you develop any symptoms of concern to be rescreened or go to the emergency room if you are having concerning symptoms for COVID-19. 10/17/2024 Body mass index (BMI) 50-59.9 , adult (ICD-10 - Z68.43) Pending PA for Zepbound 10/17/2024 Prediabetes (ICD-10 - R73.03) A1C 6.3 Engaged discussion on maintaining healthy lifestyle: healthy diet low on fats and simple carbohydrates, and regular physical exercise of at least 30 minutes daily 02/17/2025 Prediabetes (ICD-10 - R73.03) Tolerating metformin 02/17/2025 Encounter for screening for COVID-19 (ICD-10 - Z11.52) Covid screening is negative. Discussed in detail with patient how to practice social distancing by avoiding public spaces and crowds now, wearing a mask in public to keep nose and mouth covered, and washing hands frequently especially before eating and after using the bathroom. Return to clinic if you develop any symtpoms of concern to be rescreened or go to the emergency room if you are having concerning symptoms for COVID-19. 02/21/2025 Encounter for screening, unspecified (ICD-10 - Z13.9) Diagnostic labs drawn as ordered per protocol using aseptic technique. We will attempt to reach you by telephone to discuss the test results. If we cannot reach you by telephone, we will mail you your results to the address we have on file. In all cases, results will be reviewed at your next office visit. We will contact you sooner if you have a telephone or address where we can reach you for abnormal test results requiring immediate action. Labs drawn by: LF . 03/18/2025 Morbid (severe) obesity due to excess calories (ICD-10 - E66.01) Initial injection of Zepbound 2.5mg administered as ordered subcutaneously into Right thigh, pt. advised to be aware of GI side effects like nausea and continue to drink water and focus on protein intake for meals. Pt. advised to RTC in one week for next injection, pt. agrees with plan. 03/25/2025 Morbid (severe) obesity due to excess calories (ICD-10 - E66.01) zepbound administered per flag signaler instruction and provider order. Skin prepped with alcohol pad administered SQ to pt abdomen pt tolerated well. Pt reports slight constipation since starting no other side effects - she reports she did have a BM this week encouraged water intake. instructed to return in one week for injection pt reports understanding 04/01/2025 Morbid (severe) obesity due to excess calories (ICD-10 - E66.01) Zepbound 2.5mg administered as ordered subcutaneously into lower left side of abdomen, pt. advised to be aware of GI side effects like nausea and continue to drink water and focus on protein intake for meals. Pt. advised to RTC in one week for next injection, pt. agrees with plan. 04/08/2025 Morbid (severe) obesity due to excess calories (ICD-10 - E66.01) Zepbound 2.5mg administered as ordered subcutaneously into lower right side of abdomen. Pt. advised to RTC in one week for next injection, pt. agrees with plan. 04/08/2025 Morbid (severe) obesity due to excess calories (ICD-10 - E66.01) 08/30/2024 Encounter for screening for respiratory tuberculosis (ICD-10 - Z11.1) 10/02/2024 Body mass index (BMI) 50-59.9 , adult (ICD-10 - Z68.43) Agrees that she should start walking more and eat healthier 10/17/2024 Nicotine dependence, cigarettes, with other nicotine-induced disorders (ICD-10 - F17.218) continues to smoke 02/17/2025 Polycystic ovarian syndrome (ICD-10 - E28.2) Has appt with OPHTHALMIC TECHNICIAN 08/30/2024 Encounter for screening for infectious and parasitic diseases, unspecified (ICD-10 - Z11.9) 10/02/2024 Essential (primary) hypertension (ICD-10 - I10) Elevated BP. She reports that she was on treatment in the past. Amlodipine Serious S/E discussed: chest pain, ND, hypotension, hepatitis, hypersensitivity reactions. Lesser S/E: peripheral edema, fatigue, palpitations. Dizziness, nausea, flushing, skin reactions. SMBP program reviewed with pt. Discussed how BP cuff works, how often BP readings need to be done and that a staff will contact pt weekly for the next month for the readings. 10/17/2024 Person consulting for explanation of examination or test findings (ICD-10 - Z71.2) Reviewed results of recent diagnostic testing with client. Testing was (ab)normal. Future plan of action discussed. 02/17/2025 Body mass index (BMI) 50-59.9 , adult (ICD-10 - Z68.43) Discussed GLP-1 agonist Side effects : nausea, diarrhea, vomiting, abd pain and decreased appetite. Serious side effects: thyroid cancer and pancreatitis discussed in detail. 08/30/2024 Encounter for screening for other suspected endocrine disorder (ICD-10 - Z13.29) 10/02/2024 Polycystic ovarian syndrome (ICD-10 - E28.2) She agrees to schedule self with he OPHTHALMIC TECHNICIAN who seen has not seen for more than a year 02/17/2025 Essential (primary) hypertension (ICD-10 - I10) Agrees to have BP checked weekly 10/02/2024 Nicotine dependence, cigarettes, with other nicotine-induced disorders (ICD-10 - F17.218) She has no plan of stopping yet 02/17/2025 Nicotine dependence, cigarettes, with other nicotine-induced disorders (ICD-10 - F17.218) Encouraged abstinence 08/30/2024 Encounter for screening for depression (ICD-10 - Z13.31) PHQ-9 assessed score was 2 - minimal depression. Pt already engaged in MH tx in community through [facility] and compliant with medications. 08/30/2024 Encounter for screening for COVID-19 (ICD-10 - Z11.52) Covid verbal screening negative. 10/02/2024 Sheltered homelessness (ICD-10 - Z59.01) Recently housed with FO 10/02/2024 Personal history of other infectious and parasitic diseases (ICD-10 - Z86.19) Reports treponema treatment in the past 10/02/2024 Ingrowing nail (ICD-10 - L60.0) Requests referral to podiatry 10/02/2024 Morbid (severe) obesity due to excess calories (ICD-10 - E66.01) Asking to be started on a GLP1-agonis. Side effects reviewed: nausea, diarrhea, vomiting, abd pain and decreased appetite. Serious side effects: thyroid cancer and pancreatitis discussed in detail. 10/02/2024 Encounter for immunization (ICD-10 - Z23) Screening performed for vaccine contraindications prior to administration. VIS reviewed. No contraindications for vaccine administration. Heplisav B # 1 vaccine given per protocol. No adverse outcome with administration of vaccine. Next dose due 10/02/2024 Encounter for screening mammogram for malignant neoplasm of breast (ICD-10 - Z12.31) agrees to set up mammo 10/02/2024 Other forms of dyspnea (ICD-10 - R06.09) agrees to have PFT 08/30/2024 Other Not interested in dental at this time. Time spent in visit: 35 minutes 10/02/2024 Other Labs drawn per protocol, no difficulties, sent to lab, pt to RTC for f/u 10/17/2024 Other Time spent in v isit: 8 minutes 02/17/2025 Other Plan Of Treatment Pending Test Test Name Order Date CBC 02/17/2025 COMPREHENSIVE METABOLIC PANEL 02/17/2025 GLYCOHEMOGLOBIN PROFILE 02/17/2025 LIPID PROFILE 08/30/2024 QUANTIFERON TB GOLD 08/30/2024 THYROID PROFILE 02/17/2025 TSH CASCADE 08/30/2024 VITAMIN D, 25-HYDROXY 02/17/2025 Shandra Screening Digital 10/02/2024 COMPREHENSIVE METABOLIC PANEL 08/30/2024 TREPONEMA PALLIDUM ANTIBODY WITH REFLEX TO RPR AND PARTICLE AGGLUTINATION 08/30/2024 HEPATITIS C ANTIBODY 08/30/2024 MICROALBUMIN CREATININE URINE RATIO 10/2024 Next Appt Details Provider Name:Mary tilley, 07/01/2025 02:00:00 PM, [address] [place], [address], Insurance Providers Payer Name Payer Address Payer Phone Subscriber Number Group Number Insured Name Patient Relationship to Insured Coverage Start Date Coverage End Date [facility] [address] [place] [phone] [id number] Annie Lazcano Self - patient is the insured 4 [place] Part [place] [employer] [address] [facility] [place] [address] [id number] Annie Lazcano Self - patient is the insured 5 [place] Medicaid Standard [address] [place] [address] [id number] Annie Lazcano Self - patient is the insured 5 [employer] [address] [place] [address] [id number] Annie Lazcano Self - patient is the insured 4 Medications Administered Medication Instructions Date of Administration Dosage Notes UNCLASSIFIED DRUGS 03/18/2025 2.5 mg Zepbound 2.5 mg/0.5 mL Lot: [id number] ND: 9532-1341-87 UNCLASSIFIED DRUGS 03/25/2025 2.5 mg Zepbound 2.5mg/0.5ml LOT [id number] EXP 10/29/2026 NDC [id number] UNCLASSIFIED DRUGS 04/01/2025 2.5 mg Zepbound 2.5 mg/0.5 mL Lot: [id number] NDC: 4257-5595-26 UNCLASSIFIED DRUGS 04/08/2025 2.5 mg Zepbound 2.5 mg/0.5 mL Lot: [id number] NDC: 5537-3587-21 Medical (General) History Medical History History ICD Code bipolar ptsd hypothroidism ASthma Arthritis High BP Smoker Surgical History Surgery Date(Month/Year) Part of cervix removed due t o presence of cancer cells - [facility] 2021 Hospitalization History Reason Date(Month/Year) [facility] [place] - psych admission 2022
[2025-04-10 12:28] LABS: Syphilis Screen Reactive (Nonreactive)
[2025-04-10 13:12] LABS: HBsAGNum1 0.30 S/CO (0.00-0.99); HIV Num 1 0.05 S/CO (0.00-0.99); Hepatitis B Surface Antigen Negative (Negative); ~HepC Num1 0.10 S/CO (0.00-0.79); ~Hepatitis C Antibody Nonreactive (Nonreactive)
[2025-04-15 07:42] LABS: T.Pallidum Particle Agg Test Reactive (Nonreactive)
== END 2025-04-10 11:08 | disposition home or self-care (01) ==
LOC: HO.LAB 11:07
PROVIDERS: Visit Provider Obstetrics & Gynecology
DX: N87.0 Mild cervical dysplasia (principal); Z20.2 Contact with and (suspected) exposure to infections with a predominantly sexual mode of transmission; Z11.3 Encounter for screening for infections with a predominantly sexual mode of transmission; Z11.4 Encounter for screening for human immunodeficiency virus [HIV]; Z11.59 Encounter for screening for other viral diseases; Z79.2 Long term (current) use of antibiotics
CPT/HCPCS: 36415; 86592; 86780; 86803; 87340; 87389; 99212

== ENCOUNTER 2025-04-10 11:19 | Outpatient (AMB) | payer OTHER, SELFPAY ==
--- NOTE | 2025-04-10 11:26 | MHC.OFFVIS ---
Intake Visit Reasons: HOLLEY/ colpo results Allergies aripiprazole (Abilify) Allergy (Unknown, Verified 03/27/25 11:49) hives latex (LATEX) Allergy (Unknown, Verified 03/27/25 11:49) RASH sertraline (From Zoloft) Allergy (Unknown, Verified 03/27/25 11:49) raised LFTs/angioedema zolpidem (Ambien) Allergy (Unknown, Verified 03/27/25 11:49) hives Iodinated Contrast Media (IV Contrast Dye) Allergy (Verified 03/27/25 11:49) Hives HPI Comments Details: Presenting post colpo for follow-up. The patient is doing well with no complaints. The pathology showed the following: A. Endocervix, curettage: - Low-grade squamous intraepithelial lesion (WATSON 1). - Background inflamed cervical transformation zone mucosa with reactive changes. B. Cervix, 5 o'clock, biopsy: - Low-grade squamous intraepithelial lesion (WATSON 1). - No endocervical epithelium identified. C. Cervix, 6 o'clock, biopsy: - Scant superficial fragments of squamous epithelium within normal limits. - Definitive endocervical tissue not identified. D. Cervix, 7 o'clock, biopsy: Fragments of squamous epithelium with mild reactive changes; no endocervical epithelium identified. E. Cervix, 12 o'clock, biopsy: - Low-grade squamous intraepithelial lesion (WATSON 1). - No endocervical epithelium identified. Comment: The patient's history of a low-grade lesion in 2021 is noted. The patient's current Pap is pending at the time of this repor Pap smear was the following: Satisfactory for evaluation. Negative for intraepithelial lesion or malignancy. No endocervical cells seen. Microorganisms consistent with Trichomonas vaginalis. Mild inflammation. HPV High Risk: Negative HPV Genotyping 16: Negative HPV Genotyping 18: Negative In addition, the patient is presenting for a test of cure. The patient took the antibiotics course; she informed her partner who was treated too. The patient reports no intercourse since then. STD serology were taken today [facility] Medical History (Updated 04/10/25 @ 11:39 by Jose Mendoza MD) WATSON III (cervical intraepithelial neoplasia grade III) with severe dysplasia History of electroconvulsive therapy H/O abnormal cervical Papanicolaou smear DONNA (obstructive sleep apnea) Morbid obesity Morbid obesity due to excess calories History of hypothyroidism History of syphilis Encounter for Essure implantation Elevated WBCs HENRIQUEZ (nonalcoholic steatohepatitis) Neutrophilia Anemia Asthma PCOS (polycystic ovarian syndrome) Hypothyroid Bipolar 1 disorder Family History Paternal Grandfather Colon cancer Paternal Grandmother Breast cancer Maternal Grandmother Uterine cancer Father Arthritis Asthma Diabetes Hypertension Stroke Mother Hypertension Mental health disorder Sister Hypertension Diabetes Sister No problems noted. Sister Depression Obesity Brother No problems noted. Sister Lupus Son No problems noted. Daughter No problems noted. Social History Housing: Homeless Alcohol intake: former Patient Tobacco Use Status: Current everyday Tobacco user Tobacco use type: Cigarette Cigarette Packs Per Day: 1 Cigarettes Per Day: 15 Years Smoked: 22 e-Cigarette/Vaping Use: Currently Using Second Hand Smoke Exposure: No Substance Use Type: Marijuana and Caffiene service: No Current occupational status: unemployed Sexual orientation: Straight/Heterosexual Gender identity: Female Cognitive needs: No Hearing needs: No Vision needs: Yes Female Reproductive History Menstrual Age of Menarche: 11 Review of Systems Const All systems reviewed & are unremarkable except as noted in HPI and below Reports as per HPI and Reports no additional complaints GI Reports no additional complaints Reports no additional complaints Physical Exam General: Yes no CVA tenderness External Female Exam: normal external appearance and normal appearance of the urethra Speculum Exam - Vagina: normal appearance of the vagina, normal palpation, no lesions and no masses Speculum Exam - Cervix: normal appearance of the cervix, normal palpation, no lesions, no masses and nontender Bimanual exam- vagina & uterus: normal bimanual exam, normal palpation, uterine size normal, normal palpation, uterine shape normal, No Cervical tenderness present and non-tender Bimanual Exam- Adnexa, other: normal adnexae Back/Spine/Pelvis Back: no CVA tenderness Assessment & Plan Assessment & Plan (1) Dysplasia of cervix, low grade (WATSON 1): Code(s): N87.0 - Mild cervical dysplasia Category: Medical Plan: Discussed with the patient the pathology results of the colposcopy biopsies & endocervical curettage ( mild dysplasia-WATSON 1). Discussed with the patient the sensitivity specificity, positive and negative predictive value in detecting cervical cancer in addition discussed the regression, persistence and progression rates. Recommended co-testing in 12 months, if cytology and or HPV are abnormal will proceed was colposcopy biopsy and endocervical curettage, if lesions gets worse or stays persistent for 2 years will proceed with loop electric excision procedure. Instructions given to the patient to schedule a co test appointment in 1 year. All questions answered the patient verbalized understanding. (2) Trichomonas contact, treated: Code(s): Z20.2 - Contact with and (suspected) exposure to infections with a predominantly sexual mode of transmission Category: Medical Plan: GC/CT with BV panel collected. Instructions given the patient to schedule a three-month HOLLEY appointment. Coding Level of Care Code Est Pt Level 3 (10858) Diagnoses Dysplasia of cervix, low grade (WATSON 1) N87.0 Trichomonas contact, treated Z20.2
== END 2025-04-10 11:44 | disposition home or self-care (01) ==
LOC: HO.HWS 11:19
PROVIDERS: Visit Provider Obstetrics & Gynecology
DX: N87.0 Mild cervical dysplasia (principal); Z20.2 Contact with and (suspected) exposure to infections with a predominantly sexual mode of transmission
CPT/HCPCS: 99213

== ENCOUNTER 2025-04-10 11:44 | Outpatient (REF) | payer OTHER, SELFPAY ==
[2025-04-10 15:12] LABS: Bacterial Vaginosis PCR POSITIVE (Negative); Candida Group PCR NOT DETECTED (Not Detect); Candida glab krusei PCR NOT DETECTED (Not Detect); Trichomonas vaginalis PCR DETECTED (Not Detect)
[2025-04-10 15:43] LABS: CT PCR NOT DETECTED (Not Detect.); NG PCR NOT DETECTED (Not Detect.)
== END 2025-04-10 11:45 | disposition home or self-care (01) ==
LOC: HO.LNP 11:44
PROVIDERS: Visit Provider Obstetrics & Gynecology
DX: Z11.4 Encounter for screening for human immunodeficiency virus [HIV] (principal); Z11.3 Encounter for screening for infections with a predominantly sexual mode of transmission; Z11.59 Encounter for screening for other viral diseases; Z20.2 Contact with and (suspected) exposure to infections with a predominantly sexual mode of transmission
CPT/HCPCS: 81515; 87491; 87591

== ENCOUNTER 2025-04-15 11:24 | Outpatient (AMB) | payer OTHER, SELFPAY ==
--- NOTE | 2025-04-15 11:25 | A.OFFVIS_ITS ---
Intake Visit Reasons: Labs results Allergies aripiprazole (Abilify) Allergy (Unknown, Verified 03/27/25 11:49) hives latex (LATEX) Allergy (Unknown, Verified 03/27/25 11:49) RASH sertraline (From Zoloft) Allergy (Unknown, Verified 03/27/25 11:49) raised LFTs/angioedema zolpidem (Ambien) Allergy (Unknown, Verified 03/27/25 11:49) hives Iodinated Contrast Media (IV Contrast Dye) Allergy (Verified 03/27/25 11:49) Hives HPI Comments Details: The patient scheduled a telehealth visit to discuss the results of syphilis screening test RPR negative Treponema particle agglutination test positive T. Pallidum antibody EIA positive The patient gives a history of syphilis treated in the past since then since 2018 RPR is negative and treponemal tests including TP PA and tPA-EIA has been positive The patient has a recent history of Trichomonas treated and scheduled for test of cure [facility] Medical History (Updated 04/15/25 @ 11:56 by Jose Mendoza MD) WATSON III (cervical intraepithelial neoplasia grade III) with severe dysplasia History of electroconvulsive therapy H/O abnormal cervical Papanicolaou smear DONNA (obstructive sleep apnea) Morbid obesity Morbid obesity due to excess calories History of hypothyroidism History of syphilis Encounter for Essure implantation Elevated WBCs HENRIQUEZ (nonalcoholic steatohepatitis) Neutrophilia Anemia Asthma PCOS (polycystic ovarian syndrome) Hypothyroid Bipolar 1 disorder Family History Paternal Grandfather Colon cancer Paternal Grandmother Breast cancer Maternal Grandmother Uterine cancer Father Arthritis Asthma Diabetes Hypertension Stroke Mother Hypertension Mental health disorder Sister Hypertension Diabetes Sister No problems noted. Sister Depression Obesity Brother No problems noted. Sister Lupus Son No problems noted. Daughter No problems noted. Social History Housing: Homeless Alcohol intake: former Patient Tobacco Use Status: Current everyday Tobacco user Tobacco use type: Cigarette Cigarette Packs Per Day: 1 Cigarettes Per Day: 15 Years Smoked: 22 e-Cigarette/Vaping Use: Currently Using Second Hand Smoke Exposure: No Substance Use Type: Marijuana and Caffiene service: No Current occupational status: unemployed Sexual orientation: Straight/Heterosexual Gender identity: Female Cognitive needs: No Hearing needs: No Vision needs: Yes Female Reproductive History Menstrual Age of Menarche: 11 Review of Systems Const All systems reviewed & are unremarkable except as noted in HPI and below Reports as per HPI and Reports no additional complaints GI Reports no additional complaints Reports no additional complaints Telehealth Telehealth [facility] Location of provider rendering services: practice address Location of patient: address on file Patient Identification confirmed using: Name, : Yes Telehealth method: video Patient verbally consented to treatment: Yes Patient verbally consented to billing insurance company: Yes Patient informed of any privacy concerns related to visit: Yes Minutes spent on Phone/Video with Pt.: 3 Assessment & Plan Assessment & Plan (1) History of syphilis: Code(s): Z86.19 - Personal history of other infectious and parasitic diseases Category: Medical Plan: Discussed with the patient the above results and explained to the patient that since the patient has a history of syphilis tPA and TP-EIA were was B positive but since RPR is negative and the patient has recent history of Trichomonas will repeat RPR in 4 weeks to make sure it remains negative. All questions answered, the patient verbalized understanding I spent a total of 20 minutes reviewing the chart, talking to the patient via vi divya and documenting in the medical record. Orders: Orders Syphilis Screen Today Z20.2 - Contact with and (suspected) exposure to infections with a predominantly sexual mode of transmission Coding Level of Care Code Tele Est Pt Level 3 (72775) Diagnoses History of syphilis Z86.19
--- OUTSIDE RECORDS SUMMARY | 2025-04-15 12:36 | XMS_ITS | Patient Health Record ---
Author Organization [facility] Address [address], [place] [id number] Care Team Providers Care Snack Bar Attendant Name Role Phone Jaxon Marinelli Primary Care Provider [phone] [facility], Nursing Unavailable [phone] Mary Jernigan Unavailable [phone] Chet Dewitt Unavailable [phone] Matt Gomez Unavailable [phone] [facility], W Unavailable [phone] Allergies Allergen (clinical drug ingredient) Drug/Non Drug Allergy documented on EMR Reaction Allergy Type Onset Date Status sertraline Zoloft anaphylaxis Drug Allergy Acti ve zolpidem Ambien anaphylaxis Drug Allergy Activ e Results Component Value Reference Range Notes QUANTIFERON(R)-TB GOLD PLUS, 1 TUBE Reviewed date:01/31/2025 10:47:45 AM Interpretation:Negative Performing Lab:NL2, [facility] [id number] Estuardo Graves Notes/Report: FASTING: UNKNOWN QUANTIFERON(R)-TB [...] T-lymphocytes. For additional information, please refer to [email or web address] (This link is being provided for informational/ [...] Antibody (TP-PA) Reactive Nonreactive Test performed at [facility], [facility] [place] [address] Yudelka Healy MD, PhD - [employer] HEMOGLOBIN A1C Reviewed date:10/07/2024 09:34:47 AM Interpretation:6.3 [...] 17.3 30.0-80.0 ng/mL Reason For Referral Reason [facility] dental DX with prediabetes Diagnosis 1 Prediabetes (R73.03) Referral Organization [facility] Referring Provider First Name Jaxon Referring Provider [...] Reason Roby YAÑEZ [address] [facility] Annual Exam Diagnosis 1 Encounter for screen ing for malignant neoplasm of cervix (Z12.4) Referral Organization [facility] Referring Provider First Name Jaxon Referring Provider Last Name Yvse Referring Provider Speciality Nurse Josh rolle Referred Provider [place] Referred Provider Specialty PUBLIC HEALTH TECHNICIAN - Gyneco logy General Notes Rena [...] Appointment Date 11/28/2024 Reason SANDR[facility]ry[facility] Acosta, [address] [place] [address] P: [phone] F: [phone] treat for ingrown toe nail Diagnosis 1 Ingrowing nail (L60. 0) Referral Organization [facility] Referring Provider First Name Jaxon Referring Provider [...] raised lesion left buccal mucosa Referral Organization [facility] Referring Provider First Name Mary Referring Provider Last Name Delon Referring Provider Speciality Dental Gen eral Practice Referred Provider Eliasve - DO NOT U SE, [facility] Referred Provider Specialty Oral Surgery Referral Priority Routine Medications Medication SIG (Take, Route, Frequency, Duration) Notes Start Date End Date Status Zepbound 5 mg/0.5 mL as directed subcutaneously once a week for 28 days pls deliver all meds to [facility] 10/02/2024 Active metFORMIN 500 mg 1 tab(s) orally once a day at bedtime for 90 days pls deliver to [facility] Active amLODIPine 5 mg 1 tab(s) orally once a day for 90 days Active Albuterol (Eqv-ProAir HFA) 90 mcg/inh 2 INH inhaled every 6 hours Active OLANZapine 15 mg 2 tab(s) orally once a day at bedtime Active prazosin 1 mg 1 cap(s) orally two times a day Active Immunizations Vaccine Route Administration Date Status Comme nts Tdap Unknown 05/29/2023 Administered Pfizer-BiontKlique Covid-19 Vaccine Administration - First Dose (Single Dose 30MCG/0.3ML 1ST) Unknown 02/04/2021 Administered Pfizer-Biontech Covid-19 Vaccine Administration-Second Dose (Single Dose 30MCG/0.3ML 2ND) Unknown 02/25/2021 Administered COMIRNATY Pfizer COVID-19 Vaccine 12y+ Unknown 07/13/2024 Administered Heplisav-B IM Intramuscular 10/02/2024 Administered [facility]: [id number] Social History Tobacco Use: Social History Observation [...] emily t Patient counseled on the salima medleys of tobacco use and advised to quit: 10/02/2024 Problems Problem Type SNOMED Code ICD Code Onset Dates Problem Status W/U Status Risk Notes Problem Polycystic ovary syndrome (disorder) (290313252) Polycystic ovarian syndrome (E28.2) Active confirmed Problem Morbid obesity (disorder) (965186150) Morbid (severe) obesity due to excess calories (E66.01) Active confirmed Problem Nicotine dependence (69615901) Nicotine dependence, cigarettes, with other nicotine-induced disorders (F17.218) Active confirmed Problem Essential hypertension (97665822) Essential (primary) hypertension (I10) Active confirmed Problem Body mass index 40+ - morbidly obese (772663010) Body mass index (BMI) 50-59.9 , adult (Z68.43) Active confirmed Problem History of infectious disease (684732855) Personal history of other infectious and parasitic diseases (Z86.19) Active confirmed Problem Prediabetes (754126780) Prediabetes (R73.03) Active confirmed Problem Sheltered homelessness (368998972779854 ) Sheltered homelessness (Z59.01) Active confirmed Vital Signs Temperature 97.1 degrees Fahrenheit 04/08/2025 Blood pressure diastolic 96 03/25/2025 Oximetry 97 03/25/2025 Height 63 in 04/15/2025 Blood pressure systolic 132 03/25/2025 Weight 285.8 lbs 04/15/2025 BMI 50.62 kg/m2 04/15/2025 Procedures Procedure Date Ordered Date Performed Result Body Sit e Pulmonary Function Test 10/02/2024 11/21/2024 normal Encounters Encounter Location Date Provider Diagnosis [facility] [address] [place] [address] [id number] 10/17/2024 [facility] [address] [place] [address] [id number] 10/24/20[address] [facility] [address] [address] [id number] 10/31/2024 [facility] [address] [id number] 04/15/2025 Nursing [facility] Morbid (severe) obesity due to excess calories E66.01 [facility] [address] [place] [address] [place], [place] [id number] 08/30/2024 Nursing [facility] Sheltered homelessness Z59.01 ; Encounter for screening for cardiovascular disorders Z13.6 ; Encounter for screening for respiratory tuberculosis Z11.1 ; Encounter for screening for infectious and parasitic diseases, unspecified Z11.9 ; Encounter for screening for other suspected endocrine disorder Z13.29 ; Encounter for screening for COVID-19 Z11.52 and Encounter for screening for depression Z13.[address] [id number] 09/02/2024 Nursing [facility] Encounter for screening, unspecified Z13.[address] [id number] 10/02/2024 Eddieliza C[facility]an Encounter for screening for [...] and Other forms of dyspnea R06.09 [facility] [address] [place] [address] [place], [place] [id number] 10/10/2024 Eddieliza [facility]an [facility] [address] [place] [address] [place], [place] [id number] 10/17/2024 Eddieliza C[facility]an Prediabetes R73.03 ; Body mass index (BMI) 50-59.9 , adult Z68.43 ; Nicotine dependence, cigarettes, with other nicotine-induced disorders F17.218 and Person consulting for explanation of examination or test findings Z71.2 [facility] [address] [phone] 12/03/2024 Mary Jernigan [facility] [address] [phone] 12/31/2024 Mary Jernigan [address] [id number] 02/17/2025 Eddieliza [facility] Encounter for screening for COVID-19 Z11.52 ; Prediabetes R73.03 ; Polycystic ovarian syndrome E28.2 ; Body mass index (BMI) 50-59.9 , adult Z68.43 ; Essential (primary) hypertension I10 and Nicotine dependence, cigarettes, with other nicotine-induced disorders F17.[address] [id number] 02/17/[address] [id number] 02/21/2025 Nursing [facility] Encounter for screening, unspecified Z13.9 [facility] [address] [phone] 02/27/2025 Matt Gomez [address] [id number] 03/18/2025 Nursing [facility] Morbid (severe) obesity due to excess calories E66.[address] [id number] 03/25/2025 Eddieliza Casionan Morbid (severe) obesity due to excess calories E66.[address] [id number] 04/01/2025 Nursing [facility] Morbid (severe) obesity due to excess calories E66.[address] [id number] 04/08/2025 Nursing [facility] Morbid (severe) obesity due to excess calories E66.[address] [id number] 08/30/2024 [facility] [address] [place] [id number] 10/22/2024 Eddieliza Casionan [address] [id number] 11/05/2024 Eddieliza Casionan [address] [id number] 02/17/2025 Eddieliza Casionan [address] [id number] 04/08/2025 Eddieliza C[facility]an Morbid (severe) obesity due to excess calories E66.01 Assessments Encounter Date Diagnosis (ICD Code) Assessment Notes Treatment Notes Treatment Clinical Notes Section Notes 04/15/2025 Morbid (severe) obesity due to excess calories (ICD-10 - E66.01) 08/30/2024 Encounter for screening for cardiovascular disorders [...] calories (ICD-10 - E66.01) zepbound administered per membership director instruction and provider order. Skin prepped with [...] syndrome (ICD-10 - E28.2) Has appt with PUBLIC HEALTH TECHNICIAN 08/30/2024 Encounter for screening for infectious and parasitic diseases, unspecified (ICD-10 - Z11.9) 10/02/2024 Essential (primary) hypertension (ICD-10 - I10) Elevated BP. She reports that she was on treatment in the past. Amlodipine Serious S/E discussed: chest pain, AL, hypotension, hepatitis, hypersensitivity reactions. Lesser S/E: peripheral [...] She agrees to schedule self with he PUBLIC HEALTH TECHNICIAN who seen has not seen for [...] engaged in MH tx in community through [facility] and compliant with medications. 08/30/2024 Encounter for screening for COVID-19 (ICD-10 - Z11.52) Covid verbal screening negative. 10/02/2024 Sheltered homelessness (ICD-10 - Z59.01) Recently housed with [facility] 10/02/2024 Personal history of other infectious and [...] Provider Name:Mary tilley, 07/01/2025 02:00:00 PM, [address] [place], [address], Insurance Providers Payer Name Payer Address Payer Phone Subscriber Number Group Number Insured Name Patient Relationship to Insured Coverage Start Date Coverage End Date [facility] [address] [place] [phone] [id number] Annie Lazcano Self - patient is the insured 4 [place] [employer] [address] [place] [address] [id number] Annie Lazcano Self - patient is the insured 5 [place] [address] [place] [address] [id number] Annie Lazcano Self - patient is the insured 5 [employer] [address] [place] [id number] Annie Lazcano Self - patient is the insured 4 Medications Administered Medication Instructions Date of Administration Dosage Notes UNCLASSIFIED DRUGS 03/18/2025 2.5 mg Zepbound 2.5 mg/0.5 mL Lot: [id number] [facility]: [id number] UNCLASSIFIED DRUGS 03/25/2025 2.5 mg Zepbound 2.5mg/0.5ml LOT [id number] EXP 10/29/2026 [facility] [id number] UNCLASSIFIED DRUGS 04/01/2025 2.5 mg Zepbound 2.5 mg/0.5 mL Lot: [id number] [facility]: 7994-5171-71 UNCLASSIFIED DRUGS 04/08/2025 2.5 mg Zepbound 2.5 mg/0.5 mL Lot: [id number] [facility]: 4568-0262-75 UNCLASSIFIED DRUGS 04/15/2025 5 mg Zepbound Lot [id number] Exp- 01/19/2027 [facility]- [id number] Medical (General) History Medical History History ICD Code bipolar ptsd hypothroidism ASthma Arthritis High BP Smoker Surgical History Surgery Date(Month/Year) Part of cervix removed due t o presence of cancer cells - [facility] 2021 Hospitalization History Reason Date(Month/Year) [facility] [place] - psych admission 2022
--- OUTSIDE RECORDS SUMMARY | 2025-04-15 12:36 | XMS_ITS | Encounter Summary ---
Author Organization [facility] Address [address] [place] [address] Care Team Providers Care Mobile Manager Name Role Phone Jaxon Marinelli CONTROL CLERK REPAIRS Primary Care Provider [phone]- [phone] Encounter Details Date Type Department Care Team (Late st Contact Info) Description 02/21/2025 Lab Requisition [facility] - Main Lab [address] [place] [address] Jaxon Marinelli NP [address] [place] [address] Body mass index (BMI) 50.0-59.9, adult (CMS/HCC [...] PM EDT Office Visit Orthopedic Surgery - [place] [address] [address] Jose Acosta DPM [address] [address] documented as of this encounter Procedures Procedure [...] SST tube (02/21/2025 11:30 AM EDT) Pathologist [facility] Extra Tube Hold for add-ons. 02/24/2025 8:01 PM EDT [facility] Comment:Auto resulted. Blood Venous blood specimen / Unknown 02/21/2025 11:30 AM EDT 02/21/2025 5:06 PM EDT Jaxon Marinelli LAB BLOOD ORDERABLES Final Result Performing Organization Address City/[facility] Co de Phone Number [facility] [address] [place] [address], * (ABNORMAL) Vitamin D 25 hydroxy (02/21/2025 11:30 AM EDT) Pathologist [facility] Vit D, 25-Hydroxy 17.3(L) 30.0 - 80.0 ng/mL LAB CHEMISTRY METHOD 02/21/2025 6:43 PM EDT [facility] Blood Venous blood specimen / Unknown 02/21/2025 11:30 AM EDT 02/21/2025 5:06 PM EDT Jaxon Marinelli CONTROL CLERK REPAIRS LAB BLOOD ORDERABLES Final Result [facility] [address] [place] [address], [place] [phone] * (ABNORMAL) Comprehensive metabolic panel (02/21/2025 11:30 AM EDT) Sodium 141 133 - 145 mmol/L LAB CHEMISTRY METHOD 02/21/2025 6:00 PM [facility] Potassium 4.5 3.5 - 5.5 mmol/L LAB CHEMISTRY METHOD 02/21/2025 6:00 PM [facility] Chloride 109 96 - 110 mmol/L LAB CHEMISTRY METHOD 02/21/2025 6:00 PM [facility] CO2 28 21 - 32 mmol/L LAB CHEMISTRY METHOD 02/21/2025 6:00 PM [facility] Anion Gap 4 3 - 11 LAB CHEMISTRY METHOD 02/21/2025 6:00 PM [facility] Glucose 113(H) 70 - 100 mg/dL LAB CHEMISTRY METHOD 02/21/2025 6:00 PM [facility] BUN 11 5 - 25 mg/dL LAB CHEMISTRY METHOD 02/21/2025 6:00 PM [facility] Creatinine 0.73 0.50 - 1.10 mg/dL LAB CHEMISTRY METHOD 02/21/2025 6:00 PM [facility] eGFR 105 >=60 mL/min/1. 73m2 LAB CHEMISTRY METHOD 02/21/2025 6:00 PM [facility] Comment:Calculation based on the Chronic Kidney Disease Epidemiology Collaboration (CKD-EPI) equation refit without adjustment for race. BUN/Creatinine Ratio 15.1 LAB CHEMISTRY METHOD 02/21/2025 6:00 PM [facility] Calcium 8.4(L) 8.5 - 10.5 mg/dL LAB CHEMISTRY METHOD 02/21/2025 6:00 PM [facility] AST (SGOT) 26 10 - 42 unit/L LAB CHEMISTRY METHOD 02/21/2025 6:00 PM EDT [facility] ALT (SGPT) 68(H) 10 - 60 unit/L LAB CHEMISTRY METHOD 02/21/2025 6:00 PM EDT [facility] Alkaline Phosphatase 142(H) 42 - 121 unit/L LAB CHEMISTRY METHOD 02/21/2025 6:00 PM EDT [facility] Total Protein 6.6 6.0 - 8.0 g/dL LAB CHEMISTRY METHOD 02/21/2025 6:00 PM EDT [facility] Albumin 3.2 3.2 - 5.0 g/dL LAB CHEMISTRY METHOD 02/21/2025 6:00 PM [facility] Total Bilirubin 0.4 0.0 - 1.4 mg/dL LAB CHEMISTRY METHOD 02/21/2025 6:00 PM T [facility] Blood Venous blood specimen / Unknown 02/21/2025 11:30 AM EDT 02/21/2025 5:06 PM EDT Jaxon Marinelli NP LAB BLOOD ORDERABLES Final Result [facility] [address] [place] [address], * (ABNORMAL) Complete blood count (02/21/2025 11:30 AM EDT) WBC 14.9(H) 4.8 - 10.8 K/[facility] LAB HEMETOLOGY METHOD 02/21/2025 5:34 PM EDT [facility] RBC 5.10(H) 3.80 - 4.80 M/mcL LAB HEMETOLOGY METHOD 02/21/2025 5:34 PM EDT [facility] Hemoglobin 15.0 11.5 - 16.0 g/dL LAB HEMETOLOGY METHOD 02/21/2025 5:34 PM EDT [facility] Hematocrit 47.0 35.0 - 47.0 % LAB HEMETOLOGY METHOD 02/21/2025 5:34 PM EDT [facility] MCV 92.5 79.0 - 98.0 FL LAB HEMETOLOGY METHOD 02/21/2025 5:34 PM EDT [facility] MCH 29.5 27.0 - 32.0 pcg LAB HEMETOLOGY METHOD 02/21/2025 5:34 PM EDT [facility] MCHC 31.9(L) 32.0 - 37.0 g/dL LAB HEMETOLOGY METHOD 02/21/2025 5:34 PM EDT [facility] RDW 13.1 11.0 - 15.0 % LAB HEMETOLOGY METHOD 02/21/2025 5:34 PM EDT [facility] Platelets 285 130 - 400 K/mcL LAB HEMETOLOGY METHOD 02/21/2025 5:34 PM EDT [facility] MPV 12.1(H) 7.0 - 11.0 FL LAB HEMETOLOGY METHOD 02/21/2025 5:34 PM EDT [facility] NRBC 0.0 <1.0 % LAB HEMETOLOGY METHOD 02/21/2025 5:34 PM EDT [facility] NRBC Absolute 0.00 <0.10 K/mcL LAB HEMETOLOGY METHOD 02/21/2025 5:34 PM EDT [facility] Blood Venous blood specimen / Unknown 02/21/2025 11:30 AM EDT 02/21/2025 5:06 PM EDT us Jaxon Marinelli NP LAB BLOOD ORDERABLES Final Result [facility] [address] [place] [address], * (ABNORMAL) Hemoglobin A1c (02/21/2025 11:30 AM EDT) Hemoglobin A1C 6.9(H) <6.5 % LAB CHEMISTRY METHOD 02/21/2025 9:31 PM EDT [facility] Mean Bld Glu Estim. 151 mg/dL LAB CHEMISTRY METHOD 02/21/2025 9:31 PM EDT [facility] Blood Venous blood specimen / Unknown 02/21/2025 11:30 AM EDT 02/21/2025 5:06 PM EDT us Jaxon Marinelli LAB BLOOD ORDERABLES Final Result Performing Organization Address [facility]/ZIP Co de Phone Number [facility] [address] [place] [address], [place] [phone] * Thyroid stimulating hormone with reflex to free t4 and free t3 (02/21/2025 11:30 AM EDT) Pathologist [facility] TSH 2.15 0.40 - 4.00 mcIU/mL LAB CHEMISTRY METHOD 02/21/2025 7:44 PM EDT [facility] Blood Venous blood specimen / Unknown 02/21/2025 11:30 AM EDT 02/21/2025 5:06 PM EDT us Jaxon Marinelli CONTROL CLERK REPAIRS LAB BLOOD ORDERABLES Final Result [facility] [address] [place] [address], [place] [phone] documented in this encounter Visit Diagnoses Diagnosis Body mass index (BMI) 50.0-59.9, adult (CMS/HCC V24, CMS/[facility] V28) Prediabetes Other abnormal glucose documented in this encounter Care Teams Mobile Manager Relationship Specialty Start Date End Date Jaxon Marinelli NP [address] [place] [address] PCP - General Family Medicine 11/12/24 documented as of this encounter
== END 2025-04-15 12:22 | disposition home or self-care (01) ==
LOC: HO.HWS 11:24
PROVIDERS: Visit Provider Obstetrics & Gynecology
DX: Z86.19 Personal history of other infectious and parasitic diseases (principal)
CPT/HCPCS: 99213

== ENCOUNTER 2025-04-29 12:02 | Outpatient (AMB) | payer OTHER, SELFPAY ==
[2025-04-29 12:34] VITALS: BMI 45.2
--- NOTE | 2025-04-29 12:34 | MHC.OFFVIS ---
Vital Signs 04/29/25 12:34 Height 5 ft 6 in Weight 280 lb BMI 45.2 Intake Visit Reasons: HOLLEY Information Interpreted: non-clinical & clinical Swaging Machine Operator: Swaging Machine Operator Present (Tanika) Accompanied by: Self / Same As Patient Allergies aripiprazole (Abilify) Allergy (Unknown, Verified 04/29/25 12:37) hives latex (LATEX) Allergy (Unknown, Verified 04/29/25 12:37) RASH sertraline (From Zoloft) Allergy (Unknown, Verified 04/29/25 12:37) raised LFTs/angioedema zolpidem (Ambien) Allergy (Unknown, Verified 04/29/25 12:37) hives Iodinated Contrast Media (IV Contrast Dye) Allergy (Verified 04/29/25 12:37) Hives Medication List - Last Reconciled 04/29/25 by Crystal Booth LPN albuterol sulfate 90 mcg/actuation 1 puff inhalation Q4-6H PRN 30 days cholecalciferol (vitamin D3) 25 mcg PO DAILY 30 days clonidine HCl 0.1 mg See Protocol PO Q4H PRN 30 days levothyroxine 50 mcg PO DAILY 30 days loratadine 10 mg PO DAILY 30 days metformin ER 750 mg PO DAILY 30 days metronidazole 500 mg PO BID 7 days metronidazole 500 mg PO BID 7 days nicotine (polacrilex) 2 mg buccal Q2H PRN 30 days olanzapine 30 mg (2 x 15 mg) PO BEDTIME 30 days olanzapine 5 mg PO BID PRN 30 days paliperidone palmitate (Invega Sustenna) 234 mg (1.5 mL) IM Q4W 28 days prazosin 1 mg PO BEDTIME 30 days Is last menstrual period known: Yes (very heavy lasted for 5 days) Last menstrual period: 04/14/25 Post menopausal: No Patient : No Do you need a note to return to daycare/school/sports/work: No HPI Comments Details: The patient is presenting for a test of cure. The patient took the antibiotics course; she informed her partner who was treated too. The patient reports no intercourse since then. [facility] Medical History WATSON III (cervical intraepithelial neoplasia grade III) with severe dysplasia History of electroconvulsive therapy H/O abnormal cervical Papanicolaou smear DONNA (obstructive sleep apnea) Morbid obesity Morbid obesity due to excess calories History of hypothyroidism History of syphilis Encounter for Essure implantation Elevated WBCs HENRIQUEZ (nonalcoholic steatohepatitis) Neutrophilia Anemia Asthma PCOS (polycystic ovarian syndrome) Hypothyroid Bipolar 1 disorder Family History Paternal Grandfather Colon cancer Paternal Grandmother Breast cancer Maternal Grandmother Uterine cancer Father Arthritis Asthma Diabetes Hypertension Stroke Mother Hypertension Mental health disorder Sister Hypertension Diabetes Sister No problems noted. Sister Depression Obesity Brother No problems noted. Sister Lupus Son No problems noted. Daughter No problems noted. Social History Housing: Homeless Alcohol intake: former Patient Tobacco Use Status: Current everyday Tobacco user Tobacco use type: Cigarette Cigarette Packs Per Day: 1 Cigarettes Per Day: 15 Years Smoked: 22 e-Cigarette/Vaping Use: Currently Using Second Hand Smoke Exposure: No Substance Use Type: Marijuana and Caffiene service: No Current occupational status: unemployed Sexual orientation: Straight/Heterosexual Gender identity: Female Cognitive needs: No Hearing needs: No Vision needs: Yes Female Reproductive History Menstrual Age of Menarche: 11 Date of last menstrual period: 04/14/25 control method: other (essure) Total pregnancies: 2 Number of Living Children: 2 Review of Systems Const All systems reviewed & are unremarkable except as noted in HPI and below Physical Exam Vital Signs: BMI result Body Mass Index 45.2 General: Yes no CVA tenderness External Female Exam: normal external appearance and normal appearance of the urethra Speculum Exam - Vagina: normal appearance of the vagina, normal palpation, no lesions and no masses Speculum Exam - Cervix: normal appearance of the cervix, normal palpation, no lesions, no masses and nontender Bimanual exam- vagina & uterus: normal bimanual exam, normal palpation, uterine size normal, normal palpation, uterine shape normal, No Cervical tenderness present and non-tender Bimanual Exam- Adnexa, other: normal adnexae Back/Spine/Pelvis Back: no CVA tenderness Assessment & Plan Assessment & Plan (1) Trichomonas contact, treated: Code(s): Z20.2 - Contact with and (suspected) exposure to infections with a predominantly sexual mode of transmission Category: Medical Plan: GC/CT with BV panel collected. Instructions given the patient use condoms as a means of prevention of STIs. All questions answered, the patient verbalized understanding Coding Level of Care Code Est Pt Level 3 (17701) Diagnoses Trichomonas contact, treated Z20.2
--- OUTSIDE RECORDS SUMMARY | 2025-04-29 12:56 | XMS_ITS | Encounter Summary ---
Author Organization [facility] Address [address] [place] [address] Care Team Providers Care Bulb Tester Name Role Phone Jaxon Marinelli BACKEND PYTHON DEVELOPER Primary Care Provider +1- [phone] Encounter Details Date Type Department Care Team (Late st Contact Info) Description 02/21/2025 Lab Requisition [facility] - Main Lab [address] [place] [address] Jaxon Marinelli NP [address] [place] [address] Body mass index (BMI) 50.0-59.9, adult (CMS/HCC [...] Care Team (Late st Contact Info) Description 07/22/2025 2:00 PM EST Office Visit Orthopedic Surgery - [place] [address] [address] Jose Acosta DPM [address] [address] documented as of this encounter Procedures Procedure [...] SST tube (02/21/2025 11:30 AM EDT) Pathologist [facility] Extra Tube Hold for add-ons. 02/24/2025 8:01 PM EDT [facility] Comment:Auto resulted. Blood Venous blood specimen / Unknown 02/21/2025 11:30 AM EDT 02/21/2025 5:06 PM EDT Jaxon Marinelli LAB BLOOD ORDERABLES Final Result Performing Organization Address City/[facility] Co de Phone Number [facility] [address] [place] [address], * (ABNORMAL) Vitamin D 25 hydroxy (02/21/2025 11:30 AM EDT) Pathologist [facility] Vit D, 25-Hydroxy 17.3(L) 30.0 - 80.0 ng/mL LAB CHEMISTRY METHOD 02/21/2025 6:43 PM EDT [facility] Blood Venous blood specimen / Unknown 02/21/2025 11:30 AM EDT 02/21/2025 5:06 PM EDT Jaxon Marinelli BACKEND PYTHON DEVELOPER LAB BLOOD ORDERABLES Final Result [facility] [address] [place] [address], [place] [phone] * (ABNORMAL) Comprehensive metabolic panel (02/21/2025 11:30 AM EDT) Sodium 141 133 - 145 mmol/L LAB CHEMISTRY METHOD 02/21/2025 6:00 PM [facility] Potassium 4.5 3.5 - 5.5 mmol/L LAB CHEMISTRY METHOD 02/21/2025 6:00 PM [facility] Chloride 109 96 - 110 mmol/L LAB CHEMISTRY METHOD 02/21/2025 6:00 PM [facility] CO2 28 21 - 32 mmol/L LAB CHEMISTRY METHOD 02/21/2025 6:00 PM [facility] Anion Gap 4 3 - 11 LAB CHEMISTRY METHOD 02/21/2025 6:00 PM [facility] Glucose 113(H) 70 - 100 mg/dL LAB CHEMISTRY METHOD 02/21/2025 6:00 PM [facility] BUN 11 5 - 25 mg/dL LAB CHEMISTRY METHOD 02/21/2025 6:00 PM [facility] Creatinine 0.73 0.50 - 1.10 mg/dL LAB CHEMISTRY METHOD 02/21/2025 6:00 PM [facility] eGFR 105 >=60 mL/min/1. 73m2 LAB CHEMISTRY METHOD 02/21/2025 6:00 PM [facility] Comment:Calculation based on the Chronic Kidney Disease Epidemiology Collaboration (CKD-EPI) equation refit without adjustment for race. BUN/Creatinine Ratio 15.1 LAB CHEMISTRY METHOD 02/21/2025 6:00 PM [facility] Calcium 8.4(L) 8.5 - 10.5 mg/dL LAB CHEMISTRY METHOD 02/21/2025 6:00 PM [facility] AST (SGOT) 26 10 - 42 unit/L LAB CHEMISTRY METHOD 02/21/2025 6:00 PM EDT [facility] ALT (SGPT) 68(H) 10 - 60 unit/L LAB CHEMISTRY METHOD 02/21/2025 6:00 PM EDT [facility] Alkaline Phosphatase 142(H) 42 - 121 unit/L LAB CHEMISTRY METHOD 02/21/2025 6:00 PM EDT [facility] Total Protein 6.6 6.0 - 8.0 g/dL LAB CHEMISTRY METHOD 02/21/2025 6:00 PM EDT [facility] Albumin 3.2 3.2 - 5.0 g/dL LAB CHEMISTRY METHOD 02/21/2025 6:00 PM [facility] Total Bilirubin 0.4 0.0 - 1.4 mg/dL LAB CHEMISTRY METHOD 02/21/2025 6:00 PM T [facility] Blood Venous blood specimen / Unknown 02/21/2025 11:30 AM EDT 02/21/2025 5:06 PM EDT Jaxon Marinelli NP LAB BLOOD ORDERABLES Final Result [facility] [address] [place] [address], * (ABNORMAL) Complete blood count (02/21/2025 11:30 AM EDT) WBC 14.9(H) 4.8 - 10.8 K/[facility] LAB HEMETOLOGY METHOD 02/21/2025 5:34 PM EDT [facility] RBC 5.10(H) 3.80 - 4.80 M/mcL LAB HEMETOLOGY METHOD 02/21/2025 5:34 PM EDT [facility] Hemoglobin 15.0 11.5 - 16.0 g/dL LAB HEMETOLOGY METHOD 02/21/2025 5:34 PM EDT [facility] Hematocrit 47.0 35.0 - 47.0 % LAB HEMETOLOGY METHOD 02/21/2025 5:34 PM EDT [facility] MCV 92.5 79.0 - 98.0 FL LAB HEMETOLOGY METHOD 02/21/2025 5:34 PM EDT [facility] MCH 29.5 27.0 - 32.0 pcg LAB HEMETOLOGY METHOD 02/21/2025 5:34 PM EDT [facility] MCHC 31.9(L) 32.0 - 37.0 g/dL LAB HEMETOLOGY METHOD 02/21/2025 5:34 PM EDT [facility] RDW 13.1 11.0 - 15.0 % LAB HEMETOLOGY METHOD 02/21/2025 5:34 PM EDT [facility] Platelets 285 130 - 400 K/mcL LAB HEMETOLOGY METHOD 02/21/2025 5:34 PM EDT [facility] MPV 12.1(H) 7.0 - 11.0 FL LAB HEMETOLOGY METHOD 02/21/2025 5:34 PM EDT [facility] NRBC 0.0 <1.0 % LAB HEMETOLOGY METHOD 02/21/2025 5:34 PM EDT [facility] NRBC Absolute 0.00 <0.10 K/mcL LAB HEMETOLOGY METHOD 02/21/2025 5:34 PM EDT [facility] Blood Venous blood specimen / Unknown 02/21/2025 11:30 AM EDT 02/21/2025 5:06 PM EDT us Jaxon Marinelli NP LAB BLOOD ORDERABLES Final Result [facility] [address] [place] [address], * (ABNORMAL) Hemoglobin A1c (02/21/2025 11:30 AM EDT) Hemoglobin A1C 6.9(H) <6.5 % LAB CHEMISTRY METHOD 02/21/2025 9:31 PM EDT [facility] Mean Bld Glu Estim. 151 mg/dL LAB CHEMISTRY METHOD 02/21/2025 9:31 PM EDT [facility] Blood Venous blood specimen / Unknown 02/21/2025 11:30 AM EDT 02/21/2025 5:06 PM EDT us Jaxon Marinelli LAB BLOOD ORDERABLES Final Result Performing Organization Address [facility]/ZIP Co de Phone Number [facility] [address] [place] [address], [place] [phone] * Thyroid stimulating hormone with reflex to free t4 and free t3 (02/21/2025 11:30 AM EDT) Pathologist [facility] TSH 2.15 0.40 - 4.00 mcIU/mL LAB CHEMISTRY METHOD 02/21/2025 7:44 PM EDT [facility] Blood Venous blood specimen / Unknown 02/21/2025 11:30 AM EDT 02/21/2025 5:06 PM EDT us Jaxon Marinelli BACKEND PYTHON DEVELOPER LAB BLOOD ORDERABLES Final Result [facility] [address] [place] [address], [place] [phone] documented in this encounter Visit Diagnoses Diagnosis Body mass index (BMI) 50.0-59.9, adult (CMS/HCC V24, CMS/HCC V28) Prediabetes Other abnormal glucose documented in this encounter Care Teams Bulb Tester Relationship Specialty Start Date End Date Jaxon Marinelli NP [address] [place] [address] PCP - General Family Medicine 11/12/24 documented as of this encounter
--- OUTSIDE RECORDS SUMMARY | 2025-04-29 12:57 | XMS_ITS | Patient Health Record ---
Author Organization [facility] Address [address], [place] [id number] Care Team Providers Care Cargo Checker Name Role Phone Jaxon Marinelli Primary Care Provider [facility], Nursing Unavailable [phone] Mary Jernigan Unavailable [phone] Chet Dewitt Unavailable [phone] Matt Gomez Unavailable [phone] [facility], W Unavailable [phone] Allergies Allergen (clinical drug ingredient) Drug/Non Drug Allergy documented on EMR Reaction Allergy Type Onset Date Status sertraline Zoloft anaphylaxis Drug Allergy Acti ve zolpidem Ambien anaphylaxis Drug Allergy Activ e Results Component Value Reference Range Notes QUANTIFERON(R)-TB GOLD PLUS, 1 TUBE Reviewed date:01/31/2025 10:47:45 AM Interpretation:Negative Performing Lab:NL2, [facility] [id number] Estuardo Graves Notes/Report: FASTING: UNKNOWN QUANTIFERON(R)-TB [...] T-lymphocytes. For additional information, please refer to [email or web address] (This link is being provided for informational/ [...] Antibody (TP-PA) Reactive Nonreactive Test performed at [facility], [facility] [place] [address] Yudelka Healy MD, PhD - Windows Vmware Administrator HEMOGLOBIN A1C Reviewed date:10/07/2024 09:34:47 AM Interpretation:6.3 [...] 17.3 30.0-80.0 ng/mL Reason For Referral Reason [facility] dental DX with prediabetes Diagnosis 1 Prediabetes (R73.03) Referral Organization [facility] Referring Provider First Name Jaxon Referring [...] Reason Roby YAÑEZ [address] [facility] Annual Exam Diagnosis 1 Encounter for screen ing for malignant neoplasm of cervix (Z12.4) Referral Organization [facility] Referring Provider First Name Jaxon Referring Provider Last Name Yves Referring Provider Speciality Nurse Josh rolle Referred Provider Guanako Ca Referred Provider Specialty MEDICATION MANAGER - Gyneco logy General Notes Rena Solomon [...] Appointment Date 11/28/2024 Reason [facility] Acosta, [address] [place] [address] P: [phone] F: [phone] treat for ingrown toe nail Diagnosis 1 Ingrowing nail (L60. 0) Referral Organization [facility] Referring Provider First Name Jaxon Referring [...] raised lesion left buccal mucosa Referral Organization [facility] Referring Provider First Name Mary Referring Provider Last Name Delon Referring Provider Speciality Dental Gen eral Practice Referred Provider Eliasve - DO NOT U SE, [facility] Referred Provider Specialty Oral Surgery [...] once a day for 90 days Active prazosin 1 mg 1 cap(s) orally two times a day Active Albuterol (Eqv-ProAir HFA) 90 mcg/inh 2 INH inhaled every 6 hours Active OLANZapine 15 mg 2 tab(s) orally once a day at bedtime Active Immunizations Vaccine Route Administration Date Status Comme nts Tdap Unknown 05/29/2023 Administered Pfizer-BiontAffinnova Covid-19 Vaccine Administration - First Dose (Single Dose 30MCG/0.3ML 1ST) Unknown 02/04/2021 Administered Pfizer-Biontech Covid-19 Vaccine Administration-Second Dose (Single Dose 30MCG/0.3ML 2ND) Unknown 02/25/2021 Administered COMIRNATY Pfizer COVID-19 Vaccine 12y+ Unknown 07/13/2024 Administered Heplisav-B IM Intramuscular 10/02/2024 Administered [facility]: [id number] Social History Tobacco Use: Social History Observation [...] Risk Notes Problem Polycystic ovary syndrome (disorder) (254079108) Polycystic ovarian syndrome (E28.2) Active confirmed Problem Morbid obesity (disorder) (312628819) Morbid (severe) obesity due to excess calories (E66.01) Active confirmed Problem Nicotine dependence (69552485) Nicotine dependence, cigarettes, with other nicotine-induced disorders (F17.218) Active confirmed Problem Essential hypertension (46110876) Essential (primary) hypertension (I10) Active confirmed Problem Body mass index 40+ - morbidly obese (885588720) Body mass index (BMI) 50-59.9 , adult (Z68.43) Active confirmed Problem History of infectious disease (105393267) Personal history of other infectious and parasitic diseases (Z86.19) Active confirmed Problem Prediabetes (024155475) Prediabetes (R73.03) Active confirmed Problem Sheltered homelessness (823548812931407 ) Sheltered homelessness (Z59.01) Active confirmed Vital Signs Temperature 97.1 degrees Fahrenheit 04/08/2025 Blood pressure diastolic 96 03/25/2025 Oximetry 97 03/25/2025 Height 63 in 04/22/2025 Blood pressure systolic 132 03/25/2025 Weight 286 lbs 04/22/2025 BMI 50.66 kg/m2 04/22/2025 Procedures Procedure Date Ordered Date Performed Result Body Sit e Pulmonary Function Test 10/02/2024 11/21/2024 normal Encounters Encounter Location Date Provider Diagnosis [facility] [address] [place] [address] [id number] 10/17/2024 [facility] [address] [place] [address] [id number] 10/24/2024 [facility] [address] [place] [address] [id number] 10/31/[address] [id number] 04/22/2025 Nursing [facility] [address] [place] [address] [id number] 08/30/2024 Nursing [facility] Sheltered homelessness Z59.01 ; Encounter for screening for cardiovascular disorders Z13.6 ; Encounter for screening for respiratory tuberculosis Z11.1 ; Encounter for screening for infectious and parasitic diseases, unspecified Z11.9 ; Encounter for screening for other suspected endocrine disorder Z13.29 ; Encounter for screening for COVID-19 Z11.52 and Encounter for screening for depression Z13.[address] [id number] 09/02/2024 Nursing [facility] Encounter for screening, unspecified Z13.[address] [id number] 10/02/2024 [facility] Encounter for screening for [...] and Other forms of dyspnea R06.09 [facility] [address] [place] [address] [place] [id number] 10/10/2024 [facility] [address] [place] [address] [place], [place] [id number] 10/17/2024 [facility] Prediabetes R73.03 ; Body mass index (BMI) 50-59.9 , adult Z68.43 ; Nicotine dependence, cigarettes, with other nicotine-induced disorders F17.218 and Person consulting for explanation of examination or test findings Z71.[address] [phone] 12/03/2024 Mary Jernigan [facility] [address] [phone] 12/31/2024 Mary Jernigan [address] [id number] 02/17/2025 [facility] Encounter for screening for COVID-19 Z11.52 ; Prediabetes R73.03 ; Polycystic ovarian syndrome E28.2 ; Body mass index (BMI) 50-59.9 , adult Z68.43 ; Essential (primary) hypertension I10 and Nicotine dependence, cigarettes, with other nicotine-induced disorders F17.[address] [id number] 02/17/[address] [id number] 02/21/2025 Nursing [facility] Encounter for screening, unspecified Z13.9 [facility] [address] [phone] 02/27/2025 Matt Gomez [address] [id number] 03/18/2025 Nursing [facility] Morbid (severe) obesity due to excess calories E66.[address] [id number] 03/25/2025 [facility] Morbid (severe) obesity due to excess calories E66.[address] [id number] 04/01/2025 Nursing [facility] Morbid (severe) obesity due to excess calories E66.[address] [id number] 04/08/2025 Nursing [facility] Morbid (severe) obesity due to excess calories E66.[address] [id number] 04/15/2025 Nursing [facility] Morbid (severe) obesity due to excess calories E66.[address] [id number] 08/30/2024 [facility] [address] [place] [address] [id number] 10/22/2024 [facility] [address] [id number] 11/05/2024 [facility] [address] [id number] 02/17/2025 [facility] [address] [id number] 04/08/2025 [facility] Morbid (severe) obesity due to excess calories E66.[address] [id number] 04/25/2025 [facility] Assessments Encounter Date Diagnosis (ICD Code) Assessment [...] results requiring immediate action. Labs drawn by: ANGELLA . 03/18/2025 Morbid (severe) obesity due to [...] calories (ICD-10 - E66.01) zepbound administered per field sales consultant instruction and provider order. Skin prepped with [...] for next injection, pt. agrees with plan. 04/15/2025 Morbid (severe) obesity due to excess calories (ICD-10 - E66.01) Zepbound administered as ordered rt abdomen, torito well. RTC in 1 week for next injection. Pt agrees with plan. 04/08/2025 Morbid (severe) obesity [...] syndrome (ICD-10 - E28.2) Has appt with MEDICATION MANAGER 08/30/2024 Encounter for screening for infectious and parasitic diseases, unspecified (ICD-10 - Z11.9) 10/02/2024 Essential (primary) hypertension (ICD-10 - I10) Elevated BP. She reports that she was on treatment in the past. Amlodipine Serious S/E discussed: chest pain, KS, hypotension, hepatitis, hypersensitivity reactions. Lesser S/E: peripheral [...] She agrees to schedule self with he MEDICATION MANAGER who seen has not seen for more [...] engaged in MH tx in community through [facility] and compliant with medications. 08/30/2024 Encounter for screening for COVID-19 (ICD-10 - Z11.52) Covid verbal screening negative. 10/02/2024 Sheltered homelessness (ICD-10 - Z59.01) Recently housed with [facility] 10/02/2024 Personal history of other infectious and [...] Details Provider Name:Mary tilley, 07/01/2025 02:00:00 PM, [address] [place], [address], Insurance Providers Payer Name Payer Address Payer Phone Subscriber Number Group Number Insured Name Patient Relationship to Insured Coverage Start Date Coverage End Date [facility] [address] [place] [phone] [id number] Annie Lazcano Self - patient is the insured 4 [place] Part [place] [employer] [address] [place] [address] [id number] Annie Lazcano Self - patient is the insured 5 [place] [address] [place] [address] [id number] Annie Lazcano Self - patient is the insured 5 [facility] [employer] [facility] [address] [place] [id number] Annie Lazcano Self - patient is the insured 4 Medications Administered Medication Instructions Date of Administration Dosage Notes UNCLASSIFIED DRUGS 03/18/2025 2.5 mg Zepbound 2.5 mg/0.5 mL Lot: [id number] [place]: [id number] UNCLASSIFIED DRUGS 03/25/2025 2.5 mg Zepbound 2.5mg/0.5ml LOT [id number] EXP 10/29/2026 [facility] [id number] UNCLASSIFIED DRUGS 04/01/2025 2.5 mg Zepbound 2.5 mg/0.5 mL Lot: [id number] [facility]: [id number] UNCLASSIFIED DRUGS 04/08/2025 2.5 mg Zepbound 2.5 mg/0.5 mL Lot: [id number] NDC: [id number] UNCLASSIFIED DRUGS 04/15/2025 5 mg Zepbound Lot [id number] Exp- 01/19/2027 [facility]- [id number] Medical (General) History Medical History History ICD Code bipolar ptsd hypothroidism ASthma Arthritis High BP Smoker Surgical History Surgery Date(Month/Year) Part of cervix removed due t o presence of cancer cells - [facility] 2021 Hospitalization History Reason Date(Month/Year) [facility] - psych admission 2022
== END 2025-04-29 13:05 | disposition home or self-care (01) ==
LOC: HO.HWS 12:02
PROVIDERS: Visit Provider Obstetrics & Gynecology
DX: Z20.2 Contact with and (suspected) exposure to infections with a predominantly sexual mode of transmission (principal)
CPT/HCPCS: 99213

== ENCOUNTER 2025-04-29 12:02 | Outpatient (REF) | payer OTHER, SELFPAY ==
[2025-04-29 17:02] LABS: Bacterial Vaginosis PCR NEGATIVE (Negative); Candida Group PCR NOT DETECTED (Not Detect); Candida glab krusei PCR NOT DETECTED (Not Detect); Trichomonas vaginalis PCR NOT DETECTED (Not Detect)
[2025-04-29 17:33] LABS: CT PCR NOT DETECTED (Not Detect.); NG PCR NOT DETECTED (Not Detect.)
== END 2025-04-29 12:03 | disposition home or self-care (01) ==
LOC: HO.LNP 12:02
PROVIDERS: Visit Provider Obstetrics & Gynecology
DX: Z20.2 Contact with and (suspected) exposure to infections with a predominantly sexual mode of transmission (principal); Z11.3 Encounter for screening for infections with a predominantly sexual mode of transmission; Z79.899 Other long term (current) drug therapy
CPT/HCPCS: 81515; 87491; 87591; 99212

== ENCOUNTER 2025-05-21 09:10 | Outpatient (REF) | payer OTHER, SELFPAY ==
--- OUTSIDE RECORDS SUMMARY | 2025-05-21 09:52 | XMS_ITS | Encounter Summary ---
Author Organization [facility] Address [address] [place] [address] Care Team Providers Care Payroll Machine Operator Name Role Phone Jaxon Marinelli PLATE FINISHER Primary Care Provider [phone]- [phone] Encounter Details Date Type Department Care Team (Late st Contact Info) Description 09/02/2024 Lab Requisition [facility] - Main Lab [address] [facility] [place] [address] Jaxon Marinelli NP [address] [place] [address] Encounter for screening for other suspected endocrine disorder; Encounter for screening for infectious and parasitic diseases, unspecified; Encounter for screening for cardiovascular disorders Social History Tobacco Use Types Packs/Day Years [...] hearing? Answer Date of Assessment Author No 08/05/2024 8:[address] roger Looney RN * Are you blind or do you have serious difficulty seeing, even when wearing glasses? Answer Date of Assessment Author No 08/05/2024 8:[address] roger Looney RN * Do you have serious difficulty walking or climbing stairs? Answer Date of Assessment Author No 08/05/2024 8:[address] roger Looney RN * Do you have serious difficulty dressing or bathing? Answer Date of Assessment Author No 08/05/2024 8:[address] roger Looney RN * Because of a physical, mental, or emotional condition, do you have serious difficulty doing errandsalone such as visiting the doctor? Answer Date of Assessment Author No 08/05/2024 8:[address] roger Looney RN documented as of this encounter Mental Status * Because of a physical, mental, or emotional condition, do you have serious difficulty concentrating, remembering, or making decisions? (5 years old or older) Answer Entry Date Author No 08/05/2024 8:[address] roger Looney RN documented in this encounter Plan of Treatment Upcoming Encounters Date Type Department Care Team (Late st Contact Info) Description 07/22/2025 2:00 PM EST Office Visit Orthopedic Surgery - [place] [phone] [phone] Jose Acosta, DPM [address] [phone] documented as of this encounter Procedures Procedure Name Priority Date/Time Associated Diagnosis Comments HEPATITIS C ANTIBODY Routine 09/02/2024 9:22 AM EST Encounter for screening for other suspected endocrine disorder Encounter for screening for infectious and parasitic diseases, unspecified Encounter for screening for cardiovascular disorders HIV 1, 2 ANTIBODY, P24 ANTIGEN WITH REFLEX TO DIFFERENTIATION Routine 09/02/2024 9:22 AM EST Encounter for screening for other suspected endocrine disorder Encounter for screening for infectious and parasitic diseases, unspecified Encounter for screening for cardiovascular disorders HEPATITIS B SURFACE ANTIGEN WITH CONFIRMATION Routine 09/02/2024 9:22 AM EST Encounter for screening for other suspected endocrine disorder Encounter for screening for infectious and parasitic diseases, unspecified Encounter for screening for cardiovascular disorders TREPONEMA PALLIDUM ANTIBODY WITH REFLEX TO RPR AND PARTICLE AGGLUTINATION Routine 09/02/2024 9:22 AM EST Encounter for screening for other suspected endocrine disorder Encounter for screening for infectious and parasitic diseases, unspecified Encounter for screening for cardiovascular disorders THYROID STIMULATING HORMONE WITH REFLEX TO FREE T4 AND FREE T3 Routine 09/02/2024 9:22 AM EST Encounter for screening for other suspected endocrine disorder Encounter for screening for infectious and parasitic diseases, unspecified Encounter for screening for cardiovascular disorders SST - GOLD Routine 09/02/2024 9:22 AM EST Encounter for screening for other suspected endocrine disorder Encounter for screening for infectious and parasitic diseases, unspecified Encounter for screening for cardiovascular disorders SST - GOLD Routine 09/02/2024 9:22 AM EST Encounter for screening for other suspected endocrine disorder Encounter for screening for infectious and parasitic diseases, unspecified Encounter for screening for cardiovascular disorders RAPID PLASMA REAGIN WITH REFLEX TO TITER Routine 09/02/2024 9:22 AM EST Encounter for screening for other suspected endocrine disorder Encounter for screening for infectious and parasitic diseases, unspecified Encounter for screening for cardiovascular disorders LIPID PANEL WITH REFLEX TO DIRECT LDL Routine 09/02/2024 9:22 AM EST Encounter for screening for other suspected endocrine disorder Encounter for screening for infectious and parasitic diseases, unspecified Encounter for screening for cardiovascular disorders CHLAMYDIA TRACHOMATIS AND NEISSERIA GONORRHOEAE PCR Routine 09/02/2024 9:22 AM EST Encounter for screening for other suspected endocrine disorder Encounter for screening for infectious and parasitic diseases, unspecified Encounter for screening for cardiovascular disorders HEPATITIS B SURFACE ANTIBODY QUANTITATIVE Routine 09/02/2024 9:22 AM EST Encounter for screening for other suspected endocrine disorder Encounter for screening for infectious and parasitic diseases, unspecified Encounter for screening for cardiovascular disorders HEPATITIS B CORE ANTIBODY, TOTAL Routine 09/02/2024 9:22 AM EST Encounter for screening for other suspected endocrine disorder Encounter for screening for infectious and parasitic diseases, unspecified Encounter for screening for cardiovascular disorders TREPONEMA PALLIDUM ANTIBODY Routine 09/02/2024 9:22 AM EST Encounter for screening for other suspected endocrine disorder Encounter for screening for infectious and parasitic diseases, unspecified Encounter for screening for cardiovascular disorders COMPLETE BLOOD COUNT Routine 09/02/2024 9:22 AM EST Encounter for screening for other suspected endocrine disorder Encounter for screening for infectious and parasitic diseases, unspecified Encounter for screening for cardiovascular disorders COMPREHENSIVE METABOLIC PANEL Routine 09/02/2024 9:22 AM EST Encounter for screening for other suspected endocrine disorder Encounter for screening for infectious and parasitic diseases, unspecified Encounter for screening for cardiovascular disorders documented in this encounter Results * (ABNORMAL) Treponema pallidum antibody (09/02/2024 9:22 AM EST) Treponema pallidum Antibody (TP-PA) Reactive( A) Nonreactive 09/06/2024 1:11 PM EST [facility] Comment: Test performed at [facility], [address] , [place] [address] Yudelka Healy MD, PhD - Supervisor Education Blood Venous blood specimen / Unknown 09/02/2024 9:22 AM EST 09/02/2024 8:13 PM EST Eddimoe Marinelli LAB BLOOD ORDERABLES Final Result Performing Organization Address [facility]/ZIP Co de Phone Number [facility] [address] [place] [address] * Rapid plasma reagin with reflex to titer (09/02/2024 9:22 AM EST) RPR Nonreactive Nonreactive 09/03/2024 2:10 PM EST [facility] Blood Venous blood specimen / Unknown 09/02/2024 9:22 AM EST 09/02/2024 8:13 PM EST Eddielicourtney Peñaan PLATE FINISHER LAB BLOOD ORDERABLES Final Result [facility] [address] [place] [address], [place] [phone] * Hepatitis B core antibody, total (09/02/2024 9:22 AM EST) Hep B Core Total Ab Negative Negative LAB CHEMISTRY METHOD 09/02/2024 8:50 PM EST [facility] Blood Venous blood specimen / Unknown 09/02/2024 9:22 AM EST 09/02/2024 8:50 PM EST us Eddieliza Casionan PLATE FINISHER LAB BLOOD ORDERABLES Final Result Performing Organization Address [facility]/ZIP Co de Phone Number [facility] [address] [place] [address], [place] [phone] * SST tube (09/02/2024 9:22 AM EST) Extra Tube Hold for add-ons. 09/02/2024 6:01 PM EST [facility] Comment:Auto resulted. Blood Venous blood specimen / Unknown 09/02/2024 9:22 AM EST 09/02/2024 4:55 PM EST us Eddieliza Casionan PLATE FINISHER LAB BLOOD ORDERABLES Final Result Performing Organization Address City/[facility]/ZIP Co de Phone Number [facility] [address] [place] [address], [place] [phone] * SST tube (09/02/2024 9:22 AM EST) Extra Tube Hold for add-ons. 09/02/2024 6:01 PM EST [facility] Comment:Auto resulted. Blood Venous blood specimen / Unknown 09/02/2024 9:22 AM EST 09/02/2024 4:55 PM EST us Eddieliza Casionan PLATE FINISHER LAB BLOOD ORDERABLES Final Result Performing Organization Address [facility]/ZIP Co de Phone Number [facility] [address] [place] [address], [place] [phone] * Hepatitis C antibody (09/02/2024 9:22 AM EST) [facility] Hepatitis C Antibody Negative Negative LAB CHEMISTRY METHOD 09/02/2024 8:41 PM EST [facility] Blood Venous blood specimen / Unknown 09/02/2024 9:22 AM EST 09/02/2024 4:55 PM EST Jaxon Marinelli PLATE FINISHER LAB BLOOD ORDERABLES Final Result Performing Organization Address [facility] de Phone Number [facility] [address] [place] [address], [place] [phone] * (ABNORMAL) Treponema pallidum antibody with reflex to RPR and particle agglutination (09/02/2024 9:22 AM EST) [facility] [address] [facility] T. Pallidum Antibodies Positive( A) Negative LAB CHEMISTRY METHOD 09/02/2024 8:13 PM EST [facility] Blood Venous blood specimen / Unknown 09/02/2024 9:22 AM EST 09/02/2024 4:55 PM EST Jaxon Marinelli PLATE FINISHER LAB BLOOD ORDERABLES Final Result Performing Organization Address [facility]/ZIP Co de Phone Number [facility] [address] [place] [address], [place] [phone] * (ABNORMAL) Comprehensive metabolic panel (09/02/2024 9:22 AM EST) [facility] [address] Sodium 139 133 - 145 mmol/L LAB CHEMISTRY METHOD 09/02/2024 8:07 PM EST [facility] Potassium 4.3 3.5 - 5.5 mmol/L LAB CHEMISTRY METHOD 09/02/2024 8:07 PM [facility] Chloride 107 96 - 110 mmol/L LAB CHEMISTRY METHOD 09/02/2024 8:07 PM [facility] CO2 27 21 - 32 mmol/L LAB CHEMISTRY METHOD 09/02/2024 8:07 PM [facility] Anion Gap 5 3 - 11 LAB CHEMISTRY METHOD 09/02/2024 8:07 PM [facility] Glucose 146(H) 70 - 100 mg/dL LAB CHEMISTRY METHOD 09/02/2024 8:07 PM [facility] BUN 8 5 - 25 mg/dL LAB CHEMISTRY METHOD 09/02/2024 8:07 PM [facility] Creatinine 0.87 0.50 - 1.10 mg/dL LAB CHEMISTRY METHOD 09/02/2024 8:07 PM [facility] eGFR 86 >=60 mL/min/1. 73m2 LAB CHEMISTRY METHOD 09/02/2024 8:07 PM [facility] Comment:Calculation based on the Chronic Kidney Disease Epidemiology Collaboration (CKD-EPI) equation refit without adjustment for race. BUN/Creatinine Ratio 9.2 LAB CHEMISTRY METHOD 09/02/2024 8:07 PM [facility] Calcium 8.7 8.5 - 10.5 mg/dL LAB CHEMISTRY METHOD 09/02/2024 8:07 PM [facility] AST (SGOT) 12 10 - 42 unit/L LAB CHEMISTRY METHOD 09/02/2024 8:07 PM [facility] ALT (SGPT) 31 10 - 60 unit/L LAB CHEMISTRY METHOD 09/02/2024 8:07 PM [facility] Alkaline Phosphatase 126(H) 42 - 121 unit/L LAB CHEMISTRY METHOD 09/02/2024 8:07 PM [facility] Total Protein 6.3 6.0 - 8.0 g/dL LAB CHEMISTRY METHOD 09/02/2024 8:07 PM [facility] Albumin 3.2 3.2 - 5.0 g/dL LAB CHEMISTRY METHOD 09/02/2024 8:07 PM [facility] Total Bilirubin 0.2 0.0 - 1.4 mg/dL LAB CHEMISTRY METHOD 09/02/2024 8:07 PM [facility] Blood Venous blood specimen / Unknown 09/02/2024 9:22 AM EST 09/02/2024 4:55 PM EST Eddieliza Casionan PLATE FINISHER LAB BLOOD ORDERABLES Final Result [facility] [address] [place] [address], [place] [phone] * Thyroid stimulating hormone with reflex to free t4 and free t3 (09/02/2024 9:22 AM EST) TSH 0.99 0.40 - 4.00 mcIU/mL LAB CHEMISTRY METHOD 09/02/2024 8:02 PM [facility] Blood Venous blood specimen / Unknown 09/02/2024 9:22 AM EST 09/02/2024 4:55 PM EST Eddimoe Marinelli PLATE FINISHER LAB BLOOD ORDERABLES Final Result [facility] [address] [place] [address], [place] [phone] * (ABNORMAL) Lipid panel with reflex to direct LDL (09/02/2024 9:22 AM EST) Cholesterol 132 0 - 200 mg/dL LAB CHEMISTRY METHOD 09/02/2024 8:07 PM [facility] Triglycerides 130 0 - 150 mg/dL LAB CHEMISTRY METHOD 09/02/2024 8:07 PM [facility] HDL 36(L) >=40 mg/dL LAB CHEMISTRY METHOD 09/02/2024 8:07 PM EST [facility] LDL Calculated 70 0 - 100 mg/dL LAB CHEMISTRY METHOD 09/02/2024 8:07 PM EST [facility] VLDL Cholesterol Nirmal 26 mg/dL LAB CHEMISTRY METHOD 09/02/2024 8:07 PM [facility] Non HDL Chol. (LDL+VLDL) 96 <145 mg/dL LAB CHEMISTRY METHOD 09/02/2024 8:07 PM EST [facility] Chol/HDL Ratio 3.7 0.0 - 4.4 LAB CHEMISTRY METHOD 09/02/2024 8:07 PM [facility] Blood Venous blood specimen / Unknown 09/02/2024 9:22 AM EST 09/02/2024 4:55 PM EST Eddielicourtney Marinelli PLATE FINISHER LAB BLOOD ORDERABLES Final Result Performing Organization Address City/[facility]/ZIP Co de Phone Number [facility] [address] [place] [address], [place] [phone] * HIV 1,2 antibody, p24 antigen with reflex to differentiation (09/02/2024 9:22 AM EST) HIV Combo AB/AG Negative Negative LAB CHEMISTRY METHOD 09/02/2024 8:41 PM EST [facility] Blood Venous blood specimen / Unknown 09/02/2024 9:22 AM EST 09/02/2024 4:55 PM EST Narrative [facility] - 09/02/2024 8:41 PM EST This assay is a 4th generation assay allowing for earlier detection of HIV infection by detecting the presence of the HIV-1 p24 antigen as well as the traditional antibodies to HIV type 1 (including group O) and type 2. Use of a 4th generation assay is the current CDC recommendation for HIV screening. us Eddielicourtney Marienlli PLATE FINISHER LAB BLOOD ORDERABLES Final Result Performing Organization Address City/[facility]/ZIP Co de Phone Number [facility] [address] [place] [address], [place] [phone] * Hepatitis B surface antigen with reflex to confirmation (09/02/2024 9:22 AM EST) Pathologist [facility] Hepatitis B Surface Ag Negative Negative LAB CHEMISTRY METHOD 09/02/2024 8:13 PM EST [facility] Blood Venous blood specimen / Unknown 09/02/2024 9:22 AM EST 09/02/2024 4:55 PM EST [facility] - 09/02/2024 8:13 PM EST Over the counter supplements containing high doses of biotin may interfere with this assay. If interference is suspected, patients shoud be retested after refraining from biotin supplements for 72 hours. us Eddieliza dooyooionan PLATE FINISHER LAB BLOOD ORDERABLES Final Result Performing Organization Address City/[facility]/ZIP Co de Phone Number [facility] [address] [place] [address], [place] [phone] * Hepatitis B surface antibody quantitative (09/02/2024 9:22 AM EST) [facility] Hepatitis B Surface Ab Negative Negative LAB CHEMISTRY METHOD 09/02/2024 8:02 PM EST [facility] Hepatitis B Surface Ab Quantitative <3.1 mIU/mL LAB CHEMISTRY METHOD 09/02/2024 8:02 PM EST [facility] Blood Venous blood specimen / Unknown 09/02/2024 9:22 AM EST 09/02/2024 4:55 PM EST Narrative [facility] - 09/02/2024 8:02 PM EST >=10 mIU/mL is considered to be consistent with immunity. us EddieliAT Internet Casionan PLATE FINISHER LAB BLOOD ORDERABLES Final Result [facility] [address] [place] [address], [place] [phone] * Chlamydia trachomatis and Neisseria gonorrhoeae molecular study (09/02/2024 9:22 AM EST) Pathologist [facility] Neisseria gonorrhoeae PCR Negative Negative LAB MOLECULAR DIAGNOSTICS METHOD 09/03/2024 10:42 AM EST [facility] Chlamydia trachomatis PCR Negative Negative LAB MOLECULAR DIAGNOSTICS METHOD 09/03/2024 10:42 AM EST [facility] Urine Cervix uteri structure / Unknown 09/02/2024 9:22 AM EST 09/02/2024 4:55 PM EST Jaxon Marinelli NP LAB MICROBIOLOGY - GENERAL ORDERABLES Final Result [facility] [address] [place] [address], * (ABNORMAL) Complete blood count (09/02/2024 9:22 AM EST) [facility] WBC 12.5(H) 4.8 - 10.8 K/mcL LAB HEMETOLOGY METHOD 09/02/2024 5:22 PM [facility] RBC 4.80 3.80 - 4.80 M/mcL LAB HEMETOLOGY METHOD 09/02/2024 5:22 PM [facility] Hemoglobin 14.2 11.5 - 16.0 g/dL LAB HEMETOLOGY METHOD 09/02/2024 5:22 PM [facility] Hematocrit 45.0 35.0 - 47.0 % LAB HEMETOLOGY METHOD 09/02/2024 5:22 PM [facility] MCV 93.9 79.0 - 98.0 FL LAB HEMETOLOGY METHOD 09/02/2024 5:22 PM [facility] MCH 29.6 27.0 - 32.0 pcg LAB HEMETOLOGY METHOD 09/02/2024 5:22 PM [facility] MCHC 31.6(L) 32.0 - 37.0 g/dL LAB HEMETOLOGY METHOD 09/02/2024 5:22 PM EST [facility] RDW 13.6 11.0 - 15.0 % LAB HEMETOLOGY METHOD 09/02/2024 5:22 PM EST [facility] Platelets 298 130 - 400 K/mcL LAB HEMETOLOGY METHOD 09/02/2024 5:22 PM EST [facility] MPV 11.5(H) 7.0 - 11.0 FL LAB HEMETOLOGY METHOD 09/02/2024 5:22 PM EST [facility] NRBC 0.0 <1.0 % LAB HEMETOLOGY METHOD 09/02/2024 5:22 PM EST [facility] NRBC Absolute 0.00 <0.10 K/mcL LAB HEMETOLOGY METHOD 09/02/2024 5:22 PM EST [facility] Blood Venous blood specimen / Unknown 09/02/2024 9:22 AM EST 09/02/2024 4:55 PM EST us Jaxon Marinelli NP LAB BLOOD ORDERABLES Final Result [facility] [address] [place] [address], documented in this encounter Visit Diagnoses Diagnosis Encounter for screening for other suspected endocrine disorder Encounter for screening for infectious and parasitic diseases, unspecified Encounter for screening for cardiovascular disorders documented in this encounter Additional Health Concerns Infection Onset Date Last Indicated Resolved Time Respiratory Rule-Out 09/08/2024 09/08/2024 024 11:52 AM EST COVID-19 Rule-Out 09/08/2024 09/08/2024 09/08/2024 11:52 AM EST documented as of this encounter Care Teams Payroll Machine Operator Relationship Specialty Start Date End Date Jaxon Marinelli NP [address] [place] [address] PCP - General Family Medicine 11/12/24 documented as of this encounter
--- OUTSIDE RECORDS SUMMARY | 2025-05-21 09:52 | XMS_ITS | Encounter Summary ---
Author Organization [facility] Address [address] [place] [address] Care Team Providers Care Service Dispatcher Name Role Phone Jaxon Marinelli NUCLEAR UNIT OPERATOR Primary Care Provider +1- [phone] Encounter Details Date Type Department Care Team (Late st Contact Info) Description 10/02/2024 Lab Requisition [facility] - Main Lab [address] [place] [address] Jaxon Marinelli NP [address] [place] [address] Body mass index (BMI) 50.0-59.9, adult (CMS/HCC V24, CMS/HCC V28) Social History Tobacco Use Types Packs/Day Years [...] PM EST Office Visit Orthopedic Surgery - [place] [address] [phone] Jose Acosta, ABHIJIT [address] [phone] documented as of this encounter Procedures Procedure Name Priority Date/Time Associated Diagnosis Comments RAPID PLASMA REAGIN TITER Routine 10/02/2024 12:03 PM EST Body mass index (BMI) 50.0-59.9, adult ([facility]) HEMOGLOBIN A1C Routine 10/02/2024 12:03 PM EST Body mass index (BMI) 50.0-59.9, adult ([facility]) documented in this encounter Results * Rapid plasma reagin titer (10/02/2024 12:03 PM EST) Rapid Plasma Reagin Titer Nonreactive Nonreactive 10/04/2024 2:17 PM EST [facility] Blood Venous blood specimen / Unknown 10/02/2024 12:03 PM EST 10/02/2024 4:20 PM EST us Jaxon Marinelli NUCLEAR UNIT OPERATOR LAB BLOOD ORDERABLES Final Result Performing Organization Address City/[facility]/ZIP Co de Phone Number [facility] [address] [place] [address], [place] [phone] * Hemoglobin A1c (10/02/2024 12:03 PM EST) Hemoglobin A1C 6.3 <6.5 % LAB CHEMISTRY METHOD 10/03/2024 12:[address] [facility] Mean Bld Glu Estim. 134 mg/dL LAB CHEMISTRY METHOD 10/03/2024 12:[address] [facility] Blood Venous blood specimen / Unknown 10/02/2024 12:03 PM EST 10/02/2024 4:20 PM EST us Jaxon Marinelli NUCLEAR UNIT OPERATOR LAB BLOOD ORDERABLES Final Result Performing Organization Address [facility] Co de Phone Number [facility] [address] [place] [address], [place] [phone] documented in this encounter Visit Diagnoses Diagnosis Body mass index (BMI) 50.0-59.9, adult (CMS/HCC V24, CMS/HCC V28) documented in this encounter Care Teams Service Dispatcher Relationship Specialty Start Date End Date Jaxon Marinelli NP [address] [place] [address] PCP - General Family Medicine 11/12/24 documented as of this encounter
--- OUTSIDE RECORDS SUMMARY | 2025-05-21 09:52 | XMS_ITS | Encounter Summary ---
Author Organization [facility] Address [address] [place] [address] Care Team Providers Care Oil Deliverer Name Role Phone Jaxon Marinelli FISHER TRAMMEL NET Primary Care Provider [phone]- [phone] Encounter Details Date Type Department Care Team (Late st Contact Info) Description 02/21/2025 Lab Requisition [facility] - Main Lab [address] [place] [address] Jaxon Marinelli NP [address] [place] [address] Body mass index (BMI) 50.0-59.9, adult (CMS/HCC [...] PM EST Office Visit Orthopedic Surgery - [place] [address] [phone] Jose Acosta DPM [address] [phone] documented as of this encounter Procedures Procedure [...] Hold for add-ons. 02/24/2025 8:01 PM EDT [facility] Comment:Auto resulted. Blood Venous blood specimen / Unknown 02/21/2025 11:30 AM EDT 02/21/2025 5:06 PM EDT Jaxon Marinelli FISHER TRAMMEL NET LAB BLOOD ORDERABLES Final Result [facility] [address] [place] [address], * (ABNORMAL) Vitamin D 25 hydroxy (02/21/2025 11:30 AM EDT) Pathologist [facility] Vit D, 25-Hydroxy 17.3(L) 30.0 - 80.0 ng/mL LAB CHEMISTRY METHOD 02/21/2025 6:43 PM EDT [facility] Blood Venous blood specimen / Unknown 02/21/2025 11:30 AM EDT 02/21/2025 5:06 PM EDT Jaxon Marinelli FISHER TRAMMEL NET LAB BLOOD ORDERABLES Final Result [facility] [address] [place] [address], [place] [phone] * (ABNORMAL) Comprehensive metabolic panel (02/21/2025 11:30 [...] LAB CHEMISTRY METHOD 02/21/2025 6:00 PM EDT [facility] ALT (SGPT) 68(H) 10 - 60 unit/L LAB CHEMISTRY METHOD 02/21/2025 6:00 PM EDT [facility] Alkaline Phosphatase 142(H) 42 - 121 unit/L LAB CHEMISTRY METHOD 02/21/2025 6:00 PM EDT [facility] Total Protein 6.6 6.0 - 8.0 g/dL LAB CHEMISTRY METHOD 02/21/2025 6:00 PM T [facility] Albumin 3.2 3.2 - 5.0 g/dL LAB CHEMISTRY METHOD 02/21/2025 6:[address] [facility] Total Bilirubin 0.4 0.0 - 1.4 mg/dL LAB CHEMISTRY METHOD 02/21/2025 6:00 PM T [facility] Blood Venous blood specimen / Unknown 02/21/2025 11:30 AM EDT 02/21/2025 5:06 PM EDT us Jaxon Marinelli NP LAB BLOOD ORDERABLES Final Result [facility] [address] [place] [address], * (ABNORMAL) Complete blood count (02/21/2025 11:30 AM EDT) WBC 14.9(H) 4.8 - 10.8 K/mcL LAB HEMETOLOGY METHOD 02/21/2025 5:34 PM EDT [facility] RBC 5.10(H) 3.80 - 4.80 M/mcL LAB HEMETOLOGY METHOD 02/21/2025 5:34 PM EDT [facility] Hemoglobin 15.0 11.5 - 16.0 g/dL LAB HEMETOLOGY METHOD 02/21/2025 5:34 PM EDT [facility] Hematocrit 47.0 35.0 - 47.0 % LAB HEMETOLOGY METHOD 02/21/2025 5:34 PM EDT [facility] MCV 92.5 79.0 - 98.0 FL LAB HEMETOLOGY METHOD 02/21/2025 5:34 PM EDT [facility] MCH 29.5 27.0 - 32.0 pcg LAB HEMETOLOGY METHOD 02/21/2025 5:34 PM EDT [facility] MCHC 31.9(L) 32.0 - 37.0 g/dL LAB HEMETOLOGY METHOD 02/21/2025 5:34 PM EDT [facility] RDW 13.1 11.0 - 15.0 % LAB HEMETOLOGY METHOD 02/21/2025 5:34 PM EDT [facility] Platelets 285 130 - 400 K/mcL LAB HEMETOLOGY METHOD 02/21/2025 5:34 PM EDT [facility] MPV 12.1(H) 7.0 - 11.0 FL LAB HEMETOLOGY METHOD 02/21/2025 5:34 PM EDT [facility] NRBC 0.0 <1.0 % LAB HEMETOLOGY METHOD 02/21/2025 5:34 PM EDT [facility] NRBC Absolute 0.00 <0.10 K/mcL LAB HEMETOLOGY METHOD 02/21/2025 5:34 PM EDT [facility] Blood Venous blood specimen / Unknown 02/21/2025 11:30 AM EDT 02/21/2025 5:06 PM EDT us Jaxon Marinelli NP LAB BLOOD ORDERABLES Final Result [facility] [address] [place] [address], * (ABNORMAL) Hemoglobin A1c (02/21/2025 11:30 AM EDT) Hemoglobin A1C 6.9(H) <6.5 % LAB CHEMISTRY METHOD 02/21/2025 9:31 PM EDT [facility] Mean Bld Glu Estim. 151 mg/dL LAB CHEMISTRY METHOD 02/21/2025 9:31 PM EDT [facility] Blood Venous blood specimen / Unknown 02/21/2025 11:30 AM EDT 02/21/2025 5:06 PM EDT us Jaxon Marinelli LAB BLOOD ORDERABLES Final Result Performing Organization Address [facility]/State/ZIP Co de Phone Number [facility] [address] [place] [address], [place] [phone] * Thyroid stimulating hormone with reflex to free t4 and free t3 (02/21/2025 11:30 AM EDT) Pathologist [facility] TSH 2.15 0.40 - 4.00 mcIU/mL LAB CHEMISTRY METHOD 02/21/2025 7:44 PM EDT [facility] Blood Venous blood specimen / Unknown 02/21/2025 11:30 AM EDT 02/21/2025 5:06 PM EDT us Jaxon Marinelli FISHER TRAMMEL NET LAB BLOOD ORDERABLES Final Result [facility] [address] [place] [address], [place] [phone] documented in this encounter Visit Diagnoses Diagnosis Body mass index (BMI) 50.0-59.9, adult (CMS/HCC V24, CMS/[facility] V28) Prediabetes Other abnormal glucose documented in this encounter Care Teams Oil Deliverer Relationship Specialty Start Date End Date Jaxon Marinelli NP [address] [place] [address] PCP - General Family Medicine 11/12/24 documented as of this encounter
--- OUTSIDE RECORDS SUMMARY | 2025-05-21 09:56 | XMS_ITS | Clinical Summary ---
Author Organization [facility] Address [address] [place] [address] Phone Care Team Providers Care Cooking Chef Name Role Phone Jaxon Marinelli NP Primary Care Provider +1- [phone] Allergies Active Allergy Reactions Criticality Noted Date Comments [place] 10/28/2011 Sertraline Hives Medium 08/04/2024 Zolpidem 10/28/2011 Medications No known medications Active Problems Problem Noted Date Diagnosed Date Asthma 11/13/2024 Bipolar 1 disorder ([facility] V24, [facility] V28) Bipolar affective disorder, current episode manic with psychotic symptoms ([facility] V24, [facility] V28) 11/13/2024 Hypothyroid 11/13/2024 PCOS (polycystic ovarian syndrome) 11/13/2024 HENRIQUEZ (nonalcoholic steatohepatitis) 11/13/2024 Morbid obesity ([facility] V24, [facility] V28) 2013 Overview (11/13/2024): BMI 42.9 on 07/11/13. Encounters Date Type Department Care Team Description 04/21/2025 2:00 PM EDT Office Visit Orthopedic Surgery - [place] [address] [facility] [address] [place] [address] Jose Acosta DPWilmer Ingrowing nail (Primary Dx); Dermatophytosis of nail; Pain in toe of right foot; Pain in toe of left foot; Difficulty walking 02/21/2025 Lab Requisition [facility] - Main Lab [address] [facility] [place] [address] Jaxon Marinelli NP Body mass index (BMI) 50.0-59.9, adult ([facility] V24, [facility] V28); Prediabetes from Last 3 Months Immunizations Name Administration Dates Next Due Influenza trivalent, 0.5mL, preservative free (Fluarix; FluLaval; Fluzone) ages 6mo and older (Afluria) 3 years and older 07/11/2013 Tdap Tetanus diptheria acell ular pertussis (Boostrix; Adacel) 7yo and older 01/02/2012 Medical History Medical History Date Comments Hypothyroid DX:Hypothyroid HENRIQUEZ (nonalcoholic steatohepatitis) DX:HENRIQUEZ (nonalcoholic steatohepatitis) Bipolar 1 disorder ([facility] V24, [facility] V28) DX:Bipolar 1 disorder ([facility]) PCOS (polycystic ovarian syndrome) DX:PCOS (polycystic ovarian syndrome) Asthma DX:Asthma Family History Medical History Relation Name Comments Diabetes Father Hypertension Father Relation Name Status Comments Father Social History Tobacco Use Types Packs/Day Years Used Date Smoking Tobacco: Every Day Cigarettes Smokeless Tobacco: Never Tobacco Cessation:Ready to Q uit: Not Asked; Counseling Given: Not Answered Alcohol Use Standard Drinks/Week Comments No 0 (1 standard drink = 0.6 oz pur e alcohol) Comments No Sex and Gender Information Value Date Recorded Sex Assigned at Female 09/08/2024 10:55 AM EST Legal Sex Female 5:43 PM EST Gender Identity Female 09/08/2024 10:55 AM EST Sexual Orientation Straight 09/08/2024 10 :55 AM EST Obstetrics History Para Term AB IAB SAB Ectopic Multiple Livin g Live Births 2 Last Filed Vital Signs Vital Sign Reading Time Taken Comments Blood Pressure 111/58 09/08/2024 1:35 PM EST Pulse 107 09/08/2024 2:30 PM EST Temperature 37.3 C (99.1 F) 09/08/2024 3:07 PM EST Respiratory Rate 19 09/08/2024 2:30 PM EST Oxygen Saturation 96% 09/08/2024 1:35 PM EST Inhaled Oxygen Concentration - - Weight 129 kg (284 lb) 01/15/2025 9:45 AM EDT Height 160 cm (5' 2.99 ) 01/15/2025 9:45 AM EDT Body Mass Index 50.32 01/15/2025 9:45 AM EDT Plan of Treatment Upcoming Encounters Date Type Department Care Team (Late st Contact Info) Description 07/22/2025 2:00 PM EST Office Visit Orthopedic Surgery - [place] [address] [phone] Jose Acosta, DPM [address] [phone] Health Maintenance Due Date Last Done Comments Pneumococcal Vaccine: Pediatrics (0 to 5 Years) and At-Risk Patients (6 to 49 Years) (1 of 2 - PCV) 2001 Cervical Cancer Screening: Pap Smear 04/24/2015 04/24/2012 Medicare Annual Wellness Visit 10/17/2023 Social Influencers of Health Screening 10/17/2023 Depression Screening 09/18/2024 Hepatitis B Vaccines (2 of 2 - CpG 2-dose series) 10/30/2024 10/02/2024 Influenza Vaccine (#1) 2025 07/11/2013 Hypertension/CHF/CAD Annual BMP Blood Test 02/21/2026 02/21/2025, 09/08/2024, 09/02/2024, Additional history exists Breast Cancer Screening 10/11/2026 10/11/2024 Cholesterol Screening (Lipid Panel) 09/02/2029 09/02/2024, 02/25/2013 DTaP,Tdap,and Td Vaccines (3 - Td or Tdap) 05/29/2033 05/29/2023, 01/02/2012 COVID-19 Vaccine Completed 07/13/2024, 06/2021, 02/04/2021 HIV Screening Completed 09/02/2024, 04/17/2012 Hepatitis C Screening Completed 09/02/2024 HIB Vaccines Aged Out No longer eligi ble based on patient's age to complete this topic HPV Vaccines Aged Out No longer eligi ble based on patient's age to complete this topic Hepatitis A Vaccines Aged Out No long er eligible based on patient's age to complete this topic IPV Vaccines Aged Out No longer eligi ble based on patient's age to complete this topic MMR Vaccines Aged Out No longer eligi ble based on patient's age to complete this topic Meningococcal ACWY Vaccine Aged Out N o longer eligible based on patient's age to complete this topic Meningococcal B Vaccine Aged Out No l onger eligible based on patient's age to complete this topic RSV Immunization Patients Under 20 months Aged Out No longer eligible based on patient's age to complete this topic Varicella Vaccines Aged Out No longer eligible based on patient's age to complete this topic Procedures Procedure Name Priority Date/Time Associated Diagnosis Comments SST - GOLD Routine 02/21/2025 11:30 AM [...] 50.0-59.9, adult (CMS/HCC V24, CMS/HCC V28) Prediabetes THYROID STIMULATING HORMONE WITH REFLEX TO FREE T4 AND FREE T3 Routine 02/21/2025 11:30 AM EDT Body mass index (BMI) 50.0-59.9, adult (CMS/HCC V24, CMS/HCC V28) Prediabetes MG MAMMO DIGITAL SCREENING W VINH BILAT Routine 10/11/2024 1:05 PM EST Encounter for screening mammogram for breast cancer HEPATITIS C ANTIBODY Routine 09/02/2024 9:22 AM [...] unspecified Encounter for screening for cardiovascular disorders HM PAP SMEAR Routine 04/24/2012 from Last 3 Months or Most Recently Relevant to Health Maintenance Results * Thyroid stimulating hormone with reflex to free t4 and free t3 (02/21/2025 11:30 AM EDT) TSH 2.15 0.40 - 4.00 mcIU/mL LAB CHEMISTRY METHOD 02/21/2025 7:44 PM EDT [facility] Blood Venous blood specimen / Unknown 02/21/2025 11:30 AM EDT 02/21/2025 5:06 PM EDT us Jaxon Marinelli PARAMEDIC RN LAB BLOOD ORDERABLES Final Result [facility] [address] [place] [address], [place] [phone] * SST tube (02/21/2025 11:30 AM EDT) Extra Tube Hold for add-ons. 02/24/2025 8:01 PM EDT [facility] Comment:Auto resulted. Blood Venous blood specimen / Unknown 02/21/2025 11:30 AM EDT 02/21/2025 5:06 PM EDT [facility] PARAMEDIC RN LAB BLOOD ORDERABLES Final Result Performing Organization Address City/[facility]/ZIP Co de Phone Number [facility] [address] [place] [address], [place] [phone] * (ABNORMAL) Vitamin D 25 hydroxy (02/21/2025 11:30 AM EDT) Pathologist [facility] Vit D, 25-Hydroxy 17.3(L) 30.0 - 80.0 ng/mL LAB CHEMISTRY METHOD 02/21/2025 6:43 PM EDT [facility] Blood Venous blood specimen / Unknown 02/21/2025 11:30 AM EDT 02/21/2025 5:06 PM EDT [facility] PARAMEDIC RN LAB BLOOD ORDERABLES Final Result Performing Organization Address [facility]/ZIP Co de Phone Number [facility] [address] [place] [address], [place] [phone] * (ABNORMAL) Complete blood count (02/21/2025 11:30 AM EDT) [facility] WBC 14.9(H) 4.8 - 10.8 K/mcL LAB HEMETOLOGY METHOD 02/21/2025 5:34 PM EDT [facility] RBC 5.10(H) 3.80 - 4.80 M/[facility] LAB HEMETOLOGY METHOD 02/21/2025 5:34 PM EDT [facility] Hemoglobin 15.0 11.5 - 16.0 g/dL LAB HEMETOLOGY METHOD 02/21/2025 5:34 PM EDT [facility] Hematocrit 47.0 35.0 - 47.0 % LAB HEMETOLOGY METHOD 02/21/2025 5:34 PM EDT [facility] MCV 92.5 79.0 - 98.0 FL LAB HEMETOLOGY METHOD 02/21/2025 5:34 PM EDT [facility] MCH 29.5 27.0 - 32.0 pcg LAB HEMETOLOGY METHOD 02/21/2025 5:34 PM EDT [facility] MCHC 31.9(L) 32.0 - 37.0 g/dL LAB HEMETOLOGY METHOD 02/21/2025 5:34 PM EDT [facility] RDW 13.1 11.0 - 15.0 % LAB HEMETOLOGY METHOD 02/21/2025 5:34 PM EDT [facility] Platelets 285 130 - 400 K/mcL LAB HEMETOLOGY METHOD 02/21/2025 5:34 PM EDT [facility] MPV 12.1(H) 7.0 - 11.0 FL LAB HEMETOLOGY METHOD 02/21/2025 5:34 PM EDT [facility] NRBC 0.0 <1.0 % LAB HEMETOLOGY METHOD 02/21/2025 5:34 PM EDT [facility] NRBC Absolute 0.00 <0.10 K/mcL LAB HEMETOLOGY METHOD 02/21/2025 5:34 PM EDT [facility] Blood Venous blood specimen / Unknown 02/21/2025 11:30 AM EDT 02/21/2025 5:06 PM EDT us Jaxon Marinelli PARAMEDIC RN LAB BLOOD ORDERABLES Final Result [facility] [address] [place] [address], * (ABNORMAL) Hemoglobin A1c (02/21/2025 11:30 AM EDT) Hemoglobin A1C 6.9(H) <6.5 % LAB CHEMISTRY METHOD 02/21/2025 9:31 PM EDT [facility] Mean Bld Glu Estim. 151 mg/dL LAB CHEMISTRY METHOD 02/21/2025 9:31 PM [facility] Blood Venous blood specimen / Unknown 02/21/2025 11:30 AM EDT 02/21/2025 5:06 PM EDT us Jaxon Marinelli PARAMEDIC RN LAB BLOOD ORDERABLES Final Result [facility] [address] [place] [address], [place] [phone] * (ABNORMAL) Comprehensive metabolic panel (02/21/2025 11:30 AM EDT) Sodium 141 133 - 145 mmol/L LAB CHEMISTRY METHOD 02/21/2025 6:00 PM [facility] Potassium 4.5 3.5 - 5.5 mmol/L LAB CHEMISTRY METHOD 02/21/2025 6:00 PM [facility] Chloride 109 96 - 110 mmol/L LAB CHEMISTRY METHOD 02/21/2025 6:00 PM [facility] CO2 28 21 - 32 mmol/L LAB CHEMISTRY METHOD 02/21/2025 6:00 PM [facility] Anion Gap 4 3 - 11 LAB CHEMISTRY METHOD 02/21/2025 6:00 PM [facility] Glucose 113(H) 70 - 100 mg/dL LAB CHEMISTRY METHOD 02/21/2025 6:00 PM [facility] BUN 11 5 - 25 mg/dL LAB CHEMISTRY METHOD 02/21/2025 6:00 PM [facility] Creatinine 0.73 0.50 - 1.10 mg/dL LAB CHEMISTRY METHOD 02/21/2025 6:00 PM [facility] eGFR 105 >=60 mL/min/1. 73m2 LAB CHEMISTRY METHOD 02/21/2025 6:00 PM [facility] Comment:Calculation based on the Chronic Kidney Disease Epidemiology Collaboration (CKD-EPI) equation refit without adjustment for race. BUN/Creatinine Ratio 15.1 LAB CHEMISTRY METHOD 02/21/2025 6:00 PM [facility] Calcium 8.4(L) 8.5 - 10.5 mg/dL LAB CHEMISTRY METHOD 02/21/2025 6:00 PM [facility] AST (SGOT) 26 10 - 42 unit/L LAB CHEMISTRY METHOD 02/21/2025 6:00 PM [facility] ALT (SGPT) 68(H) 10 - 60 unit/L LAB CHEMISTRY METHOD 02/21/2025 6:00 PM [facility] Alkaline Phosphatase 142(H) 42 - 121 unit/L LAB CHEMISTRY METHOD 02/21/2025 6:00 PM [facility] Total Protein 6.6 6.0 - 8.0 g/dL LAB CHEMISTRY METHOD 02/21/2025 6:00 PM [facility] Albumin 3.2 3.2 - 5.0 g/dL LAB CHEMISTRY METHOD 02/21/2025 6:00 PM [facility] Total Bilirubin 0.4 0.0 - 1.4 mg/dL LAB CHEMISTRY METHOD 02/21/2025 6:00 PM [facility] Blood Venous blood specimen / Unknown 02/21/2025 11:30 AM EDT 02/21/2025 5:06 PM EDT us Jaxon Marinelli PARAMEDIC RN LAB BLOOD ORDERABLES Final Result [facility] [address] [place] [address], * MG Mammo Digital Screening w Vinh bilat (10/11/2024 1:05 PM EST) Anatomical Region Laterality Modality Breast Bilateral Mammography 10/14/2024 9:12 AM EST Impressions 10/14/2024 9:17 AM EST No mammographic evidence of malignancy. A negative mammogram in the presence of a clinically suspicious palpable abnormality does not preclude the possibility of malignancy or alter the indications for biopsy. PQRI CPT II 3342F Code 45674, 29544 PQRI 225 CPT II 7025F TISSUE DENSITY: The breasts are almost entirely fatty. (BI-RADS Category A) IMPRESSION: Benign. BI-RADS CATEGORY: 2 - BENIGN RECOMMENDATION: Screening bilateral mammogram is recommended in 1 year. Mammo Location: [facility], [address] [place] [address] -------- FINAL REPORT -------- Dictated By: Addison Burch Dictated Date: 10/14/2024 09:12 ET Assigned Physician: Addison Burch Reviewed and Electronically Signed By: Addison Burch Signed Date: 10/14/2024 09:17 ET Workstation ID: [id number] Transcribed By: Self Edit Transcribed Date: 10/14/2024 09:12 ET Narrative 10/14/2024 9:17 AM EST CLINICAL: The patient is a 43 years Female presenting for routine screening mammography. COMPARISON: Outside mammogram performed 11/12/2019. TECHNIQUE: Full-field digital mammography of the breasts bilaterally consisting of tomosynthesis in MLO and CC projection is performed in the [employer] 2000-D unit. Computer aided detection utilizing the iCAD system was utilized. FINDINGS: The breasts are again seen to be largely fatty replaced. A few scattered benign punctate calcifications are noted. There is no suspicious cluster of microcalcifications, mass, or area of architectural distortion. There is no skin thickening or nipple retraction. Procedure Note Addison Burch MD - 10/14/2024 CLINICAL: The patient is a 43 years Female presenting for routinescreening mammography. COMPARISON: Outside mammogram performed 11/12/2019. TECHNIQUE: Full-field digital mammography of the breasts bilaterallyconsisting of tomosynthesis in MLO and CC projection is performed in the[employer] 2000-D unit. Computer aided detection utilizing the iCADsystem was utilized. FINDINGS: The breasts are again seen to be largely fatty replaced. A fewscattered benign punctate calcifications are noted. There is nosuspicious cluster of microcalcifications, mass, or area of architecturaldistortion. There is no skin thickening or nipple retraction. IMPRESSION: No mammographic evidence of malignancy. A negative mammogram in the presence of a clinically suspicious palpableabnormality does not preclude the possibility of malignancy or alter theindications for biopsy. PQRI CPT II 3342F Code 21754, 50551 PQRI 225 CPT II 7025F TISSUE DENSITY: The breasts are almost entirely fatty. (BI-RADS CategoryA) IMPRESSION: Benign. BI-RADS CATEGORY: 2 - BENIGN RECOMMENDATION: Screening bilateral mammogram is recommended in 1 year. Mammo Location: [facility], [facility], [address] [place] [id number] -------- FINAL REPORT -------- Dictated By: Addison Burch Dictated Date: 10/14/2024 09:12 ET Assigned Physician: Addison Burch Reviewed and Electronically Signed By: Addison Burch Signed Date: 10/14/2024 09:17 ET Workstation ID: [id number] Transcribed By: Self Edit Transcribed Date: 10/14/2024 09:12 ET us Self Referral Sppl IMG BI PROCEDURES Final Resul t * Hepatitis C antibody (09/02/2024 9:22 AM EST) [facility] Hepatitis C Antibody Negative Negative LAB CHEMISTRY METHOD 09/02/2024 8:41 PM EST [facility] Blood Venous blood specimen / Unknown 09/02/2024 9:22 AM EST 09/02/2024 4:55 PM EST us Eddimoe Marinelli NP LAB BLOOD ORDERABLES Final Result [facility] [address] [place] [address], [place] [phone] * HIV 1,2 antibody, p24 antigen with reflex to differentiation (09/02/2024 9:22 AM EST) [facility] HIV Combo AB/AG Negative Negative LAB CHEMISTRY METHOD 09/02/2024 8:41 PM [facility] Blood Venous blood specimen / Unknown 09/02/2024 9:22 AM EST 09/02/2024 4:55 PM EST [facility] - 09/02/2024 8:41 PM EST This assay is a 4th generation assay allowing for earlier detection of HIV infection by detecting the presence of the HIV-1 p24 antigen as well as the traditional antibodies to HIV type 1 (including group O) and type 2. Use of a 4th generation assay is the current CDC recommendation for HIV screening. Jaxon Marinelli NP LAB BLOOD ORDERABLES Final Result [facility] [address] [place] [address], * (ABNORMAL) Lipid panel with reflex to direct LDL (09/02/2024 9:22 AM EST) [facility] Cholesterol 132 0 - 200 mg/dL LAB CHEMISTRY METHOD 09/02/2024 8:07 PM [facility] Triglycerides 130 0 - 150 mg/dL LAB CHEMISTRY METHOD 09/02/2024 8:07 PM [facility] HDL 36(L) >=40 mg/dL LAB CHEMISTRY METHOD 09/02/2024 8:07 PM [facility] LDL Calculated 70 0 - 100 mg/dL LAB CHEMISTRY METHOD 09/02/2024 8:07 PM [facility] VLDL Cholesterol Nirmal 26 mg/dL LAB CHEMISTRY METHOD 09/02/2024 8:07 PM [facility] Non HDL Chol. (LDL+VLDL) 96 <145 mg/dL LAB CHEMISTRY METHOD 09/02/2024 8:07 PM [facility] Chol/HDL Ratio 3.7 0.0 - 4.4 LAB CHEMISTRY METHOD 09/02/2024 8:07 PM [facility] Blood Venous blood specimen / Unknown 09/02/2024 9:22 AM EST 09/02/2024 4:55 PM EST Jaxon Marinelli NP LAB BLOOD ORDERABLES Final Result [facility] [address] [place] [address], [place] [phone] * Pap Smear (04/24/2012) Pap smear No interpreta tion,abstr acted Historical Provider MD HEALTH MAINTENANCE Final Result from Last 3 Months or Most Recently Relevant to Health Maintenance Insurance MEDICARE Member Subscriber Plan / Payer (Ef fective 2024-Present) Name:DEEPA LAZCANO Relation to Subscriber:Self Name:Deepa Lazcano Payer ID:[id number] Group ID:[id number] Type:Not on file Address: [place] [address] [address] [id number] Care Teams Cooking Chef Relationship Specialty Start Date End Date Jaxon Marinelli NP [address] [place] [address] PCP - General Family Medicine 11/12/24
[2025-05-21 10:58] LABS: Syphilis Screen Reactive (Nonreactive)
[2025-05-21 14:39] LABS: Bacterial Vaginosis PCR POSITIVE (Negative); Candida Group PCR NOT DETECTED (Not Detect); Candida glab krusei PCR NOT DETECTED (Not Detect); Trichomonas vaginalis PCR NOT DETECTED (Not Detect)
[2025-05-21 15:04] LABS: CT PCR NOT DETECTED (Not Detect.); NG PCR NOT DETECTED (Not Detect.)
[2025-05-28 13:45] LABS: T.Pallidum Particle Agg Test Reactive (Nonreactive)
== END 2025-05-21 09:11 | disposition home or self-care (01) ==
LOC: HO.LAB 09:10
PROVIDERS: Visit Provider Obstetrics & Gynecology
DX: Z20.2 Contact with and (suspected) exposure to infections with a predominantly sexual mode of transmission (principal)
CPT/HCPCS: 36415; 81515; 86592; 86780; 87491; 87591; 99212

== ENCOUNTER 2025-05-21 09:40 | Outpatient (AMB) | payer OTHER, SELFPAY ==
--- OUTSIDE RECORDS SUMMARY | 2025-05-16 07:00 | XMS_ITS ---
Author Organization [facility] Address [address] [place] [address] Care Team Providers Care Spike Machine Heater Name Role Phone Jaxon Marinelli Primary Care Provider [facility], Nursing Unavailable [phone] Allergies Allergen (clinical drug ingredient) Drug/Non Drug Allergy documented on EMR Reaction Allergy Type Onset Date Status sertraline Zoloft anaphylaxis Drug Allergy Acti ve zolpidem Ambien anaphylaxis Drug Allergy Activ e REASON FOR VISIT Office: Zepbound Medications Medication SIG (Take, Route, Frequency, Duration) Notes Start Date End Date Status Albuterol (Eqv-ProAir HFA) 90 mcg/inh 2 INH inhaled every 6 hours Active metFORMIN 500 mg 1 tab(s) orally once a day at bedtime for 90 days pls deliver to [facility] Active OLANZapine 15 mg 2 tab(s) orally once a day at bedtime Active Zepbound 7.5 mg/0.5 mL as directed subcutaneously once a week for 28 days pls deliver all meds to [facility] 10/02/2024 Active amLODIPine 5 mg 1 tab(s) orally once a day for 90 days Active prazosin 1 mg 1 cap(s) orally two times a day Active Social History Tobacco Use: Social History [...] and advised to quit: 10/02/2024 Vital Signs Height 63 in 05/16/2025 Weight 282.0 lbs 05/16/2025 BMI 49.95 kg/m2 05/16/2025 Encounters Encounter Location Date Provider Diagnosis [address] [phone] 05/16/2025 [facility] Morbid (severe) obesity due to excess calories E66.01 Assessments Encounter Date Diagnosis (ICD Code) Assessment Notes Treatment Notes Treatment Clinical Notes Section Notes 05/16/2025 Morbid (severe) obesity due to excess calories (ICD-10 - E66.01) Zepbound 7.5mg administered as ordered subcutaneously into lower right side of abdomen as ordered by provider. Pt. advised to RTC in one week for next injection, pt. agrees with plan. Plan Of Treatment Treatment Notes Assessment Notes Morbid (severe) obesity due to excess calories Zepbound 7.5mg administered as ordered subcutaneously into lower right side of abdomen as ordered by provider. Pt. advised to RTC in one week for next injection, pt. agrees with plan. Next Appt Details Follow Up: 1 Week, Reason: Provider Name:Jaxon snider, 06/25/2025 09:30:00 AM, [address] [place] [address], [phone], Provider Name:Matt Marx i, 07/10/2025 02:00:00 PM, [address] [place] [address], [phone], Medications Administered Medication Instructions Date of Administration Dosage Notes UNCLASSIFIED DRUGS 05/16/2025 7.5 mg Zepbound 7.5mg Lot: [id number] [facility]: [id number] Progress Notes * Annie LAZCANO MDOB: 3 (44 yo F)Acc No.[id number]:05/16/2025 Progress Notes Patient: Annie TUCKER Provider: Alondra pimentel [facility] :1980 A ge:44 Y S ex:Female Date:05/16/2025 Address:[address] [place] [address], [address] [place], [place] [address], [place] Pcp:Jaxon Marinelli Subjective: * Chief Complaints: * 1 . Office: Zepbound. * HPI: G eneral: Pt. reports to clinic for weekly Zepbound injection, pt. denies any concerns at time of visit. * Medical History: B ipolar, Ptsd, Hypothroidism, ASthma, Arthritis, High BP, Smoker. * Medications: T aking Albuterol (Eqv-ProAir HFA) 90 mcg/inh aerosol 2 INH inhaled every 6 hours , Taking prazosin 1 mg capsule 1 cap(s) orally two times a day , Taking OLANZapine 15 mg tablet 2 tab(s) orally once a day at bedtime , Taking metFORMIN 500 mg tablet, extended release 1 tab(s) orally once a day at bedtime , Notes to Pharmacist: pls deliver to [facility], Taking amLODIPine 5 mg tablet 1 tab(s) orally once a day , Taking Zepbound 7.5 mg/0.5 mL solution as directed subcutaneously once a week , Notes to Pharmacist: pls deliver all meds to [facility], Medication List reviewed and reconciled with the patient * Allergies: Z oloft: anaphylaxis - Allergy, Ambien: anaphylaxis - Allergy. Objective: * Vitals: H t: 63, Wt: 282.0, BMI:49.95. Assessment: * Assessment: 1. M orbid (severe) obesity due to excess calories - E66.01 (Primary) Plan: * Treatment: * Therapeutic Injections: UNCLASSIFIED DRUGS : 7.5 mg (Route: Subcutaneous) given by Breann Nunez on Abdomen (Morbid (severe) obesity due to excess calories) * Procedure Codes: J 3490 UNCLASSIFIED DRUGS, 37665 THER/PROPH/DIAG INJ SC/IM * Follow Up: 1 Week * Images: Billing Information: * Visit Code: 02290 RN Visit Only; F/U; MD Order No Superv Nec. * Procedure Codes: J3490 UNCLASSIFIED DRUGS. 43727 THER/PROPH/DIAG INJ SC/IM. * Electronic signature of Aaron [facility] on 05/21/2025 at 10:37 AM EDT Sign off status: Pending * Provider: Alondra pimentel [facility] Date: 0 05/16/2025 Generated for Abhi dean/Faxing/eTransmitting on: 0 05/21/2025 10:37 AM EDT
--- NOTE | 2025-05-21 09:40 | MHC.OFFVIS ---
Intake Visit Reasons: HOLLEY Accompanied by: Self / Same As Patient Allergies aripiprazole (Abilify) Allergy (Unknown, Verified 05/21/25 09:52) hives latex (LATEX) Allergy (Unknown, Verified 05/21/25 09:52) RASH sertraline (From Zoloft) Allergy (Unknown, Verified 05/21/25 09:52) raised LFTs/angioedema zolpidem (Ambien) Allergy (Unknown, Verified 05/21/25 09:52) hives Iodinated Contrast Media (IV Contrast Dye) Allergy (Verified 05/21/25 09:52) Hives HPI Comments Details: The patient is presenting for a test of cure. No complaints [facility] Medical History WATSON III (cervical intraepithelial neoplasia grade III) with severe dysplasia History of electroconvulsive therapy H/O abnormal cervical Papanicolaou smear DONNA (obstructive sleep apnea) Morbid obesity Morbid obesity due to excess calories History of hypothyroidism History of syphilis Encounter for Essure implantation Elevated WBCs HENRIQUEZ (nonalcoholic steatohepatitis) Neutrophilia Anemia Asthma PCOS (polycystic ovarian syndrome) Hypothyroid Bipolar 1 disorder Family History Paternal Grandfather Colon cancer Paternal Grandmother Breast cancer Maternal Grandmother Uterine cancer Father Arthritis Asthma Diabetes Hypertension Stroke Mother Hypertension Mental health disorder Sister Hypertension Diabetes Sister No problems noted. Sister Depression Obesity Brother No problems noted. Sister Lupus Son No problems noted. Daughter No problems noted. Social History Housing: Homeless Alcohol intake: former Patient Tobacco Use Status: Current everyday Tobacco user Tobacco use type: Cigarette Cigarette Packs Per Day: 1 Cigarettes Per Day: 15 Years Smoked: 22 e-Cigarette/Vaping Use: Currently Using Second Hand Smoke Exposure: No Substance Use Type: Marijuana and Caffiene service: No Current occupational status: unemployed Sexual orientation: Straight/Heterosexual Gender identity: Female Cognitive needs: No Hearing needs: No Vision needs: Yes Female Reproductive History Menstrual Age of Menarche: 11 Review of Systems Const All systems reviewed & are unremarkable except as noted in HPI and below Physical Exam General: Yes no CVA tenderness External Female Exam: normal external appearance and normal appearance of the urethra Speculum Exam - Vagina: normal appearance of the vagina, normal palpation, no lesions and no masses Speculum Exam - Cervix: normal appearance of the cervix, normal palpation, no lesions, no masses and nontender Bimanual exam- vagina & uterus: normal bimanual exam, normal palpation, uterine size normal, normal palpation, uterine shape normal, No Cervical tenderness present and non-tender Bimanual Exam- Adnexa, other: normal adnexae Back/Spine/Pelvis Back: no CVA tenderness Assessment & Plan Assessment & Plan (1) Trichomonas contact, treated: Code(s): Z20.2 - Contact with and (suspected) exposure to infections with a predominantly sexual mode of transmission Category: Medical Plan: GC/CT with BV panel collected. Coding Level of Care Code Est Pt Level 3 (53242) Diagnoses Trichomonas contact, treated Z20.2
--- OUTSIDE RECORDS SUMMARY | 2025-05-21 10:38 | XMS_ITS | Patient Health Record ---
Author Organization [facility] Address [address] [place] [address] Care Team Providers Care Smt Technician Name Role Phone Jaxon Marinelli Primary Care Provider [phone] [facility], Nursing Unavailable [phone] Mary Jernigan Unavailable [phone] Chet Dewitt Unavailable [phone] Matt Gomez Unavailable [phone] [facility], W Unavailable [phone] Allergies Allergen (clinical drug ingredient) Drug/Non Drug Allergy documented on EMR Reaction Allergy Type Onset Date Status sertraline Zoloft anaphylaxis Drug Allergy Acti ve zolpidem Ambien anaphylaxis Drug Allergy Activ e Results Component Value Reference Range Notes QUANTIFERON(R)-TB GOLD PLUS, 1 TUBE Reviewed date:01/31/2025 10:47:45 AM Interpretation:Negative Performing Lab:NL2, [employer] [facility] [id number] Estuardo Graves Notes/Report: FASTING: UNKNOWN QUANTIFERON(R)-TB [...] T-lymphocytes. For additional information, please refer to [email or web address] (This link is being provided for informational/ educational purposes only.) Shandra Screening Digital Reviewed date:05/15/2025 11:40:33 AM Interpretation:Normal Performing Lab: Notes/Report: Normal COMPREHENSIVE METABOLIC PANE L Reviewed date:09/03/2024 01:13:41 [...] Antibody (TP-PA) Reactive Nonreactive Test performed at [facility], [facility] [place] [address] Yudelka Healy MD, PhD - Electrical Worker HEMOGLOBIN A1C Reviewed date:10/07/2024 09:34:47 AM Interpretation:6.3 [...] 17.3 30.0-80.0 ng/mL Reason For Referral Reason [facility] dental DX with prediabetes Diagnosis 1 Prediabetes (R73.03) Referral Organization [facility] Referring Provider First Name Jaxon Referring Provider [...] Reason Roby YAÑEZ [address] [facility] Annual Exam Diagnosis 1 Encounter for screen ing for malignant neoplasm of cervix (Z12.4) Referral Organization [facility] Referring Provider First Name Jaxon Referring Provider Last Name Yves Referring Provider Speciality Nurse Prac aquilino Referred Provider [place] Referred Provider 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 Dave Diaz, [address] [place] [address] P: [phone] F: [phone] treat for ingrown toe nail Diagnosis 1 Ingrowing nail (L60. 0) Referral Organization [facility] Referring Provider First Name Jaxon Referring Provider Last Name Yves Referring Provider Speciality Nurse Prac aquilino Referred Provider Vinny - DO NOT U SE, Jose Acosta Referred Provider Specialty Podiatry - S urgical Chiropody General Notes Breann Nunez 10:52:13 AM > Faxed to Juanito FLORES Katelyn 01/30/2025 02:59:17 PM > pt seen note scanned Referral Priority Routine Reason Please evaluate whit e tissue noted in edentulous areas and right lateral border of tongue Also raised lesion left buccal mucosa Referral Organization [facility] Referring Provider First Name Mary Referring Provider Last Name Delon Referring Provider Speciality Dental Gen eral Practice Referred Provider Vinny Rojo DO NOT U SE, [facility] Referred Provider Specialty Oral Surgery Referral Priority Routine Medications Medication SIG (Take, Route, Frequency, Duration) Notes Start Date End Date Status prazosin 1 mg 1 cap(s) orally two [...] once a day for 90 days Active Immunizations Vaccine Route Administration Date Status Comme nts Tdap Unknown 05/29/2023 Administered Pfizer-Biontech Covid-19 Vaccine Administration - First Dose (Single Dose 30MCG/0.3ML 1ST) Unknown 02/04/2021 Administered Pfizer-Biontech Covid-19 Vaccine Administration-Second Dose (Single Dose 30MCG/0.3ML 2ND) Unknown 02/25/2021 Administered COMIRNATY Pfizer COVID-19 Vaccine 12y+ Unknown 07/13/2024 Administered Heplisav-B IM Intramuscular 10/02/2024 Administered [facility]: [id number] Social History Tobacco Use: Social History Observation [...] Risk Notes Problem Polycystic ovary syndrome (disorder) (548927482) Polycystic ovarian syndrome (E28.2) Active confirmed Problem Morbid obesity (disorder) (893167157) Morbid (severe) obesity due to excess calories (E66.01) Active confirmed Problem Nicotine dependence (73291729) Nicotine dependence, cigarettes, with other nicotine-induced disorders (F17.218) Active confirmed Problem Essential hypertension (04743526) Essential (primary) hypertension (I10) Active confirmed Problem Body mass index 40+ - morbidly obese (913456390) Body mass index (BMI) 50-59.9 , adult (Z68.43) Active confirmed Problem History of infectious disease (988772961) Personal history of other infectious and parasitic diseases (Z86.19) Active confirmed Problem Prediabetes (984950946) Prediabetes (R73.03) Active confirmed Problem Sheltered homelessness (546844528714764 ) Sheltered homelessness (Z59.01) Active confirmed Vital Signs Temperature 97.8 degrees Fahrenheit 05/06/2025 Blood pressure diastolic 96 03/25/2025 Oximetry 95 05/06/2025 Height 63 in 05/16/2025 Blood pressure systolic 132 03/25/2025 Weight 282.0 lbs 05/16/2025 BMI 49.95 kg/m2 05/16/2025 Procedures Procedure Date Ordered Date Performed Result Body Sit e Pulmonary Function Test 10/02/2024 11/21/2024 normal Encounters Encounter Location Date Provider Diagnosis [facility] [address] [place] [address] [id number] 10/17/2024 Luxdielicourtney Dominguezionseth [address] [id number] 10/24/[address] [id number] 10/31/2024 Edaniya Marinelli [address] [address] 05/16/2025 Nursing [facility] Morbid (severe) obesity due to excess calories E66.01 [facility] [address] [place] [address] [id number] 08/30/2024 Nursing [facility] Sheltered homelessness Z59.01 ; Encounter for screening for cardiovascular disorders Z13.6 ; Encounter for screening for respiratory tuberculosis Z11.1 ; Encounter for screening for infectious and parasitic diseases, unspecified Z11.9 ; Encounter for screening for other suspected endocrine disorder Z13.29 ; Encounter for screening for COVID-19 Z11.52 and Encounter for screening for depression Z13.[address] [address] 09/02/2024 Nursing [facility] Encounter for screening, unspecified Z13.[address] [address] 10/02/2024 Eddieliza Casionan Encounter for screening for [...] and Other forms of dyspnea R06.09 [facility] [address] [place] [address] [place] [id number] 10/10/2024 Eddieliza Casionseth [facility] [address] [place] [address] [place] [id number] 10/17/2024 Eddieliza Casionseth Prediabetes R73.03 ; Body mass index (BMI) 50-59.9 , adult Z68.43 ; Nicotine dependence, cigarettes, with other nicotine-induced disorders F17.218 and Person consulting for explanation of examination or test findings Z71.2 [facility] [address] [address] 12/03/2024 Mary Jernigan [facility] [address] [address] 12/31/2024 Mary Jernigan [address] [place] [address] 02/17/2025 Eddelfinaeliza Albertoionan Encounter for screening for COVID-19 Z11.52 ; Prediabetes R73.03 ; Polycystic ovarian syndrome E28.2 ; Body mass index (BMI) 50-59.9 , adult Z68.43 ; Essential (primary) hypertension I10 and Nicotine dependence, cigarettes, with other nicotine-induced disorders F17.[address] [address] 02/17/[address] [address] 02/21/2025 Nursing [facility] Encounter for screening, unspecified Z13.9 [facility] [address] [address] 02/27/2025 Matt Gomez [address] [address] 03/18/2025 [facility] Morbid (severe) obesity due to excess calories E66.[address] [address] 03/25/2025 Eddieliza Casionan Morbid (severe) obesity due to excess calories E66.[address] [address] 04/01/2025 Nursing [facility] Morbid (severe) obesity due to excess calories E66.[address] [address] 04/08/2025 Nursing [facility] Morbid (severe) obesity due to excess calories E66.[address] [address] 04/15/2025 Nursing [facility] Morbid (severe) obesity due to excess calories E66.[address] [address] 04/22/2025 Nursing [facility] Morbid (severe) obesity due to excess calories E66.[address] [address] 04/29/2025 [facility] Morbid (severe) obesity due to excess calories E66.01 and Body mass index (BMI) 50-59.9 , adult Z68.[address] [address] 05/06/2025 Nursing [facility] Morbid (severe) obesity due to excess calories E66.[address] [address] 08/30/2024 [facility] [address] [place] [id number] 10/22/2024 Eddieliza Casionan [address] [address] 11/05/2024 Eddieliza Casionan [address] [address] 02/17/2025 Eddieliza Casionan [address] [address] 04/08/2025 Eddieliza Casionan Morbid (severe) obesity due to excess calories E66.[address] [address] 04/25/2025 Eddieliza Casionan [address] [address] 05/13/2025 Eddieliza Casionan Morbid (severe) obesity due to [...] for next injection, pt. agrees with plan. 08/30/2024 Encounter for screening for cardiovascular disorders [...] calories (ICD-10 - E66.01) zepbound administered per electronics technician instruction and provider order. Skin prepped with [...] for next injection. Pt agrees with plan. 04/22/2025 Morbid (severe) obesity due to excess calories (ICD-10 - E66.01) Zepbound 2.5mg administered as ordered subcutaneously into lower right side of abdomen. Pt. advised to RTC in one week for next injection, pt. agrees with plan. 04/29/2025 Morbid (severe) obesity due to excess calories (ICD-10 - E66.01) Zepbound 2.5mg administered as ordered subcutaneously into lower right side of abdomen. Pt. advised to RTC in one week for next injection, pt. agrees with plan. 05/06/2025 Morbid (severe) obesity due to excess calories (ICD-10 - E66.01) PT presenting to clinic for zepbound injection per provider orders - abd skin prepped with alcohol injected SQ pt tolerated well. PT reports decrease in appetite, reports daily BM's no other concerns voiced at time of visit. Instructed to return in 1 week for injection 04/08/2025 Morbid (severe) obesity due to excess calories (ICD-10 - E66.01) 05/13/2025 Morbid (severe) obesity due to excess calories [...] syndrome (ICD-10 - E28.2) Has appt with CONSTRUCTION PLANT OPERATOR 04/29/2025 Body mass index (BMI) 50-59.9 , adult (ICD-10 - Z68.43) 08/30/2024 Encounter for screening for infectious and parasitic diseases, unspecified (ICD-10 - Z11.9) 10/02/2024 Essential (primary) hypertension (ICD-10 - I10) Elevated BP. She reports that she was on treatment in the past. Amlodipine Serious S/E discussed: chest pain, [place], hypotension, hepatitis, hypersensitivity reactions. Lesser S/E: peripheral [...] She agrees to schedule self with he CONSTRUCTION PLANT OPERATOR who seen has not seen for more [...] engaged in MH tx in community through [facility] and compliant with medications. 08/30/2024 Encounter for screening for COVID-19 (ICD-10 - Z11.52) Covid verbal screening negative. 10/02/2024 Sheltered homelessness (ICD-10 - Z59.01) Recently housed with [facility] 10/02/2024 Personal history of other infectious and [...] TSH CASCADE 08/30/2024 VITAMIN D, 25-HYDROXY 02/17/2025 COMPREHENSIVE METABOLIC PANEL 08/30/2024 TREPONEMA PALLIDUM ANTIBODY WITH REFLEX TO RPR AND PARTICLE AGGLUTINATION 08/30/2024 HEPATITIS C ANTIBODY 08/30/2024 MICROALBUMIN CREATININE URINE RATIO 10/2024 Next Appt Details Provider Name:Jaxon snider, 06/25/2025 09:30:00 AM, [address] [place] [address], [phone], Provider Name:Matt Marx i, 07/10/2025 02:00:00 PM, [address] [place] [address], [phone], Insurance Providers Payer Name Payer Address Payer Phone Subscriber Number Group Number Insured Name Patient Relationship to Insured Coverage Start Date Coverage End Date [facility] [address] [place] [phone] [facility] [id number] Annie Lazcano Self - patient is the insured 4 [place] Part [place] [employer] [address] [place] [address] [id number] Annie Lazcano Self - patient is the insured 5 [place] Medicaid Standard [address] [id number] Annie Lazcano Self - patient is the insured 5 [facility] [employer] [facility] [address] [place] [id number] Annie Lazcano Self - patient is the insured 4 Medications Administered Medication Instructions Date of Administration Dosage Notes UNCLASSIFIED DRUGS 03/18/2025 2.5 mg Zepbound 2.5 mg/0.5 mL Lot: [id number] [facility]: [id number] UNCLASSIFIED DRUGS 03/25/2025 2.5 mg Zepbound 2.5mg/0.5ml LOT [id number] EXP 10/29/2026 ND [id number] UNCLASSIFIED DRUGS 04/01/2025 2.5 mg Zepbound 2.5 mg/0.5 mL Lot: [id number] NDC: 0325-5772-53 UNCLASSIFIED DRUGS 04/08/2025 2.5 mg Zepbound 2.5 mg/0.5 mL Lot: [id number] NDC: 4693-2834-93 UNCLASSIFIED DRUGS 04/15/2025 5 mg Zepbound Lot [id number] Exp- 01/19/2027 [facility]- [id number] UNCLASSIFIED DRUGS 04/22/2025 5 mg Zepbound 2.5 mg/0.5 mL Lot: [id number] NDC: 5390-5326-15 UNCLASSIFIED DRUGS 04/29/2025 5 mg Zepbound 5 mg/0.5 mL Lot: [id number] NDC: 5649-6702-46 UNCLASSIFIED DRUGS 05/06/2025 5 mg LOT [id number] EXP 01-19-27 UNCLASSIFIED DRUGS 05/16/2025 7.5 mg Zepbound 7.5mg Lot: [id number] NDC: 8147-4973-52 Medical (General) History Medical History History ICD Code bipolar ptsd hypothroidism ASthma Arthritis High BP Smoker Surgical History Surgery Date(Month/Year) Part of cervix removed due t o presence of cancer cells - [facility] 2021 Hospitalization History Reason Date(Month/Year[place] [facility] [place]
== END 2025-05-21 10:02 | disposition home or self-care (01) ==
LOC: HO.HWS 09:40
PROVIDERS: Visit Provider Obstetrics & Gynecology
DX: Z20.2 Contact with and (suspected) exposure to infections with a predominantly sexual mode of transmission (principal)
CPT/HCPCS: 99213

== ENCOUNTER 2025-05-21 10:19 | Outpatient (REF) | payer OTHER, SELFPAY | END 2025-05-21 10:20 | disposition home or self-care (01) | LOC: HO.LNP 10:19 | PROVIDERS: Visit Provider Obstetrics & Gynecology | DX: Z13.89 Encounter for screening for other disorder (principal) ==